=== PATIENT | female | born 1970 | race Two or more races ===

== ENCOUNTER 2023-12-26 13:08 | Outpatient (REF) | payer OTHER, SELFPAY ==
--- NOTE | ~2023-12-26 | MR_ITS ---
EXAMINATION: MR LUMBAR SPINE WITHOUT CONTRAST CLINICAL INFORMATION: Radiculopathy. COMPARISON: None available. TECHNIQUE: MRI of the lumbar spine was obtained using routine sequences without contrast. FINDINGS: Normal anatomic alignment. Normal, homogeneous marrow signal throughout. No suspicious marrow edema. Mild to moderate degenerative disc disease at L5-S1. Mild disc desiccation from L2-L4. The vertebral body heights are well-maintained. The conus medullaris terminates at the level of L1. The distal spinal cord is normal in appearance. Mild subcutaneous edema within the posterior soft tissues the back below the level of S1. No additional significant abnormalities of the paraspinal musculature. There is a 0.8 cm T2 hyperintense cyst in the lower pole the left kidney. Otherwise, limited evaluation of the intra-abdominal structures without significant abnormalities. The abdominal aorta is of normal contour and caliber. AXIAL SPINAL LEVELS: L1-L2: Normal annular contour. There is mild bilateral facet joint arthropathy. There is no neural foraminal stenosis. There is no spinal canal stenosis. L2-L3: Normal annular contour. There is mild bilateral facet joint arthropathy. There is mild left and no right neural foraminal stenosis. There is no spinal canal stenosis. L3-L4: Mild diffuse disc bulge with superimposed shallow central disc protrusion. There is mild bilateral facet joint arthropathy. There is mild bilateral neural foraminal stenosis. There is mild spinal canal stenosis exacerbated by prominent dorsal epidural lipomatous tissue. L4-L5: Mild diffuse disc bulge. There is mild to moderate bilateral facet joint arthropathy. There is mild bilateral neural foraminal stenosis. There is narrowing of the subarticular zones with mild spinal canal stenosis centrally. L5-S1: Mild diffuse disc bulge with superimposed central/right subarticular disc protrusion. There is moderate right and mild left facet joint arthropathy. There is moderate bilateral neural foraminal stenosis. There is stenosis of the right worse than left subarticular zones with mild spinal canal stenosis centrally. MR/MR lumbar spine wo con IMPRESSION: Mild to moderate multilevel degenerative spondyloarthropathy of the lumbar spine as described in detail above. Most notably, there are mild spinal canal stenoses from L3-S1. Stenoses of the subarticular zones from L4-S1. Moderate neural foraminal stenoses at L5-S1.
== END 2023-12-26 13:09 | disposition home or self-care (01) ==
LOC: HO.MRI 13:08
PROVIDERS: Visit Provider Physician Assistant
DX: M54.17 Radiculopathy, lumbosacral region (principal)
CPT/HCPCS: 72148

== ENCOUNTER 2024-04-12 10:50 | Outpatient (AMB) | payer OTHER, SELFPAY ==
--- NOTE | 2024-04-12 10:54 | A.OFFVIS_ITS ---
Vital Signs 04/12/24 10:57 Height 5 ft Weight 160 lb 7.944 oz BMI 31.3 BP 116/70 Blood Pressure Location Rt brachial Position Sitting Pulse 105 H Pulse Source Pulse Oximeter Intake Visit Reasons: Type 2 DM/CONFIRMED Intake Note: New patient referred by PCP for Diabetes Management. Last Diabetic Eye exam: 2022, has yearly check ups Last Podiatry Visit: Does not see a Computer Analyst Random Glucose: 239 mg/dl HgA1C: 9.1% 03/20/2024 Seafood Service Team Member Required: Yes Seafood Service Team Member Language: Field Interviewer Services: Seafood Service Team Member Present Seafood Service Team Member Name: Gregoria [id number] Information Interpreted: non-clinical & clinical Accompanied by: Self / Same As Patient Allergies atorvastatin [From Lipitor] Adverse Reaction (Mild, Verified 04/12/24 10:59) Muscle Pain aspirin Adverse Reaction (Unknown, Verified 04/12/24 10:59) Rash dulaglutide [From Trulicity] Adverse Reaction (Unknown, Verified 04/12/24 10:59) Hives gabapentin Adverse Reaction (Unknown, Verified 04/12/24 10:59) Dizziness Tylenol codeine Adverse Reaction (Unknown, Uncoded 04/12/24 10:59) Nausea, Vomiting HPI Comments Details: This is a 53-year-old female with a past medical history of type 2 diabetes, CVA, microalbuminuria, COPD, severe asthma, GERD, obesity, hypertension and hyperlipidemia presenting for an endocrinology consult for diabetic management. Taiwanese video brim molder used. She was diagnosed with diabetes 8-10 years ago. She has a family history of Type II diabetes and Type I diabetes on both sides of the family. Her brother from diabetes. She has multiple families with Type I diabetes. HgA1C: 9.1% 03/20/2024. Current medication regimen: Jardiance 25 mg, Metformin 1000 mg BID. She was on 5 mg ER Glipizide, but she says it was discontinued because it was not helping. She tried Trulicity after her stroke. She developed diffuse pain and itchy hives after injection. Saw Dr. Boyle (rail transportation tabeler out of [place]) on TV, and she purchased Super Nopal and berberine supplements and started following a diabetic diet. She started this regimen 03/27/24. She does not have her glucometer with her today, but she reports the following BG readings: 161 this AM, POC 239. She drank coffee. Patient says it is never this high when she checks.. Fasting AM 130-140 Before lunch 120-130 Checks again at 5pm and BG is 150-160. She exercises (squats, leg lifts and other things). Compliance issues: She takes her medications every day. It is difficult for her to check her blood sugar because she's tested for so long. She has to try multiple fingers to get a reading a lot of the time. Patient has a heart murmur on exam. She does not recall being told this, but she said she had an echocardiogram 2 or 3 years ago at [facility] in [place] [address] following her stroke. She denies chest pain or shortness of breath. Diet: Breakfast-black coffee Lunch-salad, salmon, fruit depending on appetite Dinner- salad or soup or fruit Snacks/desserts: fruit (banana, pineapple or peach) Drinks water throughout the day and some diet coke. Does not drink alcohol. 1-3 cigarettes per day. Hypoglycemia symptoms: none Hyperglycemia symptoms: none Eye exam: last year Microvascular complications: nephropathy (microalbumin) Macrovascular complications: CVA (2020) Hyperlipidemia: treated with Zetia 10 mg. LDL at goal <100. ROS: Constitutional: No unexplained weight loss, fever, chills, fatigue or night sweats. Eyes: No vision changes, blurry vision, double vision, eye pain, eye redness, eye discharge. ENT: No hearing loss, sneezing, congestion, runny nose or sore throat. Respiratory: No shortness of breath, cough or sputum production. Cardiovascular: No chest pain, chest pressure or chest discomfort. No palpitations or pedal edema. Gastrointestinal: No anorexia, nausea, vomiting or diarrhea. No abdominal pain or blood in stool. Genitourinary: No dysuria, hematuria, urinary frequency. Neurologic: No headache, dizziness, syncope, unilateral weakness, ataxia, numbness or tingling in the extremities. Musculoskeletal: No muscle pain, back pain, joint pain or swelling. Hematologic/Lymphatics: No bleeding or bruising. No painful lymph nodes. Skin: No rash or itching. Endocrine: No cold or heat intolerance. No polyuria or polydipsia. Psychiatric: No depression or anxiety. No SI/HI. Physical exam: Constitutional: Alert, in no distress. Eyes: Pupils are equal, round and reactive to light. Extraocular muscles intact. Neck: Supple, Full range of motion. No lymphadenopathy. No palpable thyroid masses. Respiratory: Clear to auscultation. Cardiovascular: S1 S2 regular. II/ systolic murmur. Gastrointestinal: Abdomen soft, non-tender, non-distended. Normal bowel sounds. No palpable masses. Right foot: Warm and well perfused. No clubbing, cyanosis or edema. DP pulse 3+. Intact vibratory sensation. Intact sensation to monofilament. Left foot: Warm and well perfused. No clubbing, cyanosis or edema. DP pulse 3+. Intact vibratory sensation. Intact sensation to monofilament. 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 Lumbar degenerative disc disease Menorrhagia Severe persistent asthma Dysphagia S/P CVA (cerebrovascular accident) History of CVA (cerebrovascular accident) Surgical History History of bilateral ligation of fallopian tubes History of carpal tunnel repair Family History Mother Diabetes Father Diabetes Social History Alcohol intake: current Alcohol intake frequency: holidays/special occasions only Patient Tobacco Use Status: Current everyday Tobacco user Physical Exam Vital Signs: Last Vital Signs Pulse 105 H 04/12/24 10:57 BP 116/70 04/12/24 10:57 BMI result Body Mass Index 31.3 Results Reviewed Results Reviewed: Laboratory Last Values Glucose (Clinic) 239 mg/dL (60-115) H 04/12/24 11:09 03/21/2024 Creatinine 0.6 GFR greater than 60 mL/M IN Hemoglobin A1c 9.1% 11/27/2023 Microalbumin 13.5 Creatinine urine 30 Microalbumin/creatinine ratio 45 11/27/2023 LDL 48.6 Triglycerides 107 HDL 42 Assessment & Plan Assessment & Plan (1) Type II diabetes mellitus with renal manifestations: Code(s): E11.29 - Type 2 diabetes mellitus with other diabetic kidney complication Category: Medical Qualifiers: Diabetes mellitus custodial insulin use: without custodial use Diabetes mellitus complication detail: with diabetic microalbuminuria Qualified Code(s): E11.29 - Type 2 diabetes mellitus with other diabetic kidney complication; R80.9 - Proteinuria, unspecified (2) Diabetes mellitus with microalbuminuric diabetic nephropathy: Code(s): E11.21 - Type 2 diabetes mellitus with diabetic nephropathy Category: Medical (3) Heart murmur: Code(s): R01.1 - Cardiac murmur, unspecified Category: Medical Plan In summary this is a 53-year-old female with a past medical history of type 2 diabetes with micro/macrovascular complications with recently improved glycemic control after implementing lifestyle modifications. Continue Jardiance 25 mg daily. Continue metformin 1000 mg twice daily. Patient had an allergic reaction to GLP 1. I prescribed a CGM. I would like her to return in 4 weeks to review readings. CGM is medically necessary since she is having difficulty with fingerstick glucose checks (see HPI). If insurance does not cover it she will continue using her fingerstick glucometer and bring this with her to the next appointment. Based on readings we will decide if we need to add additional medication. I would consider Actos in this patient given history of CVA. She does have a murmur on exam so I would like to look at her prior echocardiogram to check the ejection fraction before initiating this medication. Records requested. We could also consider restarting glipizide and titrating it since she was only on 5 mg previously. Patient has mild microalbuminuria and would benefit from an CHAS inhibitor or Arb. I will discuss this with her further at her follow-up appointment. Patient endorses family history of type 1 diabetes so I will order antibody testing and C-peptide level. Discussed pathophysiology of Type II Diabetes Mellitus with the patient in detail.? I explained the intermediate frame tender risks and complications associated with unco ntrolled diabetes including nephropathy, neuropathy, peripheral vascular disease, retinopathy, increased risk of heart disease and stroke.? Discussed lifestyle modification with the patient. Recommended 30 minutes of moderately vigorous exercise 5 days per week to promote weight loss. Refer to dietitian. We reviewed treatment of hypo/hyperglycemia. Written instructions printed for patient. Glucose tablets sent to pharmacy. Follow up in 4 weeks for type 2 diabetes. Orders: Orders Glutamic acid decarboxylase Ab Today E11.9 - Type 2 diabetes mellitus without complications, Z83.3 - Family history of diabetes mellitus C Peptide Today E11.9 - Type 2 diabetes mellitus without complications, Z83.3 - Family history of diabetes mellitus Islet Cell Antibody Scrn/Titer Today E11.9 - Type 2 diabetes mellitus without complications, Z83.3 - Family history of diabetes mellitus Referrals Brush Fabrication Supervisor Nutrition Referral E11.29 - Type 2 diabetes mellitus with other diabetic kidney complication Medications: New blood-glucose sensor (Dexcom G7 Sensor device) apply new sensor every 10 days as directed 3 ea 11RF blood-glucose meter,continuous (Dexcom G7 Upsetter) As directed 1 ea 0RF glucose (Dex4 Glucose Quick Dissolve) until symptoms of low blood sugar are controlled 16 grams (4 x 4 gram) PO Q15M PRN 30 tabs 3RF hypoglycemia Patient Instructions: If you experience low blood sugar, treat this by eating a chewable fruit candy like skittles or jelly beans (about 8 pieces), 4 ounces (1/2 cup) of fruit juice (not diet), 1 tablespoon of honey or 4 glucose tablets. If your blood sugar is under 50, take double the amount of one of the above. Recheck your blood sugar in 15 minutes. Si experimenta un nivel bajo de az?car en la temitope, tr?telo comiendo un alva de fruta masticable susan bolos o gominolas (aproximadamente 8 piezas), 4 onzas (1/2 taza) de jugo de fruta (no diet?rikki), 1 cucharada de miel o 4 tabletas de glucosa. . Si rosen nivel de az?car en temitope es inferior a 50, tome el doble de javier de los anteriores. Vuelva a controlar rosen nivel de az?car en la temitope en 15 minutos. Coding Level of Care Code New Pt Level 5 (46508) Complex EM visit Add On G2211 Diagnoses Type 2 diabetes mellitus with diabetic microalbuminuria, without long-term current use of insulin E11.29; R80.9 Diabetes mellitus intermediate frame tender insulin use: without intermediate frame tender use Diabetes mellitus complication detail: with diabetic microalbuminuria Diabetes mellitus with microalbuminuric diabetic nephropathy E11.21 Heart murmur R01.1 Time Spent (min) 68 Comment Reviewing chart, direct patient care, completing documentation
[2024-04-12 10:57] VITALS: BP 116/70; PULSE 105; BMI 31.3
[2024-04-12 11:28] LABS: Glucose, Whole Blood 239 mg/dL (60-115)
== END 2024-04-12 12:16 | disposition home or self-care (01) ==
PROVIDERS: PCP Physician Assistant; Visit Provider Physician Assistant Medical
DX: E11.29 Type 2 diabetes mellitus with other diabetic kidney complication (principal); R80.9 Proteinuria, unspecified; E11.21 Type 2 diabetes mellitus with diabetic nephropathy; R01.1 Cardiac murmur, unspecified

== ENCOUNTER → 2024-04-12 10:50 | Outpatient (BNVA) | payer OTHER, SELFPAY | PROVIDERS: PCP Physician Assistant; Visit Provider Physician Assistant Medical | DX: E11.29 Type 2 diabetes mellitus with other diabetic kidney complication (principal); R80.9 Proteinuria, unspecified; E11.21 Type 2 diabetes mellitus with diabetic nephropathy; R01.1 Cardiac murmur, unspecified; Z79.84 Long term (current) use of oral hypoglycemic drugs | CPT/HCPCS: 82947; 99202 ==

== ENCOUNTER 2024-04-26 09:37 | Outpatient (REF) | payer OTHER, SELFPAY ==
[2024-05-01 07:29] LABS: C Peptide 2.58 ng/mL (0.80-3.85)
[2024-05-01 16:54] LABS: Glutamic acid decarboxylase Ab 50 IU/mL (<5)
[2024-05-07 23:29] LABS: Islet Cell Antibody Screen NEGATIVE (NEGATIVE)
== END 2024-04-26 09:38 | disposition home or self-care (01) ==
LOC: HO.10HDL 09:37
PROVIDERS: Visit Provider Physician Assistant Medical
DX: E11.9 Type 2 diabetes mellitus without complications (principal); Z83.3 Family history of diabetes mellitus
CPT/HCPCS: 36415; 84681; 86341

== ENCOUNTER 2024-04-26 09:48 | Outpatient (RCR) | payer OTHER, SELFPAY ==
[2024-04-26 10:01] VITALS: BP 147/68; PULSE 92; O2SAT 97
== END 2024-05-15 10:16 | disposition home or self-care (01) ==
LOC: HO.PT 09:48
PROVIDERS: PCP Physician Assistant; Visit Provider Physician Assistant
DX: R26.9 Unspecified abnormalities of gait and mobility (principal)
CPT/HCPCS: 97110; 97162

== ENCOUNTER 2024-05-06 09:40 | Outpatient (AMB) | payer OTHER, SELFPAY ==
--- NOTE | 2024-05-06 10:13 | A.OFFVIS_ITS ---
VS Expanded 05/06/24 10:15 05/16/24 12:22 Height 5 ft 5 ft Weight 156 lb 8.451 oz 157 lb BMI 30.6 30.7 Intake Visit Reasons: T2DM Allergies atorvastatin [From Lipitor] Adverse Reaction (Mild, Verified 05/14/24 08:57) Muscle Pain aspirin Adverse Reaction (Unknown, Verified 05/14/24 08:57) Rash dulaglutide [From Trulicity] Adverse Reaction (Unknown, Verified 05/14/24 08:57) Hives gabapentin Adverse Reaction (Unknown, Verified 05/14/24 08:57) Dizziness Tylenol codeine Adverse Reaction (Unknown, Uncoded 05/14/24 08:57) Nausea, Vomiting Nutrition Presentation Details: Pt presents for MNT for T2DM. Pt reports having one meal a day majority of the time food frequency: fruits: 1/d fish: 2-3 x/wk milk: 0-1/d fritters: 2 x/month beverages: coffee, diet beverages physical activity:d aily life activities etoh/smoking ----- BS Monitoring Most Recent Diabetes Results: No Data to Display BOQ-Xujcsom-As.Jeor Equation Height: 5 ft Weight: 157 lb Resting Metabolic Rate: 1242.17 Calculated Activity Level: Sedentary Calories Needed to Maintain Weight: 1490.60 Diagnosis Nutrition problem #1: food nutri know defi As related to (etiology) #1: diagnosis As evidenced by (sign/symptom) #1: knowledge deficit of diet [facility] Medical History (Updated 04/15/24 @ 17:00 by GERALDO Michel) Mild pulmonary valve regurgitation Heart murmur CTS (carpal tunnel syndrome) Mixed hyperlipidemia GERD (gastroesophageal reflux disease) Essential hypertension Tobacco use COPD (chronic obstructive pulmonary disease) 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 Lumbar degenerative disc disease Menorrhagia Severe persistent asthma Dysphagia S/P CVA (cerebrovascular accident) History of CVA (cerebrovascular accident) Surgical History History of bilateral ligation of fallopian tubes History of carpal tunnel repair Family History Mother Diabetes Father Diabetes Social History Alcohol intake: current Alcohol intake frequency: holidays/special occasions only Patient Tobacco Use Status: Current everyday Tobacco user Assessment & Plan Assessment & Plan (1) Type II diabetes mellitus with renal manifestations: Code(s): E11.29 - Type 2 diabetes mellitus with other diabetic kidney complication Category: Medical Qualifiers: Diabetes mellitus complication detail: with diabetic microalbuminuria Diabetes mellitus terminal supervisor insulin use: without senior care use Qualified Code(s ): E11.29 - Type 2 diabetes mellitus with other diabetic kidney complication; R80.9 - Proteinuria, unspecified Plan: Wt: 70 Kg ( 05/09 ) Est kcal needs as per MSJ: 1500 (40% carb, 30% protein/fat) Est fluid needs as per 25-30 ml/d: 2100 Est prot per day as per 1 g/kg bw: 70 Recommend fiber intake : 8-10 g per day and gradually increase to 25-28 g per day for women and 35-38 g for men or as tolerated Recommend sodium intake per day : l less than 2000 mg Educated patient on: ( R = reviewed V = verbalizes understanding N/R = needs review N/A = not applicable * Food sources of carbohydrate, adequate serving sizes and its role in various health conditions: R V N/R * Differences between complex carbohydrates a simple carbohydrates, role of fiber in diet: R V N/R * Lean protein sources of foods: R V NR * Differences between types of fats and role in diet (mono on saturated fat fatty acids, saturated fatty acids, trans fats): R V N/R * Food sources of sodium in salt and healthy modifications for heart health in kidney health: R V R/V * Vitamins and minerals: R V N/R * Healthy plate method concept: R * Physical activity: Benefits a precaution: R V N/R * Hypoglycemia protocol (rule of 15): R V N/R * Dietary prevention of Hyperglycemia: R Patient Instructions: Work on having 3 small meals per day following healthy plate method (less than 45 g carb per meal) Reduce on sugars (in beverage, pastries and similar foods) Read food labels Coding Level of Care Code Nutr Indiv Intake (16120) Diagnoses Type 2 diabetes mellitus with diabetic microalbuminuria, without long-term cu rrent use of insulin E11.29; R80.9 Diabetes mellitus complication detail: with diabetic microalbuminuria Diabetes mellitus terminal supervisor insulin use: without terminal supervisor use Time Spent (min) 30
[2024-05-06 10:15] VITALS: BMI 30.6
[2024-05-16 12:22] VITALS: BMI 30.7
== END 2024-05-06 10:44 | disposition home or self-care (01) ==
PROVIDERS: PCP Physician Assistant; Visit Provider Dietitian, Registered
DX: E11.29 Type 2 diabetes mellitus with other diabetic kidney complication (principal); R80.9 Proteinuria, unspecified

== ENCOUNTER → 2024-05-06 09:40 | Outpatient (BNVA) | payer OTHER, SELFPAY | PROVIDERS: PCP Physician Assistant; Visit Provider Dietitian, Registered | DX: E11.29 Type 2 diabetes mellitus with other diabetic kidney complication (principal); R80.9 Proteinuria, unspecified; Z71.3 Dietary counseling and surveillance | CPT/HCPCS: 97802 ==

== ENCOUNTER 2024-05-14 08:48 | Outpatient (AMB) | payer OTHER, SELFPAY ==
--- NOTE | 2024-05-14 08:51 | MHC.OFFVIS ---
Vital Signs 05/14/24 08:52 Height 5 ft Weight 160 lb 0.889 oz BMI 31.3 BP 150/70 H Blood Pressure Location Lt brachial Position Sitting Pulse 62 Pulse Source Pulse Oximeter Intake Visit Reasons: Type 2 DM-conf Intake Note: Patient presents today for D2MT follow up visit. Last Diabetic Eye exam: 01/2023 Last Podiatry Visit: Doesn't have one Random Glucose: 128 mg/dl HgA1c: 8.1% Stonecutter Required: Yes Stonecutter Language: Pan Operator Services: Stonecutter Present Stonecutter Name: Kristopher Information Interpreted: non-clinical & clinical Accompanied by: Self / Same As Patient Allergies atorvastatin [From Lipitor] Adverse Reaction (Mild, Verified 05/14/24 08:57) Muscle Pain aspirin Adverse Reaction (Unknown, Verified 05/14/24 08:57) Rash dulaglutide [From Trulicity] Adverse Reaction (Unknown, Verified 05/14/24 08:57) Hives gabapentin Adverse Reaction (Unknown, Verified 05/14/24 08:57) Dizziness Tylenol codeine Adverse Reaction (Unknown, Uncoded 05/14/24 08:57) Nausea, Vomiting Medication List - Last Reconciled 05/14/24 by Crista Mohr MD albuterol sulfate 90 mcg/actuation (Ventolin HFA) inhalation albuterol sulfate mg inhalation blood sugar diagnostic (FreeStyle Lite Strips) As directed blood-glucose meter (FreeStyle Lite Meter kit) As directed blood-glucose meter,continuous (Dexcom G7 Physical Therapy Supervisor) As directed blood-glucose sensor (Dexcom G7 Sensor device) apply new sensor every 10 days as directed clopidogrel 75 mg PO DAILY empagliflozin (Jardiance) 25 mg PO DAILY ezetimibe 10 mg PO DAILY fluticasone propion-salmeterol 500-50 mcg/dose (Wixela Inhub) inhalation glucose (Dex4 Glucose Quick Dissolve) 16 grams (4 x 4 gram) PO Q15M PRN ipratropium-albuterol 0.5 mg-3 mg(2.5 mg base)/3 mL mL inhalation medroxyprogesterone mg IM [id number] metformin ER 1,000 mg PO BID montelukast 10 mg PO DAILY pantoprazole 40 mg PO DAILY polyethylene glycol 3350 grams PO pravastatin 40 mg PO DAILY sennosides (senna) mg PO tiotropium bromide inhalation HPI Comments Details: This is a 53-year-old female with a past medical history of type 2 diabetes, CVA, microalbuminuria, COPD, severe asthma, GERD, obesity, hypertension and hyperlipidemia presenting for follow up for diabetic management. Guatemalan video sugar house supervisor used. HPI from prior visit She was diagnosed with diabetes 8-10 years ago. She has a family history of Type II diabetes and Type I diabetes on both sides of the family. Her brother from diabetes. She has multiple families with Type I diabetes. HgA1C: 9.1% 03/20/2024. POC A1c 05/14/24 8.1% Fasting today 146 Current medication regimen: Jardiance 25 mg, Metformin 1000 mg BID. Prior meds She was on 5 mg ER Glipizide, but she says it was discontinued because it was not helping. She tried Trulicity after her stroke. She developed diffuse pain and itchy hives after injection. Saw Dr. Boyle (refrigerator room clerk out of [place]) on TV, and she purchased Super Nopal and berberine supplements and started following a diabetic diet. She started this regimen 03/27/24. She does not have her glucometer with her today, but she reports the following BG readings: 161 this AM, POC 239. She drank coffee. Patient says it is never this high when she checks.. Fasting AM 130-140 Before lunch 120-130 Checks again at 5pm and BG is 150-160. She exercises (squats, leg lifts and other things). Compliance issues: She takes her medications every day. It is difficult for her to check her blood sugar because she's tested for so long. She has to try multiple fingers to get a reading a lot of the time. Echo 05/2022 showed mild pulmonic valve regurgitation and normal LVEF at [facility] in [place] following her stroke. She denies chest pain or shortness of breath. Diet: Breakfast-black coffee Lunch-salad, salmon, fruit depending on appetite Dinner- salad or soup or fruit Snacks/desserts: fruit (banana, pineapple or peach) Drinks water throughout the day and some diet coke. Does not drink alcohol. 1-3 cigarettes per day. Hypoglycemia symptoms: none Hyperglycemia symptoms: none Eye exam: 03/09 , no retinoapthy Microvascular complications: nephropathy (microalbumin) Macrovascular complications: CVA (2020) Hyperlipidemia: treated with Zetia 10 mg and pravastatin 40 mg daily LDL at goal <70. No platelet count or liver function to screen for MASLD with Fib 4 index Interval history No hypoglycemic episodes, no emergency room visits, no hospitalizations She was prescribed CGM at the last visit, still waiting to obtain it SMA ABGs: She is checking twice a day, fasting readings have been elevated in the 130s and even 150s. Bedtime readings mostly around 1 RAHDA and some readings of 100. Physical exam: Constitutional: Alert, in no distress. Eyes: Pupils are equal, round and reactive to light. Extraocular muscles intact. Neck: Supple, Full range of motion. No lymphadenopathy. No palpable thyroid masses. Respiratory: Clear to auscultation. Cardiovascular: S1 S2 regular. II/ systolic murmur. Gastrointestinal: Abdomen soft, non-tender, non-distended. Normal bowel sounds. No palpable masses. Right foot: checked 04/12/24 Warm and well perfused. No clubbing, cyanosis or edema. DP pulse 3+. Intact vibratory sensation. Intact sensation to monofilament. Left foot: checked 04/12/24Warm and well perfused. No clubbing, cyanosis or edema. DP pulse 3+. Intact vibratory sensation. Intact sensation to monofilament. Labs 03/21/2024 Creatinine 0.6 GFR greater than 60 mL/M IN Hemoglobin A1c 9.1% 11/27/2023 Microalbumin 13.5 Creatinine urine 30 Microalbumin/creatinine ratio 45 11/27/2023 LDL 48.6 Triglycerides 107 HDL 42 Laboratory Last Values Glucose (Clinic) 239 mg/dL (60-115) H 04/12/24 11:09 Laboratory Tests 04/12/24 04/26/24 11:09 09:40 Glucose (Clinic) 239 H C-Peptide 2.58 Islet Cell Ab Screen NEGATIVE Islet Cell Ab Titer TNP AMINA Antibody 50 H [facility] Medical History (Updated 04/15/24 @ 17:00 by GERALDO Michel) Mild pulmonary valve regurgitation Heart murmur CTS (carpal tunnel syndrome) Mixed hyperlipidemia GERD (gastroesophageal reflux disease) Essential hypertension Tobacco use COPD (chronic obstructive pulmonary disease) 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 Lumbar degenerative disc disease Menorrhagia Severe persistent asthma Dysphagia S/P CVA (cerebrovascular accident) History of CVA (cerebrovascular accident) Surgical History History of bilateral ligation of fallopian tubes History of carpal tunnel repair Family History Mother Diabetes Father Diabetes Social History Alcohol intake: current Alcohol intake frequency: holidays/special occasions only Patient Tobacco Use Status: Current everyday Tobacco user Physical Exam Vital Signs: Last Vital Signs Pulse 62 05/14/24 08:52 BP 150/70 H 05/14/24 08:52 BMI result Body Mass Index 31.3 Results AMB Hemoglobin A1c AMB Hemoglobin A1c 8.1 % Last Edit by ROB Khan on 05/14/24 09:10 Assessment & Plan Assessment & Plan (1) Type II diabetes mellitus with renal manifestations: Code(s): E11.29 - Type 2 diabetes mellitus with other diabetic kidney complication Category: Medical Qualifiers: Diabetes mellitus buttermilk drier operator insulin use: without buttermilk drier operator use Diabetes mellitus complication detail: with diabetic microalbuminuria Qualified Code(s): E11.29 - Type 2 diabetes mellitus with other diabetic kidney complication; R80.9 - Proteinuria, unspecified Plan: 53-year-old female with a past medical history of type 2 diabetes without long-term insulin use with complications of albuminuria, CVA with recently improved glycemic control after implementing lifestyle modifications. A1c from March 2024 at 9.1%, has come down to 8.1% on point of care checked today 05/14/2024. I praised the good work she is doing the improving her blood sugar control. She has been checking her blood sugars twice a day and her fastings have been elevated in the 140s some even in 160s. Her bedtime readings have been around 150s and some even in 200s.. At this time given A1c still above goal of less than 7%, I will add Actos 30 mg daily to her regimen. She has had a CVA in the past. She had an allergic reaction to Trulicity in the past. She is going to pick up man the prescription for her CGM which she reports has been approved by insurance in 2 days. She also has an elevated microalbumin/creatinine ratio 45 from November 2023, we will start her on Jaden inhibitor. Plan: Continue Jardiance 25 mg daily. Continue metformin 1000 mg twice daily. Patient had an allergic reaction to GLP 1. Start Actos 30 mg daily Start lisinopril 5 mg daily Continue monitoring blood sugars with fingersticks still she gets a CGM Ordered platelet count, liver panel to evaluate for metabolic dysfunction associated liver disease Stressed importance of lifestyle modification and diet, she recently saw our dietitian as well. Encouraged to walk daily at least 20-30 minutes. (2) Diabetes mellitus with microalbuminuric diabetic nephropathy: Code(s): E11.21 - Type 2 diabetes mellitus with diabetic nephropathy Category: Medical Plan: She also has an elevated microalbumin/creatinine ratio 45 from November 2023, we will start her on Jaden inhibitor. Plan: Start lisinopril 5 mg daily (3) Mixed hyperlipidemia: Code(s): E78.2 - Mixed hyperlipidemia Category: Medical Plan: LDL at goal less than 70 mg/dL given prior history of stroke, her age. Plan: -continue ezetimibe 10 mg daily -continue pravastatin 40 mg daily (4) Essential hypertension: Code(s): I10 - Essential (primary) hypertension Category: Medical Plan: She is not on any medications for her blood pressure. Blood pressure on her visits has been elevated in the 140s to 150 systolic. She also has microalbuminuria. Hence JADEN inhibitor would be a good choice for her. Plan: -start lisinopril 5 mg daily -BMP in 2 weeks Plan I spent 30 minutes in reviewing the record, seeing the patient and documenting in the medical record. Orders: Orders Basic Metabolic Panel 2 Weeks E11.21 - Type 2 diabetes mellitus with diabetic nephropathy, E11.29 - Type 2 diabetes mellitus with other diabetic kidney complication, E78.2 - Mixed hyperlipidemia, I10 - Essential (primary) hypertension, R80.9 - Proteinuria, unspecified Platelet Count 2 Weeks E11.21 - Type 2 diabetes mellitus with diabetic nephropathy, E11.29 - Type 2 diabetes mellitus with other diabetic kidney complication, E78.2 - Mixed hyperlipidemia, I10 - Essential (primary) hypertension, R80.9 - Proteinuria, unspecified AMB Hemoglobin A1c Today E11.29 - Type 2 diabetes mellitus with other diabetic kidney complication, R80.9 - Proteinuria, unspecified, Z13.9 - Encounter for screening, unspecified Liver Panel 2 Weeks E11.21 - Type 2 diabetes mellitus with diabetic nephropathy, E11.29 - Type 2 diabetes mellitus with other diabetic kidney complication, E78.2 - Mixed hyperlipidemia, I10 - Essential (primary) hypertension, R80.9 - Proteinuria, unspecified Medications: New pioglitazone (Actos) 30 mg PO DAILY 90 tabs 3RF lisinopril 5 mg PO DAILY 30 tabs 6RF Patient Instructions: -Start lisinopril 5 mg daily -start Actos 30 mg daily -continue pravastatin and ezetimibe as it is -Continue metformin, Jardiance as it is Do blood work in 2 weeks walk daily -Iniciar lisinopril 5 mg al d?a. -comenzar Actos 30 mg al d?a -continuar pravastatina y ezetimiba aleksander susan est?n Contin?e con metformina, Jardiance lo tiene. Hacer an?lisis de temitope en 2 semanas. caminar diarios Coding Level of Care Code Est Pt Level 4 (72922) Complex EM visit Add On G2211 Diagnoses Type 2 diabetes mellitus with diabetic microalbuminuria, without long-term current use of insulin E11.29; R80.9 Diabetes mellitus buttermilk drier operator insulin use: without buttermilk drier operator use Diabetes mellitus complication detail: with diabetic microalbuminuria Diabetes mellitus with microalbuminuric diabetic nephropathy E11.21 Mixed hyperlipidemia E78.2 Essential hypertension I10 Time Spent (min) 30
[2024-05-14 08:52] VITALS: BP 150/70; PULSE 62; BMI 31.3
[2024-05-14 10:59] LABS: Glucose, Whole Blood 128 mg/dL (60-115)
== END 2024-05-14 09:24 | disposition home or self-care (01) ==
LOC: HO.ENCR 08:48
PROVIDERS: PCP Physician Assistant; Visit Provider Student in an Organized Health Care Education/Training Program
DX: E11.29 Type 2 diabetes mellitus with other diabetic kidney complication (principal); R80.9 Proteinuria, unspecified; E11.21 Type 2 diabetes mellitus with diabetic nephropathy; E78.2 Mixed hyperlipidemia; I10 Essential (primary) hypertension; Z13.9 Encounter for screening, unspecified
CPT/HCPCS: 99214; G2211

== ENCOUNTER → 2024-05-14 08:48 | Outpatient (BNVA) | payer OTHER, SELFPAY | PROVIDERS: PCP Physician Assistant; Visit Provider Student in an Organized Health Care Education/Training Program | DX: E11.29 Type 2 diabetes mellitus with other diabetic kidney complication (principal); E11.21 Type 2 diabetes mellitus with diabetic nephropathy; R80.9 Proteinuria, unspecified; E78.2 Mixed hyperlipidemia; I10 Essential (primary) hypertension | CPT/HCPCS: 82947; 83036; 99212 ==

== ENCOUNTER 2024-08-16 08:35 | Outpatient (AMB) | payer OTHER, SELFPAY ==
--- NOTE | 2024-08-16 08:48 | A.OFFVIS_ITS ---
Vital Signs 08/16/24 08:51 08/16/24 09:29 Height 5 ft Weight 166 lb 10.711 oz BMI 32.5 BP 130/82 128/72 Blood Pressure Location Rt brachial Position Sitting Pulse 90 Pulse Source Pulse Oximeter Intake Visit Reasons: T2DM Intake Note: Patient present today to follow up on Type 2 Diabetes Mellitus. Last Diabetic Eye exam: approx 3 months Last Podiatry Visit: Doesn't have a Sampler And Test Preparer Random Glucose: 132 mg/dl HgA1C: 7.2% 08/16/2024 Electronic Sensing Equipment Assembler Required: Yes Electronic Sensing Equipment Assembler Language: Air Brake Worker Services: Electronic Sensing Equipment Assembler Present Electronic Sensing Equipment Assembler Name: Mario [id number] Information Interpreted: non-clinical & clinical Accompanied by: Self / Same As Patient Allergies atorvastatin [From Lipitor] Adverse Reaction (Mild, Verified 08/16/24 08:52) Muscle Pain aspirin Adverse Reaction (Unknown, Verified 08/16/24 08:52) Rash dulaglutide [From Trulicity] Adverse Reaction (Unknown, Verified 08/16/24 08:52) Hives gabapentin Adverse Reaction (Unknown, Verified 08/16/24 08:52) Dizziness Tylenol codeine Adverse Reaction (Unknown, Uncoded 08/16/24 08:52) Nausea, Vomiting HPI Comments Details: This is a 54-year-old female with a past medical history of type 2 diabetes, CVA, microalbuminuria, COPD, severe asthma, GERD, obesity, hypertension and hyperlipidemia presenting for follow up for diabetic management. Turkish video medical interpreter used: [id number] Mario. She was diagnosed with diabetes 8-10 years ago. She has a family history of Type II diabetes and Type I diabetes on both sides of the family. Her brother from diabetes. She has multiple families with Type I diabetes. HgA1C: 7.2% 08/16/2024 HgA1C: 9.1% 03/20/2024. POC A1c 05/14/24 8.1% Fasting today 146 She does not have the glucometer today. She reports the following: AM fasting 108-110. After dinner readings are 120s. No lows Current medication regimen: Jardiance 25 mg, Metformin 1000 mg BID and Actos 30 mg daily. Prior meds She was on 5 mg ER Glipizide, but she says it was discontinued because it was not helping. She tried Trulicity after her stroke. She developed diffuse pain and itchy hives after injection. She exercises (squats, leg lifts and other things). Echo 05/2022 showed mild pulmonic valve regurgitation and normal LVEF at [facility] in [place] following her stroke. She denies chest pain or shortness of breath. Hypoglycemia symptoms: none Hyperglycemia symptoms: none Eye exam: 03/09 , no retinoapthy Microvascular complications: nephropathy (microalbumin) Macrovascular complications: CVA (2020) Hyperlipidemia: treated with Zetia 10 mg and pravastatin 40 mg daily LDL at goal <70. Patient reminded to have lab orders completed. ROS: Constitutional: No unexplained weight loss, fever, chills, fatigue or night sweats. Respiratory: No shortness of breath, cough or sputum production. Cardiovascular: No chest pain, chest pressure or chest discomfort. No palpitations or pedal edema. Gastrointestinal: No anorexia, nausea, vomiting or diarrhea. No abdominal pain or blood in stool. Neurologic: No headache, dizziness, syncope Endocrine: No cold or heat intolerance. No polyuria or polydipsia. Physical exam: Constitutional: Alert, in no distress. Eyes: Pupils are equal, round and reactive to light. Extraocular muscles intact. Neck: Supple, Full range of motion. No lymphadenopathy. No palpable thyroid masses. Respiratory: Clear to auscultation. Cardiovascular: S1 S2 regular. II/ systolic murmur. 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 Lumbar degenerative disc disease Menorrhagia Severe persistent asthma Dysphagia S/P CVA (cerebrovascular accident) History of CVA (cerebrovascular accident) Surgical History History of bilateral ligation of fallopian tubes History of carpal tunnel repair Family History Mother Diabetes Father Diabetes Social History Alcohol intake: current Alcohol intake frequency: holidays/special occasions only Patient Tobacco Use Status: Current everyday Tobacco user Physical Exam Vital Signs: Last Vital Signs Pulse 90 08/16/24 08:51 BP 128/72 08/16/24 09:29 BMI result Body Mass Index 32.5 Results AMB Hemoglobin A1c AMB Hemoglobin A1c 7.2 % Last Edit by ROB Mendez on 09:07 Results Reviewed Results Reviewed: Laboratory Last Values Glucose (Clinic) 132 mg/dL (60-115) H 08/16/24 08:58 Hgb A1c (Clinic) 7.2 % (4.0-6.0) H 08/16/24 09:00 03/21/2024 Creatinine 0.6 GFR greater than 60 mL/M IN Hemoglobin A1c 9.1% 11/27/2023 Microalbumin 13.5 Creatinine urine 30 Microalbumin/creatinine ratio 45 11/27/2023 LDL 48.6 Triglycerides 107 HDL 42 Assessment & Plan Assessment & Plan (1) Type II diabetes mellitus with renal manifestations: Code(s): E11.29 - Type 2 diabetes mellitus with other diabetic kidney complication Category: Medical Qualifiers: Diabetes mellitus complication detail: with diabetic microalbuminuria Diabetes mellitus assisted insulin use: without intermediate teacher use Qualified Code(s): E11.29 - Type 2 diabetes mellitus with other diabetic kidney complication; R80.9 - Proteinuria, unspecified Plan: In summary this is a 54-year-old female with a past medical history of type 2 diabetes with micro/macrovascular complications with recently improved glycemic control after implementing lifestyle modifications. Diabetes now controlled per home glucose readings. She will bring her gl ucometer to her next appointment. Continue Jardiance 25 mg daily. Continue Actos 30 mg daily. Continue metformin 1000 mg twice daily. Patient had an allergic reaction to GLP 1. Discussed pathophysiology of Type II Diabetes Mellitus with the patient in detail.? I explained the assisted risks and complications associated with uncontrolled diabetes including nephropathy, neuropathy, peripheral vascular disease, retinopathy, increased risk of heart disease and stroke.? Discussed lifestyle modification with the patient. Recommended 30 minutes of moderately vigorous exercise 5 days per week to promote weight loss. Refer to dietitian. We reviewed treatment of hypo/hyperglycemia. Follow up in 3 months for type 2 diabetes. Orders: Orders AMB Hemoglobin A1c Today E11.29 - Type 2 diabetes mellitus with other diabetic kidney complication, R80.9 - Proteinuria, unspecified Coding Level of Care Code Est Pt Level 4 (88009) Complex EM visit Add On G2211 Diagnoses Type 2 diabetes mellitus with diabetic microalbuminuria, without long-term current use of insulin E11.29; R80.9 Diabetes mellitus complication detail: with diabetic microalbuminuria Diabetes mellitus intermediate teacher insulin use: without assisted use
[2024-08-16 08:51] VITALS: BP 130/82; PULSE 90; BMI 32.5
[2024-08-16 09:02] LABS: Glucose, Whole Blood 132 mg/dL (60-115)
[2024-08-16 09:29] VITALS: BP 128/72
== END 2024-08-16 09:34 | disposition home or self-care (01) ==
PROVIDERS: PCP Physician Assistant; Visit Provider Physician Assistant Medical
DX: E11.29 Type 2 diabetes mellitus with other diabetic kidney complication (principal); R80.9 Proteinuria, unspecified

== ENCOUNTER → 2024-08-16 08:35 | Outpatient (BNVA) | payer OTHER, SELFPAY | PROVIDERS: PCP Physician Assistant; Visit Provider Physician Assistant Medical | DX: E11.29 Type 2 diabetes mellitus with other diabetic kidney complication (principal); R80.9 Proteinuria, unspecified | CPT/HCPCS: 82947; 83036; 99212 ==

== ENCOUNTER 2024-11-12 09:13 | Outpatient (AMB) | payer OTHER, SELFPAY ==
--- NOTE | 2024-11-12 09:19 | MHC.OFFVIS ---
Vital Signs 11/12/24 09:21 11/12/24 10:18 Height 5 ft Weight 173 lb 15.115 oz BMI 34.0 BP 144/74 H 128/68 Blood Pressure Location Rt brachial Position Sitting Pulse 101 H 88 Pulse Source Pulse Oximeter Pulse Oximetry (%) 98 Oxygen Delivery Method Room Air Intake Visit Reasons: T2DM Intake Note: Patient present today to follow up on Type 2 Diabetes Mellitus. Patient c/o of weight gain and will like to discuss options. Last Diabetic Eye exam: approx 6 months Last Podiatry Visit: Doesn't have a Pmo Consultant Random Glucose: 156 mg/dl HgA1C: 7.6% 11/12/2024 Podiatrist Assistant Required: Yes Podiatrist Assistant Language: Tax Clerk Services: Podiatrist Assistant Present Podiatrist Assistant Name: Dayanara [id number] Information Interpreted: non-clinical & clinical Accompanied by: Self / Same As Patient Allergies atorvastatin [From Lipitor] Adverse Reaction (Mild, Verified 11/12/24 09:22) Muscle Pain aspirin Adverse Reaction (Unknown, Verified 11/12/24 09:22) Rash dulaglutide [From Trulicity] Adverse Reaction (Unknown, Verified 11/12/24 09:22) Hives gabapentin Adverse Reaction (Unknown, Verified 11/12/24 09:22) Dizziness Tylenol codeine Adverse Reaction (Unknown, Uncoded 11/12/24 09:22) Nausea, Vomiting HPI Comments Details: This is a 54-year-old female with a past medical history of type 2 diabetes, CVA, microalbuminuria, COPD, severe asthma, GERD, obesity, hypertension and hyperlipidemia presenting for follow up for diabetic management. She was diagnosed with diabetes 8-10 years ago. Hemoglobin A1c 7.6% today. HgA1C: 7.2% 08/16/2024 HgA1C: 9.1% 03/20/2024. Reviewed glucometer download She is in range 72% Highest reading to 292. Lowest reading 118. 171 mg/dL average glucose. 2.1 readings per day. She has hyperglycemia in the evening and overnight Current medication regimen: Jardiance 25 mg, Metformin 1000 mg BID and Actos 30 mg daily. She says she is gaining weight since starting Actos though she is eating less. Prior meds She was on 5 mg ER Glipizide, but she says it was discontinued because it was not helping. She tried Trulicity after her stroke. She developed diffuse pain and itchy hives after injection. She exercises (squats, leg lifts and other things). Echo 05/2022 showed mild pulmonic valve regurgitation and normal LVEF at [facility] in [place] following her stroke. She denies chest pain or shortness of breath. Hypoglycemia symptoms: none Hyperglycemia symptoms: none Eye exam: 02/2024 , no retinoapthy Microvascular complications: nephropathy (microalbumin) Macrovascular complications: CVA (2020) Hyperlipidemia: treated with Zetia 10 mg and pravastatin 40 mg daily LDL at goal <70. Patient reminded to have lab orders completed. ROS: Constitutional: No unexplained weight loss, fever, chills, fatigue or night sweats. Respiratory: No shortness of breath, cough or sputum production. Cardiovascular: No chest pain, chest pressure or chest discomfort. No palpitations or pedal edema. Gastrointestinal: No anorexia, nausea, vomiting or diarrhea. No abdominal pain or blood in stool. Neurologic: No headache, dizziness, syncope Endocrine: No cold or heat intolerance. No polyuria or polydipsia. Physical exam: Constitutional: Alert, in no distress. Eyes: Pupils are equal, round and reactive to light. Extraocular muscles intact. Neck: Supple, Full range of motion. No lymphadenopathy. No palpable thyroid masses. Respiratory: Clear to auscultation. Cardiovascular: S1 S2 regular. II/ systolic murmur. 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 Lumbar degenerative disc disease Menorrhagia Severe persistent asthma Dysphagia S/P CVA (cerebrovascular accident) History of CVA (cerebrovascular accident) Surgical History History of bilateral ligation of fallopian tubes History of carpal tunnel repair Family History Mother Diabetes Father Diabetes Social History Alcohol intake: current Alcohol intake frequency: holidays/special occasions only Patient Tobacco Use Status: Current everyday Tobacco user Physical Exam Vital Signs: Last Vital Signs Pulse 101 H 11/12/24 09:21 BP 144/74 H 11/12/24 09:21 Pulse Ox 98 11/12/24 09:21 Oxygen Delivery Method Room Air 11/12/24 09:21 BMI result Body Mass Index 34.0 Results AMB Hemoglobin A1c AMB Hemoglobin A1c 7.6 % Last Edit by ROB Mendez on 11/12/24 09:43 Results Reviewed Results Reviewed: Laboratory Last Values Glucose (Clinic) 156 mg/dL (60-115) H 11/12/24 09:30 Hgb A1c (Clinic) 7.6 % (4.0-6.0) H 11/12/24 09:33 Assessment & Plan Assessment & Plan (1) Type II diabetes mellitus with renal manifestations: Code(s): E11.29 - Type 2 diabetes mellitus with other diabetic kidney complication Category: Medical Qualifiers: Diabetes mellitus complication detail: with diabetic microalbuminuria Diabetes mellitus [facility] insulin use: without [facility] use Qualified Code(s): E11.29 - Type 2 diabetes mellitus with other diabetic kidney complication; R80.9 - Proteinuria, unspecified Plan: In summary this is a 54-year-old female with a past medical history of type 2 diabetes with micro/macrovascular complications with suboptimal glycemic control with concerns about weight gain on Actos. Today: Continue Jardiance 25 mg daily. Continue Actos 30 mg daily. Continue metformin 1000 mg twice daily. We discussed the recommendation is to start insulin though she was initially concerned about potential side effects and low blood sugars. She was also worried because she previously had an allergic reaction to Trulicity. We discussed the differences between the medications. We also discussed it is possible to have an allergic reaction to any new medication though reactions to insulin are not common. We agreed to the following plan: Once you have the continuous glucose monitor (reader machine and sensors) call the office to set up the appointment with the nurse informatics educator to show you how to use this. Once you are using the continuous glucose monitor, start Lantus 4 units every evening and decrease Actos to 15 mg daily. Continue Jardiance 25 mg daily and Metformin 1000 mg twice daily. We will continue to titrate Lantus for glycemic control and taper off Actos if her weight does not decrease though it may be difficult to lose weight on insulin as well. Discussed pathophysiology of Type II Diabetes Mellitus with the patient in detail.? I explained the [facility] risks and complications associated with uncontrolled diabetes including nephropathy, neuropathy, peripheral vascular disease, retinopathy, increased risk of heart disease and stroke.? Discussed lifestyle modification with the patient. Recommended 30 minutes of moderately vigorous exercise 5 days per week to promote weight loss. Refer to dietitian. We reviewed treatment of hypo/hyperglycemia. Written instructions provided to the patient. Follow up in 4 weeks for type 2 diabetes. Plan Follow up in 4 weeks for type 2 diabetes. Orders: Orders AMB Hemoglobin A1c Today E11.29 - Type 2 diabetes mellitus with other diabetic kidney complication, R80.9 - Proteinuria, unspecified Aspartate Amino Transferase Today E11.29 - Type 2 diabetes mellitus with other diabetic kidney complication, R80.9 - Proteinuria, unspecified Platelet Count Today E11.9 - Type 2 diabetes mellitus without complications Vitamin B12 Today Z91.89 - Other specified personal risk factors, not elsewhere classified Microalbumin, Random (w Creat) Today E11.9 - Type 2 diabetes mellitus without complications Alanine Aminotransferase Today R79.89 - Other specified abnormal findings of blood chemistry Lipid Panel Today E78.5 - Hyperlipidemia, unspecified Medications: New pen needle, diabetic As directed to inject insulin once daily. 100 ea 5RF blood-glucose,silk weaver,cont (FreeStyle Edmund 3 Gillespie) Use daily to monitor blood glucose levels continuously. 1 ea 0RF E11.29 - Type 2 diabetes mellitus with other diabetic kidney complication, R80.9 - Proteinuria, unspecified blood-glucose sensor (FreeStyle Edmund 3 Plus Sensor device) Apply 1 new sensor every 15 days as directed to monitor blood glucose continuously. 2 ea 11RF E11.29 - Type 2 diabetes mellitus with other diabetic kidney complication, R80.9 - Proteinuria, unspecified blood-glucose sensor (FreeStyle Edmund 3 Plus Sensor device) Apply 1 new sensor every 15 days as directed to monitor blood glucose continuously. 2 ea 11RF E11.29 - Type 2 diabetes mellitus with other diabetic kidney complication, R80.9 - Proteinuria, unspecified blood-glucose,silk weaver,cont (FreeStyle Edmund 3 Gillespie) Use daily to monitor blood glucose levels continuously. 1 ea 0RF E11.29 - Type 2 diabetes mellitus with other diabetic kidney complication, R80.9 - Proteinuria, unspecified blood-glucose meter (FreeStyle Lite Meter kit) As directed to check blood sugar. 1 ea 0RF E11.21 - Type 2 diabetes mellitus with diabetic nephropathy pioglitazone (Actos) Replaces Actos 30 mg daily. 15 mg PO DAILY 90 tabs 0RF insulin glargine (Lantus Solostar U-100 Insulin) 4 units (0.04 mL) subcut QPM 15 mL 3RF blood-glucose sensor (FreeStyle Edmund 3 Plus Sensor device) Apply 1 new sensor every 15 days as directed to monitor blood glucose continuously. 2 ea 11RF E11.29 - Type 2 diabetes mellitus with other diabetic kidney complication, R80.9 - Proteinuria, unspecified blood-glucose,silk weaver,cont (FreeStyle Edmund 3 Gillespie) Use daily to monitor blood glucose levels continuously. 1 ea 0RF E11.29 - Type 2 diabetes mellitus with other diabetic kidney complication, R80.9 - Proteinuria, unspecified Discontinued pioglitazone (Actos) Discontinued Reason: Doctor's Order 30 mg PO DAILY 90 tabs 3RF Patient Instructions: Continue Jardiance 25 mg daily. Continue Actos 30 mg daily. Continue metformin 1000 mg twice daily. Once you have the continuous glucose monitor (reader machine and sensors) call the office to set up the appointment with the nurse informatics educator to show you how to use this. Once you are using the continuous glucose monitor, start Lantus 4 units every evening and decrease Actos to 15 mg daily. Continue Jardiance 25 mg daily and Metformin 1000 mg twice daily. If you experience low blood sugar, treat this by eating a chewable fruit candy like skittles or jelly beans (about 8 pieces), 4 ounces (1/2 cup) of fruit juice (not diet), 1 tablespoon of honey or 4 glucose tablets. If your blood sugar is under 55, take double the amount of one of the above. Recheck your blood sugar in 15 minutes. Contin?e con Jardiance 25 mg al d?a. Contin?e con Actos 30 mg al d?a. Contin?e con metformina 1000 mg dos veces al d?a. Joyce vez que tenga el monitor continuo de glucosa (lector y sensores), llame a la oficina para programar joyce nora con el educador en diabetes, quien le mostrar? c?mo usarlo. Joyce vez que est? usando el monitor continuo de glucosa, comience con Lantus 4 unidades cada noche y reduzca la dosis de Actos a 15 mg al d?a. Contin?e con Jardiance 25 mg al d?a y metformina 1000 mg dos veces al d?a. Si experimenta niveles bajos de az?car en la temitope, tr?telo comiendo un caramelo masticable de fruta susan Skittles o Jelly Beans (aproximadamente 8 piezas), 113 ml (1/2 taza) de jugo de fruta (no de dieta), 1 cucharada de miel o 4 tabletas de glucosa. Si rosen nivel de az?car en la temitope es inferior a 55, tome el doble de la cantidad de javier de los anteriores. Vuelva a medir rosen nivel de az?car en la temitope en 15 minutos. Coding Level of Care Code Est Pt Level 5 (13809) Complex EM visit Add On G2211 Diagnoses Type 2 diabetes mellitus with diabetic microalbuminuria, without long-term current use of insulin E11.29; R80.9 Diabetes mellitus complication detail: with diabetic microalbuminuria Diabetes mellitus terminal block assembler insulin use: without [facility] use Time Spent (min) 50 Comment Direct patient care, discussing medications, completing documentation
[2024-11-12 09:21] VITALS: BP 144/74; PULSE 101; O2SAT 98; BMI 34.0
[2024-11-12 09:35] LABS: Glucose, Whole Blood 156 mg/dL (60-115)
[2024-11-12 10:18] VITALS: BP 128/68; PULSE 88
== END 2024-11-12 10:24 | disposition home or self-care (01) ==
LOC: HO.ENCR 09:13
PROVIDERS: Visit Provider Physician Assistant Medical
DX: E11.29 Type 2 diabetes mellitus with other diabetic kidney complication (principal); R80.9 Proteinuria, unspecified

== ENCOUNTER → 2024-11-12 09:13 | Outpatient (BNVA) | payer OTHER, SELFPAY | PROVIDERS: Visit Provider Physician Assistant Medical | DX: E11.29 Type 2 diabetes mellitus with other diabetic kidney complication (principal); E11.21 Type 2 diabetes mellitus with diabetic nephropathy; R80.9 Proteinuria, unspecified; R79.89 Other specified abnormal findings of blood chemistry; Z79.4 Long term (current) use of insulin; Z91.89 Other specified personal risk factors, not elsewhere classified | CPT/HCPCS: 82947; 83036; 99212 ==

== ENCOUNTER 2024-12-10 09:15 | Outpatient (AMB) | payer OTHER, SELFPAY ==
--- NOTE | 2024-12-10 09:34 | A.OFFVIS_ITS ---
Vital Signs 12/10/24 09:36 Height 5 ft Weight 171 lb 1.259 oz BMI 33.4 BP 128/70 Blood Pressure Location Rt brachial Position Sitting Pulse 94 Pulse Source Pulse Oximeter Pulse Oximetry (%) 96 Intake Visit Reasons: T2DM Intake Note: Patient present today to follow up on Type 2 Diabetes Mellitus. Last Diabetic Eye exam: approx 6-7 months ago Last Podiatry Visit: Doesn't have a Lpn Rn Random Glucose: 153 mg/dl HgA1C: 7.6% 11/12/2024 Sprayer Machine Required: Yes Sprayer Machine Language: Performance Architect Services: Sprayer Machine Present Sprayer Machine Name: Edvin [id number] Information Interpreted: non-clinical & clinical Accompanied by: Self / Same As Patient Allergies atorvastatin [From Lipitor] Adverse Reaction (Mild, Verified 12/10/24 09:37) Muscle Pain aspirin Adverse Reaction (Unknown, Verified 12/10/24 09:37) Rash dulaglutide [From Trulicity] Adverse Reaction (Unknown, Verified 12/10/24 09:37) Hives gabapentin Adverse Reaction (Unknown, Verified 12/10/24 09:37) Dizziness Tylenol codeine Adverse Reaction (Unknown, Uncoded 12/10/24 09:37) Nausea, Vomiting HPI Comments Details: This is a 54-year-old female with a past medical history of type 2 diabetes, CVA, microalbuminuria, COPD, severe asthma, GERD, obesity, hypertension and hyperlipidemia presenting for follow up for diabetic management. She was diagnosed with diabetes 8-10 years ago. Hemoglobin A1c 7.6% 11/12/2024. HgA1C: 7.2% 08/16/2024 HgA1C: 9.1% 03/20/2024. She forgot her glucometer today. She checks her blood sugar in the morning and evening, and she reports blood sugars are between 100-130. Denies sugars over 180 or less than 70. Current medication regimen: Lantus 4 units every evening. Jardiance 25 mg, Metformin 1000 mg BID and Actos 15 mg daily (reduced at last visit due to weight gain, and she has lost a couple of lb since then) Previous meds: She was on 5 mg ER Glipizide, but she says it was discontinued because it was not helping. She tried Trulicity after her stroke. She developed diffuse pain and itchy hives after injection. She exercises (squats, leg lifts and other things). Echo 05/2022 showed mild pulmonic valve regurgitation and normal LVEF at [facility] in [place] following her stroke. She denies chest pain or shortness of breath. Hypoglycemia symptoms: none Hyperglycemia symptoms: none Eye exam: 02/2024 , no retinoapthy Microvascular complications: nephropathy (microalbumin) Macrovascular complications: CVA (2020) Hyperlipidemia: treated with Zetia 10 mg and pravastatin 40 mg daily LDL at goal <70. She is going to have her lab work done today. ROS: Constitutional: No unexplained weight loss, fever, chills, fatigue or night sweats. Respiratory: No shortness of breath, cough or sputum production. Cardiovascular: No chest pain, chest pressure or chest discomfort. No palpitations or pedal edema. Gastrointestinal: No anorexia, nausea, vomiting or diarrhea. No abdominal pain or blood in stool. Neurologic: No headache, dizziness, syncope Endocrine: No cold or heat intolerance. No polyuria or polydipsia. Physical exam: Constitutional: Alert, in no distress. Eyes: Pupils are equal, round and reactive to light. Extraocular muscles intact. Neck: Supple, Full range of motion. No lymphadenopathy. No palpable thyroid masses. Respiratory: Clear to auscultation. Cardiovascular: S1 S2 regular. II/ systolic murmur. 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 Lumbar degenerative disc disease Menorrhagia Severe persistent asthma Dysphagia S/P CVA (cerebrovascular accident) History of CVA (cerebrovascular accident) Surgical History History of bilateral ligation of fallopian tubes History of carpal tunnel repair Family History Mother Diabetes Father Diabetes Social History Alcohol intake: current Alcohol intake frequency: holidays/special occasions only Patient Tobacco Use Status: Current everyday Tobacco user Physical Exam Vital Signs: Last Vital Signs Pulse 94 12/10/24 09:36 BP 128/70 12/10/24 09:36 Pulse Ox 96 12/10/24 09:36 BMI result Body Mass Index 33.4 Results Reviewed Results Reviewed: 03/21/2024 Creatinine 0.6 GFR greater than 60 mL/M IN Hemoglobin A1c 9.1% 11/27/2023 Microalbumin 13.5 Creatinine urine 30 Microalbumin/creatinine ratio 45 11/27/2023 LDL 48.6 Triglycerides 107 HDL 42 Assessment & Plan Assessment & Plan (1) Type II diabetes mellitus with renal manifestations: Code(s): E11.29 - Type 2 diabetes mellitus with other diabetic kidney complication Category: Medical Qualifiers: Diabetes mellitus technician terminal and repeater insulin use: without [facility] use Diabetes mellitus complication detail: with diabetic microalbuminuria Qualified Code(s): E11.29 - Type 2 diabetes mellitus with other diabetic kidney complication; R80.9 - Proteinuria, unspecified Plan: In summary this is a 54-year-old female with a past medical history of type 2 diabetes with micro/macrovascular complications. Continue Lantus 4 units nightly. Continue Jardiance 25 mg daily. Continue Actos 15 mg daily. We will monitor her weight and recheck in a month. Continue metformin 1000 mg twice daily. The Dexcom G7 was sent to her pharmacy as it was approved in March. The patient says it has not been dispensed yet so I sent a message to check with the pharmacy about this. When she receives it she was instructed to call the office to schedule an appointment with the staff educator to set it up. We reviewed treatment of hypo/hyperglycemia. Written instructions provided to the patient. Follow up in 4 weeks for type 2 diabetes. Plan Follow up in 4 weeks for type 2 diabetes. Medications: Refilled pen needle, diabetic As directed to inject insulin once daily. 100 ea 5RF Patient Instructions: Medication regimen: Lantus 4 units every evening Jardiance 25 mg Metformin 1000 mg BID Actos 15 mg daily Medications: Lantus 4 unidades cada noche Jardiance 25 mg Metformina 1000 mg dos veces al d?a Actos 15 mg al d?a Cuando reciba el sensor y el lector Dexcom, llame a la oficina para programar joyce nora para configurarlo con Zulay. Coding Level of Care Code Est Pt Level 4 (82778) Complex EM visit Add On G2211 Diagnoses Type 2 diabetes mellitus with diabetic microalbuminuria, without long-term current use of insulin E11.29; R80.9 Diabetes mellitus [facility] insulin use: without [facility] use Diabetes mellitus complication detail: with diabetic microalbuminuria
[2024-12-10 09:36] VITALS: BP 128/70; PULSE 94; O2SAT 96; BMI 33.4
--- OUTSIDE RECORDS SUMMARY | 2024-12-10 09:50 | XMS_ITS | Patient Health Record ---
Author Organization [facility] Address [address], [place] [id number] Care Team Providers Care Chief Engineer Waterworks Name Role Phone [facility] U navailable [facility] Unavailable [phone] Allergies Allergen (clinical drug ingredient) Drug/Non Drug Allergy documented on EMR Reaction Allergy Type Onset Date Status aspirin aspirin (uncoded) Unknown Allergy Ac tive gabapentin gabapentin (uncoded) Unknown Allergy Active acetaminophen / codeine acetaminophen-co deine (uncoded) Unknown Allergy Active atorvastatin lipitor (uncoded) Unknown Allergy Active Reason For Referral No Information Medications Medication SIG (Take, Route, Frequency, Duration) Notes Start Date End Date Status Singulair 10 mg 1 tab(s) orally once a day (in the evening) Active Protonix 40 mg 1 tab(s) orally once a day Active Vitamin D3 5000 intl units 1 cap(s) orally once a day for 30 day(s) 03/24/2015 Active metFORMIN 500 mg 1 tab(s) orally 2 ti mes a day Active Depo-Provera Contraceptive 150 mg/mL 1 mL intramuscularly once 04/30/2014 Active albuterol CFC free 90 mcg/inh 2 puff(s) inhaled 4 times a day 07/01/2014 Active ZyrTEC 10 mg 1 tab(s) orally once a day for 30 day(s) 02/20/2015 Active Immunizations Vaccine Route Administration Date Status Comme nts Td Unknown 03/18/2015 Administered Social History Tobacco Use: Social History Observation Description Date Details (start date - stop date) Current Smoker NA - NA Tobacco Use Assessment MU Question Answer Notes What is your current smoking status? current smo ker How often do you smoke? every day How many cigarettes a day do you smoke? 5 or les s How soon after you wake up do you smoke your fir st cigarette? Within 5 minutes Are you interested in quitting? not ready to efrain t Patient counseled on the [place] of tobacco use and advised to quit: 03/18/2015 Problems Problem Type SNOMED Code ICD Code Onset Dates Problem Status W/U Status Risk Notes Problem Diabetes mellitus type II (04261395) Diabetes mellitus type II (250.00) Active confirmed Problem Vitamin D deficiency (44298345) Vitamin D deficiency NOS (268.9) Active confirmed Problem Tobacco use (317727244) Tobacco use disorder (305.1) Active confirmed Problem Lumbago (912878447) Lumbago (724.2) Active confirmed Problem Asthma (904515750) Asthma (493.00) Active confirmed Problem Overweight (006040584) Overweight, BMI 25-29.9 (278.02) Active confirmed Plan Of Treatment Pending Test Test Name Order Date GC, DNA Urine - [facility] 03/24/2015 Wet [facility] 03/24/2015 Chlamydia, DNA Urine - [facility] 03/24/20 15 Insurance Providers Payer Name Payer Address Payer Phone Subscriber Number Group Number Insured Name Patient Relationship to Insured Coverage Start Date Coverage End Date [place] Medicaid Standard [address] [place] [phone] [id number] Esteban Davis Self - patient is the insured Medical (General) History Medical History History ICD Code asthma during cold weather DM diet controlled (on meds in past unti l lost wt); on meds now (02/2015) Surgical History Surgery Date(Month/Year) Tubal Ligation 26 yr old Carpal Tunnel 01/31/2014
[2024-12-10 09:51] LABS: Glucose, Whole Blood 153 mg/dL (60-115)
== END 2024-12-10 10:04 | disposition home or self-care (01) ==
LOC: HO.ENCR 09:16
PROVIDERS: Visit Provider Physician Assistant Medical
DX: E11.29 Type 2 diabetes mellitus with other diabetic kidney complication (principal); R80.9 Proteinuria, unspecified

== ENCOUNTER 2024-12-10 10:19 | Outpatient (REF) | payer OTHER, SELFPAY ==
[2024-12-10 13:13] LABS: Platelet Count 270 X10*3/uL (160-400)
[2024-12-10 13:33] LABS: Alanine Aminotransferase 40 U/L (0-31); Aspartate Amino Transferase 33 U/L (5-31); Cholesterol 111 mg/dL (<200); HDL Cholesterol 43 mg/dL (>40); LDL Cholesterol Calculated 55 mg/dL (<100); Triglycerides 68 mg/dL (<150)
[2024-12-10 13:55] LABS: Vitamin B12 219 pg/mL (200-900)
[2024-12-10 13:56] LABS: Creatinine Urine 42.79 mg/dL; Microalbum/Creatinine Ratio Ur 23.3 ug/mg cr (<30)
== END 2024-12-10 10:20 | disposition home or self-care (01) ==
LOC: HO.10HDL 10:19
PROVIDERS: Visit Provider Physician Assistant Medical
DX: Z91.89 Other specified personal risk factors, not elsewhere classified (principal); E11.9 Type 2 diabetes mellitus without complications; E78.5 Hyperlipidemia, unspecified; E11.29 Type 2 diabetes mellitus with other diabetic kidney complication; R80.9 Proteinuria, unspecified; R79.89 Other specified abnormal findings of blood chemistry
CPT/HCPCS: 36415; 80061; 82043; 82570; 82607; 82947; 84450; 84460; 85049; 99212

== ENCOUNTER 2024-12-13 13:48 | Emergency (ER) | payer OTHER, SELFPAY ==
--- NOTE | ~2024-12-13 | XR_ITS ---
EXAMINATION: XR ABDOMEN KUB CLINICAL INDICATION: constipatino. small bowel obstruction? COMPARISON: None available. TECHNIQUE: AP view of the abdomen. FINDINGS: Bowel gas pattern is normal/nonspecific. There is no focally dilated loop. There is abundant fecal material throughout the colon and rectum consistent with obstipation. The right lobe of the liver appears enlarged, measuring 24 cm craniocaudal. No additional organomegaly. No abnormal soft tissue calcifications. No focal bony abnormalities. Lung bases appear clear. XR/XR KUB IMPRESSION: 1. No evidence of bowel obstruction. 2. Obstipation. 3. Hepatomegaly versus Vicente's lobe. Electronically signed by: Khang Pereira MD 12/13/2024 02:46 PM EDT
[2024-12-13 14:03] VITALS: BP 151/67; PULSE 98; RESP 18; TEMP 36.3; O2SAT 97; BMI 31.5
--- NOTE | 2024-12-13 14:12 | ECG_ITS ---
Test Reason : ABD PAIN/WEAKNESS Blood Pressure : */* mmHG Vent. Rate : 98 BPM Atrial Rate : 98 BPM P-R Int : 144 ms QRS Dur : 76 ms QT Int : 356 ms P-R-T Axes : 54 64 47 degrees QTcB Int : 454 ms Normal sinus rhythm Normal ECG No previous ECGs available Referred By: Teofilo Aviles Electronically Signed By: MARQUES CASTELLANOS MD
--- NOTE | 2024-12-13 14:14 | ED_ITS ---
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 She notes some nausea and distention x 2 weeks with scant stool and gas. She has not seen a GI doctor here. She denies fevers, weight loss, bloody stools. She states all OTC medications used but cannot name them. MD complaint: constipation Onset (ago): week(s) (2) Location: abdomen Radiation: non-radiation Severity: moderate Quality: aching Pain Consistency: intermittent Relieving factors: none Exacerbating factors: eating Associated symptoms: nausea/vomiting Treatments prior to arrival: none Related Data Home Medications ?Medication ?Instructions ?Recorded ?Confirmed albuterol sulfate 2.5 mg/3 mL mg inhalation 04/12/24 08/16/24 (0.083 %) solution for nebulization albuterol sulfate 90 mcg/actuation inhalation 04/12/24 08/16/24 aerosol inhaler (Ventolin HFA) blood sugar diagnostic (FreeStyle #10 ea 04/12/24 08/16/24 Lite Strips) clopidogrel 75 mg tablet 75 mg PO DAILY 04/12/24 08/16/24 empagliflozin 25 mg tablet 25 mg PO DAILY 04/12/24 08/16/24 (Jardiance) ezetimibe 10 mg tablet 10 mg PO DAILY 04/12/24 08/16/24 fluticasone 500 mcg-salmeterol 50 inhalation 04/12/24 08/16/24 mcg/dose blistr powdr for inhalation (Wixela Inhub) ipratropium 0.5 mg-albuterol 3 mg ml inhalation 04/12/24 08/16/24 (2.5 mg base)/3 mL nebulization soln medroxyprogesterone 150 mg/mL mg IM [id number] 04/12/24 08/16/24 intramuscular suspension metformin 500 mg tablet,extended 1,000 mg PO BID 04/12/24 08/16/24 release 24 hr montelukast 10 mg tablet 10 mg PO DAILY 04/12/24 08/16/24 pantoprazole 40 mg tablet,delayed 40 mg PO DAILY 04/12/24 08/16/24 release polyethylene glycol 3350 17 g PO 04/12/24 08/16/24 gram/dose oral powder pravastatin 40 mg tablet 40 mg PO DAILY 04/12/24 08/16/24 sennosides 8.6 mg tablet (senna) mg PO 04/12/24 08/16/24 tiotropium bromide 18 mcg capsule inhalation 04/12/24 08/16/24 with inhalation device Previous Rx's ?Medication ?Instructions ?Recorded glucose 4 gram chewable tablet 16 g (4 x 4 gram) PO Q15M PRN 04/12/24 (Dex4 Glucose Quick Dissolve) hypoglycemia #30 tabs lisinopril 5 mg tablet 5 mg PO DAILY #30 tabs 05/14/24 blood-glucose meter (FreeStyle #1 ea 11/12/24 Lite Meter kit) insulin glargine 100 unit/mL (3 4 unit (0.04 mL) subcut QPM #15 mL 11/12/24 mL) subcutaneous pen (Lantus Solostar U-100 Insulin) nut.tx.gluc.intol,lac-free,soy 1 ea PO DAILY #5,688 mL 11/12/24 (Glucerna Shake oral liquid) pioglitazone 15 mg tablet (Actos) 15 mg PO DAILY #90 tabs 11/12/24 blood-glucose sensor (Dexcom G7 #3 ea 11/19/24 Sensor device) blood-glucose,database tester,cont #1 ea 11/19/24 (Dexcom G7 Survey Superintendent) pen needle, diabetic 32 gauge x #100 ea 12/10/24 cyanocobalamin (vitamin B-12) 1,000 mcg PO DAILY #90 tabs 12/13/24 1,000 mcg tablet docusate sodium 100 mg capsule 100 mg PO BID #60 caps 12/13/24 (Col-Rite) sennosides 8.6 mg capsule (senna) 8.6 mg PO BEDTIME #30 caps 12/13/24 Allergies Allergy/AdvReac Type Severity Reaction Status Date / Time atorvastatin [From Lipitor] AdvReac Mild Muscle Pain Verified 12/13/24 14:05 aspirin AdvReac Unknown Rash Verified 12/13/24 14:05 dulaglutide [From [facility]] AdvReac Unknown Hives Verified 12/13/24 14:05 gabapentin AdvReac Unknown Dizziness Verified 12/13/24 14:05 Tylenol codeine AdvReac Unknown Nausea, Uncoded 12/10/24 09:37 Vomiting Review of Systems 2 Review of Systems: Constitutional : No Weight loss, No Fever, No Chills ENT/Mouth : No sore throat, No Rhinorrhea Eyes: No Swelling, No Redness Cardiovascular : No Chest Pain, No SOB, NoEdema Respiratory : No Cough, No Sputum, No Wheezing Gastrointestinal : Positive Nausea, no Vomiting, no Diarrhea, positive abdominal Pain, No Hematochezia, No Melena, pos constipation Genitourinary : No Dysuria, No Urinary Frequency, No Hematuria, No Urgency Musculoskeletal : No joint pain, No Myalgias, No Joint Swelling Skin : No Skin Lesions, No rash Neuro : No Weakness, No Numbness, No Dizziness, No Headache All other systems reviewed and are negative. [facility] Past Medical History Attestation statement: The following information was validated with the patient. 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 Lumbar degenerative disc disease Menorrhagia Severe persistent asthma Dysphagia S/P CVA (cerebrovascular accident) History of CVA (cerebrovascular accident) Surgical History History of bilateral ligation of fallopian tubes History of carpal tunnel repair Family History Family History Mother Diabetes Father Diabetes Social History Social History Alcohol intake: current Alcohol intake frequency: holidays/special occasions only Patient Tobacco Use Status: Current everyday Tobacco user Smoked in Last 30 Days: Yes Use of substances other than those prescribed or required for medical reasons: No Advance Directives: No Advance Directives Information Provided: Yes Do you have a plan to hurt others: No Plan Patient : No Physical Exam ED Vital Signs: Vital Signs - 24 hr 12/13/24 14:03 12/13/24 16:09 12/13/24 18:16 Temperature 97.3 F 98.7 F 97.9 F Pulse Rate 98 93 92 Respiratory Rate 18 16 18 Blood Pressure 151/67 H 146/68 H 128/102 H Pulse Oximetry 97 96 99 Oxygen Delivery Method Room Air Room Air Room Air 12/13/24 18:25 Temperature 97.9 F Pulse Rate 92 Respiratory Rate 18 Blood Pressure 128/102 H Pulse Oximetry 99 Oxygen Delivery Method Room Air BMI result Body Mass Index 31.5 Appearance: Alert. Oriented X3. No acute distress. Eyes: Pupils equal, round and reactive to light. ENT: Pharynx normal. Neck: Normal inspection. Neck supple. CVS: Normal heart rate and rhythm. Pulses normal. Respiratory: No respiratory distress. Breath sounds normal. Abdomen: Soft and no signs of ttp, rectal exam - mild ext hemorrhoids not bleeding and patient also I cannot feel Skin: Skin warm and dry. Normal skin color. Normal skin turgor. Extremities: No lower extremity edema. No calf ttp Neuro: Oriented X 3. No motor deficit. No sensory deficit. CN2-12 intact Course Course Course Narrative: RME: 54-year-old female to diabetes and stroke presents to ED for 2 weeks of constipation without any flatus or bowel movements. Patient states nausea and weakness described as fatigue. States dizziness described as fatigue. Negative for room spinning. NIH score is 0. Labs EKG KUB ordered Medications Administered Discontinued Medications Generic Name Dose Route Start Last Admin Trade Name Freq PRN Reason Stop Dose Admin Lorazepam 1 mg 12/13/24 15:53 12/13/24 16:35 Lorazepam 1 Mg Tablet PO 12/13/24 15:54 1 mg ONCE ONE Administration Magnesium Citrate 150 ml 12/13/24 15:53 12/13/24 16:35 Magnesium Citrate 300 Ml Solution PO 12/13/24 15:54 150 ml ONCE ONE Administration Sodium Biphosphate/Sodium Phosphate 133 ml 12/13/24 15:44 12/13/24 15:54 Sodium Phosphate,Smith-Dibasic 133 Ml Enema HI 12/13/24 15:45 133 ml ONCE ONE Administration Medical Decision Making Medical Decision Making MDM Narrative: 54 yo female with PMH of HLD, GERD, HTN, DM, dysphagia from CVA on plavix, asthma and COPD here with c/o constipation and belly distention for 2 weeks little not stool or gas despite OTC medications. She has a benign abdomen. She has hx of this in past back to age 15. She has reassuring labs and no vomiting doubt SBO. At this time will provide medications and refer her to GI for colonoscopy. Differential Diagnosis Differential Diagnoses: The differential diagnosis associated with the presentation includes constipation, chronic constipation Admission/Observation Consideration of admission/observation: Escalation of care including admission/observation considered can be managed at home with medications, stable for DC Lab Data MDM Lab Attestation statement: I reviewed the patient's lab results. 12/13/24 14:27 12/13/24 14:27 Labs: Lab Results 12/13/24 12/13/24 Range/Units 14:26 14:27 WBC 7.6 (4.8-10.8) X10*3/uL RBC 4.92 (4.20-5.50) X10*6/uL Hgb 14.9 (12.0-16.0) g/dl Hct 44.9 (37.0-47.0) % MCV 91.3 (80.0-98.0) fL MCH 30.3 (27.0-33.0) pg MCHC 33.2 (31.0-35.0) g/dl RDW 13.4 (11.0-16.0) % Plt Count 275 (160-400) X10*3/uL MPV 9.2 L (9.4-12.3) fL Immature Gran % (Auto) 0.4 (0.0-0.4) % Neut % (Auto) 64.3 (45-73) % Lymph % (Auto) 25.0 (20-40) % Smith % (Auto) 7.6 (2-11) % Eos % (Auto) 2.0 (0-4) % Baso % (Auto) 0.7 (0-2) % Lymph # (Auto) 1.9 (1.2-4.9) X10*3/uL Smith # (Auto) 0.6 (0.1-1.2) X10*3/uL Eos # (Auto) 0.2 (0.0-0.4) X10*3/uL Baso # (Auto) 0.1 (0.0-0.2) X10*3/uL Abs Immat Gran (auto) 0.03 (0.00-0.03) X10*3/uL Absolute Neuts (auto) 4.9 (2.0-8.3) x10*3/uL Absolute Nucleated RBC 0.000 (0.0-0.012) X10*3/uL Nucleated RBC % (auto) 0.0 (0.0-0.2) /100WBC Sodium 141 (135-145) mmol/L Potassium 4.3 (3.3-5.1) mmol/L Chloride 105 (96-108) mmol/L Carbon Dioxide 26 (22-29) mmol/L Anion Gap 14 (12-20) BUN 15 (9-16) mg/dL Creatinine 0.59 (0.5-1.4) mg/dL Estim Creat Clear Calc 101.4 Estimated GFR > 60 Random Glucose 145 H (60-115) mg/dL Calcium 10.1 (8.4-10.2) mg/dL Total Bilirubin 0.6 (0.0-1.0) mg/dL AST 55 H (5-31) U/L ALT 59 H (0-31) U/L Alkaline Phosphatase 94 (39-117) U/L Troponin I High Sens < 2.7 (<3.5-17.0) ng/L Total Protein 8.0 (6.5-8.0) g/dL Albumin 5.0 (3.5-5.0) g/dL Beta HCG, Quant < 2 mIU/mL Urine Color Yellow Urine Appearance Clear Urine pH 5.5 (5.0-9.0) Ur Specific [place] >= 1.030 H (1.005-1.025) Urine Protein Negative (Neg-Trace) mg/dL Urine Glucose (UA) >=1000 H (Negative) mg/dL Urine Ketones Trace (Negative) mg/dL Urine Blood Negative (Negative) Urine Nitrite Negative (Negative) Ur Leukocyte Esterase Negative (Negative) Urine RBC 0-2 (0-2) /HPF Urine WBC 0-5 (0-5) /HPF Ur Squamous Epith Cells 3-5 (0-2) /HPF Urine Bacteria Trace (None Seen) Hyaline Casts 0-2 (0-2) /LPF Urine Yeast Present Independent Interpretation I performed an independent interpretation of an: Plain X-Ray (obstipated) Radiology Impression Discussion of test interpretation with radiology: I have reviewed the radiologist's reading. External Record Review External record reviewed: Outpatient record and Prior outpatient labs Prescription Management I considered prescription management with: Other Discharge Plan Discharge Clinical Impression: Constipation Qualifiers: Constipation type: chronic idiopathic constipation Qualified Code(s): K59.04 - Chronic idiopathic constipation Patient Disposition: Home, Self-Care Instructions: Constipation (ED) Additional Instructions: finish the second bottle of liquid tomorrow morning take over the counter colace 100mg twice a day and then nightly take senna 8.6mg by mouth return for any worsening symptoms or concerns. Prescriptions: New docusate sodium [Col-Rite] 100 mg capsule 100 mg PO BID Qty: 60 0RF senna 8.6 mg capsule 8.6 mg PO BEDTIME Qty: 30 0RF No Action (DME) Dexcom G7 Sensor Device See Rx Instructions .ROUTE .MEDSUPPLY Qty: 3 11RF Rx Instructions: apply new sensor every 10 days as directed (DME) Dexcom G7 Survey Superintendent Misc See Rx Instructions .ROUTE .MEDSUPPLY Qty: 1 0RF Rx Instructions: As directed cyanocobalamin (vitamin B-12) 1,000 mcg tablet 1,000 mcg PO DAILY Qty: 90 1RF (DME) blood-glucose meter [FreeStyle Lite Meter] Kit See Rx Instructions .ROUTE .MEDSUPPLY Qty: 1 0RF Rx Instructions: As directed to check blood sugar. pioglitazone [Actos] 15 mg tablet 15 mg PO DAILY Qty: 90 0RF Rx Instructions: Replaces Actos 30 mg daily. insulin glargine [Lantus Solostar U-100 Insulin] 100 unit/mL (3 mL) insulin pen 4 unit subcut QPM Qty: 15 3RF Glucerna Shake Liquid 1 ea PO DAILY Qty: 5688 0RF (DME) pen needle, diabetic 32 gauge x 5/32 needle See Rx Instructions .ROUTE .MEDSUPPLY Qty: 100 5RF Rx Instructions: As directed to inject insulin once daily. albuterol sulfate [Ventolin HFA] 90 mcg/actuation HFA aerosol inhaler inhalation albuterol sulfate 2.5 mg /3 mL (0.083 %) solution for nebulization inhalation montelukast 10 mg tablet 10 mg PO DAILY pravastatin 40 mg tablet 40 mg PO DAILY Jardiance 25 mg tablet 25 mg PO DAILY pantoprazole 40 mg tablet,delayed release (DR/EC) 40 mg PO DAILY ezetimibe 10 mg tablet 10 mg PO DAILY (DME) FreeStyle Lite Strips Strip See Rx Instructions .ROUTE .MEDSUPPLY Qty: 10 Rx Instructions: As directed ipratropium-albuterol 0.5 mg-3 mg(2.5 mg base)/3 mL solution for nebulization inhalation fluticasone propion-salmeterol [Wixela Inhub] 500-50 mcg/dose blister with device inhalation clopidogrel 75 mg tablet 75 mg PO DAILY tiotropium bromide 18 mcg capsule, w/inhalation device inhalation polyethylene glycol 3350 17 gram/dose powder PO sennosides [senna] 8.6 mg tablet PO medroxyprogesterone 150 mg/mL suspension IM [id number] metformin 500 mg tablet extended release 24 hr 1,000 mg PO BID glucose [Dex4 Glucose Quick Dissolve] 4 gram tablet,chewable 16 g PO Q15M PRN (Reason: hypoglycemia) Qty: 30 3RF Rx Instructions: until symptoms of low blood sugar are controlled lisinopril 5 mg tablet 5 mg PO DAILY Qty: 30 6RF Referrals: [facility] [Provider Group] (call to schedule) Interventions: ED Discharge Assessment Last Done: 12/13/24 18:25 Discharge Date/Time: 12/13/24 18:32 Print Language: Swedish
[2024-12-13 14:31] LABS: MANUAL DIFF FLAG NO
[2024-12-13 14:32] LABS: Basophils Absolute Auto 0.1 X10*3/uL (0.0-0.2); Basophils Percent Auto 0.7 % (0-2); Eosinophils Absolute Auto 0.2 X10*3/uL (0.0-0.4); Hematocrit 44.9 % (37.0-47.0); Hemoglobin 14.9 g/dl (12.0-16.0); Imm Gran Abs Auto 0.03 X10*3/uL (0.00-0.03); Imm Gran Pct Auto 0.4 % (0.0-0.4); Lymphocytes Absolute Auto 1.9 X10*3/uL (1.2-4.9); Mean Corpuscular HGB Conc 33.2 g/dl (31.0-35.0); Mean Corpuscular Hemoglobin 30.3 pg (27.0-33.0); Mean Corpuscular Volume 91.3 fL (80.0-98.0); Mean Platelet Volume 9.2 fL (9.4-12.3); Monocytes Absolute Auto 0.6 X10*3/uL (0.1-1.2); Monocytes Percent Auto 7.6 % (2-11); Neutrophils Absolute Auto 4.9 x10*3/uL (2.0-8.3); Neutrophils Percent Auto 64.3 % (45-73); Platelet Count 275 X10*3/uL (160-400); Red Blood Count 4.92 X10*6/uL (4.20-5.50); Red Cell Distribution Width 13.4 % (11.0-16.0); White Blood Count 7.6 X10*3/uL (4.8-10.8)
[2024-12-13 14:33] LABS: Appearance Urine Clear; Color Urine Yellow; Glucose Urine UA >=1000 mg/dL (Negative); Leukocyte Esterase Urine Negative (Negative); Nitrite Urine Negative (Negative); PH 5.5 (5.0-9.0); Specific Gravity - Urine >= 1.030 (1.005-1.025); UMIC TRIGGER UACC YES; Urine Blood Negative (Negative); Urine Ketones Trace mg/dL (Negative); Urine Protein Negative (Neg-Trace)
[2024-12-13 14:41] LABS: Bacteria Urine Trace (None Seen); Hyaline Casts Urine 0-2 /LPF (0-2); RBC Urine 0-2 /HPF (0-2); WBC Urine 0-5 /HPF (0-5)
[2024-12-13 14:54] LABS: Troponin-I High Sensitivity < 2.7 ng/L (<3.5-17.0)
[2024-12-13 14:55] LABS: Alkaline Phosphatase 94 U/L (39-117); Anion Gap 14 (12-20); Aspartate Amino Transferase 55 U/L (5-31); Bilirubin Total 0.6 mg/dL (0.0-1.0); Blood Urea Nitrogen 15 mg/dL (9-16); Calcium 10.1 mg/dL (8.4-10.2); Carbon Dioxide 26 mmol/L (22-29); Chloride 105 mmol/L (96-108); Creatinine Clr Calc Pharmacy 101.4; Estimated Glomerular Filt Rate > 60; Glucose Random 145 mg/dL (60-115); HCG Quantitative < 2 mIU/mL; Potassium 4.3 mmol/L (3.3-5.1); Sodium 141 mmol/L (135-145)
[2024-12-13 15:11] LABS: Alanine Aminotransferase 59 U/L (0-31)
--- OUTSIDE RECORDS SUMMARY | 2024-12-13 15:47 | XMS_ITS | Patient Health Record ---
Author Organization [facility] Address [address], [place] [id number] Care Team Providers Care Desktop Technician Name Role Phone [facility] U navailable [facility], [facility] Unavailable [phone] Allergies Allergen (clinical drug ingredient) Drug/Non Drug [...] Risk Notes Problem Diabetes mellitus type II (67605843) Diabetes mellitus type II (250.00) Active confirmed Problem Vitamin D deficiency (39166796) Vitamin D deficiency NOS (268.9) Active confirmed Problem Tobacco use (893524961) Tobacco use disorder (305.1) Active confirmed Problem Lumbago (714186130) Lumbago (724.2) Active confirmed Problem Asthma (078182841) Asthma (493.00) Active confirmed Problem Overweight (299452637) Overweight, BMI 25-29.9 (278.02) Active confirmed Plan Of Treatment Pending Test Test Name Order Date GC, DNA Urine - [facility] 03/24/2015 Wet [facility] 03/24/2015 Chlamydia, DNA Urine - [facility] 03/24/20 15 Insurance Providers Payer Name Payer Address Payer Phone Subscriber Number Group Number Insured Name Patient Relationship to Insured Coverage Start Date Coverage End Date [place] Medicaid Standard [address] [place] [phone] [id number] Esteban Davis Self - patient is the insured Medical (General) History Medical History History ICD Code asthma during cold weather DM diet controlled (on meds in past unti l lost wt); on meds now (02/2015) Surgical History Surgery Date(Month/Year) Tubal Ligation 26 yr old Carpal Tunnel 01/31/2014
[2024-12-13] MEDS: Sodium Phosphate,Mono-Dibasic 133 ML ENEMA PR (15:54)
[2024-12-13 16:09] VITALS: BP 146/68; PULSE 93; RESP 16; TEMP 37.1; O2SAT 96
--- NOTE | 2024-12-13 16:12 | PC.NURSE ---
Patient faroese speaking. A&O x 4. PMH DM and stroke. Patient presents to ED c/o constipation, hypoactive bowel sounds heard. Patient c/o nausea and weakness. Patient slightly hypertensive 146/68 all other VSS. KUB displays abundant fecal matter. Provider attempted to disimpact no success. Patient received enema, results still pending. plan of care on going
[2024-12-13] MEDS: LORazepam 1 MG TABLET PO (16:35)
[2024-12-13] MEDS: Magnesium Citrate 300 ML SOLUTION 150 ML PO (16:35)
[2024-12-13 18:16] VITALS: BP 128/102; PULSE 92; RESP 18; TEMP 36.6; O2SAT 99
[2024-12-13 18:25] VITALS: BP 128/102; PULSE 92; RESP 18; TEMP 36.6; O2SAT 99
== END 2024-12-13 18:32 | disposition home or self-care (01) ==
PROVIDERS: Physician Assistant; Emergency Provider Emergency Medicine
DX: K59.04 Chronic idiopathic constipation (principal); R53.1 Weakness; R11.0 Nausea; I10 Essential (primary) hypertension; E11.9 Type 2 diabetes mellitus without complications; K21.9 Gastro-esophageal reflux disease without esophagitis; E78.5 Hyperlipidemia, unspecified; J44.9 Chronic obstructive pulmonary disease, unspecified; Z79.899 Other long term (current) drug therapy
CPT/HCPCS: 36415; 74018; 80053; 81001; 84484; 84702; 85025; 93005; 99283; 99284; 99285

== ENCOUNTER → 2024-12-13 14:12 | Outpatient (BNV) | payer OTHER, SELFPAY | PROVIDERS: Emergency Provider Emergency Medicine; Visit Provider Internal Medicine Cardiovascular Disease | DX: R10.9 Unspecified abdominal pain (principal); R53.1 Weakness | CPT/HCPCS: 93010 ==

== ENCOUNTER → 2024-12-13 14:12 | Outpatient (BNV) | payer OTHER, SELFPAY | PROVIDERS: Visit Provider Radiology Diagnostic Radiology | DX: K59.00 Constipation, unspecified (principal) | CPT/HCPCS: 74018 ==

== ENCOUNTER 2024-12-20 11:11 | Outpatient (REF) | payer OTHER, SELFPAY ==
--- OUTSIDE RECORDS SUMMARY | 2024-12-20 12:02 | XMS_ITS | Patient Health Record ---
Author Organization [facility] Address [address], [place] [id number] Care Team Providers Care Back Sewer Name Role Phone [facility] U navailable [facility], [facility] Unavailable [phone] Allergies Allergen (clinical drug ingredient) Drug/Non Drug [...] Risk Notes Problem Diabetes mellitus type II (13617825) Diabetes mellitus type II (250.00) Active confirmed Problem Vitamin D deficiency (95078334) Vitamin D deficiency NOS (268.9) Active confirmed Problem Tobacco use (157094421) Tobacco use disorder (305.1) Active confirmed Problem Lumbago (667760358) Lumbago (724.2) Active confirmed Problem Asthma (718603568) Asthma (493.00) Active confirmed Problem Overweight (748935219) Overweight, BMI 25-29.9 (278.02) Active confirmed Plan Of Treatment Pending Test Test Name Order Date GC, DNA Urine - [facility] 03/24/2015 Wet [facility] 03/24/2015 Chlamydia, DNA Urine - [facility] 03/24/20 15 Insurance Providers Payer Name Payer Address Payer Phone Subscriber Number Group Number Insured Name Patient Relationship to Insured Coverage Start Date Coverage End Date [place] Medicaid Standard [address] [place] [phone] [id number] Esteban Davis Self - patient is the insured Medical (General) History Medical History History ICD Code asthma during cold weather DM diet controlled (on meds in past unti l lost wt); on meds now (02/2015) Surgical History Surgery Date(Month/Year) Tubal Ligation 26 yr old Carpal Tunnel 01/31/2014
[2024-12-21 04:10] LABS: HBS Num1 9.32 mIU/mL (0-7.99); HBc Num1 0.06 S/CO (0.00-0.79); Hepatitis A Antibody IgM 0.16 Index (0-0.79); Hepatitis B Core Antibody Nonreactive (Nonreactive); Hepatitis B Surface Antigen Negative (Negative); ~HepC Num1 0.11 S/CO (0.00-0.79); ~Hepatitis A Antibody IgM Nonreactive (Nonreactive); ~Hepatitis C Antibody Nonreactive (Nonreactive)
[2024-12-21 04:27] LABS: Hepatitis A Antibody IgM 0.13 Index (0-0.79); ~Hepatitis A Antibody IgM Nonreactive (Nonreactive)
[2024-12-21 05:30] LABS: HBS Num2 8.79 mIU/mL (0-7.99); HBS Num3 8.57 mIU/mL (0-7.99); ~Hepatitis B Surface Antibody GRAYZONE (Nonreactive)
== END 2024-12-20 11:12 | disposition home or self-care (01) ==
LOC: HO.10HDL 11:11
PROVIDERS: Visit Provider Physician Assistant Medical
DX: R79.89 Other specified abnormal findings of blood chemistry (principal)
CPT/HCPCS: 36415; 86704; 86706; 86709; 86803; 87340

== ENCOUNTER 2024-12-30 07:41 | Outpatient (AMB) | payer OTHER, SELFPAY ==
--- NOTE | 2024-12-30 08:29 | MHC.AMDMED ---
Intake Intake Visit Reasons: T2DM/G7 teaching Power Generation Engineer Required: Yes Power Generation Engineer Language: Final Inspector Paper Name: Herminia [id number] Accompanied by: Self / Same As Patient Allergies atorvastatin [From Lipitor] Adverse Reaction (Mild, Verified 12/13/24 14:05) Muscle Pain aspirin Adverse Reaction (Unknown, Verified 12/13/24 14:05) Rash dulaglutide [From Trulicity] Adverse Reaction (Unknown, Verified 12/13/24 14:05) Hives gabapentin Adverse Reaction (Unknown, Verified 12/13/24 14:05) Dizziness Tylenol codeine Adverse Reaction (Unknown, Uncoded 12/10/24 09:37) Nausea, Vomiting HPI Comprehensive Diabetes Asmnt Most Recent Diabetes Results: Microalb/Creat Ratio 23.3 ug/mg cr (<30) 12/10/24 Cholesterol 111 mg/dL (<200) 12/10/24 HDL Cholesterol 43 mg/dL (>40) 12/10/24 Triglycerides 68 mg/dL (<150) 12/10/24 Creatinine 0.59 mg/dL (0.5-1.4) 12/13/24 Blood Urea Nitrogen 15 mg/dL (9-16) 12/13/24 Sodium 141 mmol/L (135-145) 12/13/24 Potassium 4.3 mmol/L (3.3-5.1) 12/13/24 Chloride 105 mmol/L (96-108) 12/13/24 Carbon Dioxide 26 mmol/L (22-29) 12/13/24 Calcium 10.1 mg/dL (8.4-10.2) 12/13/24 AST 55 U/L (5-31) H 12/13/24 ALT 59 U/L (0-31) H 12/13/24 Total Protein 8.0 g/dL (6.5-8.0) 12/13/24 Albumin 5.0 g/dL (3.5-5.0) 12/13/24 [facility] Medical History (Updated 12/14/24 @ 00:01 by Background Daabran) Elevated LFTs Mild pulmonary valve regurgitation Heart murmur CTS (carpal tunnel syndrome) Mixed hyperlipidemia GERD (gastroesophageal reflux disease) Essential hypertension Tobacco use COPD (chronic obstructive pulmonary disease) 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 Lumbar degenerative disc disease Menorrhagia Severe persistent asthma Dysphagia S/P CVA (cerebrovascular accident) History of CVA (cerebrovascular accident) Surgical History History of bilateral ligation of fallopian tubes History of carpal tunnel repair Family History Mother Diabetes Father Diabetes Social History Alcohol intake: current Alcohol intake frequency: holidays/special occasions only Patient Tobacco Use Status: Current everyday Tobacco user Assessment & Plan Assessment & Plan (1) Type II diabetes mellitus with renal manifestations: Code(s): E11.29 - Type 2 diabetes mellitus with other diabetic kidney complication Qualifiers: Diabetes mellitus half-way insulin use: without intermodal dispatcher use Diabetes mellitus complication detail: with diabetic microalbuminuria Qualified Code(s): E11.29 - Type 2 diabetes mellitus with other diabetic kidney complication; R80.9 - Proteinuria, unspecified Plan: Patient at visit to set up an insert Dexcom G7 with automatic screwmaker Instructed patient sensors water proof you can shower, or swim do not submerge sensor in water for over 30 minutes Is sensor falls off cannot put back in you need to replace sensor, customer service number given to patient for sensor replacement Sensor placed on the back of right arm Patient left visit with sensor in warmup Reviewed how to interpret trend arrows Discussed lag time between finger stick and sensor data.? Instructed patient the importance of having blood glucometer for backup testing if needed Reviewed delay of CGM from fingersticks Reminded Pt that if symptoms do not match sensor still needs to check fingersticks. Portions of this note were created using voice recognition software, please excuse any words or phrases that may have been misinterpreted. Patient Instructions: Patient instruction: CGM provides information on blood glucose control throughout the day, including hyperglycemia and hypoglycemia. ? Continue to monitor blood glucose as instructed. Follow nutrition guidelines provided. Report any discomfort promptly to health care provider. ?Stay well-hydrated. You can bathe ,shower, swim and exercise while wearing the glucose sensor. Do not submerge glucose sensor in water for more than 30 minutes. Instrucciones para el paciente: CGM proporciona informaci?n sobre el control de la glucosa en temitope a lo arturo del d?a, incluidas la hiperglucemia y la hipoglucemia. Contin?e controlando la glucosa en temitope seg?n las instrucciones. Siga las pautas de nutrici?n proporcionadas. Informe cualquier molestia de inmediato al proveedor de atenci?n m?dica. Mantente niraj hidratado. Puede ba?arse, ducharse, nadar y hacer ejercicio mientras usa el sensor de glucosa. No sumerja el sensor de glucosa en agua bela m?s de 30 minutos. Retire el sensor para joyce resonancia magn?kimberly o joyce tomograf?a computarizada. Evite la m?quina de david X en los aeropuertos: retire el sensor o solicite la varita Coding Level of Care Code Est Pt Level 1 (11292) Diagnoses Type 2 diabetes mellitus with diabetic microalbuminuria, without long-term current use of insulin E11.29; R80.9 Diabetes mellitus half-way insulin use: without half-way use Diabetes mellitus complication detail: with diabetic microalbuminuria
== END 2024-12-30 08:38 | disposition home or self-care (01) ==
LOC: HO.ENCR 07:41
PROVIDERS: Visit Provider Registered Nurse Diabetes Educator
DX: E11.29 Type 2 diabetes mellitus with other diabetic kidney complication (principal); R80.9 Proteinuria, unspecified

== ENCOUNTER → 2024-12-30 07:41 | Outpatient (BNVA) | payer OTHER, SELFPAY | PROVIDERS: Visit Provider Registered Nurse Diabetes Educator | DX: E11.29 Type 2 diabetes mellitus with other diabetic kidney complication (principal); R80.9 Proteinuria, unspecified | CPT/HCPCS: 99211 ==

== ENCOUNTER 2025-01-08 08:28 | Outpatient (AMB) | payer OTHER, SELFPAY ==
--- OUTSIDE RECORDS SUMMARY | 2025-01-08 08:43 | XMS_ITS | Patient Health Record ---
Author Organization [facility] Address [address], [place] [id number] Care Team Providers Care Lumber Straightened Name Role Phone [facility] U navailable [facility], [facility] Unavailable [phone] Allergies Allergen (clinical drug ingredient) Drug/Non Drug [...] Risk Notes Problem Diabetes mellitus type II (60513868) Diabetes mellitus type II (250.00) Active confirmed Problem Vitamin D deficiency (70587639) Vitamin D deficiency NOS (268.9) Active confirmed Problem Tobacco use (622388792) Tobacco use disorder (305.1) Active confirmed Problem Lumbago (521992077) Lumbago (724.2) Active confirmed Problem Asthma (329834002) Asthma (493.00) Active confirmed Problem Overweight (922383733) Overweight, BMI 25-29.9 (278.02) Active confirmed Plan Of Treatment Pending Test Test Name Order Date GC, DNA Urine - [facility] 03/24/2015 Wet [facility] 03/24/2015 Chlamydia, DNA Urine - [facility] 03/24/20 15 Insurance Providers Payer Name Payer Address Payer Phone Subscriber Number Group Number Insured Name Patient Relationship to Insured Coverage Start Date Coverage End Date [place] Medicaid Standard [address] [place] [phone] [id number] Esteban Davis Self - patient is the insured Medical (General) History Medical History History ICD Code asthma during cold weather DM diet controlled (on meds in past unti l lost wt); on meds now (02/2015) Surgical History Surgery Date(Month/Year) Tubal Ligation 26 yr old Carpal Tunnel 01/31/2014
--- NOTE | 2025-01-08 08:55 | A.OFFVIS_ITS ---
Intake Intake Visit Reasons: 30 min Propulsion Engineer Required: Yes Propulsion Engineer Language: Loading Unit Operator Powder Charging Name: Alba Dillon, Patty Stein04 Accompanied by: Self / Same As Patient Allergies atorvastatin (From Lipitor) Adverse Reaction (Mild, Verified 12/13/24 14:05) Muscle Pain aspirin Adverse Reaction (Unknown, Verified 12/13/24 14:05) Rash dulaglutide (From Trulicity) Adverse Reaction (Unknown, Verified 12/13/24 14:05) Hives gabapentin Adverse Reaction (Unknown, Verified 12/13/24 14:05) Dizziness Tylenol codeine Adverse Reaction (Unknown, Uncoded 12/10/24 09:37) Nausea, Vomiting HPI Comprehensive Diabetes Asmnt Most Recent Diabetes Results: 2 Microalb/Creat Ratio, (<30) 23.3 ug/mg cr 12/10/24 Cholesterol, (<200) 111 mg/dL 12/10/24 HDL Cholesterol, (>40) 43 mg/dL 12/10/24 Triglycerides, (<150) 68 mg/dL 12/10/24 Creatinine, (0.5-1.4) 0.59 mg/dL 12/13/24 BUN, (9-16) 15 mg/dL 12/13/24 Sodium, (135-145) 141 mmol/L 12/13/24 Potassium, (3.3-5.1) 4.3 mmol/L 12/13/24 Chloride, (96-108) 105 mmol/L 12/13/24 Carbon Dioxide, (22-29) 26 mmol/L 12/13/24 Calcium, (8.4-10.2) 10.1 mg/dL 12/13/24 AST, (5-31) 55 U/L H 12/13/24 ALT, (0-31) 59 U/L H 12/13/24 Total Protein, (6.5-8.0) 8.0 g/dL 12/13/24 Albumin, (3.5-5.0) 5.0 g/dL 12/13/24 [facility] Medical History (Updated 12/14/24 @ 00:01 by Background Daemon) Elevated LFTs Mild pulmonary valve regurgitation Heart murmur CTS (carpal tunnel syndrome) Mixed hyperlipidemia GERD (gastroesophageal reflux disease) Essential hypertension Tobacco use COPD (chronic obstructive pulmonary disease) 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 Lumbar degenerative disc disease Menorrhagia Severe persistent asthma Dysphagia S/P CVA (cerebrovascular accident) History of CVA (cerebrovascular accident) Surgical History History of bilateral ligation of fallopian tubes History of carpal tunnel repair Family History Mother Diabetes Father Diabetes Social History Alcohol intake: current Alcohol intake frequency: holidays/special occasions only Patient Tobacco Use Status: Current everyday Tobacco user Assessment & Plan Assessment & Plan (1) Type II diabetes mellitus with renal manifestations: Code(s): E11.29 - Type 2 diabetes mellitus with other diabetic kidney complication Qualifiers: Diabetes mellitus emt intermediate insulin use: without emt intermediate use Diabetes mellitus complication detail: with diabetic microalbuminuria Qualified Code(s): E11.29 - Type 2 diabetes mellitus with other diabetic kidney complication; R80.9 - Proteinuria, unspecified Plan: Personal Continuous Glucose Monitor: Patients CGM information reviewed, Pt uses Dexcom G7 with Scalp Treatment Specialist Patient's glucose is well controlled. Reviewed with patient glucose data. Discussed target goals for glucose levels Patient has follow-up with Endocrine PA on 01/25/2024, patient will follow-up with Diabetes Education nurse in 2 months Reviewed how to interpret trend arrows Reminded patient that to check finger sticks if symptoms do not match sensor reading. Discussed lag time between finger stick and sensor data.? Patient able to insert sensor independently at visit without issue.? Portions of this note were created using voice recognition software, please excuse any words or phrases that may have been misinterpreted. Patient Instructions: Patient instruction: CGM provides information on blood glucose control throughout the day, including hyperglycemia and hypoglycemia. ? Continue to monitor blood glucose as instructed. Follow nutrition guidelines provided. Report any discomfort promptly to health care provider. ?Stay well-hydrated. You can bathe ,shower, swim and exerce while wearing the glucose sensor. Do not submerge glucose sensor in water for more than 30 minutes. Remove sensor for MRI or CAT scan. Avoid Xray machine in airports - remove sensor or request wand Instrucciones para el paciente: CGM proporciona informaci?n sobre el control de la glucosa en temitope a lo arturo del d?a, incluidas la hiperglucemia y la hipoglucemia. Contin?e controlando la glucosa en temitope seg?n las instrucciones. Siga las pautas de nutrici?n proporcionadas. Informe cualquier molestia de inmediato al proveedor de atenci?n m?dica. Mantente niraj hidratado. Puede ba?arse, ducharse, nadar y hacer ejercicio mientras usa el sensor de glucosa. No sumerja el sensor de glucosa en agua bela m?s de 30 minutos. Retire el sensor para joyce resonancia magn?kimberly o joyce tomograf?a computarizada. Evite la m?quina de david X en los aeropuertos: retire el sensor o solicite la varita Coding Level of Care Code Est Pt Level 1 (15645) Diagnoses Type 2 diabetes mellitus with diabetic microalbuminuria, without long-term current use of insulin E11.29; R80.9 Diabetes mellitus emt intermediate insulin use: without fpc use Diabetes mellitus complication detail: with diabetic microalbuminuria
== END 2025-01-08 09:05 | disposition home or self-care (01) ==
LOC: HO.ENCR 08:28
PROVIDERS: Visit Provider Registered Nurse Diabetes Educator
DX: E11.29 Type 2 diabetes mellitus with other diabetic kidney complication (principal); R80.9 Proteinuria, unspecified

== ENCOUNTER → 2025-01-08 08:28 | Outpatient (BNVA) | payer OTHER, SELFPAY | PROVIDERS: Visit Provider Registered Nurse Diabetes Educator | DX: E11.29 Type 2 diabetes mellitus with other diabetic kidney complication (principal); R80.9 Proteinuria, unspecified | CPT/HCPCS: 99211 ==

== ENCOUNTER 2025-01-24 10:53 | Outpatient (AMB) | payer OTHER, SELFPAY ==
--- NOTE | 2025-01-24 11:02 | MHC.OFFVIS ---
Vital Signs 01/24/25 11:05 Height 5 ft 1 in Weight 169 lb 15.622 oz BMI 32.1 BP 114/74 Blood Pressure Location Rt brachial Position Sitting Pulse 98 Pulse Source Pulse Oximeter Pulse Oximetry (%) 95 Oxygen Delivery Method Room Air Intake Visit Reasons: t2dm Intake Note: Patient present today to follow up on Type 2 Diabetes Mellitus. Last Diabetic Eye exam: approx 8 months ago Last Podiatry Visit: Doesn't have a Boarding Kennel Or Cattery Operator Random Glucose: 133 mg/dl HgA1C: 7.6% 11/12/2024 Account Services Associate Required: Yes Account Services Associate Language: Heat Treating Operator Services: Account Services Associate Present Account Services Associate Name: [id number] Clara Information Interpreted: non-clinical & clinical Accompanied by: Self / Same As Patient Allergies atorvastatin (From Lipitor) Adverse Reaction (Mild, Verified 01/24/25 11:06) Muscle Pain aspirin Adverse Reaction (Unknown, Verified 01/24/25 11:06) Rash dulaglutide (From Trulicity) Adverse Reaction (Unknown, Verified 01/24/25 11:06) Hives gabapentin Adverse Reaction (Unknown, Verified 01/24/25 11:06) Dizziness Tylenol codeine Adverse Reaction (Unknown, Uncoded 01/24/25 11:06) Nausea, Vomiting Medication List - Last Reconciled 01/24/25 by GERALDO Michel albuterol sulfate 90 mcg/actuation (Ventolin HFA) inhalation albuterol sulfate mg inhalation blood sugar diagnostic (FreeStyle Lite Strips) As directed blood-glucose meter (FreeStyle Lite Meter kit) As directed to check blood sugar. blood-glucose sensor (Dexcom G7 Sensor device) apply new sensor every 10 days as directed blood-glucose,funeral limousine driver,cont (Dexcom G7 Sugar Cane Grower) As directed clopidogrel 75 mg PO DAILY cyanocobalamin (vitamin B-12) 1,000 mcg PO DAILY docusate sodium (Col-Rite) 100 mg PO BID empagliflozin (Jardiance) 25 mg PO DAILY ezetimibe 10 mg PO DAILY fluticasone propion-salmeterol 500-50 mcg/dose (Wixela Inhub) inhalation glucose (Dex4 Glucose Quick Dissolve) 16 grams (4 x 4 gram) PO Q15M PRN insulin glargine (Lantus Solostar U-100 Insulin) 4 units (0.04 mL) subcut QPM ipratropium-albuterol 0.5 mg-3 mg(2.5 mg base)/3 mL mL inhalation lisinopril 5 mg PO DAILY medroxyprogesterone mg IM [id number] metformin ER 1,000 mg PO BID montelukast 10 mg PO DAILY nut.tx.gluc.intol,lac-free,soy (Glucerna Shake oral liquid) 1 ea PO DAILY pantoprazole 40 mg PO DAILY pen needle, diabetic As directed to inject insulin once daily. pioglitazone (Actos) 15 mg PO DAILY polyethylene glycol 3350 grams PO pravastatin 40 mg PO DAILY sennosides (senna) 8.6 mg PO BEDTIME sennosides (senna) mg PO tiotropium bromide inhalation HPI Comments Details: This is a 54-year-old female with a past medical history of type 2 diabetes, CVA, microalbuminuria, COPD, severe asthma, GERD, obesity, hypertension and hyperlipidemia presenting for follow up for diabetic management. 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 Hemoglobin A1c 7.6% 11/12/2024. Reviewed Dexcom download January 11 to January 24 G [place] 6.9% 0% very high 14% high 86% in range 0% hypoglycemia She has infrequent hyperglycemia in the afternoon. Current medication regimen: Lantus 4 units every evening-she is not using this because she changed her diet completely, and her sugars have been good. She decreased the portion sizes and is eating balanced meals. Jardiance 25 mg, Metformin 1000 mg BID and Actos 15 mg daily (reduced dose previously due to weight gain) Previous meds: She was on 5 mg ER Glipizide, but she says it was discontinued because it was not helping. She tried Trulicity after her stroke. She developed diffuse pain and itchy hives after injection. She exercises (squats, leg lifts and other things). Echo 05/2022 showed mild pulmonic valve regurgitation and normal LVEF at [facility] in [place] following her stroke. She denies chest pain or shortness of breath. She has elevated LFTs. Hepatitis A, B, C serology negative. Liver u/s scheduled this month. She endorses a history of chronic GERD and nausea for at least 5 years treated with Protonix. She has never had an EGD. Hypoglycemia symptoms: none Hyperglycemia symptoms: none Eye exam: 02/2024 , no retinoapthy Microvascular complications: nephropathy (microalbumin) Macrovascular complications: CVA (2020) Hyperlipidemia: treated with Zetia 10 mg and pravastatin 40 mg daily ROS: Constitutional: No unexplained weight loss, fever, chills, fatigue or night sweats. Respiratory: No shortness of breath, cough or sputum production. Cardiovascular: No chest pain, chest pressure or chest discomfort. No palpitations or pedal edema. Gastrointestinal: No anorexia, nausea, vomiting or diarrhea. No abdominal pain or blood in stool. Neurologic: No headache, dizziness, syncope Endocrine: No cold or heat intolerance. No polyuria or polydipsia. Physical exam: Constitutional: Alert, in no distress. Eyes: Pupils are equal, round and reactive to light. Extraocular muscles intact. Neck: Supple, Full range of motion. No lymphadenopathy. No palpable thyroid masses. Respiratory: Clear to auscultation. Cardiovascular: S1 S2 regular. II/ systolic murmur. 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 Lumbar degenerative disc disease Menorrhagia Severe persistent asthma Dysphagia S/P CVA (cerebrovascular accident) History of CVA (cerebrovascular accident) Surgical History History of bilateral ligation of fallopian tubes History of carpal tunnel repair Family History Mother Diabetes Father Diabetes Social History Alcohol intake: current Alcohol intake frequency: holidays/special occasions only Patient Tobacco Use Status: Current everyday Tobacco user Physical Exam Vital Signs: Last Vital Signs Pulse 98 01/24/25 11:05 BP 114/74 01/24/25 11:05 Pulse Ox 95 01/24/25 11:05 Oxygen Delivery Method Room Air 01/24/25 11:05 BMI result Body Mass Index 32.1 Office Procedures Glucose Monitoring Details Details: See [facility] [address] - Glucose monitoring, continuous-physician I&R Procedure code (CPT) selection complete Results Reviewed Results Reviewed: Laboratory Last Values Glucose (Clinic) 133 mg/dL (60-115) H 01/24/25 11:13 Assessment & Plan Assessment & Plan (1) Type II diabetes mellitus with renal manifestations: Code(s): E11.29 - Type 2 diabetes mellitus with other diabetic kidney complication Category: Medical Qualifiers: Diabetes mellitus petroleum terminal plant operator insulin use: without petroleum terminal plant operator use Diabetes mellitus complication detail: with diabetic microalbuminuria Qualified Code(s): E11.29 - Type 2 diabetes mellitus with other diabetic kidney complication; R80.9 - Proteinuria, unspecified Plan: In summary this is a 54-year-old female with a past medical history of type 2 diabetes with micro/macrovascular complications. Diabetes is controlled per CGM. She can hold Lantus for now since blood sugars are doing good. Continue Jardiance 25 mg daily. Continue Actos 15 mg daily. We will monitor her weight and recheck in a month. Continue metformin 1000 mg twice daily. We reviewed treatment of hypo/hyperglycemia. Written instructions provided to the patient. Follow up in 4 weeks for type 2 diabetes. (2) Elevated LFTs: Code(s): R79.89 - Other specified abnormal findings of blood chemistry Category: Medical Plan: Proceed with liver ultrasound. Refer to Gastroenterology for further evaluation of elevated LFTs, chronic GERD and consideration of endoscopy. Plan Follow up in 4 weeks for type 2 diabetes and to review ultrasound result. Orders: Orders AMB Glucose Monitoring Today E11.9 - Type 2 diabetes mellitus without complications Referrals Gastroenterology Referral K21.9 - Gastro-esophageal reflux disease without esophagitis, R11.0 - Nausea, R79.89 - Other specified abnormal findings of blood chemistry Patient Instructions: If you experience low blood sugar (under 70), treat this by eating a chewable fruit candy like skittles or jelly beans (about 8 pieces), 4 ounces (1/2 cup) of fruit juice (not diet), 1 tablespoon of honey or 4 glucose tablets. If your blood sugar is under 55, take double the amount of one of the above. Recheck your blood sugar in 15 minutes. Continue Jardiance 25 mg, Metformin 1000 mg BID and Actos 15 mg daily. You can hold off on taking Lantus at this time since blood sugars are doing good. Si tiene un nivel bajo de az?car en la temitope (menos de 70), tr?telo comiendo un caramelo masticable de fruta susan Skittles o Jelly Beans (aproximadamente 8 piezas), 113 ml (1/2 taza) de jugo de fruta (no de dieta), 1 cucharada de miel o 4 tabletas de glucosa. Si rosen nivel de az?car en la temitope es manuel de 55, tome el doble de la cantidad de javier de los anteriores. Vuelva a medir rosen nivel de az?car en la temitope en 15 minutos. Contin?e con Jardiance 25 mg, Metformina 1000 mg dos veces al d?a y Actos 15 mg al d?a. Puede posponer la hemanth de Lantus por el momento, ya que rosen nivel de az?car en la temitope es normal. Coding Level of Care Code Est Pt Level 4 (77525) Diagnoses Type 2 diabetes mellitus with diabetic microalbuminuria, without long-term current use of insulin E11.29; R80.9 Diabetes mellitus petroleum terminal plant operator insulin use: without correction use Diabetes mellitus complication detail: with diabetic microalbuminuria Elevated LFTs R79.89 CPT Codes Details - CPT: 70843 - Glucose monitoring, continuous-physician I&R ([id number])
[2025-01-24 11:05] VITALS: BP 114/74; PULSE 98; O2SAT 95; BMI 32.1
[2025-01-24 11:18] LABS: Glucose, Whole Blood 133 mg/dL (60-115)
--- OUTSIDE RECORDS SUMMARY | 2025-01-24 11:31 | XMS_ITS | Patient Health Record ---
Author Organization [facility] Address [address], [place] [id number] Care Team Providers Care Air Marshal Name Role Phone [facility] Provider U navailable [facility], [facility] Unavailable [phone] Allergies Allergen (clinical drug ingredient) Drug/Non Drug [...] Risk Notes Problem Diabetes mellitus type II (93345327) Diabetes mellitus type II (250.00) Active confirmed Problem Vitamin D deficiency (21734631) Vitamin D deficiency NOS (268.9) Active confirmed Problem Tobacco use (910587890) Tobacco use disorder (305.1) Active confirmed Problem Lumbago (265438427) Lumbago (724.2) Active confirmed Problem Asthma (315883396) Asthma (493.00) Active confirmed Problem Overweight (466411134) Overweight, BMI 25-29.9 (278.02) Active confirmed Plan Of Treatment Pending Test Test Name Order Date GC, DNA Urine - [facility] 03/24/2015 Wet [facility] 03/24/2015 Chlamydia, DNA Urine - [facility] 03/24/20 15 Insurance Providers Payer Name Payer Address Payer Phone Subscriber Number Group Number Insured Name Patient Relationship to Insured Coverage Start Date Coverage End Date [place] Medicaid Standard [address] [place] [phone] [id number] Esteban Davis Self - patient is the insured Medical (General) History Medical History History ICD Code asthma during cold weather DM diet controlled (on meds in past unti l lost wt); on meds now (02/2015) Surgical History Surgery Date(Month/Year) Tubal Ligation 26 yr old Carpal Tunnel 01/31/2014
--- OUTSIDE RECORDS SUMMARY | 2025-01-24 11:31 | XMS_ITS | Clinical Summary ---
Author Organization [facility] Address [address] [place] [address] Care Team Providers Care White Sugar Boiler Name Role Phone Unavailable Primary Care Provider Unavailabl e Allergies No known active allergies Medications Fluticasone-Flo meterol (Advair Diskus) 500-50 MCG/ACT aerosol powder Inhale. Active albuterol (2.5 MG/3ML) 0.083% nebulizer solution Take by nebulization every 6 (six) hours if needed for wheezing. Active cetirizine (ZyrTEC) 10 MG tablet Take by mouth. Activ e clopidogrel (Plavix) 75 MG tablet Take by mouth Once per day. Active EPINEPHrine (Adrenalin) 0.1 % nasal solution 0.5 mL 1 (one) time. Active ezetimibe (Zetia) 10 MG tablet Take 10 mg by mouth Once per day. Active ipratropium (Atrovent) 0.03 % nasal spray Administer 2 sprays into each nostril every 12 (twelve) hours. Active medroxyPROGESTE Marlon (Provera) 2.5 MG tablet Take 2.5 mg by mouth Once per day. Active metFORMIN (Glucophage) 500 MG tablet Take by mouth. A ctive montelukast (Singulair) 10 MG tablet Take by mouth. Activ e pravastatin (Pravachol) 40 MG tablet Take by mouth at bedtime. Active pioglitazone (Actos) 15 MG tablet Take 15 mg by mouth Once per day. Active insulin glargine (Lantus) 100 UNIT/ML injection Inject under the skin at bedtime. Active chlorhexidine (Peridex) 0.12 % solutionIndicat ions:Periodonta l disease Swish 15 mL morning and night for 1 minute. Spit, do not swallow. Do not eat or drink for 30 minutes following use. 473 mL 5 Active acetaminophen (Tylenol) 325 MG tablet Take 1 tablet (325 mg) by mouth every 6 (six) hours if needed for mild pain. 20 tablet Active Active Problems Problem Noted Date Diagnosed Date Periodontal disease 11/13/2024 Encounters Date Type Department Care Team Description 11/13/2024 8:00 AM EDT Office Visit [facility] [address] [place] [address] Modesto Salgado DDS Periodontal disease (Primary Dx) from Last 3 Months Social History Tobacco Use Types Packs/Day Years Used Date Smoking Tobacco: Former Cigarettes Passive Smoke Exposure: Never Smokeless Tobacco: Former Tobacco Cessation:Counseling Given: No Alcohol Use Standard Drinks/Week Comments Defer 0 (1 standard drink = 0.6 oz pur e alcohol) Comments Unknown Sex and Gender Information Value Date Recorded Sex Assigned at Female 11/13/2024 7:52 AM EDT Legal Sex Female 7:49 AM EDT Gender Identity Female 11/13/2024 7:52 AM EDT Sexual Orientation Straight 11/13/2024 7: 52 AM EDT Last Filed Vital Signs Vital Sign Reading Time Taken Comments Blood Pressure 126/74 11/13/2024 8:19 AM EDT Pulse 66 11/13/2024 8:19 AM EDT Temperature - - Respiratory Rate - - Oxygen Saturation - - Inhaled Oxygen Concentration - - Weight - - Height - - Body Mass Index - - Plan of Treatment Health Maintenance Due Date Last Done Comments CT Colonography 1970 Colonoscopy 1970 Colorectal Cancer Screening 1970 Dental Oral Exam 1970 Dental Prophylaxis 1970 Dental X-Ray: Bitewings 1970 Dental X-Ray: Full Mouth 1970 Depression Screening 1970 FIT DNA/Cologuard 1970 FIT 1970 FOBT 1970 HIV Screening 1970 SDOH Screening 1970 Sigmoidoscopy 1970 Disability Screening 1970 Alcohol/Substance Use Screening 1982 Hepatitis C Screening 1988 Hepatitis B Vaccines (1 of 3 - 19+ 3-dose series) 1989 Pneumococcal Vaccine: 50+ Years (1 of 2 - PCV) 1989 Pap Smear 1991 Cervical Cancer Screening 2000 HPV/Cotest 2000 Zoster Vaccines (1 of 2) 2020 COVID-19 Vaccine (1 - 2023-2 5 season) 2024 Influenza Vaccine (#1) 2025 Mammogram 10/24/2025 10/25/2023, 10/25/2023 Tobacco Screening 11/13/2025 11/13/2024 DTaP/Tdap/Td Vaccines (2 - T d or Tdap) 02/02/2029 02/02/2019 RSV Patients and Patients Aged 60 years or older (1 - 1-dose 75+ series) 2045 HIB Vaccines Aged Out No longer eligi ble based on patient's age to complete this topic HPV Vaccines Aged Out No longer eligi ble based on patient's age to complete this topic Hepatitis A Vaccines Aged Out No long er eligible based on patient's age to complete this topic IPV Vaccines Aged Out No longer eligi ble based on patient's age to complete this topic Meningococcal B Vaccine Aged Out No l onger eligible based on patient's age to complete this topic Meningococcal Vaccine Aged Out No farzad apurva eligible based on patient's age to complete this topic RSV under 20 months Aged Out No longe r eligible based on patient's age to complete this topic Rotavirus Vaccines Aged Out No longer eligible based on patient's age to complete this topic Procedures Procedure Name Priority Date/Time Associated Diagnosis Comments LIMITED ORAL EVALUATION - PROBLEM FOCUSED Routine 11/13/2024 8:00 AM EDT CASE PRESENTATION, DETAILED AND EXTENSIVE TREATMENT PLANNING Routine 11/13/2024 8:00 AM EDT INTRAORAL - PERIAPICAL FIRST RADIOGRAPHIC IMAGE Routine 11/13/2024 8:00 AM EDT 29 EXTRACTION, ERUPTED TOOTH OR EXPOSED ROOT (ELEVATION/FORCEPS REMOVAL) Routine 11/13/2024 8:00 AM EDT from Last 3 Months Insurance DENTAL - [facility]
--- OUTSIDE RECORDS SUMMARY | 2025-01-24 11:32 | XMS_ITS | Data Portability ---
Author Organization 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 Please review instructions below. We have discussed your personal goals and discussed how to reach your goals. Please reach out to us via the Portal or phone if you have questions about your chronic conditions or if you or your caregivers require assistance in meeting your goals. Please visit our website [email or web address] for more patient resources. As part of your care plan, we will help coordinate your ongoing medical needs, arrange for durable medical equipment, renew prescriptions and necessary prior authorizations, facilitate getting referrals and collaborating with specialist, referrals for VNA services. [email or web address] Not available 01/10/2025 09:02:21 Plan of Treatment Reminders Order Date Submit Date Provider Last Modified By Organization Details Last Modified Time Details Appointments Follow Up, 2024 09:00A Julio Cesar AGUDELO DNP Not available Not available Not available Lab hemogl obin A1C/he moglob in total, QN, blood 2023 024 [facility], [address] [facility], [place], [address], 07/02/2024 11:57:00 Referral None record ed. Procedures None record ed. Surgeries None record ed. Imaging None record ed. Medication Orders lactul ose 10 gram/1 5 mL oral soluti on 2024 025 SHELLY Peñaloza ([facility] 827), [address] , [place], [id number], 01/10/2025 10:18:12 ondans etron 4 mg disint egrati ng tablet 2024 025 SHELLY Rosado [facility] ([facility] 82), [address] [place], [place], [id number], 01/10/2025 10:18:17 ipratr opium 0.5 mg-alb uterol 3 mg (2.5 mg base)/ 3 mL nebuli zation soln 2024 025 SHELLY Peñaloza ([facility] 827), [address] , [place], [id number], 01/10/2025 10:18:06 Ventol in HFA 90 mcg/ac tuatio n aeroso l inhale r 2024 025 SHELLY Rosado [id number] ([facility] 827), [address] , [place], [id number], 01/10/2025 10:18:15 albute rol sulfat e 2.5 mg/3 mL (0.083 %) soluti on for nebuli zation 2024 025 SHELLY Peñaloza ([facility] 82), [address] , [place], [id number], 01/10/2025 10:18:19 medrox yproge steron e 150 mg/mL intram uscula r suspen jeanne 2024 025 nia Hernandezeens [address] ([facility] 827), [address], [place], [id number], 07/23/2024 10:05:32 medrox yproge steron e 150 mg/mL intram uscula r suspen jeanne 2023 024 nery Hernandezeens [address] ([facility] 827), [address], [place], [id number], 04/19/2024 09:30:24 Patient TargetsNo targets recorded. Patient InstructionsNo instructions recorded. Reason for Referral None Reported. Results Created Date Observation Date Name Description Value Unit Range Abnormal Flag Note LastModifiedBy Organization Detail LastModifiedTime 03/20/2003/20/2024 HGB A1C hemoglobin A1C 9.1 % 4.8-6. 0 high Goal: <7% in Patie nts with Diabe dahiana An A1c betwe en 5.7-6 .4% is ident ified as pre-d iabet es and sugge sts risk for progr essio n to diabe dahiana Two a1c value s of 6.5% or highe r is consi stent with a diagn osis of diabe dahiana but may need furth er confi rmati on Not Available [address], [address], 03/20/2024 13:50:22 03/20/2003/20/2024 HGB A1C estimated average glucose 214.5 mg/dL Not Available [address], [address], 03/20/2024 13:50:22 03/20/20 24 03/21/2024 BASIC METAB OLIC PANEL glucose 132 mg/dL 70-100 high Not Available [address], [address], 03/21/2024 15:15:11 03/20/20 24 03/21/2024 BASIC METAB OLIC PANEL BUN 9 mg/dL 7-18 Not Available [address], [address], 03/21/2024 15:15:11 03/20/20 24 03/21/2024 BASIC METAB OLIC PANEL creatinine 0.6 mg/dL 0.8-1. 3 low Not Available [address], [address], 03/21/2024 15:15:11 03/20/20 24 03/21/2024 BASIC METAB OLIC PANEL B/C 15.0 ratio Not Available [address], [address], 03/21/2024 15:15:11 03/20/2003/21/2024 BASIC METAB OLIC PANEL GFR >=60ML /MIN mL/mi n normal >=60m L/min - Kori l or midly reduc ed <60mL /min- Decre ased kidne y funct ion <15mL /min - Kidne y failu re [facility] calcu lates estim ated Glome rular Filtr ation Rate (eGFR ) using the Chron ic Kidne y Disea se Epide miolo gy Colla borat ion (CKD- EPI) Equat ion (Singh r et. al 2020) as recom germaine d by the Natio nal Kidne y Found ation . eGFR is based on age, serum creat inine , and sex. CKD-E PI does not calcu late eGFR by race, does not apply to child willard (age <18 years ), and shoul d not be used in pregn salvador. Not Available [address], [address], 03/21/2024 15:15:11 03/20/20 24 03/21/2024 BASIC METAB OLIC PANEL sodium 140 mmol/ L 136-14 5 Not Available [address], [address], 03/21/2024 15:15:11 03/20/20 24 03/21/2024 BASIC METAB OLIC PANEL potassium 3.6 mmol/ L 3.5-5. 1 Not Available [address], [address], 03/21/2024 15:15:11 03/20/20 24 03/21/2024 BASIC METAB OLIC PANEL chloride 102 mmol/ L 96-107 Not Available [address], [address], 03/21/2024 15:15:11 03/20/20 24 03/21/2024 BASIC METAB OLIC PANEL anion gap 16.1 5.0-15 .0 high Not Available [address], [address], 03/21/2024 15:15:11 03/20/20 24 03/21/2024 BASIC METAB OLIC PANEL CO2 22 mmol/ L 21-32 Not Available [address], [address], 03/21/2024 15:15:11 03/20/20 24 03/21/2024 BASIC METAB OLIC PANEL calcium 9.3 mg/dL 8.5-10 .3 Not Available [address], [address], 03/21/2024 15:15:11 07/02/20 24 07/02/2024 POCHA 1C POC HA1C 7.3 high Not Available [facility] [address] [place] [address], [address], 07/02/2024 09:51:05 03/21/20 24 03/21/2024 XR, foot CLINIC AL HISTOR Y: Planta r mid foot pain TECHNI QUE: AP, obliqu e, and latera l views of the right foot obtain ed. COMPAR FAROOQ: None. FINDIN GS: There is no acute fractu re or disloc ation. The joint spaces are preser nita. The soft tissue s are unrema rkable . There is a small planta r spur IMPRES JEANNE: No acute bone injury . Small planta r spur Readin g Physic sonu: Phillip Ta [facility] (Imaging) [address] , [place], [address], 04/02/2024 22:36:08 Result Notes None recorded. Problems Name Problem SNOMED Code Status Onset Date Resolution Date Notes Provider Name and Address Organization Details Recorded Time Mixed hyperlip idemia 200824143 Active Rosa ellis PA-C [address] [place] [address], [address] , [facility] 2 15:15:52 Type 2 diabetes mellitus without complica tion 032189143 Completed 08/06/2021 Rosa ellis PA-C [address] [place] [address], , [facility] 2 09:53:26 Joint pain in ankle and foot Completed 06/05/2013 Not Available [facility] 3 02:01:26 Benign essentia l hyperten jeanne 4478818 Active Rosa ellis PA-C [address] [place] [address], , [facility] 2 15:15:52 Tobacco user 401160689 Active Not Available [facility] 0 03:22:00 Asthma 412917271 Active Rosa ellis PA-C [address] [place] [address], , [facility] 2 15:15:52 Diabetes mellitus 48379155 Completed 10/06/2016 Lesley Parra NP [address] [place] [address], , [facility] 7 11:05:06 Intrinsi c asthma 793663224 Completed 08/01/2018 Rosa ellis PA-C [address] [place] [address], [address] , [facility] 9 15:26:42 Contrace ption care manageme nt Active Not Available [facility] 0 03:22:00 Carpal tunnel syndrome 09209326 Active Not Available [facility] 0 03:22:00 Acute asthma 347397626 Completed 08/01/2018 Rosa ellis PA-C [address] [place] [address], [address] , [facility] 9 15:26:27 Deficien cy of vitamin D2 341378839 Active Not Available [facility] 0 03:22:00 Allergic rhinitis 05750651 Active Rosa ellis PA-C [address] [place] [address], [address] , [facility] 2 15:15:52 Gastroes ophageal reflux disease 566375646 Active Rosa ellis PA-C [address] [place] [address], [address] , [facility] 2 15:15:52 Type 2 diabetes mellitus 55050517 Completed 08/01/2018 Rosa ellis PA-C [address] [place] [address], [address] , [facility] 9 15:26:33 Obesity 751344064 Active 2018 Rosa ellis PA-C [address] [place] [address], [address] , [facility] 2 15:15:52 Ex-cigar ette smoker 933395173 Completed 201902/11/2021 Rosa ellis PA-C [address] [place] [address], [address] , [facility] 1 12:06:02 Uncontro lled type 2 diabetes mellitus 478532030 Active 2019 Rosa ellis PA-C [address] [place] [address], [address] , [facility] 2 15:15:52 COVID-19 599050365 Active 2021 tested + Rosa ellis PA-C [address] [place] [address], [address] , [facility] 2 16:34:52 Cerebrov ascular accident 411458170 Completed 202111/19/2021 Rosa ellis PA-C [address] [place] [address], [address] , [facility] 2 15:28:26 History of cerebrov ascular accident 447535800 Active 2021 Rosa ellis PA-C [address] [place] [address], , [facility] 4 09:55:52 Lives in correctione [facility] 160510967 Completed 202106/01/2022 Removal Reason: As of Apr 2022 she now lives in own apt in [place], out of the correction. [address], LDN [address] [place] [address], [address] , [facility] 2 13:11:13 Chronic obstruct sho pulmonar y disease 68397336 Active 2021 Rosa ellis PA-C [address] [place] [address], [address] , [facility] 2 11:16:18 Moderate persiste nt asthma 382323965 Active 2021 Rosa ellis PA-C [address] [place] [address], [address] , [facility] 2 10:07:33 Microalb uminuric diabetic nephropa thy 719752737 Active 2022 Rosa ellis PA-C [address] [place] [address], [address] , [facility] 3 12:18:29 Menorrha elroy 943068548 Active 2022 Rosa ellis PA-C [address] [place] [address], [address] , [facility] 3 22:53:17 Small vessel cerebrov ascular disease 391235093 Active 2022 Rosa ellis PA-C [address] [place] [address], [address] , [facility] 3 11:39:55 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 Please review this document and add these problems to the patient's chart manually as needed. Problem Notes None recorded. Procedures Surgical History Date Name Laterality Status Provider Name and Address Organization Details Recorded Time 07/02/20 24 Smoking cessation counseling completed Meagan Weldon MA [facility] 07/01/2024 16:39:25 05/16/20 24 Smoking cessation counseling completed Jazmyne Salgado MA [facility] 05/16/2024 08:13:05 03/20/20 24 Smoking cessation counseling completed Rosa maddox PA-C [address] [place] [address], [address], [facility] 03/20/2024 09:56:41 01/24/20 24 Smoking cessation counseling completed Delphine Sprague MA [facility] 01/24/2024 09:22:16 12/25/19 24 Smoking cessation counseling completed Delphine Sprague MA [facility] 12/25/2023 09:27:38 11/27/19 24 Smoking cessation counseling completed Delhpine Sprague MA [facility] 11/27/2023 09:19:50 08/17/19 24 Retinal Screening completed Amanda Morales RN [facility] 08/17/2023 09:20:37 08/15/19 24 Smoking cessation counseling completed Elina Hassan MA [facility] 2023 08:29:38 03/27/20 23 Smoking cessation counseling completed Whitley Rao MA [facility] 03/27/2023 08:06:01 03/27/20 23 Asthma Control Test (12 + years old) completed Irene Hays MA [facility] 03/27/2023 11:02:27 12/29/19 23 Smoking cessation counseling completed Jessica Butts MA [facility] 12/28/2022 10:38:40 12/15/19 23 Nebulizer Tx completed Clara Love LPN [facility] 12/14/2022 10:52:04 12/15/19 23 Asthma Control Test (12 + years old) completed Irene Hays MA [facility] 12/14/2022 10:20:40 09/05/19 23 Smoking cessation counseling completed Meagan Giles MA [facility] 09/05/2022 09:52:15 07/05/20 22 Smoking cessation counseling completed Rosa maddox PA-C [address] [place] [address], [address], [facility] 07/05/2022 10:10:49 07/05/20 22 Asthma Control Test (12 + years old) completed Irene Hays MA [facility] 07/05/2022 09:20:17 06/01/20 22 Smoking cessation counseling completed Rosa maddox PA-C [address] [place] [address], [address], [facility] 06/01/2022 10:56:25 05/04/20 22 Smoking cessation counseling completed Rosa maddox PA-C [address] [place] [address], [address], [facility] 05/09/2022 11:11:07 09/28/20 22 Asthma Control Test (12 + years old) completed Jessica Butts MA [facility] 04/12/2022 16:43:53 02/19/20 Smoking cessation counseling completed Jessica Butts [facility] 02/18/2022 10:39:57 02/10/20 Smoking cessation counseling completed Jessica Butts [facility] 02/09/2022 11:58:25 02/10/20 Asthma Control Test (12 + years old) completed Jessica Butts MA [facility] 02/09/2022 10:41:54 11/20/19 Smoking cessation counseling completed Jessica Butts [facility] 11/19/2021 15:04:45 11/20/19 Asthma Control Test (12 + years old) completed Jessica Butts MA [facility] 11/19/2021 15:01:07 11/06/19 22 [address]: Therapeutic Exercise completed Danette Brock, PT [address] [place], [address], [facility] 11/05/2021 20:47:51 11/06/19 Treatment and Advice completed Danette Brock, PT [address] [place] [address], [address], [facility] 11/05/2021 20:49:32 10/30/19 Physical Activity Counselling completed Danette Brock, PT [address] [place], [address], [facility] 10/29/2021 08:23:16 10/30/19 22 [address]: PT Eval Low Complexity completed Danette Brock, PT [address] [place], [address], [facility] 10/29/2021 08:23:14 10/30/19 22 Treatment and Advice completed Danette Brock, PT [address] [place], [address], [facility] 10/29/2021 08:23:11 10/02/19 22 Smoking cessation counseling completed Rosa maddox PA-C [address] [place], [address], [facility] 10/01/2021 14:40:21 08/18/19 22 Smoking cessation counseling completed Rosa maddox PA-C [address] [place], [address], [facility] 08/18/2021 10:38:19 08/18/19 22 Diabetes Education completed Niki Mcintosh RN [facility] 08/18/2021 11:40:12 08/06/19 22 Post hospital[facility]up[facility] 09:03:01 05/12/20 21 Smoking cessation counseling completed Rosa maddox PA-C [address] [place] [address], [address], [facility] 05/13/2021 08:54:20 02/09/20 21 Smoking cessation counseling completed Jericho Meehan [facility] 02/08/2021 16:00:16 02/09/20 21 Carbon Monoxide Testing completed Jericho Meehan [facility] 02/08/2021 16:00:16 02/09/20 21 prevention-card iovascular risk reduction counseling completed Jericho Meehan [facility] 02/08/2021 15:50:47 02/09/20 21 prevention-danae al alcohol misuse screening completed Jericho Meehan [facility] 02/08/2021 15:50:47 02/09/20 21 Asthma Control Test (12 + years old) completed Jericho Meehan [facility] 02/08/2021 15:52:53 11/25/19 21 Smoking cessation counseling completed Jericho Meehan [facility] 11/24/2020 15:34:40 11/25/19 21 Carbon Monoxide Testing completed Jericho Meehan [facility] 11/24/2020 15:34:40 11/21/19 21 Smoking cessation counseling completed Jericho Meehan [facility] 11/20/2020 16:07:16 11/21/19 21 Carbon Monoxide Testing completed Jericho Meehan [facility] 11/20/2020 16:07:17 11/06/19 21 Smoking cessation counseling completed MARCELLUS Salmon [address] [place], [address], [facility] 11/05/2020 12:03:02 11/06/19 21 Carbon Monoxide Testing completed Freda Chin [facility] 11/05/2020 11:16:43 06/01/20 20 Smoking cessation counseling completed Rosa maddox PA-C [address] [place] [address], [address], [facility] 06/01/2020 11:32:58 06/01/20 20 Carbon Monoxide Testing completed Jericho Meehan [facility] 06/01/2020 11:00:33 02/14/20 20 Smoking cessation counseling completed Jericho Meehan [facility] 02/14/2020 10:42:08 02/14/20 20 Carbon Monoxide Testing completed Jericho Meehan [facility] 02/14/2020 10:42:08 12/13/19 20 Smoking cessation counseling completed Rosa maddox PA-C [address] [place] [address], [address], [facility] 12/13/2019 14:07:36 12/13/19 20 Carbon Monoxide Testing completed Jericho Meehan [facility] 12/13/2019 13:42:35 05/24/20 19 Smoking cessation counseling completed Rosa maddox PA-C [address] [place] [address], [address], [facility] 05/24/2019 11:12:19 05/24/20 19 Carbon Monoxide Testing completed Rosa maddox PA-C [address] [place] [address], [address], [facility] 05/24/2019 11:12:19 05/24/20 19 POC hCG Testing completed [facility] 05/24/2019 10:45:14 08/21/19 19 Smoking cessation counseling completed Rosa maddox PA-C [address] [place], [address], [facility] 08/22/2018 02:04:02 08/21/19 19 Carbon Monoxide Testing completed Rosa maddox PA-C [address] [place], [address], [facility] 08/22/2018 02:04:02 08/01/19 19 Smoking cessation counseling completed Savannah Farley [facility] 08/01/2018 14:21:05 08/01/19 19 Carbon Monoxide Testing completed Savannah Farley [facility] 08/01/2018 14:21:05 08/01/19 19 Asthma Control Test (12 + years old) completed Savannah Farley [facility] 08/01/2018 14:23:33 05/07/20 18 Smoking cessation counseling completed Luis Miguel Elliott MA [facility] 05/07/2018 08:25:29 05/07/20 18 Carbon Monoxide Testing completed Luis Miguel Elliott MA [facility] 05/07/2018 08:25:29 01/23/20 18 POC hCG Testing completed Jenni Rinaldi CMA [facility] 01/22/2018 12:08:25 11/07/19 18 Smoking cessation counseling completed Dolores Parker MA [facility] 11/06/2017 09:21:50 11/07/19 18 Carbon Monoxide Testing completed Dolores Parker MA [facility] 11/06/2017 09:21:51 09/16/19 18 Smoking cessation counseling completed Klaudia Carreno [facility] 09/15/2017 08:33:54 09/16/19 18 Carbon Monoxide Testing completed Klaudia Carreno [facility] 09/15/2017 08:33:55 09/16/19 18 Asthma Control Test (12 + years old) completed Klaudia Carreno [facility] 09/15/2017 08:43:05 07/04/20 17 POC hCG Testing completed Alessandra Croral [facility] 07/04/2017 11:29:40 02/29/20 17 Smoking cessation counseling completed Dolores Parker MA [facility] 02/28/2017 10:48:49 02/29/20 17 Carbon Monoxide Testing completed Dolores Parker MA [facility] 02/28/2017 10:48:49 01/28/20 17 Smoking cessation counseling completed Francia Pablo [facility] 01/27/2017 11:21:55 01/28/20 17 Carbon Monoxide Testing completed Francia Pablo [facility] 01/27/2017 11:21:56 01/26/20 17 Smoking cessation counseling completed Citlaly Barlow [facility] 01/25/2017 10:02:46 01/26/20 17 Carbon Monoxide Testing completed Citlaly Barlow [facility] 01/25/2017 10:02:46 10/18/19 17 Smoking Cessation Counselling completed Tucker Xavier, PT [address] [place], [address], [facility] 10/17/2016 13:37:18 10/18/19 17 Physical Activity Counselling completed Tucker Xavier, PT [address] [place], [address], [facility] 10/17/2016 13:36:38 10/18/19 17 [id number]: PT Eval Low Complexity completed Tucker Xavier, PT [address] [place], [address], [facility] 10/17/2016 14:00:29 10/18/19 17 Treatment and Advice completed Tucker Xavier, PT [address] [place], [address], [facility] 10/17/2016 14:07:22 10/07/19 17 Nebulizer Tx completed Kalee Rick LPN [facility] 10/06/2016 11:40:11 06/13/20 16 Smoking cessation counseling completed Debi Greenwood MA [facility] 06/13/2016 15:29:02 02/10/20 16 Smoking cessation counseling completed Dolores Parker MA [facility] 02/10/2016 17:15:18 11/03/19 16 Smoking cessation counseling completed Luis Miguel Elliott MA [facility] 11/03/2015 14:32:28 11/03/19 16 Carbon Monoxide Testing completed Luis Miguel Elliott MA [facility] 11/03/2015 14:32:54 11/03/19 16 Nebulizer Tx completed Annette Bartholomew LPN [facility] 11/03/2015 15:01:04 08/10/19 16 Smoking cessation counseling completed Debi Greenwood MA [facility] 08/10/2015 11:53:25 06/29/20 15 Smoking cessation counseling completed Luis Miguel Elliott MA [facility] 06/29/2015 11:41:26 06/29/20 15 Asthma Control Test (12 + years old) completed Luis Miguel Elliott MA [facility] 06/29/2015 11:46:56 01/01/20 15 Smoking cessation counseling completed GERALDO Jenkins [address] [place] [address], [address], [facility] 12/31/2014 13:50:50 09/12/19 13 Medicare Wellness Visit completed Liv Ac MA [facility] 09/12/2012 11:29:53 09/12/19 13 Asthma Control Test (12 + years old) completed Aliya Muller MD [address] [place] [address], [address], [facility] 09/12/2012 11:56:44 07/19/19 13 Smoking cessation counseling completed GERALDO Jenkins [address] [place] [address], [address], [facility] 07/19/2012 08:49:25 03/03/20 11 Smoking cessation counseling completed Aliya Muller MD [address] [place] [address], [address], [facility] 03/03/2011 09:35:31 12/22/19 11 Smoking cessation counseling completed Aliya Muller MD [address] [place] [address], [address], [facility] 12/21/2010 09:49:24 12/22/19 11 Asthma Control Test (12 + years old) completed Aliya Muller MD [address] [place] [address], [address], [facility] 12/21/2010 09:49:24 07/17/18 96 Tubal Ligation completed [facility] [facility] 06:06[facility]16 Carpal Tunnel Surgery completed Lesley Parra NP [address] [place], [address], [facility] 04/20/2015 05:47:47 Imaging Results None recorded. Procedure Notes None recorded. Medical Equipment None Reported. Allergies Allergen ID Allergen Name Allergen Category Reaction Reaction Severity Criticality Documentation Date Start Date Code Code System Note Provider Name and Address Organization Details Recorded Time [id number] acetamino phen / oxycodone medicatio n nausea vomiting Not available Not available Not available 06/04/2013 13612 3 RxNorm per Hx- 3 pt state s she is not aller gic it was an error Naina rodney MA [facility] 6 15:45:45 [id number] Tylenol with Codeine medicatio n nausea vomiting Not available Not available Not available 06/04/2013 48008 6 RxNorm per Hx Thelma Walker MA [facility] 3 14:57:07 [id number] gabapenti n medicatio n vomiting Not available Not available 07/22/2013 24102 RxNorm Rosa croft PA-C [address] [facility] [place], [address], [facility] 8 10:15:54 [id number] albuterol sulfate medicatio n anaphylax is Not available Not available 12/25/2014 40470 3 RxNorm Mal Lema MD [address] [facility] [place], [address], [facility] 5 08:52:31 [id number] aspirin medicatio n rash moderate Not available 08/01/2018 1191 RxNorm Savannah Farley [facility], [facility] 9 14:18:06 [id number] Trulicity medicatio n hives mild unabletoasse ss 05/05/20222021 78659 96 RxNorm not clear if true aller gy Rosa croft PA-C [address] [facility], [place], [address] , [facility] 2 09:19:18 [id number] acetamino phen / codeine medicatio n vomiting Not available Not available 07/06/2010 92593 9 RxNorm Not Available [facility] 1 06:05:41 58535 Lipitor medicatio n other mild Not available 08/05/2011 60015 5 RxNorm muscl e pain Liv Ac [place] null, [facility] 2 12:03:26 Medications Name Sig Start Date Stop Date Status Note LastModified by Organization Details LastModified Time magnesium citrate soln lemon 296ml DRINK UTD FOR PROCEDUR E PREP 06/13 completed Not Available Not Available Not Available freestyle lite test strips strp active Not Available Not Available Not Available Prescript ion - Clarifica tion 2010 active Not Available Not Available Not Avai lable Prescript ion - Prior Authoriza tion Request 12/12 completed Letter of Medical Necessit y - Glucomet er Not Available Not Available Not Available cyclobenz aprine 10 mg tablet TK 1 T PO BID PRN P 01/27 completed Not Available Not Available Not Available amoxicill in 500 mg capsule TAKE 1 CAPSULE BY MOUTH 3 TIMES A DAY FOR 10 DAYS active Not Available Not Available No t Available pioglitaz one 15 mg tablet TAKE 1 TABLET BY MOUTH DAILY. REPLACES ACTOS 30 MG DAILY active Not Available Not Available No t Available metformin 500 mg tablet TAKE 2 TABLETS BY MOUTH IN THE MORNING AND IN 1 WEEK TAKE 2 TABLETS BY MOUTH TWICE DAILY 08/06 completed Not Available Not Available Not Available Qvar 80 mcg/actua tion Metered Aerosol oral inhaler Inhale 4 puffs twice a day by inhalati on route for 30 days. 2012 active Not Available Not Available Not Avai lable BD Alcohol Swabs USE BID DIRECTED FOR MONITORI NG GLUCOSE active Not Available Not Available No t Available acetamino phen 325 mg tablet TAKE 1 TABLET BY MOUTH EVERY 6 HOURS NEEDED FOR MILD PAIN active Not Available Not Available No t Available prednison e 10 mg tablet 6 tabs on day 1-5; 5 tabs day 6-7; 4 tabs day 8-9; 3 tabs day 10-11; 2 tabs day 12-13; 1 tab day 14-15; 1/2 tab day 16-17 02/09 completed Not Available Not Available Not Available venlafaxi ne ER 75 mg capsule,e xtended release 24 hr TK 1 C PO QD 12/12 completed stopped due to nausea Not Available Not Available Not Available doxycycli ne hyclate 100 mg capsule Take 1 capsule twice a day by oral route for 10 days. active Not Available Not Available No t Available atorvasta tin 20 mg tablet TK 1 T PO QD 09/15 completed Not Available Not Available Not Available nicotine 14 mg/24 hr daily transderm al patch Apply 1 patch every day by transder mal route. 12/14 completed Not taking at this time 01/03/22 JF/Not taking at this time 12/14/22 JF Not Available Not Available Not Available ipratropi um 0.5 mg-albute rol 3 mg (2.5 mg base)/3 mL nebulizat ion soln USE 1 VIAL VIA NEBULIZE R EVERY 4 HOURS NEEDED 2024 active Not Available Not Available Not Avai lable albuterol sulfate 2.5 mg/3 mL (0.083 %) solution for nebulizat ion INHALE 1 VIAL(3 ML) VIA NEBULIZE R EVERY 4 HOURS NEEDED 2024 active Not Available Not Available Not Avai lable trazodone 50 mg tablet TK 1 OR 2 TS PO Q NIGHT PRN 06/13 completed Not Available Not Available Not Available cetirizin e 10 mg tablet TAKE 1 TABLET BY MOUTH EVERY DAY. active Not Available Not Available No t Available cefpodoxi me 200 mg tablet Take 1 tablet twice a day by oral route for 7 days. 10/06 completed Not Available Not Available Not Available azithromy adrianne 250 mg tablet Take 2 tablets every day by oral route for 1 day. 12/02 completed Not Available Not Available Not Available pravastat in 40 mg tablet TAKE 1 TABLET BY MOUTH EVERY DAY active Not Available Not Available No t Available nicotine (polacril ex) 2 mg gum Chew 1 piece of gum every 2 hours by oral route. 12/14 completed Not taking at this time 01/03/22 JF/Not taking at this time 12/14/22 JF Not Available Not Available Not Available hydrocodo ne 5 mg-acetam inophen 325 mg tablet TAKE 1 TABLET BY MOUTH 3 TIMES A DAY NEEDED active 10/19/15-a c Not Available Not Available Not Available senna 8.6 mg tablet TAKE 1 TABLET BY MOUTH EVERY NIGHT AT BEDTIME active Not Available Not Available No t Available FreeStyle Lancets 28 gauge USE TWICE DAILY DIRECTED FOR MONITORI NG GLUCOSE active Not Available Not Available No t Available ondansetr on HCl 4 mg tablet TAKE 1 TABLET BY MOUTH EVERY 8 HOURS NEEDED FOR NAUSEA active 10/19/15-a c Not Available Not Available Not Available prednison e 20 mg tablet Take by oral route 3 tablets for 3 d, 2 tabs x 3d, 1 tabs x 3d, one half tab x 4 days 02/09 completed Not Available Not Available Not Available glipizide ER 5 mg tablet, extended release 24 hr TAKE 1 TABLET BY MOUTH EVERY DAY IN THE MORNING BEFORE BREAKFAS T FOR BLOOD SUGAR active Not Available Not Available No t Available cyanocoba sean (vit B-12) 1,000 mcg tablet TAKE 1 TABLET BY MOUTH EVERY DAY active Not Available Not Available No t Available bacitraci n 500 unit/gram topical ointment Apply 1 applicat ion twice a day by topical route. 08/06 completed Not Available Not Available Not Available clopidogr el 75 mg tablet TAKE 1 TABLET(7 5 MG) BY MOUTH DAILY active Not Available Not Available No t Available bacitraci n zinc 500 unit/gram topical ointment APPLY TOPICALL Y TWICE DAILY 08/06 completed Not Available Not Available Not Available prochlorp erazine maleate 10 mg tablet TK 1 T PO Q 6 H 05/07 completed Not Available Not Available Not Available sulfameth oxazole 800 mg-trimet hoprim 160 mg tablet active Not Available Not Available Not Available Nicotrol 10 mg inhalatio n cartridge use frequent continuo us puffing x20min for each cartridg e (80 deep inhalati ons over 20min releases 4 mg nicotine of which 2 mg is absorbed ) 08/06 completed Not taking 05/12/21 am Not Available Not Available Not Available tramadol 50 mg tablet TAKE 1 TABLET BY MOUTH EVERY 6 HOURS NEEDED FOR PAIN active Not Available Not Available No t Available acetamino phen 500 mg tablet TAKE 1 TABLET BY MOUTH EVERY 6 HOURS active 10/19/15-a c Not Available Not Available Not Available simvastat in 40 mg tablet Take 1 tablet every day by oral route for 90 days. 2010 active Not Available Not Available Not Avai lable glimepiri de 2 mg tablet TAKE 1 TABLET BY MOUTH EVERY DAY active Not Available Not Available No t Available nortripty line 25 mg capsule Take 1 capsule every day by oral route at bedtime. 08/01 completed Not Available Not Available Not Available meloxicam 7.5 mg tablet Take 1 tablet every day by oral route. 06/13 completed Not Available Not Available Not Available oxycodone -acetamin ophen 5 mg-325 mg tablet Take 1 tablet every 6 hours by oral route as needed for 14 days. active Not Available Not Available No t Available citalopra m 20 mg tablet TK 1 T PO Q NIGHT 01/27 completed 01/27/17- pt states no longer taking Not Available Not Available Not Available amitripty line 25 mg tablet Take 3 tab po qhs (dose increase d) 2015 active 11/03/15 pt states she is no longer taking.j d Not Available Not Available Not Available Lipitor 40 mg tablet Take 1 tablet every day by oral route for 30 days. 2010 active muscle pain stopped at [facility] Not Available Not Available Not Available amitripty line 10 mg tablet TK 1 T PO QD 09/15 completed Not Available Not Available Not Available diazepam 2 mg tablet TAKE 1 TABLET BY MOUTH THREE TIMES A DAY NEEDED FOR PAIN active Not Available Not Available No t Available benzonata te 100 mg capsule 05/04 completed Not Available Not Available Not Available cephalexi n 500 mg capsule TAKE ONE CAPSULE BY MOUTH 4 TIMES A DAY active 10/19/15-a c Not Available Not Available Not Available pantopraz ole 40 mg tablet,de layed release TAKE 1 TABLET BY MOUTH DAILY active Not Available Not Available No t Available simvastat in 20 mg tablet 1QD - TAKE ONE TABLET BY MOUTH EVERY DAY 2010 active Not Available Not Available Not Avai lable metformin 1,000 mg tablet TAKE 1 TABLET BY MOUTH TWICE DAILY 05/07 completed 05/07/18 pt states she is no longer taking/j d Not Available Not Available Not Available lisinopri l 10 mg tablet TAKE ONE TABLET BY MOUTH EVERY DAY 2011 active Not Available Not Available Not Avai lable prednison e 50 mg tablet active Not Available Not Available Not Available Glucerna Shake oral liquid DRINK 1 FULL BOTTLE BY MOUTH EVERY DAY active Not Available Not Available No t Available glucose 4 gram chewable tablet active Not Available Not Available Not Available nicotine 21 mg/24 hr daily transderm al patch APPLY 1 PATCH TOPICALL Y TO THE SKIN DAILY 12/14 completed Not taking at this time 01/03/22 JF/Not taking at this time 12/14/22 JF Not Available Not Available Not Available docusate sodium 100 mg capsule TAKE 1 CAPSULE BY MOUTH TWICE DAILY active Not Available Not Available No t Available gabapenti n 300 mg capsule Take 1 CAPSULE on day 1, then 1 capsule BID on day 2, then 1 cap TID & continue on 1 cap tid 2012 active Not Available Not Available Not Avai labmalaika monteluka st 10 mg tablet TAKE 1 TABLET BY MOUTH EVERY DAY active Not Available Not Available No t Available codeine 10 mg-guaife nesin 100 mg/5 mL oral liquid Take 10 ML @hs prn cough. 12/02 completed Not Available Not Available Not Available bisacodyl 5 mg tablet,de layed release TK 4 TS PO FOR PROCEDUR E PREP 06/13 completed Not Available Not Available Not Available pravastat in 20 mg tablet TAKE 1 TABLET BY MOUTH EVERY DAY 01/03 completed Not Available Not Available Not Available lisinopri l 5 mg tablet Take 1 tablet every day by oral route for 30 days. active Not Available Not Available No t Available mirtazapi ne 15 mg tablet TK 1 T PO QHS 01/27 completed Not Available Not Available Not Available gabapenti n 100 mg capsule TK 1 C PO TID 05/07 completed 05/07/19 pt states she is no longer taking/j d Not Available Not Available Not Available epinephri ne 0.3 mg/0.3 mL injection , auto-inje ctor INJECT 1 PEN IN THE MUSCLE NEEDED FOR ALLERGIC REACTION active Not Available Not Available No t Available polyethyl júnior glycol 3350 17 gram/dose oral powder MIX 1 CAPFUL WITH 8 OZ OF WATER AND DRINK BY MOUTH 1 TO 2 TIMES WEEKLY NEEDED FOR CONSTIPA TION active Not Available Not Available No t Available Vitamin D2 1,250 mcg (50,000 unit) capsule Take 1 capsule once weekly for 8 weeks 08/01 completed 05/07/18 pt states she is no loner taking/j d Not Available Not Available Not Available pioglitaz one 30 mg tablet TAKE 1 TABLET BY MOUTH DAILY active Not Available Not Available No t Available ketoconaz ole 2 % topical cream APPLY TOPICALL Y TO THE AFFECTED AREA EVERY DAY 05/12 completed Not Available Not Available Not Available Cortispor in-TC 3.3 mg-3 mg-10 mg-0.5 mg/mL ear drops,betsy pension Instill 3 drops 3 times a day by otic route for 5 days. 2014 active Not Available Not Available Not Avai lable ondansetr on 4 mg disintegr ating tablet DISSOLVE 1 TO 2 TABLETS ON THE TONGUE TWICE DAILY FOR 5 DAYS NEEDED FOR NAUSEA active Not Available Not Available No t Available metformin ER 500 mg tablet,ex tended release 24 hr TAKE 2 TABLETS BY MOUTH TWICE DAILY active Not Available Not Available No t Available lisinopri l 2.5 mg tablet TK 1 T PO QD 05/07 completed 05/07/18 pt states she is no longer taking/j d Not Available Not Available Not Available medroxypr ogesteron e 150 mg/mL intramusc ular suspensio n INJECT IN THE MUSCLE EVERY 3 MONTHS 2024 active Not Available Not Available Not Avai lable doxycycli ne hyclate 100 mg tablet active Not Available Not Available Not Available naproxen 500 mg tablet Take 1 tablet twice a day by oral route for 30 days. 08/21 completed Not Available Not Available Not Available nicotine 7 mg/24 hr daily transderm al patch APPLY 1 PATCH TO SKIN ONCE D 05/07 completed Not Available Not Available Not Available Ventolin HFA 90 mcg/actua tion aerosol inhaler INHALE 2 PUFFS BY MOUTH EVERY 4 TO 6 HOURS NEEDED FOR SHORTNES S OF BREATH OR WHEEZING 2024 active Not Available Not Available Not Avai lable oxycodone 5 mg tablet TAKE 1 T PO Q 6 H PRN P active Not Available Not Available No t Available Tessalon Perle 100 mg capsule Take 1 capsule 3 times a day by oral route. 02/09 completed Not Available Not Available Not Available medroxypr ogesteron e 150 mg/mL intramusc ular syringe INJECT 1 ML IN THE MUSCLE Q 3 MONTHS 12/12 completed Not Available Not Available Not Available ezetimibe 10 mg tablet TAKE 1 TABLET BY MOUTH EVERY DAY active Not Available Not Available No t Available Vitamin D3 25 mcg (1,000 unit) tablet Take 1 tablet every day by oral route. 01/27 completed 01/27/17- pt states no longer taking Not Available Not Available Not Available Vitamin D3 25 mcg (1,000 unit) capsule active Not Available Not Available Not Available nicotine (polacril ex) 4 mg buccal lozenge Take 1 tablet every 2 hours by oral route. 2014 active Not Available Not Available Not Avai lable tiotropiu m bromide 18 mcg capsule with inhalatio n device INHALE CONTENTS OF 1 CAPSULE ONCE DAILY USING HANDIHAL ER active Not Available Not Available No t Available metformin ER 500 mg tablet,ex tended release 24hr (osmotic) Take 2 tablets twice a day by oral route. 08/06 completed Not Available Not Available Not Available duloxetin e 20 mg capsule,d elayed release TK 1 C PO BID 08/01 completed Not Available Not Available Not Available Cymbalta 30 mg capsule,d elayed release Take 1 capsule every day by oral route. 12/12 completed Not Available Not Available Not Available lactulose 10 gram/15 mL oral solution TAKE 15 ML BY MOUTH TWICE DAILY NEEDED FOR CONSTIPA TION active Not Available Not Available No t Available Lancets,U ltra Thin check once a day and as directed ; disp 3 month supply 2010 active Not Available Not Available Not Avai lable Flovent HFA 220 mcg/actua tion aerosol inhaler INHALE 2 PUFFS BY MOUTH TWICE DAILY 09/14 completed holding Not Available Not Available Not Available chlorhexi dine gluconate 0.12 % mouthwash SWISH 15 ML IN THE MOUTH OR THROAT FOR 30 SECONDS THEN SPIT OUT TWICE DAILY IN THE MORNING AND IN THE EVENING DO NOT SWALLOW DO NOT EAT OR DRINK FOR 30 MINUTES AFTER active Not Available Not Available No t Available chromium picolinat e active taking per Dr in [place] for 'blood sugar' S uper Nopal Not Available Not Available Not Available peg 3350-elec trolytes 236 gram-22.7 4 gram-6.74 gram-5.86 gram solution MIX AND DRINK DIRECTED 08/06 completed Not using 05/12/21 am Not Available Not Available Not Available FreeStyle Lite Strips USE TO TEST BLOOD SUGAR THREE TIMES DAILY active Not Available Not Available No t Available Lantus Solostar U-100 Insulin 100 unit/mL (3 mL) subcutane ous pen INJECT 4 UNITS SUBCUTAN EOUSLY EVERY EVENING active Not Available Not Available No t Available Questran Light 4 gram oral powder Take 1 scoop twice a day by oral route for 30 days. 2012 active Not Available Not Available Not Avai lable FreeStyle Olmitz Lite kit USE DIRECTED TO CHECK BLOOD GLUCOSE active Not Available Not Available No t Available Flovent Diskus 100 mcg/actua tion powder for inhalatio n INHALE 1 PUFF INTO THE LUNGS TWICE DAILY. RINSE MOUTH AFTER USE 09/14 completed Not Available Not Available Not Available Aerochamb er Plus Flow-Vu USE UTD WITH INHALER active Not Available Not Available No t Available lidocaine 5 % topical ointment GONZALO AA TOPICALL Y UP TO QID active Not Available Not Available No t Available Jardiance 10 mg tablet TAKE 1 TABLET BY MOUTH EVERY DAY 07/05 completed Not Available Not Available Not Available Jardiance 25 mg tablet TAKE 1 TABLET BY MOUTH EVERY DAY active Not Available Not Available No t Available Trulicity 0.75 mg/0.5 mL subcutane ous pen injector ADMINIST ER 0.75 MG UNDER THE SKIN EVERY WEEK 10/01 completed rash? leg pain Not Available Not Available Not Available Incruse Ellipta 62.5 mcg/actua tion powder for inhalatio n INHALE 1 PUFF INTO THE LUNGS ONCE DAILY active Not Available Not Available No t Available Readi-Cat 2 2 % (w/v) oral suspensio n Take as directed : first bottle 6 hours prior to exam and second bottle 90 minutes prior to exam 08/06 completed not using 05/12/21 am Not Available Not Available Not Available Wixela Inhub 500 mcg-50 mcg/dose powder for inhalatio n INHALE 1 PUFF BY MOUTH TWICE DAILY active Not Available Not Available No t Available BD Eli 2nd Gen Pen Needle 32 gauge x USE DIRECTED TO INJECT INSULIN ONCE DAILY active Not Available Not Available No t Available Rybelsus 3 mg tablet 07/05 completed Not Available Not Available Not Available Dexcom G7 Superintendent Transmission USE DIRECTED active Not Available Not Available No t Available Dexcom G7 Sensor device APPLY NEW SENSOR EVERY 10 DAYS DIRECTED active Not Available Not Available No t Available berberine chloride active taking suppleme nt for 'blood sugar' Not Available Not Available Not Available Vitals Date Recorded Body height Body mass index (BMI) Body weight Systolic And Diastolic Provider Name and Address Organization Details Last Updated DateTime 07/23/2024 152.4 cm 32.1 kg/m2 27418.55 g 130/74 mm[Hg] Rosario Constantino LPN [facility] 07/23/2024 09:38:20 Date Recorded Body height Heart rate Oxygen saturation Oxygen saturation in Arterial blood by Pulse oximetry Body mass index (BMI) Body weight Systolic And Diastolic Provider Name and Address Organization Details Last Updated DateTime 152.4 cm 87 /min 97 % 97 % 32.8 kg/m2 05843.2 2 g 118/84 mm[Hg] Katelynn Vera [facility] 09:18:42 Date Recorded Body height Heart rate Body mass index (BMI) Body weight Systolic And Diastolic Provider Name and Address Organization Details Last Updated DateTime 05/16/2024 152.4 cm 76 /min 31.2 kg/m2 30982.78 g 128/68 mm[Hg] Jazmyne Salgado [facility] 05/16/2024 11:08:32 Date Recorded Body height Body mass index (BMI) Body weight Systolic And Diastolic Provider Name and Address Organization Details Last Updated DateTime 07/02/2024 152.4 cm 31.9 kg/m2 11767.36 g 124/70 mm[Hg] Meagan Weldon [facility] 07/02/2024 08:59:58 Social History Question Answer Notes LastModified by Organizat ion Details LastModified Time Tobacco Smoking Status Current Every Day Smoker 1 cig / day 08/14/23 GARRY Rondon MA [facility] 03/20/2024 09:08:31 Do You Wear A Helmet When Biking? No N/A [email or web address] Information not available 03/20/2024 What Is Your Level Of Caffeine Consumption? Moderate 2 Cups Daily Information not available 12/17/2014 How Much Tobacco Do You Chew? None Information not available 12/17/2014 What Type Of Diet Are You Following? REGULAR Information not available 12/17/2014 Which Illicit Or Recreational Drugs Have You Used? None [id number] Information n ot available 06/02/2011 Education 12 Informat ion not available 12/17/2014 What Is The Highest Grade Or Level Of School You Have Completed Or The Highest Degree You Have Received? [id number] Information not available 09/05/2022 Have There Been Any Changes To Your Family Or Social Situation? Yes Pt Had Stroke 07/19/21 Information not available 09/05/2022 How Many Days In The Past Year Have You Had A Heavy Drinking Consumption (4+ Female, 5+ Male)? 0 Information not available 12/17/2014 Are There Any Guns Present In Your Home? No Information not available 12/17/2014 Do You Use Insect Repellent Routinely? Yes Information not available 09/05/2022 Live Alone Or With Others? Alone Information not available 06/29/2015 Marital Status In formation not available 06/02/2011 Mosquito Repellent Used Routinely Yes Information not available 12/17/2014 What Was The Date Of Your Most Recent Tobacco Screening? 07/02/2024 [email or web address] Information not available 07/02/2024 How Many Children Do You Have? 3 [email or web address] Information not available 01/07/2013 What Is Your Current Pack Years? 10packyears Information not available 03/30/2015 What Is Your Relationship Status? Single Information not available 09/05/2022 Do You Use Your Seat Belt Or Car Seat Routinely? Yes Information not available 09/05/2022 Seat Belts Used Routinely Yes [id number] Information n ot available 06/02/2011 Are You Sexually Active? No 6 Years Ago Was Last New Sex Partner [email or web address] Information not available 07/06/2010 Smoke Alarm In Home Yes [id number] Information n ot available 06/02/2011 Do You Have Smoke And Carbon Monoxide Detectors In Your Home? Yes Information not available 09/05/2022 At What Age Did You Start Smoking Tobacco? 23 Information not available 09/05/2022 Are You Passively Exposed To Smoke? No Information not available 09/05/2022 How Much Tobacco Do You Smoke? 1 PPW [id number] Information n ot available 06/02/2011 What Types Of Sporting Activities Do You Participate In? None Information not available 06/29/2015 General Stress Level High Information not available 06/29/2015 Do You Use Sunscreen Routinely? No Information not available 09/05/2022 Sex: Female Functional Status Question Answer Note LastModified by Organizat ion Details LastModified Time Do you use any illicit or recreational drugs? No [email or web address] Information not available 01/03/2022 Do you or have you ever used any other forms of tobacco or nicotine? No [email or web address] Information not available 01/03/2022 What is your level of alcohol consumption? None Information not available 12/17/2014 Are you currently employed? No Information not available 09/05/2022 Do you or have you ever used e-cigarettes or vape? Never used electronic cigarettes Information not available 11/20/2020 What is your exercise level? Occasional exercise am/noon/pm- exercise ands and legs, cant walk or do anything too strenuous Information not available 09/05/2022 Mental Status None recorded. Family History Relationship Description Onset Age of this Age Resolved Age Notes LastModified by Organization Details LastModified Time Mother Diabetes mellitus previo usly record ed as Diabet es [id number] [id number] Not available 02/25/2013 03:01:12 Maternal Aunt Malignant tumor of colon 47 previo usly record ed as Cancer - Colon [id number] Not available 02/25/2013 03:01:12 Maternal Aunt Malignant tumor of breast 55 previo usly record ed as Cancer -Breas t [id number] Not available 02/25/2013 03:01:12 Brother Diabetes mellitus adult onset (previ ously record ed as Diabet es) [id number] [id number] Not available 02/25/2013 03:01:12 Brother Myocardial infarction 43 Not available 02/25/2013 03:01:12 Brother Malignant tumor of colon 47 [email or web address] Not available 2015 17:24:47 Father Diabetes mellitus previo usly record ed as Diabet es [id number] Not available 02/25/2013 03:01:12 Medical History Condition Response Peptic Ulcer Disease Y Diabetes Type II Y GERD Gynecological History Statement/Question Response Menses Monthly N History of Abnormal Pap N Current Control Method 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 09:03:06 COVID-19, mRNA, LNP-S, bivalent, PF, 30 mcg/0.3 mL dose [address] [facility] 01/10/2025 09:03:23 Tdap 5 completed Not Available [facility] 08/03/2019 02:28:11 Influenza, split virus, quadrivalent, PF 2 completed Rosa Williamson PA-C [address] [place] [address], [phone], [facility] 04/17/2022 20:25:40 pneumococcal polysaccharide PPV23 2 completed Rosa Williamson PA-C [address] [place] [address], [phone], [facility] 05/09/2022 11:21:16 Influenza, split virus, quadrivalent, PF 3 completed [facility] 04/25/2023 11:40:21 Influenza, split virus, trivalent, PF 4 completed Rosa Williamson PA-C [address] [place] [address], [phone], [facility] 03/21/2024 17:29:47 COVID-19, mRNA, LNP-S, PF, 30 mcg/0.3 mL dose 1 [facility] 01/10/2025 09:03:23 COVID-19, mRNA, LNP-S, PF, 30 mcg/0.3 mL dose 1 [facility] 01/10/2025 09:03:23 COVID-19, mRNA, LNP-S, PF, 30 mcg/0.3 mL dose 2 completed [facility] 03/29/2022 13:50:29 Past Encounters Encounter ID Performer Location Encounter Start Date Encounter Closed Date Diagnosis/Indication Diagnosis SNOMED-CT Code Diagnosis ICD10 Code Diagnosis Note [id number] Aliya Muller MD , [facility], [address] [place] [address] 07/06/2010 14:53:01 07/08/2010 12:12:01 [id number] [facility] RADIOLOGY [facility] Radiology , [facility] [address] [place] [address] 07/06/2010 17:12:01 07/07/2010 11:45:33 [id number] Aliya Muller MD , [facility], [address] [place] [address] 07/14/2010 09:04:17 07/19/2010 10:32:45 [id number] Aliya Muller MD , [facility], [address] [place] [address] 08/05/2010 09:05:14 08/06/2010 12:58:13 [id number] TREATMENT NURSE [facility], [facility], [address] [place] [address] 08/13/2010 09:11:34 08/16/2010 12:51:11 [id number] Aliya Muller MD , [facility], [address] [place] [address] 11/11/2010 08:43:30 11/15/2010 10:54:10 [id number] [facility] [address] [place] [address] 11/11/2010 10:46:48 11/12/2010 14:13:38 [id number] Aliya Muller MD , [facility], [address] [place] [address] 12/21/2010 09:08:28 12/22/2010 15:04:32 [id number] Aliya Muller MD , [facility], [address] [place] [address] 01/25/2011 09:01:15 01/26/2011 10:18:55 [id number] [facility] [address] [place] [address] 01/25/2011 10:05:55 01/26/2011 11:26:26 [id number] FP TREATMENT NURSE [facility], [facility], [address] [place] [address] 02/10/2011 15:14:10 02/10/2011 15:25:12 [id number] Aliya Muller MD , [facility], [address] [place] [address] 03/03/2011 08:51:08 03/03/2011 10:11:08 [id number] Aliya Muller MD , [facility], [address] [place] [address] 03/24/2011 12:07:42 03/24/2011 12:32:21 [id number] FP TREATMENT NURSE [facility], [facility], [address] [place] [address] 05/02/2011 16:15:08 05/02/2011 17:28:07 [id number] FP TREATMENT NURSE [facility], [facility], [address] [place] [address] 08/03/2011 09:41:28 08/03/2011 10:25:10 [id number] Aliya Muller MD FP, [facility], [address] [place] [address] 08/05/2011 11:43:23 08/05/2011 12:46:51 [id number] Aliya Muller MD , [facility], [address] [place] [address] 08/12/2011 08:48:57 08/15/2011 09:39:52 [id number] Meagan Jerome PA-C FP, [facility], [address] [place] [address] 09/19/2011 08:00:05 09/19/2011 14:05:41 [id number] Jie Astorga NP FP, [facility], [address] [place] [address] 09/30/2011 07:51:22 10/04/2011 13:50:51 [id number] Aliya Muller MD FP, [facility], [address] [place] [address] 10/17/2011 09:28:58 10/20/2011 09:49:04 [id number] FP TREATMENT NURSE [facility], [facility], [address] [place] [address] 10/18/2011 09:28:05 10/18/2011 14:26:46 [id number] FP TREATMENT NURSE [facility], [facility], [address] [place] [address] 01/16/2012 15:10:25 01/16/2012 15:41:53 [id number] FP TREATMENT NURSE [facility] FP, [facility], [address] [place] [address] 04/16/2012 15:01:33 04/16/2012 15:40:14 [id number] FP TREATMENT NURSE [facility] FP, [facility], [address] [place] [address] 07/18/2012 10:36:42 07/19/2012 10:31:52 [id number] GERALDO Jenkins FP, [facility], [address] [place] [address] 07/19/2012 07:59:45 07/19/2012 09:03:15 [id number] Jarad Montes De Oca MD Radiology , [facility] [address] [place] [address] 07/19/2012 08:32:47 07/19/2012 08:53:48 [id number] Aliya Muller MD , [facility], [address] [place] [address] 09/12/2012 10:47:54 09/12/2012 12:37:03 [id number] TREATMENT NURSE [facility], [facility], [address] [place] [address] 10/11/2012 08:57:16 10/11/2012 12:28:22 [id number] Aliya Muller MD , [facility], [address] [place] [address] 11/29/2012 11:43:23 11/30/2012 14:24:33 [id number] Aliya Muller MD , [facility], [address] [place] [address] 01/07/2013 10:27:59 01/08/2013 11:08:28 [id number] Aliya Muller MD , [facility], [address] [place] [address] 04/16/2013 09:51:05 04/16/2013 10:10:26 [id number] Aliya Muller MD , [facility], [address] [place] [address] 04/30/2013 08:46:10 05/03/2013 14:14:35 Contraception care education [id number] MARCELLUS Nina [facility], [address] [place] [address] 06/05/2013 16:20:50 06/06/2013 09:33:51 Pain of joint of hand [id number] discussed pain management , will trial gabapentin as written below. followup in 2 weeks for reevaluati on or sooner when necessary [id number] MARCELLUS Nina [facility], [address] [place] [address] 06/19/2013 16:33:30 06/19/2013 17:20:53 Pain of joint of hand 907119122 REdiscusse d pain management , naproxen 500 mg one tablet twice a day. Continue with warm soaks, discussed positionin g during sleep. Will follow up in one month or sooner when necessary. May need referral to physical therapy if pain does not resolve. [id number] MARCELLUS Nina , [facility], [address] [place] [address] 07/22/2013 07:29:34 07/22/2013 11:28:31 Benign essential hypertension 4194285 continue to work on diet ,exercisea nd lowering salt intake as discussed Mixed hyperlipidemia 964812295 continue to work on diet and exercise as discussed Type 2 tram betes mellitus without complication 927297101 Allergic a sthma without status asthmaticus 58214226 Pain of joint of hand 742042214 REdiscusse d pain management , naproxen 500 mg one tablet twice a day. Continue with warm soaks, discussed positionin g during sleep. Will follow up in one month or sooner when necessary. May need referral to physical therapy if pain does not resolve. [facility] ion care management [id number] Mal Lema MD , [facility], [address] [place] [address] 12/17/2014 08:29:12 12/17/2014 09:56:01 Intrinsic asthma 103602228 Patient reports daily use of Albuterol. No respirator y distress. No wheezing on exam. Unclear if habit vs. worsening respirator y symptoms. Will increase Flovent 220mcg to 2 puffs bid given frequent Albuterol use. Schedule for Spirometry . Also using Singulair. Benign ess ential hypertension 2349527 Previous diagnosis of HTN. BP within normal today. Advised to continue with lifestyle modificati on with low salt diet. Mixed hyperlipidemia 352037369 Continue to work on diet and exercise as discussed. Will check fasting lipid panel. Type 2 tram betes mellitus without complication 226605489 Previous Hgb A1c 6.2 (in 07/2013). States she does not have a glucometer at home. Denies any symptoms of hyper- or hypoglycem ia. Check FLP, Hgb A1c and MA/Cr ratio. Continue with Metformin. Encouraged to monitor BS at home. [facility] ion care management [id number] Currently on Depo-Prove ra. Has refills. Last administra tion was 10/30/2014 at the outside clinic. Will schedule for RN travis t for her next injection. Safe sex reviewed. Carpal seble ria syndrome 22316029 Left hand CTR by [facility] (01/2014). But continued pain. Was suggested diabetic neuropathy . EMG/NCS done (unclear if prior to the surgery of after). States Gabapentin caused her to pass out (used 300 to 900mg dose). States Naproxen or Nabumetone did not improve pain. No narcotic due to previous traffickin g history. Advised on Acetaminop hen. Unsure if Amitriptyl ine was tried. Would like to review her records before proceeding . Patient understand s and agrees with the plan. Administra tion of diphtheria, pertussis, and tetanus vaccine [id number] Mal Lema MD , [facility], [address] [place] [address] 12/24/2014 09:41:03 12/24/2014 11:31:50 Intrinsic asthma 567575817 [id number] GERALDO Jenkins , [facility], [address] [place] [address] 12/31/2014 13:22:05 12/31/2014 13:58:11 Tobacco user [id number] Abscess 244635100 Diabetes mellitus 95642207 [id number] Mal Lema MD , [facility], [address] [place] [address] 01/05/2015 15:10:10 01/05/2015 16:06:44 Intrinsic asthma 487054296 Patient reported daily use of Albuterol. No respirator y distress. No wheezing on exam. Unclear if habit vs. worsening respirator y symptoms. Doing better on an increased dose of Flovent 220mcg to 2 puffs bid. Also using Singulair. Benign ess ential hypertension 7281986 Previous diagnosis of HTN. BP within normal today. Advised to continue with lifestyle modificati on with low salt diet. Mixed hyperlipidemia 556065634 Continue to work on diet and exercise as discussed. Found to have low HDL. Increasing omega-3 FA discussed. Type 2 tram betes mellitus without complication 036606812 Previous Hgb A1c 6.3 (in 12/2014). Denies any symptoms of hyper- or hypoglycem ia. Continue with Metformin. Encouraged to monitor BS at home. Glucometer supplies previously prescribed . [facility] ion care management 691477557 Currently on Depo-Prove ra. Has refills. Last administra tion was 10/30/2014 at the outside clinic. Has an RN appointmen t (01/19/2015) for her next injection. Safe sex reviewed. Carpal seble ria syndrome 25034105 Left hand CTR by [facility] (01/2014). But continued pain. Was suggested diabetic neuropathy . EMG/NCS done (unclear if prior to the surgery of after). States Gabapentin caused her to pass out (used 300 to 900mg dose). States Naproxen or Nabumetone did not improve pain. No narcotic due to previous traffickin g history (on probation) . Advised on Acetaminop hen. Denies being tried on Amitriptyl ine. Interested in starting this medication for pain. Patient understand s and agrees with the plan. Cellulitis and abscess of thigh [id number] Patient was recently seen at Urgent Care at [facility] on 12/31/2014 for right thigh infection. Doxycyclin e prescribed . The next day, the area became larger. Patient presented to [facility] ER and had I&D. Bactrim DS started (Doxycycli ne was discontinu ed). Completed 4 out of the 10-day course. The area has markedly improved. No pain. No F/C. [id number] Mal Lema MD , [facility], [address] [place] [address] 01/19/2015 09:29:05 01/19/2015 11:02:58 Contraception care management [id number] Mal Lema MD , [facility], [address] [place] [address] 02/23/2015 08:29:46 02/23/2015 09:06:25 Acute asthma 780717747 Completed Prednisone 50mg daily for 5 days. Still with persistent wheezing throughout her lung castaneda. Will extend 2-week tapering course of Prednisone . Continue with Zyrtec and Singulair. Also recommend Albuterol prn. Follow up in 1 week for re-evaluat ion. Indication s for UC/ER use discussed. Discussed about finding a different employment (symptoms became worse after starting work at [employer]). Tobacco user [id number] E ncouraged cessation. Behavioral modificati on and goal setting discussed. [id number] Mal Lema MD , [facility], [address] [place] [address] 03/30/2015 10:15:51 03/31/2015 10:49:44 Carpal tunnel syndrome 46224120 Left hand CTR by [facility] (01/2014). But continued pain. Was suggested diabetic neuropathy . EMG/NCS done (unclear if prior to the surgery of after). States Gabapentin caused her to pass out (used 300 to 900mg dose). States Naproxen or Nabumetone did not improve pain. No narcotic due to previous traffickin g history (on probation) . Advised on Acetaminop hen. Denies being tried on Amitriptyl ine. Interested in starting this medication for pain. Patient understand s and agrees with the plan. Deficiency of vitamin D2 495258359 Low Vitamin D level measured by the [facility] for the [facility]. Advised to start Vitamin D 50,000 units po qweekly for 8 weeks, then start Vitamin D 1000 units daily. [id number] Lesley Parra NP , [facility], [address] [place] [address] 04/17/2015 09:26:02 04/20/2015 08:57:16 Hand pain 48649500 M79.641 ? carpel tunnel. H/o CTR on left. is wearing brace at night. Ice and meds don't seem to help. Having trouble functionin g at work due to pain and weakness in right hand. [facility] 209736291 Z30.9 [id number] Mal Lema MD , [facility], [address] [place] [address] 06/29/2015 11:04:52 06/29/2015 12:13:40 Adult health examination 652354073 Z00.00 See Risk Assessment and Lifestyle Change Counseling section above. Tdap vaccine UTD. Declines Influenza vaccine. Pap and HPV negative in 03/2015. Counseling 889344048 Z71 .9 Asthma 654655751 J45.30 Doing markedly better Continue current management . Mixed hyperlipidemia 267 881901 E78.2 LDL at 112. Continue current medication . Continue to work on diet and exercise as discussed. Found to have low HDL. Increasing omega-3 FA discussed. Benign ess ential hypertension 2086673 I10 BP within normal today. Previous diagnosis of HTN. Advised to continue with lifestyle modificati on with low salt diet. Tobacco user 121929532 Z 72.0 Encouraged cessation. Behavioral modificati on and goal setting discussed. Allergic rhinitis 407747 04 J30.9 Stable of Cetirizine and Montelukas t. No evidence of URI. Gastroesop hageal reflux disease 242633437 K21.9 Stable on Protonix. Advised to continue GERD precaution and lifestyle modificati on. Intrinsic asthma 3545319 08 J45.909 Patient reported daily use of Albuterol. No respirator y distress. No wheezing on exam. Unclear if habit vs. worsening respirator y symptoms. Doing better on an increased dose of Flovent 220mcg to 2 puffs bid. Also using Singulair. Type 2 tram betes mellitus 03727292 E11.9 Patient's last Hgb A1c was 6.2 in 03/2015. Advised to continue current medication s and ADA diet. Pain of mu ltiple joints 40942232 M25.50 Involving bilateral hips, elbow, knees and wrists. Intoleranc e to Gabapentin and Amitriptyl ine due to N/V. Would like to avoid opioid pain medication s due to history of drug traffickin g. Trial of Meloxicam. Advised to use with PPI. Will check autoimmune markers. Vitamin D deficiency 347 90092 E55.9 Previously undergone supplement ation with Vitamin D 50,000 units weekly for 8 weeks. Will switch to daily supplement ation. Otitis externa 9973651 H 60.92 Involving left ear with EAC erythema and discharge. Will treat with Cortispori n Otic drops. [id number] Mal Lema MD , [facility], [address] [place] [address] 07/28/2015 11:39:21 07/29/2015 13:18:56 Contraception care management 733582344 Z30.9 [id number] Mal Lema MD , [facility], [address] [place] [address] 08/10/2015 11:40:03 08/11/2015 08:48:56 Nicotine dependence 89376485 Z87.891 Tobacco user 430176329 Z 72.0 Encouraged cessation. Behavioral modificati on and goal setting discussed. Right flank pain 4069705 09 R10.9 Patient with two recent ER visits for right flank pain. Unremarkab le UA/UCx and CMP/CRP. Slight improvemen t. Previously treated with Valium and Oxycodone from the ER. Patient with narcotic misuse history. Discussed about the concern of long-term use of these medication s. Patient agrees with using non-opioid pain medication s. Advised to increase Amitriptyl ine to 75mg po qhs. Short-term use of Cyclobenza latonia 10mg po bid prn discussed. Advised to contact the clinic if no improvemen t of her symptoms. Indication s for UC/ER use reviewed. [facility] 333425404 Z30.9 [id number] Niraj Guadarrama MD , [facility], [address] [place] [address] 10/19/2015 15:37:58 10/20/2015 08:16:03 Rib pain 958109642 R07.81 Reassured. Lungs clear. Xrays neg. Sx seem fairly mild and do not warrant narcotics. OK to continue tylenol as pt says she can't willy. NSAIDs and will add topical lidocaine as below. F/U with PCP if not gradually improving or sx worsening. [id number] MARCELLUS Nina , [facility], [address] [place] [address] 11/03/2015 13:33:46 11/03/2015 15:23:15 Nicotine dependence 85158010 Z87.891 Tobacco user 166750290 Z 72.0 not interested in discussing tobacco cessation [facility] 273336563 Z30.9 Acute asthma 688634072 J 45.901 Albuterol UD treatment X1 in office w/improvem ent in breath sounds, Prednisone taper as written below, continue Flovent & ProAir as previously ordered rest, increase fluids & RTC in3 d. or sooner PRN. Agrees. [id number] MARCELLUS Nina , [facility], [address] [place] [address] 11/06/2015 13:50:39 11/07/2015 10:13:43 Contraception care management 179560462 Z30.9 Cough 28975947 R05 Unresolved , cough med assertion below, may cause sedation, do not drive if using Acute asthma 767957624 J 45.901 Improved, continue on Prednisone taper, Albuterol & Flovent MDIs as directed. If s/s do not to continue to improve RTcC agrees [id number] Mal Lema MD , [facility], [address] [place] [address] 11/16/2015 11:35:56 11/16/2015 12:36:04 Acute asthma 411391829 J45.901 Patient with continued symptoms of asthma with expiratory wheezing and rhonchi. O2 sat within normal today. Able to speak in full sentences. Recently treated with Prednisone . Initially helpful. Will treat for a longer duration of Prednisone at 60mg before titrating down. Will treat with Azithromyc in given her long duration of symptoms. Will check CXR. Indication s for UC/ER use reivewed. Right uppe r quadrant pain 164994921 R10.11 Patient with 2 months duration of RUQ pain and abdominal distention . No clinical evidence of acute abdomen. Not related to food intake, but often triggered by movements. Negative Florez's sign. Will check CMP, Amylase & Lipase. Check Abdominal US. Cyclobenza latonia has been helpful. Indication s for UC/ER use reviewed. [id number] Mla Lema MD , [facility], [address] [place] [address] 02/01/2016 10:32:16 02/02/2016 11:00:31 Education 935778508 Z30.09 [id number] Mal Lema MD , [facility], [address] [place] [address] 02/10/2016 16:56:27 02/11/2016 09:29:14 Cigarette smoker 50268680 F17.210 Tobacco user 282151525 Z 72.0 Encouraged cessation. Behavioral modificati on and goal setting discussed. Significan tly decrease the use to 1 cigarette per day. Abdominal pain 92983932 R10.9 Patient with increased abdominal pain for 3 months. Also with chronic constipati on and FHx of colon cancer (brother diagnosed at age 47). Previously followed by Dr. Castaneda. Was recommende d to have colonoscop y in 2013, but unable to do due to intoleranc e of the prep. Recent CMP and Amylase/Li pase within normal. US showed fatty liver. Will treat with Colace prn. Recommende d high fiber diet. [id number] Mal Lema MD , [facility], [address] [place] [address] 03/14/2016 16:01:03/14/2016 17:02:11 Abdominal pain 06418471 R10.9 Patient with increased abdominal pain for 4 months. Also with chronic constipati on and FHx of colon cancer (brother diagnosed at age 47). Previously followed by Dr. Castaneda. Was recommende d to have colonoscop y in 2013, but unable to do due to intoleranc e of the prep. Recent CMP and Amylase/Li pase within normal. US showed fatty liver. Will treat with Colace prn. Recommende d high fiber diet. Re-referre d to the GI clinic. No clinical evidence of acute abdomen. Cigarette smoker 0356384 7 F17.210 Tobacco user 051967065 Z 72.0 Quit smoking 3 weeks ago. Doing well off cigarettes . Behavioral modificati on and goal setting discussed. Congratkeanu byrnes on her effort. [id number] Mal Lema MD , [facility], [address] [place] [address] 04/18/2016 15:11:19 04/18/2016 15:40:51 Education 839676337 Z30.09 [id number] Mal Lema MD , [facility], [address] [place] [address] 06/13/2016 15:20:31 06/13/2016 15:49:37 Cigarette smoker 41813195 F17.210 Tobacco user 186371811 Z 72.0 Quit smoking. Doing well off cigarettes . Behavioral modificati on and goal setting discussed. Congratkeanu byrnes on her effort. Hyperglycemia 19261479 R 73.9 Recently found to have elevated BS at 205 (she believes she was fasting when this lab was drawn by her gastroente rologist). Reports increased thirst, increased urination and dry mouth. Today's RBS 125. Her last Hgb A1c was 6.2 (03/2015). Will recheck Hgb A1c today. ADA diet discussed. Intrinsic asthma 6657715 08 J45.909 Patient previously reported daily use of Albuterol. No respirator y distress. No wheezing on exam. Unclear if habit vs. worsening respirator y symptoms. Doing better on an increased dose of Flovent 220mcg to 2 puffs bid. Also using Singulair. Gastroesop hageal reflux disease 006351281 K21.9 Stable on Protonix. Advised to continue GERD precaution and lifestyle modificati on. [id number] Mal Lema MD FP, [facility], [address] [place] [address] 07/12/2016 09:45:35 07/12/2016 10:13:06 Contraception care management 630283931 Z30.9 [id number] SONY Kidd, [facility], [address] [place] [address] 10/06/2016 10:13:39 10/06/2016 12:13:03 Uncontrolled type 2 diabetes mellitus 558982984 E11.65 Pt didn't think she had diabetes. Last A1c was 7.0. Will have her repeat it today. Will f/u with treatment based on results. Acute asthma 576257213 J 45.901 Pt does not have a nebulizer at home and needs one. She had improvemen t today with her breathing and lung sounds after a treatment. Neck pain 12779849 M54.2 neck, hands and knees. Contracept ion care management 823905184 Z30.9 Pt to receive injection today. [id number] Tucker Xavier , PT Physical Therapy, [facility] [address] [place] [address] 10/17/2016 13:24:31 10/17/2016 15:11:45 Pain in left arm 277359359 M79.602 46 year old female with findings most consistent with left upper extremity pain from neural mobility deficit Patient has significan t functional limitation in their activities of daily living. Patient Goals: be able to use her left upper extremity to reach, lift, carry and dress without shoulder elbow, wrist or hand pain Clinical Goals: 1. Demonstrat e symmetric pain free active, passive and resisted motions of the neck and upper extremitie s. 2. Demonstrat e sufficient muscular endurance to meet functional demands. Skilled physical therapy is needed to safely and progressiv kristen address impairment s and functional limitation s as outlined above. Treatment Plan: Patient to return 1-2 times per week for 6-8 weeks. We expect significan t change in pain, impairment and function in this time frame. Treatment to Include: Therapeuti c exercise and manual therapy [id number] SONY Kidd, [facility], [address] [place] [address] 10/20/2016 11:39:35 10/20/2016 12:22:26 Uncontrolled type 2 diabetes mellitus 994183548 E11.65 Last A1c up to 7.8. Will start metformin before breakfast and supper, pt to start testing blood sugar BID. Send for CDE referral. f/ u 3 months. Intrinsic asthma 5014748 08 J45.909 Pt never received nebulizer. Will call [facility] [place] to see what is up. [id number] Mal Lema MD , [facility], [address] [place] [address] 12/27/2016 10:32:11 12/27/2016 11:13:33 Contraception care management 149064719 Z30.9 Pt to receive injection today. [id number] Jei Astorga NP , [facility], [address] [place] [address] 01/25/2017 09:40:34 01/25/2017 10:42:35 Benign essential hypertension 7700080 I10 Blood pressure at goal, consider ember protective ly. Cigarette smoker 8126772 7 F17.210 motivated to quit, did not tolerate patch. Tobacco user 685764136 Z 72.0 Type 2 tram betes mellitus without complication 394535107 E11.9 increase metformin, increase exercise, follow up in 1 month. 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 Neck pain 29611088 M54.2 Chronic. NO known injury. Did not follow through with physical therapy; convinced pt to try again and follow up as needed. Pain in left arm 4398812 00 M79.602 Tylenol, does not want to do ibuprofen. [id number] Meagan Wilcox, MARCELLUS-CBOY , [facility], [address] [place] [address] 02/28/2017 10:33:06 02/28/2017 14:05:13 Cigarette smoker 39985007 F17.210 motivated to quit, now waering patch and down to 1 cigarette per day. Tobacco user 664237397 Z 72.0 Type 2 tram betes mellitus without complication 050958637 E11.9 at goal, add ember , intolerant of statin. Mixed hyperlipidemia 267 265213 E78.2 intoleratn t of statin. Neuropathic pain 5145836 09 M79.2 chronic issue, intolerant of gabapentin try amitriptyl ine. [id number] Mal Lema MD , [facility], [address] [place] [address] 03/27/2017 10:26:30 03/28/2017 13:19:12 Contraception care management 618076687 Z30.9 Pt to receive injection today. [id number] Mal Lema MD , [facility], [address] [place] [address] 07/04/2017 11:25:48 07/05/2017 08:31:59 Uses oral contraception 5798233 Z30.41 Urine HCG negative. Routine Depo-Prove ra administer ed today. Follow up in 3 months for a Nurse Visit. Contracept ion care management 012634229 Z30.9 [id number] Mal Lema MD , [facility], [address] [place] [address] 09/15/2017 08:31:11 09/15/2017 09:29:13 Benign essential hypertension 4550794 I10 Blood pressure at goal. Continue current management . Previous BUN/ Cr within normal. Mixed hyperlipidemia 267 150869 E78.2 Elevated LDL and low HDL. Previously did not tolerate Lipitor due to muscle ache without LFT abnormalit y or rhabdomyol ysis. Trial of Pravastati n discussed. Advised to follow up in 1 month for evaluation . Cigarette smoker 2871980 7 F17.210 Tobacco user 251385934 Z 72.0 Signficant ly reduced smoking. Using one cigarette daily. Behavioral modificati on and goal setting discussed. Encouraged to quit completely . Asthma 257464242 J45.30 States well controlled . Only requiring with cold symptoms. Counseling 341485954 Z71 .9 Type 2 tram betes mellitus without complication 162681784 E11.9 Previous Hgb A1c 7.1 (in 01/2017). Denies any symptoms of hyper- or hypoglycem ia. Continue with Metformin. Admits to not checking her BS. Encouraged to monitor BS at home. Glucometer supplies previously prescribed . Pain of mu ltiple joints 30453882 M25.50 Multiple joint and muscle pain. Involving bilateral hips, elbow, knees and wrists. Intoleranc e to Gabapentin and Amitriptyl ine due to N/V. Would like to avoid opioid pain medication s due to history of drug traffickin g. Trial of Meloxicam. Advised to use with PPI. Previous autoimmune /rheumatoi d markers have been negative. Suspect fibromyalg ia. Discussed about SNRI. Will follow up in 1 month. Contraception care 76497 5005 Z30.40 [id number] Mal Lema MD , [facility], [address] [place] [address] 11/06/2017 08:30:07 11/06/2017 10:23:50 Benign essential hypertension 7151191 I10 Blood pressure at goal: < 140/90cont ineu current medication ; lisinopril Mixed hyperlipidemia 267 410114 E78.2 continue to work on diet and exercise as discussedL DL was 119 on 09/2017-has been tolerating pravastati n well Cigarette smoker 7046482 7 F17.210 Discussed smoking cesssation X 3 min. Not ready to quit despite risks to health which were discussed. Declines any medication or aids to help w/smoking cessation. Tobacco user 936189423 Z 72.0 Type 2 tram betes mellitus without complication 728271620 E11.9 A1C 6.8continu e metformin Fatigue 01540202 R53.83 Pain of mu ltiple joints 59759624 M25.50 -not tolerating meloxicam due to nausea-darlin ling to try gabapentin again, but very low dose, start with 100 mg hs, and then 1 bid, then 1 tid , very slow titration- may take tylenol daily for pain; LFTs ordered.-s uspect fibromyalg ia Carpal seble ria syndrome 23122263 G56.03 enc wrist bracedoes not want surg interventi onlabs orderedf/u 1m; will discus cortisone inj vs Ortho referral; her preference [id number] Mal Lema MD , [facility], [address] [place] [address] 12/12/2017 07:33:45 12/12/2017 09:22:06 Nausea and vomiting 30191756 R11.2 Gastroesop hageal reflux disease 622228844 K21.9 continue pantoprazo le 40 qd Chronic constipation 236 960364 K59.09 re-try reglanFU 1 mo Vitamin D deficiency 347 37668 E55.9 taking 58264 U weekly x 8 wks Pain of mu ltiple joints 22074081 M25.50 -not tolerating meloxicam due to nausea-tri ed gabapentin again at 100 mg; could not tolerate-m ay take tylenol daily for pain; LFTs were wnl-added cymbalta trial today, side effect reviewed-s uspect fibromyalg ia-conside r lyrica-darlin l get consult from [facility] History of polyp of colon 789625397 Z86.010 overdue for rpt colonoscop yTo see GI again , referral placed [id number] Mal Lema MD , [facility], [address] [place] [address] 01/22/2018 11:42:52 01/23/2018 09:37:08 Missed period 35570565 N92.5 Contraception care 33211 5005 Z30.40 [id number] Mal Lema MD , [facility], [address] [place] [address] 05/07/2018 08:13:52 05/07/2018 08:57:27 Cigarette smoker 41706917 F17.210 Did not discuss - too many other issues today Tobacco user 625309644 Z 72.0 Primary fi bromyalgia syndrome 42863487 M79.7 STates failed gabapentin and cymbalta in past (couldn't tolerate either). Trial of nortriptyl ine as below to take at HS. Discussed potential s/e's including fatigue. F/u with PCP in 1 month to reassess Hand pain 67651708 M79.6 41 Had been referred to rheum back in November but no appt. obtained as of yet. Our office will call to schedule, then contact pt by phone with luis f ospina to give her appt date/ time [id number] Rosa Salvador-Ravinder ellis PA-C , [facility], [address] [place] [address] 05/16/2018 11:13:13 06/14/2018 12:19:42 Contraception care 976643680 Z30.40 [id number] Mal Lema MD , [facility], [address] [place] [address] 08/01/2018 14:13:19 08/07/2018 15:58:59 Asthma 453224259 J45.30 PERSISTENT (Mild) Based on history, physical assessment and peak flow the patient's asthma in Not in control. See orders for adjustment in plan. The asthma action plan has been discussed. The patient verbalizes understand ing of medication use. The patient is in agreement with this plan Counseling 647893344 Z71 .9 Cigarette smoker 1941491 7 F17.210 Discussed smoking cessation X 3 min. Not ready to quit despite risks to health which were discussed. Declines any medication or aids to help w/smoking cessation. Tobacco user 237018368 Z 72.0 Benign ess ential hypertension 0423190 I10 continue to work on diet, exercise, and lowering salt intake as discussed Mixed hyperlipidemia 267 846460 E78.2 continue to work on diet and exercise as discussedL abs orderedLDL goal < 100, darlin likely need statin Well contr olled type 2 diabetes mellitus 881677491 E11.9 Has been < 7Not checking blood sugars, is diet controlled Will recommend ASAFoot /Eye exam at [facility] in [facility] refer to Nutrition (needs Burkinan speaking individual )May need metformin. .. Contracept ion care management 328213447 Z30.9 Depo inj given todayRTO 12 weeksConte nt with amenorrhea on Depo Contraception care 18936 5005 Z30.40 RTO for Depo in 12 wk [id number] Mal Lema MD , [facility], [address] [place] [address] 08/07/2018 10:45:43 08/07/2018 12:47:19 Hyperglycemia due to type 2 diabetes mellitus 9261312867 41866 E11.65 -restart metformin- get glucometer MONA, start checking BS bid-to get appt with Nutritioni st (needs Burkinan Speaking)- f/u in 2 wks, bring glucose log-stop, cut back on any added sugar, white flour, simple carbs Obesity 535753069 E66.9 Integrated nutrition visit today by Madison Eastman RD for elevated BS and A1C and weight management counseling . A1C increase to 8 on 08/01. She states she is not eating concentrat ed sweets and doesn't drink soda. Work at [employer] is active and she's on her feet moving all day. Often skips breakfast and sometimes also lunch. Doesn't think she is eating very large portions. Reports a very high stress currently in her life. Open to scheduling appt with Madison Eastman for nutrition therapy for DM type 2; as she needs a time at [facility] at 3:30 or later, the 1st available appt currently is 10/02/18. Will call her if earlier opening comes up. Referral has been sent in; Medicaid will cover unlimited visits as long as not on same day as PCP. Anxiety 79739346 F41.9 acute stress , ongoing due to family issues. Son incarcerat ed.Dr Castaneda contacted & met with pt today. Family problems 59968452 4 Z63.79 [id number] Mal Lema MD , [facility], [address] [place] [address] 08/21/2018 14:24:55 08/22/2018 13:38:20 Benign essential hypertension 8436488 I10 continue to work on diet, exercise, and lowering salt intake as discussedn o medication at this time, currently at goal, < 140/90 Mixed hyperlipidemia 267 731510 E78.2 continue to work on diet and exercise as discussedL DL 119 not on statin Type 2 tram betes mellitus without complication 886468004 E11.9 A1C now 8.0, much higher than in past: repeat 3 modoes not want to incr metformin dose at this time (500 mg bid now); knows she has lots of room to incr the dose. prefers to focus on diet and exercise; encourage her efforts.-w ill determine reason for glucometer denial.-ur ged her to ck BS at least bid a few times per week-decli julio consult with Nutrition- enc her to ck ADA online/Spa leslie version for tips on healthy, low-carb eating-PHA sched in October Cigarette smoker 6874600 7 F17.210 Briefly discussed smoking cessation Not ready to quit despite risks to health which were discussed. Declines any medication or aids to help w/smoking cessation. Tobacco user 114431930 Z 72.0 [id number] MARCELLUS Nina FP, [facility], [address] [place] [address] 10/31/2018 09:20:41 11/01/2018 08:18:49 Contraception care management 884152800 Z30.9 [id number] Mal Lema MD , [facility], [address] [place] [address] 12/07/2018 12:04:07 12/07/2018 12:35:01 Fibromyalgia 269331817 M79.7 Having increased sx, severe leg pain. Will prescribe as below, try for 3-4 weeks and f/u w/PCP sooner prn. [id number] Mal Lema MD , [facility], [address] [place] [address] 05/24/2019 09:39:23 05/24/2019 13:01:33 Contraception care 792131931 Z30.40 depo today Gastroesop hageal reflux disease 844949080 K21.9 continue pantoprazo le 40 qd Type 2 tram betes mellitus without complication 724234586 E11.9 A1C 7.3 october 2018labs done todaywill adjust metformin dose if needed (500 mg bid now); knows she has lots of room to incr the dose. prefers to focus on diet and exercise; encourage her efforts.-u rged her to ck BS at least bid a few times per week -enc her to ck ADA online/Spa leslie version for tips on healthy, low-carb eating-PHA sched in October Asthma 328798891 J45.30 PERSISTENT (Mild) Based on history, physical assessment and peak flow the patient's asthma in Not in control. See orders for adjustment in plan. The asthma action plan has been discussed. The patient verbalizes understand ing of medication use. The patient is in agreement with this plan Cigarette smoker 4199997 7 F17.210 Briefly discussed smoking cessation Not ready to quit despite risks to health which were discussed. Interested in nicotrol inhaler and QuittersWi n info/ texts Tobacco user 932630497 Z 72.0 [id number] Mal Lema MD , [facility], [address] [place] [address] 08/27/2019 08:37:39 08/28/2019 07:57:01 Contraception care management 382385729 Z30.9 Depo inj given todayRTO 12 weeksConte nt with amenorrhea on Depo [id number] Mal Lema MD , [facility], [address] [place] [address] 12/13/2019 13:37:49 12/18/2019 12:34:54 Cigarette smoker 69919246 F17.210 Briefly discussed smoking cessation Not ready to quit despite risks to health which were discussed. Has signif cut back, as of November 2019 down to 1-2 cig per day.Congra t on her efforts. Tobacco user 297041809 Z 72.0 Contraception care 93735 5005 Z30.40 Would like to continue her Depo-Prove raNot currently sexually activeIs late by 2 weekswill order serum HCG ( along with HbA1C) to do Mon amthen , presuming neg, may have Depo inj on Monday. Amenorrhea 24584235 N91. 2 Type 2 tram betes mellitus without complication 897801462 E11.9 A1C orderedLas t A1c was 7.4 in Nov labs done todaywill adjust metformin dose if needed (500 mg bid now); knows she has lots of room to incr the dose. prefers to focus on diet and exercise; encourage her efforts.-u rged her to ck BS at least bid a few times per week -enc her to ck ADA online/Spa leslie version for tips on healthy, low-carb eating [id number] Mal Lema MD , [facility], [address] [place] [address] 12/20/2019 09:24:35 12/24/2019 16:06:06 Contraception care 474977010 Z30.40 Would like to continue her Depo-Prove raNot currently sexually activeIs late by 2 weekswill order serum HCG ( along with HbA1C) to do Mon amthen , presuming neg, may have Depo inj on Monday. [id number] Mal Lema MD , [facility], [address] [place] [address] 02/14/2020 10:38:27 02/17/2020 14:43:18 Cigarette smoker 88930413 F17.210 Briefly discussed smoking cessation Not ready to quit despite risks to health which were discussed. Has signif cut back, as of November 2019 down to 1-2 cig per day.Congra t on her efforts. In last few d, hasnt smoked at all Tobacco user 364638252 Z 72.0 Patient agreed to this visit via phone or secure telehealth platform due to the COVID -19 pandemic. Patient understand s this is a scheduled visit and the usual procedures with regard to billing and confidenti ality apply. Patient was notified that the provider location is [facility] Patient location: home During the visit the patient s medical history and medical record were reviewed. The patient was notified to call our office for worsening or urgent symptoms. Cough 07534202 R05 Please order COVID testing at [facility] for this patient. The Diagnosis is: cough Date of onset: 02/11/2020 The patient is exhibiting the following symptoms: cough Once you test neg for Covid, after being sick you can leave home after these three things have happened: You have had no fever for at least 72 hours (that is three full days of no fever without the use medicine that reduces fevers) AND other symptoms have improved (for example, when your cough or shortness of breath have improved) AND at least 7 days have passed since your symptoms first appeared Asthma 418237011 J45.30 increased symptoms in past few days.using rescue inh 3x day, but assures me she is using her Floventden ies SOB or difficulty breathings tressed importance of in office visit The asthma action plan has been discussed. The patient verbalizes understand ing of medication use. The patient is in agreement with this plan Exposure t o SARS-CoV-2 021999297 Z20.828 works at [employer] people there tested +Pt now with cough, but also has asthmarisk factors: DM2, HTN, SmokerCovi d test indicated [id number] Mal Lema MD , [facility], [address] [place] [address] 03/06/2020 09:44:44 03/06/2020 13:38:44 Contraception care 363791255 Z30.40 Would like to continue her Depo-Prove raNot currently sexually activeIs late by 2 weekswill order serum HCG ( along with HbA1C) to do Mon amthen , presuming neg, may have Depo inj on Monday. [id number] Neri Burger MD , [facility], [address] [place] [address] 03/16/2020 16:39:01 03/17/2020 12:01:29 Exposure to SARS-CoV-2 733929194 Z20.698 [id number] Mal Lema MD , [facility], [address] [place] [address] 06/01/2020 10:57:06 06/02/2020 10:21:44 Cigarette smoker 77217070 F17.210 States she hasnt had a cigarette since January Uncontroll ed type 2 diabetes mellitus 331867227 E11.65 increasing blood sugarsLast A1c in December was up to 9.6 from 7.4% in May 2019 (does 'qualify' for insulin) now [facility] metformin 500 mg bid-will increase dose to to 100 mg bid over next few wks, as willy per GI se's-labs today-is interested in Nutrition appt-fu appt with nc 4 wks. Homeless 79437891 Z59.0 is engaged with [facility] Ex-cigarette smoker 2810 00669 Z87.891 States she hasnt had a cigarette since January/ congrat on her achievemen t [id number] Mal Lema MD FP, [facility], [address] [place] [address] 06/05/2020 11:15:06 06/05/2020 16:36:21 Contraception care 479936375 Z30.40 Would like to continue her Depo-Prove raNot currently sexually activeIs late by 2 weekswill order serum HCG ( along with HbA1C) to do Mon amthen , presuming neg, may have Depo inj on Monday. [id number] Mal Lema MD , [facility], [address] [place] [address] 08/26/2020 14:50:37 08/27/2020 15:08:05 Contraception care 438668012 Z30.40 Would like to continue her Depo-Prove raNot currently sexually activeIs late by 2 weekswill order serum HCG ( along with HbA1C) to do Mon amthen , presuming neg, may have Depo inj on Monday. [id number] Huey Peacock MD , [facility], [address] [place] [address] 11/05/2020 10:48:14 11/05/2020 11:58:05 Cigarette smoker 17529689 F17.210 3-4 cigarettes per day. Not ready to quit. Asthma 493931940 J45.90 9 Not well managed. Will start Flovent 220 mcg 1 puffs BID and albuterol as needed. F/u in 1 week. Constipation 45480722 K5 9.00 No BM in 3 weeks. ED on 11/03 r/o bowl impaction, moderate amount of stool seen. No impacted stool found today on exam. Consulted with SK who recommende d Golytely. Push fluids. If no BM in 48 hours will seek care at ED or sooner if sxs worsen. F/u in 1 week. Pt. agrees to plan. Screening for malignant neoplasm of colon 504419663 Z12.11 Family his tory of cancer of colon 181719517 Z80.0 [id number] Mal Lema MD , [facility], [address] [place] [address] 11/20/2020 14:49:48 11/23/2020 10:22:45 Cigarette smoker 93083556 F17.210 States she hasnt had a cigarette since January Tobacco user 944533941 Z 72.0 Patient agreed to this visit via phone or secure telehealth platform due to the COVID -19 pandemic. Patient understand s this is a scheduled visit and the usual procedures with regard to billing and confidenti ality apply. Patient was notified that the provider location is [facility] Patient location: home During the visit the patient s medical history and medical record were reviewed. The patient was notified to call our office for worsening or urgent symptoms. Abdominal pain 52143475 R10.9 likely due to constipati on/ DDX: partial SBO vs gastropare sis. no acute abd at this time, urged fu at ED if pain worsens given weeks of minimal BM Constipation 29613345 K5 9.00 see above. Adenomatou s polyp of colon 368674461 D12.6 due for colonoscop y Contraception care 58019 0179 Z30.40 Would like to continue her Depo-Prove ra Not currently sexually active [id number] Mal Lema MD , [facility], [address] [place] [address] 11/24/2020 14:44:24 12/08/2020 15:27:17 Cigarette smoker 55221865 F17.210 States she hasnt had a cigarette since January Tobacco user 388766537 Z 72.0 Discussed smoking cessation X 3 min. Not ready to quit despite risks to health which were discussed. Declines any medication or aids to help w/smoking cessation. Constipation 87145111 K5 9.00 see above. Chronic but acutely much worse. Is using OTC Fleet enema, and continues Miralax with only minimal watery stools Abd CT scan is ordered to r/o mass/ partial SBO Refer to GI for colonoscop y Gastropare sis syndrome 944622032 K31.84 Likely w. gastropare sis to date, no GE study Failed prep for colonoscop y recommende d a few yrs ago by GI, lost to fu Recent CMP was wnl. TSH was 1.25, CBC was wnl. Uncontroll ed type 2 diabetes mellitus 049048330 E11.65 increasing blood sugars A1C 09/18/20 was down from 9.8 to 9.3( previously 7.4% in May 2019 no longer homeless/ living in correction taking metformin 500 mg bid -will increase dose to to 1000 mg bid over next few wks, as willy per GI se's -labs show nl Cr/BUN and GFR, RBS 127, normal LFTs -is interested in Nutrition appt -fu appt with nc 4 wks. [id number] Mal Lema MD , [facility], [address] [place] [address] 02/08/2021 15:37:46 02/08/2021 16:47:03 Adult health examination 614404489 Z00.00 Encouraged routine exercise & well rounded dietStress ed smoking cessation again.Gets adequate Ca++ & VitDRecomm end: Dentist/Op tometrist routinely1 0-year ASCVD risk 9.3%, statin re-started today DUE for pap: declines and req to r/s for next monthMammo : ordered Counseling 844550096 Z71 .9 including cardiovasc ular risk reduction counseling Depression screening 171 274054 Z13.31 depression screening tool administer ed, entered into emr, scored and discussed, time greater than 7.5 minutesneg Screening for alcohol abuse 554496833 Z13.39 neg Essential hypertension 22362150 I10 at goal , on no meds< 130/80 Mixed hyperlipidemia 267 934913 E78.2 continue to work on diet and exercise as discussedL DL 119 not on statinwill ing to try another statin, had mild muscle pain with atorvastat in Moderate p ersistent asthma 110081861 J45.40 (symptoms or bronchodil ator use daily) PERSISTENT moderateBa sed on history, physical assessment , and peak flow, the patient's asthma is not in control due to recent very poor air quality.Co ntinue Flovent 220 2 puffs BID and albuterol prnIf no better in next month, will discuss addition of LABAThe asthma action plan has been discussed. The patient verbalizes understand ing of medication use.The patient is in agreement with this plan. Cigarette smoker 7037641 7 F17.210 States she hasnt had a cigarette since January Tobacco user 463391842 Z 72.0 Discussed smoking cessation X 3 min. Trying to quit...Dec lines any medication or aids to help w/smoking cessation. Screening mammography 24 511135 Z12.31 Contraception care 83344 5005 Z30.40 Would like to continue her Depo-Prove raFSH still low, not menopausal Uncontroll ed type 2 diabetes mellitus 879147241 E11.65 A1C 09/18/20 was down from 9.8 to 9.3( previously 7.4% in May 2019 no longer homeless. currently taking metformin 500 mg bid -will increase dose to to 1000 mg bid over next few wks, as willy per GI se's -labs show nl Cr/BUN and GFR, RBS 127, normal LFTs -is interested in Nutrition appt -fu appt with me 4 wks/ rpt A1C prior, for pap and recheck of asthma Chronic constipation 236 258131 K59.09 much better nowCT scan suggestive of gastropare sis November 2020Now using tea from [place]: symptoms are markedly improved Low back pain 439683335 M54.5 [id number] Neri Burger MD , [facility], [address] [place] [address] 05/04/2021 11:07:51 05/05/2021 10:17:02 Contraception care 274728837 Z30.40 [id number] Mal Lema MD , [facility], [address] [place] [address] 05/12/2021 15:01:11 05/19/2021 11:12:14 Uncontrolled type 2 diabetes mellitus 578164439 E11.65 a1c down to 8 from > 9taking metforminw ork sched conflicts w/ Nutrition appt. Pain in fi nger of right hand [id number] 29038 M79.644 benign exam; suspect OAConsider OT if sxs worsen/per sist Cigarette smoker 3245209 7 F17.210 States she hasnt had a cigarette since January Tobacco user 282252636 Z 72.0 Discussed smoking cessation X 3 min. Trying to quit...Dec lines any medication or aids to help w/smoking cessation. Has cut back [id number] DO JON Aldana, [facility], [address] [place] [address] 08/06/2021 09:01:23 08/11/2021 10:39:27 Cerebrovascular accident 222450826 I63.9 CVAs/p admission to [facility] 08/01-No residual weakness or neuro deficitsWi ll have home PT, may only need a few sessions, sxs have vastly resolved Placed on Zetia: may continue 10 mg 1 qdIS able to tolerate statin: continue pravastati n 80 mgLDL Goal < 70will check lipds in 8 wksContinu e lifelong Plavix ,as she has allergy to ASA Needs 30 d event monitorwil l [facility]; it was ordered and presumed placed before discharge; not clear how this was overlooked . Uncontroll ed type 2 diabetes mellitus 254682415 E11.65 taking metforminw ork sched conflicts w/ Nutrition appt.Will need insulin as A1C up to 10Plan fu 1 wk to start insulinURG ED her to ck BS bid and meet w. nutritioni st (son relays that her diet is poor)Stres sed importance of diabetes control and risk for furhter neg cardiovasc outcomes Mixed hyperlipidemia 267 863477 E78.2 continue to work on diet and exercise as discussedL DL 119 not on statinwill ing to try another statin, had mild muscle pain with atorvastat in Asthma 805132081 J45.90 9 Stable Contracept ion care management 530946848 Z30.9 Depo inj given todayRTO 12 weeksConte nt with amenorrhea on Depo [id number] DO JON Aldana, [facility], [address] [place] [address] 08/18/2021 09:21:48 08/23/2021 11:51:00 Weakness of right hand [id number] 5107405 R29.898 will get PT re-evalwil l remain OOWplan fu with me in 2-4 wks Cerebrovas cular accident 984800035 I63.9 CVA1/16- STILL HASNT GOTTEN 30 D EVENT MONITOR; will reach out to [facility] again Some residual weakness of R hand Had home PT eval ; determined no further PT neededTrie d to RTW last week and was very fatigued and difficulty using R hand . IS tolerating pravastati n 80 mg/d LDL Goal < 70 will check lipds in 8 wks Continue lifelong Plavix ,as she has allergy to ASA Uncontroll ed type 2 diabetes mellitus 698814030 E11.65 taking metformin only , at max doselast a1c was 10poor dietafraid of insulindis cussed trulicity trial and other CV benefits given recent CVAhas nutrit appt soonaware of importance of improved diet PLUS medication hopefully can avoid insulinis Mariela jackson counseled on use of Trulicity; once weekly sc inj/ reviewed most common ses including abd pain/GI side effects Cigarette smoker 7293054 7 F17.210 Tobacco user 102870729 Z 72.0 Discussed smoking cessation X 3 min. Trying to quit...Dec lines any medication or aids to help w/smoking cessation. Has cut back signif Gastroesop hageal reflux disease 584638354 K21.9 continue pantoprazo le 40 qd [id number] Jasmina Comer DO , [facility], [address] [place] [address] 10/01/2021 13:40:39 10/07/2021 15:46:32 Tobacco user 075574856 Z72.0 Discussed smoking cessation X 3 min. Trying to quit...Dec lines any medication or aids to help w/smoking cessation. Has cut back signif Uncontroll ed type 2 diabetes mellitus 428987150 E11.65 taking metformin only , at max doselast a1c was 10poor dietafraid of insulintru licity trial: had rash and had to stop/ s/p hosp admission for suspected allerg rxd, not clearStill needs to sched nutrit apptaware of importance of improved diet PLUS medication , URGED Nutrit consultWil l likely need insulin, consider short term glipizide at [facility] ckg BS BID Thigh pain 44631087 M79. 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 No evidence of hemorrhagi c conversion . CTA head and neck: .Mild right and moderate left stenosis of the intracrani al ICAs. STILL HASNT GOTTEN 30 D EVENT MONITOR Residual weakness of R hand is better; went back to work at [employer] home PT eval ; determined no further PT needed IS tolerating pravastati n 80 mg/dLDL Goal < 70will check lipds in 8 wksContinu e lifelong Plavix ,as she has allergy to ASA [id number] Jasmina Comer, DO FP, [facility], [address] [place] [address] 10/26/2021 10:12:01 11/15/2021 09:49:49 Contraception care 573673818 Z30.40 Would like to continue her Depo-Prove raFSH still low, not menopausal [id number] Danette Brock, PT Physical Therapy, [facility] [address] [place] [address] 10/29/2021 12:32:06 11/01/2021 13:14:49 Pain of right thigh 1998654407 37845 M79.651 Patient is a 51-year old female who presents to physical therapy with complaint of bilateral LE pain and weakness, R > L, which is not changing. Physical examinatio n revealed poor balance, hip muscle weakness, decreased reflexes of the L LE, and TTP of the LE soft tissues bilaterall y. Suspect patient's symptoms are related to deconditio andrea with possible contributi on from sequellae of CVA suffered in July.Geraldo king has significan t functional limitation in their activities of daily living and recreation . Their primary limitation s are with standing or walking for longer than 1 hour, squatting, and ascending or descending stairs. Skilled physical therapy is indicated to safely and progressiv kristen address impairment s and functional limitation s as outlined below. Patient is a good candidate for physical therapy due to active lifestyle, good support system, and motivation to actively participat e in their plan of care. Short Term Goals:In 4 weeks, patient will:1. Perform squat to 45 degrees of knee flexion without increased LE pain.2. Demonstrat e bilateral foot clearance when ambulating on level surfaces. 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 Demonstrat e symmetric pain free active, passive and resisted motions of the lower extremitie s.2. Demonstrat e 4/5 hip strength.3 . Ascend and descend 3-4 steps using rail as needed for balance without LE pain.4. Demonstrat e independen ce with comprehens sho HEP. Treatment Plan: Patient to return for 10 visits over 12 weeks. We expect significan t change in pain, impairment and function in this time frame.Colette joy to Include: Continuing assessment , therapeuti c exercise, patient education, HEP (initiated ), manual therapy PRN, modalities PRN. Pain of left thigh 48932 37787 64053 M79.514 [id number] Danette Brock, PT Physical Therapy, [facility] [address] [place] [address] 11/05/2021 12:59:07 11/08/2021 08:59:06 Pain of right thigh [id number] 42089 M79.651 Pain of left thigh 07772 72951 95103 M79.783 [id number] Jasmina Comer DO FP, [facility], [address] [place] [address] 11/19/2021 14:20:46 01/05/2022 17:11:36 Moderate persistent asthma 929380779 J45.40 NOT IN CONTROLCha nged to ICS/LABA and added nebulizerF U 1 moRed flags reviewed (symptoms or bronchodil ator use daily) PERSISTENT moderateBa sed on history, physical assessment , and peak flow, the patient's asthma is not in control.Se e orders for adjustment in plan.The asthma action plan has been discussed. The patient verbalizes understand ing of medication use.The patient is in agreement with this plan. Essential hypertension 98991891 I10 at goal , on no meds< 130/80 Mixed hyperlipidemia 267 124447 E78.2 continue to work on diet and exercise as discussedL DL: Updated labs in one moNow tolerating pravastati n Tobacco user 543074735 Z 72.0 Discussed smoking cessation X 3 min. Trying to quit...Dec lines any medication or aids to help w/smoking cessation. Has cut back signif Vaccine de clined by patient 2815540813 02 Z28.21 delcined PPSV23 Uncontroll ed type 2 diabetes mellitus 355794663 E11.65 taking metformin only , at max doselast a1c was 10 in Jul 2021, today down to 8.1 poor dietafraid of insulintru licity trial: had rash and had to stop/ s/p hosp admission for suspected allerg rxd, not clearStill needs to sched nutrit appt: plan FU visit 1 mo on a Wedaware of importance of improved diet PLUS medication , URGED Nutrit consultWil l likely need insulin vs short term glipizide at [facility] ckg BS Rupal arrange for appt with Nissa Thigh pain 52587549 M79. 659 bilateral upper thigh paincause not clear, no weakness, no neuro sxsseems like poor conditioni ng, agreeable to PT History of cerebrovascular accident 108191672 Z86.Jul with no residual deficitson ASA and statin now [id number] Irene Palacios MD , [facility], [address] [place] [address] 01/03/2022 11:22:33 01/03/2022 12:58:23 Cough 64608964 R05.2 suspect poorly controlled asthmasee below Uncontroll ed type 2 diabetes mellitus 451062016 E11.65 taking metformin only , at max doselast a1c was 10 in Jul 2021, today down to 8.1 poor dietafraid of insulintru licity trial: had rash and had to stop/ s/p hosp admission for suspected allerg rxd, not clearStill needs to sched nutrit appt: plan FU visit 1 mo on a Wedaware of importance of improved diet PLUS medication , URGED Nutrit consultWil l likely need insulin vs short term glipizide at [facility] SIMBA Goldsmith arrange for appt with Nissa Severe per sistent asthma 761414336 J45.50 FU 1 week Mixed hyperlipidemia 267 730636 E78.2 continue to work on diet and exercise as discussedL DL in 90s,Goal < 50Pravasta tin dose incr to 40 History of cerebrovascular accident 335724029 Z86.Jul with no residual deficitson ASA and statin now CVA 08/01- MRI 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.Resid ual weakness of R hand is better/ did elect [facility] [employer] [facility] ; determined no further PT neededTole rating pravastati n LDL Goal < 70Continue lifelong Plavix ,as she has allergy to ASAHas never sched Event monitor or Cardiology FU [id number] Irene Palacios MD , [facility], [address] [place] [address] 01/13/2022 13:18:41 01/14/2022 12:13:12 Contraception care 158998153 Z30.40 Would like to continue her Depo-Prove raFSH still low, not menopausal [id number] Irene Palacios MD , [facility], [address] [place] [address] 01/26/2022 11:08:29 01/27/2022 11:33:43 Acute exacerbation of chronic obstructive pulmonary disease 782424025 J44.1 improved with prednisone last month, but sxs worsening againFU again 2 wksadd spirivacon tinue Advair 500 BIDCut back cigs to one per day, trying hardconsid er Pulm consult if sxs continue to recur Chronic ob structive pulmonary disease 84677749 J44.9 PFTs done 01/2022 were abnormal mod airflow obstrFEV1 mod impaired at 65% predictedF EV1/FEVC ratio impaired at 68%; with 14% improve't in FEV after bronchodil ator to 74% pred and normalizat ion of FV1/FVC ratio.Mild imparired DC to 71% At fu consider adding Spiriva Benign ess ential hypertension 0577078 I10 continue to work on diet, exercise, and lowering salt intake as discussedn o medication at this time, currently at goal, < 140/90 History of cerebrovascular accident 671221587 Z86.Jul with no residual deficitson ASA and statin now CVA 08/01- MRI 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.Resid ual weakness of R hand is better/ did elect [facility] [employer] ; determined no further PT neededTole rating mary n LDL Goal < 70Continue lifelong Plavix ,as she has allergy to ASAHas never sched Event monitor or Cardiology FU [id number] Irene Palacios MD , [facility], [address] [place] [address] 02/09/2022 11:11:56 02/18/2022 13:59:32 Asthma 615060821 J45.909 Vaccine de clined by patient 4934632482 02 Z28.21 delcined PPSV23 02/09/22 am Tobacco user 491678227 Z 72.0 Discussed smoking cessation X 3 min. Trying to quit...Dec lines any medication or aids to help w/smoking cessation. 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 No evidence of hemorrhagi c conversion . CTA head and neck: .Mild right and moderate left stenosis of the intracrani al ICAs. STILL HASNT GOTTEN 30 D EVENT MONITOR Residual weakness of R hand is better; went back to work at [employer] home PT eval ; determined no further PT needed IS tolerating pravastati n 80 mg/dLDL Goal < 70will check lipds in 8 wksContinu e lifelong Plavix ,as she has allergy to ASA Uncontroll ed type 2 diabetes mellitus 716251068 E11.65 taking metformin only , at max doselast a1c was 10 in Jul 2021, today down to 8.1 poor dietafraid of insulintru licity trial: had rash and had to stop/ s/p hosp admission for suspected allerg rxd, not clearStill needs to sched nutrit appt: plan FU visit 1 mo on a Wedaware of importance of improved diet PLUS medication , URGED Nutrit consultWil l likely need insulin vs short term glipizide at [facility] BS BID [id number] Irene Palacios MD , [facility], [address] [place] [address] 02/18/2022 10:12:25 02/18/2022 14:53:19 Tobacco user 932459278 Z72.0 Discussed smoking cessation X 3 min. Trying to quit...Dec lines any medication or aids to help w/smoking cessation. Has cut back signif Vaccine de clined by patient 8585591217 02 Z28.21 declined PPSV23 and td 02/18/22 am Uncontroll ed type 2 diabetes mellitus 747234058 E11.65 taking metformin only , at max doselast a1C back up to 9.4, previously was down to 8.1took 2 courses of prednsison eFU 1mo for DM managmentp oor dietafraid of insulintru licity trial: had rash and had to stop/ s/p hosp admission for suspected allerg rxd, not clearStill needs to sched nutrit appt: plan FU visit 1 mo on a Wedaware of importance of improved diet PLUS medication , URGED Nutrit consultWil l likely need insulin vs short term glipizide at [facility] BS BID Chronic ob structive pulmonary disease 62217905 J44.9 PFTs done 01/2022 were abnormal mod airflow obstrFEV1 mod impaired at 65% predictedF EV1/FEVC ratio impaired at 68%; with 14% improve't in FEV after bronchodil ator to 74% pred and normalizat ion of FV1/FVC ratio.Mild imparired DC to 71% Much better on Spiriva: will continueAt FU next mo: consider decr Advair from 500 to 250Getting nebulizer today History of cerebrovascular accident 679897724 Z86.Jul with no residual deficitson ASA and statin now 08/01- MRI 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.Resid ual weakness of R hand is better/ [facility] ; determined no further PT neededTole rating mary mohamud LDL Goal < 70Continue lifelong Plavix ,as she has allergy to ASA Met with Cards/Dr Dial 01/28/22: Pending: Nuclear ST, TTE and 30 d event monitor [id number] Jasmina Comer DO , [facility], [address] [place] [address] 04/07/2022 10:14:26 2022 07:46:53 Contraception care 606549188 Z30.40 Would like to continue her Depo-Prove raFSH still low, not menopausal [id number] Irene Palacios MD , [facility], [address] [place] [address] 04/13/2022 08:14:29 04/13/2022 14:49:07 Moderate persistent asthma 918953891 J45.40 (symptoms or bronchodil ator use daily) PERSISTENT moderate Based on history, physical assessment , and peak flow, the patient's asthma is in control. See orders for adjustment in plan. The asthma action plan has been discussed. The patient verbalizes understand ing of medication use. The patient is in agreement with this plan. 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.Resid ual weakness of R hand is better/was struggling to work at [employer]; much less stamina due , can't lift heavy things; has a heaviness and feeling of fatigue in the legs/ thighs Tolerating pravastati n LDL Goal < 70Continue lifelong Plavix ,as she has allergy to ASA Met with Cards/Dr Dial 01/28/22: Pending: Nuclear ST, TTE and 30 d event monitorSti ll having some sensation of weakness upon standing and when trying to workWould be interested in another PT if not improving Uncontroll ed type 2 diabetes mellitus 233740509 E11.65 taking metformin only , at max doselast a1C back up to 9.4, previously was down to 8.1poor dietafraid of insulin; declines starting at this time A1C down fromtrulic ity trial: had rash and had to stop/ s/p hosp admission for suspected allerg rxd, not clearStill needs to sched nutrit appt: plan FU visit 1 mo on a Monaware of importance of improved diet PLUS medication , URGED Nutrit consultWil l likely need insulin vs short term glipizide at [facility]kg BS BID Paresthesi a of lower extremity 356131776 R20.2 with feelings of weakness.D id complete PT after CVA in Jul 2021 [id number] Irene Palacios MD FP, [facility], [address] [place] [address] 05/04/2022 08:19:42 05/04/2022 11:58:15 Tobacco user 984339112 Z72.0 Discussed smoking cessation X 3 min. Trying to quit...Dec lines any medication or aids to help w/smoking cessation. Has cut back signif Active or passive immunization 497771260 Z23 Uncontroll ed type 2 diabetes mellitus 854924532 E11.65 taking metformin only , at max cyifF2H on 04/13/22 9.0, down from 9.4 in January, increase from 8.7 in November.poor dietafraid of insulin; declines starting at this timeTrulic ity trial: had rash and had to stop/ s/p hosp admission for suspected allerg rxd, not cleardecli malcolm to schedule visit with nutritioni staware of importance of improved diet PLUS medication , URGED Nutrit consultInt egrated nutrition visit 05/04 to discuss blood sugar issues and weight concerns. See separate integrated nutrition pt case. Agreed to try another GLP-1 ORAL, but ins deniedWill trial Jardiance and plan FU in 3 mo Lives in s heltered housing 102861146 Z59.01 04/2022 moving to [place] soon, will get own apt Benign ess ential hypertension 1111500 I10 continue to work on diet, exercise, and lowering salt intake as discussedn o medication at this time, currently at goal, < 130/80 History of cerebrovascular accident 069894637 Z86.Jul with no residual deficitson ASA and statin nowJust completed 30 event monitor (has FU with cardiology in a few weeks)TTE was Jul 2021 and normal (will inform Cards)Nucl ear ST 03/14/2022 NEG for ischemia (ordered by Dr Dial) 08/01- MRI 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.Resid ual weakness of R hand is better/was struggling to work at [employer]; much less stamina due , can't lift heavy things; has a heaviness and feeling of fatigue in the legs/ thighs LDL Goal < 70Continue lifelong Plavix ,as she has allergy to ASA Asthma 647861797 J45.90 9 mixed asthma/[employer] MECH[employer] Dstill smoking, understand s importance of cessationc ontinue: advair 500, spiriva Obesity 151389071 E66.9 Integrated nutrition visit 05/04 in [place]. Never scheduled a nutrition visit as referred in the past.With A1C 9.0 and taking 2000 mg Metformin daily. Living in a correction. BMI 30.57 in obesity range, stable. About to move to own apt in [place] and will have more ability to do some cooking for herself. States not eating carbs with meals, not sure why BG are so high.Not able to walk as much as she used to due to stroke. No eating in the AM as tends to have N/V if she tries to eat.Encour aged her to include small amounts of carb (e.g., 1/2 c cooked) at lunch and dinner rather than skipping it entirely as she often does. Yogurt, fruit, complex carbs like small amounts brown rice, [place] and squash, beans, all recommende d. Will be transferri ng care to provider in [place] near her new apt so will not be following up with scheduling a nutrition visit. States will be able to see a nutritioni st at that practice. Chronic ob structive pulmonary disease 41723836 J44.9 PFTs done 01/2022 were abnormal mod airflow obstrFEV1 mod impaired at 65% predictedF EV1/FEVC ratio impaired at 68%; with 14% improve't in FEV after bronchodil ator to 74% pred and normalizat ion of FV1/FVC ratio.Mild imparired DC to 71% Much better on Spiriva: will continueCo ntinue Advair 500has nebulizer (not needing currently) . (required po steroids x 2 in past 3 mo, Fall 2021) [id number] Irene Palacios MD , [facility], [address] [place] [address] 06/01/2022 09:15:58 06/01/2022 11:05:05 Uncontrolled type 2 diabetes mellitus 235186780 E11.65 Marked improvemen t in BSs since starting Jardiance. FU 1 mo and recheck A1C A1C on 04/13/22 9.0, down from 9.4 in January, increase from 8.7 in November.poor dietTrulic ity trial: had rash and had to stop/ s/p hosp admission for suspected allerg rxd Chronic ob structive pulmonary disease 05505718 J44.9 PFTs done 01/2022 were abnormal mod airflow obstrFEV1 mod impaired at 65% predictedF EV1/FEVC ratio impaired at 68%; with 14% improve't in FEV after bronchodil ator to 74% pred and normalizat ion of FV1/FVC ratio.Mild imparired DC to 71% Much better on Spiriva: will continueCo ntinue Advair 500has nebulizer (not needing currently) . (required po steroids x 2 in past 3 mo, Fall 2021) Tobacco user 355156303 Z 72.0 Discussed smoking cessation X 3 min. Trying to quit...Dec lines any medication or aids to help w/smoking cessation. Has cut back signifNow down to 1/d Obesity 789432358 E66.9 Integrated nutrition visit f/u 06/01 after initial visit 05/04 w/ DA.With A1C 9.0 and just added Jardiance to 2000 mg Metformin dose, reporting signif decrease in BG.With BMI 30.7 and stable wt past month.No longer living in a correction and now able to use stove, frig, oven and cook for herself.Re ports making healthful choices and having low carb intake.Pre viously reported very limited eating during the day and eating mostly at end of the day; now trying as much as possible to eat something light mid-day with protein and carb combo as advised.Mayen ving frequent vegetables , yogurt, fruit, calabaza, yautia, fish, salads and low potato/pas ta.Sched ed initial nutrition visit in person for September 2022. Obesity code used; 14 minutes spent. [id number] Irene Palacios MD , [facility], [address] [place] [address] 07/05/2022 09:10:30 07/05/2022 10:20:31 Moderate persistent asthma 094023900 J45.40 (symptoms or bronchodil ator use daily)Stab lePERSISTE NT moderateBa sed on history, physical assessment , and peak flow, the patient's asthma is in control. See orders for adjustment in plan.The asthma action plan has been discussed. The patient verbalizes understand ing of medication use.The patient is in agreement with this plan. Essential hypertension 57930251 I10 at goal , on no meds< 130/80 Mixed hyperlipidemia 267 749612 E78.2 Cholestero l is not at goal; LDL should be < 50but improvingL DL is 58 on pravastati n 40will update labs, may need incr dose of statinCont inue to work on diet and exercise as discussed Chronic ob structive pulmonary disease 67396623 J44.9 See HPI for detailed history GOLD air flow assessment grade mMCR dyspnea scale grade ABCD assessment tool group COPD is Need to adjust/luke nge/add medication If yes, change in medication ____ Risk factor modificati on/further recommenda tions: Smoking cessation Add oxygen therapy Start/Incr ease exercise Update vaccinatio n Pulmonary rehab Imaging needed Repeat PFT Rescue inhalers, ___ , are to be used as needed only, for shortness of breath, persistent coughing or wheezing. Maintenanc e inhalers, ___ , are to be used every day as instructed . Uncontroll ed type 2 diabetes mellitus 253933019 E11.65 improvingA 1C from 9 to 7.2 today w. jardianced ose incr today to 25 mgFU 3 mo ,r pt A1C at that time Amenorrhea 23752945 N91. 2 taking Depo Prov for yrs for menorrhagi amay be able to dc if FSH is highlast depo inj given Tobacco user 765189140 Z 72.0 Discussed smoking cessation X 3 min. Trying to quit...Dec lines any medication or aids to help w/smoking cessation. Has cut back signifNow down to 1/d Contraception care 91608 5004 Z30.40 Would like to continue her Depo-Prove raFSH still low, not menopausal [id number] Irene Palacios MD , [facility], [address] [place] [address] 09/05/2022 09:06:36 09/05/2022 12:04:35 Adult health examination 067567709 Z00.00 Encouraged routine exercise & well rounded dietStress ed smoking cessation again.Gets adequate Ca++ & VitDRecomm end: Dentist/Op tometrist routinely1 0-year ASCVD risk 9.3%, statin re-started todayPap done todayMammo : ordered Depression screening 171 114820 Z13.31 depression screening tool administer ed Screening for alcohol abuse 562894834 Z13.39 Alcohol use screening tool administer ed Essential hypertension 87712069 I10 at goal , on no meds< 130/80 Mixed hyperlipidemia 267 297818 E78.2 Cholestero l is at goalLDL goal < 70, was 58 03/2022 on statin (reports she stopped statin but will restart)Co ntinue to work on diet and exercise as discussedP lease restart your statin! Tobacco user 595364210 Z 72.0 We discussed your smoking today for more than 3 minutes. Cigarette use is the leading cause of preventabl e disease, disability , and in the [place]. We talked about tools and medication s available to help you in smoking cessation. We discussed utilizing our smoking cessation job coach/job developer and online resources. Your personal goal: Now down to 1 cig per day. Moving to new apt; will not smoke in new apt. Screening for malignant neoplasm of cervix 215852027 Z12.4 Screening mammography 335090 Z12.31 Uncontroll ed type 2 diabetes mellitus 323341340 E11.65 improvingA 1C from 9 to 7.2 today w. jardianced ose incr today to 25 mgFU 3 mo ,r pt A1C at that timefoot exam: mild decr in sensation suspect early neuropathy strongly enc annual eye exam; pending Chronic ob structive pulmonary disease 31929581 J44.9 Currently stable after flare in summer/ l 2021 req prednisone tx x 2See HPI for detailed history GOLD air flow assessment grade mMCR dyspnea scale grade ABCD assessment tool group COPD is Stable, no change in symptoms, stable or improved exercise tolerance, no flareups Need to adjust/luke nge/add medication no/COPD controlled If yes, change in medication ____ Risk factor modificati on/further recommenda tions:Smok ing cessation yesAdd oxygen therapy noStart/In crease exercise yesUpdate vaccinatio n Imaging needed nonePFTs 01/2022 mod obstructio n, FEV1/FVC 68% Rescue inhalers, albuterol inh_ , are to be used as needed only, for shortness of breath, persistent coughing or wheezing.M aintenance inhalers, __advair 500___ , are to be used every day as instructed . 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.Resid ual weakness of R hand is better/was struggling to work at [employer]; much less stamina due , can't lift heavy things; has a heaviness and feeling of fatigue in the legs/ thighs LDL Goal < 70Continue lifelong Plavix ,as she has allergy to ASA Cardiology recommends Neuro referral Amenorrhea 11833184 N91. 2 taking Depo Prov for yrs for menorrhagi amay be able to dc if FSH is highlast depo inj given Intermitte nt claudication 76223517 I73.9 Pain in both feet 819817 0819 7583374 M79.672 r/o diabetic neuropathy [id number] Irene Palacios MD , [facility], [address] [place] [address] 10/04/2022 10:11:58 10/04/2022 11:50:44 Contraception care 598651240 Z30.40 [id number] Irene Palacios MD , [facility], [address] [place] [address] 12/14/2022 09:24:08 12/14/2022 11:04:26 Essential hypertension 70885937 I10 at goal , on no meds< 130/80 Mixed hyperlipidemia 267 169388 E78.2 Cholestero l is at goal on statin< 70Continue to work on diet and exercise as discussed Chronic ob structive pulmonary disease 61811519 J44.9 current exacerb Uncontroll ed type 2 diabetes mellitus 155931281 E11.65 improving, close to goal madeline arreguin eds updated A1c History of cerebrovascular accident 660696859 Z86.73 in Aug d event monitor was wnlTTE was Jul 2021 and normal (will inform Cards)Nucl ear ST 03/14/2022 NEG for ischemia (ordered by Dr Dial) 08/01- MRI 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.Resid ual weakness of R hand is better/was struggling to work at [employer]; much less stamina due , can't lift heavy things; has a heaviness and feeling of fatigue in the legs/ thighs LDL Goal < 70Continue lifelong Plavix ,as she has allergy to ASA Cardiology recommends Neuro referral Acute exac erbation of chronic obstructive pulmonary disease 205138773 J44.1 ran out of spirivacon tinue Advair 500 BIDCut back cigs to one per day, trying hardconsid er Pulm consultPFT s c/w COPD 2declin es prednisone ; FU 2 wks sooner if sxs worsen [id number] Irene Palacios MD , [facility], [address] [place] [address] 12/28/2022 09:40:19 12/28/2022 14:03:16 Tobacco user 672376923 Z72.0 We discussed your smoking today for more than 3 minutes. Cigarette use is the leading cause of preventabl e disease, disability , and in the [place]. We talked about tools and medication s available to help you in smoking cessation. We discussed utilizing our smoking cessation job coach/job developer and online resources. Your personal goal: to quit completely . Smokes about 3 cig per dayUnderst ands signif incr risks for asthma/ DM2 and her hx CVAMoved into new apt: wont smoke there. Benign ess ential hypertension 8405262 I10 continue to work on diet, exercise, and lowering salt intake as discussedn o medication at this time, currently at goal, < 130/80 Asthma 001445760 J45.90 9 Microalbum inuric diabetic nephropathy 988812456 E11.21 Ratio is 67New for Juancarlos JardianceG lucoses improving, A1C declining, now at 7.5%Will monitor Severe per sistent asthma 824512503 J45.50 mixed asthma/[employer]CH[employer] Dstill smoking, understand s importance of cessation but 1 cig/d, goal is to quitWill print PFTs , none in chart, ordered Januaryontin ue: advair 500, spirivafin ds nebulizer very helpful but still needing 2x dWill req Pulm consultcon tinue advair/ added spiriva/ continues mucinex /singulair Menorrhagia 745174634 N9 2.0 history of.amenorr heic since Depo-Prove ra, reports taking since 2005, taking for 16 yrsFSH is 25; will stop Depo and monitorIF Menses recur/ heavy, consider restarting Depo History of cerebrovascular accident 588498306 Z86.73 Admitted to [facility] 08/01/21- d event monitor was wnlTTE was Jul 2021 and normal (will inform Cards)Nucl ear ST 03/14/2022 NEG for ischemia (ordered by Dr Dial) 08/01- MRI 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 Mary n, was LDL 70Continue lifelong Plavix ,as she has allergy to ASANow tolerating StatinMovi ng to [place]; to meet with [place] [facility]due Menopausal symptom 49979 002 N95.1 FSH November 2022 was 25.as above, trial stopping DepoProver a [id number] Irene Palacios MD , [facility], [address] [place] [address] 01/31/2023 10:44:38 02/01/2023 11:53:55 Contraception care 757264888 Z30.40 [id number] MD JON Ang, [facility], [address] [place] [address] 03/27/2023 10:12:36 03/27/2023 12:19:42 Tobacco user 852688195 Z72.0 We discussed your smoking today for more than 3 minutes. Cigarette use is the leading cause of preventabl e disease, disability , and in the [place]. We talked about tools and medication s available to help you in smoking cessation. We discussed utilizing our smoking cessation job coach/job developer and online resources. Your personal goal: States she can't quit, only smokes 1 cig d .. Severe per sistent asthma 707812497 J45.50 (symptoms or bronchodil ator use several times a day or extreme activity limitation due to asthma) Based on history, physical assessment , and peak flow, the patient's asthma is not in control.Pt encouraged to use Advair daily and consistent lyFinds albuterol neb BID very helpfulCou ld consider Pulm consult but pt is not bothered by her sxsdiscuss ed that wheezing will persist if she continues smoking Chronic hoarseness 51469 99365 105 R49.0 History of cerebrovascular accident 404793787 Z86.73 30 d event monitor was wnlTTE was Jul 2021 and normal (will inform Cards)Nucl ear ST 03/14/2022 NEG for ischemia (ordered by Dr Dial) Suspected d/t mod stenosis of ICAs 08/01- MRI 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 LDL Goal < 70, NOW at goal w. Mary n, was LDL 70Continue lifelong Plavix ,as she has allergy to ASANow tolerating StatinNeur ology consult 12/2022: concurs with continuing current meds/planR eferred for SLTspent 20 min discussing cause of her stroke, importance of smoking cessation, and that residual sxs may or may not improve, but PT /SLT is worth pursuingDi d NOT recommend 2nd opin from another Neurologis t, pt agreeable after questions answered Screening mammography 24 617381 Z12.31 Menorrhagia 739764957 N9 2.0 history of.amenorr heic since Depo-Prove ra, reports taking since 2005, taking for 16 yrsFSH is 25in 2022Triall ed stopping Depo, but bleeding recurred,p t wants to continue Depo Dysphagia as a late effect of cerebrovascular accident 131883994 I69.391 sent referral for SLTMet with Neurology 12/2022 at [place] who recommends SLTStroke occurred 2021 Small vess el cerebrovascular disease 416371415 I67.9 Microalbum inuric diabetic nephropathy 901350082 E11.21 Ratio is 67New for Juancarlos Conde max sghoQ1E was 7.5%, now up to 7.7% 02/2023Will monitor and recheck before Jun 2023 EYE exam : stressed importance [id number] Irene Palacios MD , [facility], [address] [place] [address] 04/25/2023 10:42:16 04/25/2023 17:18:38 Contraception care 642020089 Z30.40 Active or passive immunization 720926728 Z23 [id number] Irene Palacios MD , [facility], [address] [place] [address] 08/15/2023 08:16:22 08/15/2023 11:02:54 Tobacco user 611353764 Z72.0 We discussed your smoking today for more than 3 minutes. Cigarette use is the leading cause of preventabl e disease, disability , and in the [place]. We talked about tools and medication s available to help you in smoking cessation. We discussed utilizing our smoking cessation job coach/job developer and online resources. Your personal goal: Smoking one cig dayNow goal is maybe to stop in the next yr Screening mammography 24 999097 Z12.31 overdue, enc to do Uncontroll ed type 2 diabetes mellitus 924383868 E11.65 improving, close to goal madeline conde additionA1 C is 8.2%Declin es additional medsTriall ed GLP1 agonist and had GI ses; prefers to work on dietRpt a1c 3m Benign ess ential hypertension 9420652 I10 continue to work on diet, exercise, and lowering salt intake as discussedn o medication at this time, currently at goal, < 130/80 Severe asthma 668716106 J45.50 stable on current medsaware smoking triggersno t ready to quitcontin ue Adviair 500, uses nebs BID and finds helpful Intermitte nt claudication 76585772 I73.9 generalize d LE weakness and exertional fatiguehx CVAr/o PAD Moderate p ersistent asthma 877394854 J45.40 Chronic ob structive pulmonary disease 10460584 J44.9 Mixed asthma /COPD [id number] Irene Palacios MD , [facility], [address] [place] [address] 08/02/2023 10:43:35 08/07/2023 09:54:44 Contraception care 110420231 Z30.40 Given 08/02 (13weeks 1 day from last) Reviewed with RIN [place] to admin and honor 1 week jose period. Reviewed with pt, reports not sexually active. [id number] Irene Palacios MD , [facility], [address] [place] [address] 08/17/2023 08:57:12 08/18/2023 14:29:11 Uncontrolled type 2 diabetes mellitus 545470316 E11.65 [id number] Aliya Muller MD , [facility], [address] [place] [address] 11/02/2023 09:41:41 11/02/2023 11:37:08 Contraception care 355715251 Z30.40 Given 08/02 (13weeks 1 day from last) Reviewed with RIN [place] to admin and honor 1 week jose period. Reviewed with pt, reports not sexually active. [id number] Irene Palacios MD , [facility], [address] [place] [address] 11/27/2023 08:34:46 11/27/2023 09:55:40 Nicotine dependence 76321719 F17.200 We discussed your smoking/va ping today for more than 3 minutes. Cigarette/ pod use is the leading cause of preventabl e disease, disability , and in the [place]. We talked about tools and medication s available to help you in smoking/va ping cessation. We discussed utilizing our smoking cessation job coach/job developer and online resources. Your personal goal: Urged cessation again, not ready to quit Pain of bi lateral knee joints 8072378164 40697 M25.561 workup for OAplan FU 1 mo to review findings, needs interprete r Intermitte nt claudication 44187326 I73.9 generalize d LE weakness and exertional fatiguehx CVAr/o PAD Benign ess ential hypertension 0868975 I10 continue to work on diet, exercise, and lowering salt intake as discussedn o medication at this time, currently at goal, < 130/80 Uncontroll ed type 2 diabetes mellitus 062914341 E11.65 labs pendingtak ing meds and tolerating all well 10g monofi lament sensation L foot abnormal 309282444 R20.8 ABIs pending firstFU 1 momay need eEMGs will discuss at FU Asthma 008057138 J45.90 9 wheezing todya, didnt take inhalersUr ged using AD before appts, re-eval at FU 4 wks [id number] Irene Palacios MD , [facility], [address] [place] [address] 12/25/2023 08:53:52 12/25/2023 12:58:54 Nicotine dependence 94808985 F17.200 We discussed your smoking/va ping today for more than 3 minutes.Sm oking tobacco is the leading cause of preventabl e disease, disability , and in the [place]. Inhaling aerosolize d nicotine is widely believed to be safer than combustibl e tobacco, but still exposes people to numerous harmful substances , heavy metals like lead, and cancer-cau sing agents. Nicotine is harmful to developing brains and can disrupt the formation of brain circuits that control attention, learning, and susceptibi lity to addiction. We talked about tools and medication s available to help you in smoking/va ping cessation. We discussed utilizing our smoking cessation job coach/job developer and online resources. Your personal goal: Not ready to quit, has cut back , most days 1-2 c /day, some days noneEnc cessation again Lumbosacra l radiculopathy 9607528 M54.17 ongoing LEFT leg pain with objective and subjective weakness, reports difficulty urinatingN eeds MRI Asthma 614814817 J45.90 9 Stable on current regimenUnd erstands importance of smoking cessationn eeds letter for her program stating she has asthma so that she can get humidifier /air condition/ mattress covers in her apartment. Renal diso rder due to type 2 diabetes mellitus 001346834 E11.21 working on diet , last A1C was up to 8.3FU appt next [place] max dose Jardiance, plus metf [id number] MD JON Ang, [facility], [address] [place] [address] 01/24/2024 09:01:55 01/29/2024 15:19:32 Nicotine dependence 19046282 F17.200 We discussed your smoking/va ping today for more than 3 minutes.Sm oking tobacco is the leading cause of preventabl e disease, disability , and in the [place]. Inhaling aerosolize d nicotine is widely believed to be safer than combustibl e tobacco, but still exposes people to numerous harmful substances , heavy metals like lead, and cancer-cau sing agents. Nicotine is harmful to developing brains and can disrupt the formation of brain circuits that control attention, learning, and susceptibi lity to addiction. We talked about tools and medication s available to help you in smoking/va ping cessation. We discussed utilizing our smoking cessation job coach/job developer and online resources. Your personal goal: Cessation. Hasnt smoked in 10 days. Congrat on her effortsPLE ASE Uncontroll ed type 2 diabetes mellitus 201123849 E11.65 no jardiance in weeks/ cant fill rx for another mo d/t insur changereas sured about safety of metformadd ed sulfonurea for short termneeds Gamewell Operator and CGM Degenerati on of lumbar intervertebral disc 30787533 M51.36 MRI done 12/26/23 showing multilevel spondylart hropathy and mod neuroforam inal stenosis at [id number] done PTWt loss and core strengthen ing will help: encouraged this [id number] Irene Palacios MD , [facility], [address] [place] [address] 01/29/2024 08:21:50 01/29/2024 15:34:02 Contraception care 976843274 Z30.40 Given 08/02 (13weeks 1 day from last) Reviewed with RIN okay to admin and honor 1 week jose period. Reviewed with pt, reports not sexually active. [id number] MD JON Ang, [facility], [address] [place] [address] 03/20/2024 08:34:50 03/22/2024 11:09:29 Pain in right foot 0804802932 56043 M79.671 6 d of pain in R sole/ midfootr/o FB, d/t diabetesno infectionp ain worse at nightif no other cause found, will refer to podiatry Uncontroll ed type 2 diabetes mellitus 167853827 E11.65 -clinical document improvement educator: Pending/wa it list at [facility] updated [id number] ing glipizide and jardianceE ncouraged estab with Endocrinol at [facility] updating.. .. Abnormal gait 12600554 R 26.9 having falls at home, back hurtsMRI done: shows mild narrowing of spinal canalCCA req we send rx for walker and caneStress ed importance of PT, will arrange Asthma 103218576 J45.90 9 Stable on current regimenNo wheezing today ; doing wellUnders margoth importance of smoking cessation Nicotine dependence 5629 4008 F17.200 We discussed your smoking/va ping today for more than 3 minutes.Sm oking tobacco is the leading cause of preventabl e disease, disability , and in the [place]. Inhaling aerosolize d nicotine is widely believed to be safer than combustibl e tobacco, but still exposes people to numerous harmful substances , heavy metals like lead, and cancer-cau sing agents. Nicotine is harmful to developing brains and can disrupt the formation of brain circuits that control attention, learning, and susceptibi lity to addiction. We talked about tools and medication s available to help you in smoking/va ping cessation. We discussed utilizing our smoking cessation job coach/job developer and online resources. Your personal goal: smoking 1-2 cig/d, not ready to quit at this timeUnders margoth importance of cessation and neg impact on her asthma Active or passive immunization 568883751 Z23 [id number] Irene Palacios MD , [facility], [address] [place] [address] 04/19/2024 08:18:47 04/24/2024 19:01:54 Contraception care 216874718 Z30.40 Reviewed with pt, reports no chance of , no bleeding, no pain. [id number] Irene Palacios MD , [facility], [address] [place] [address] 05/16/2024 10:02:22 05/27/2024 17:17:07 Nicotine dependence 48875338 F17.200 We discussed your smoking/va ping today for more than 3 minutes.Sm oking tobacco is the leading cause of preventabl e disease, disability , and in the [place]. Inhaling aerosolize d nicotine is widely believed to be safer than combustibl e tobacco, but still exposes people to numerous harmful substances , heavy metals like lead, and cancer-cau sing agents. Nicotine is harmful to developing brains and can disrupt the formation of brain circuits that control attention, learning, and susceptibi lity to addiction. We talked about tools and medication s available to help you in smoking/va ping cessation. We discussed utilizing our smoking cessation job coach/job developer and online resources. Your personal goal: now down 1 c day and working on quitting.G oal: quit by 54th birthday in 2 moCurrentl y smoking 1 cigarette per day, down from previous use. Goal to quit by 54th birthday in June. Benign ess ential hypertension 5283051 I10 continue to work on diet, exercise, and lowering salt intake as discussedn o medication at this time, currently at goal, < 130/80Lisi nopril 5mg daily started by endocrinol ogist. Uncontroll ed type 2 diabetes mellitus 719568150 E11.65 Has establishe d Endocrinol [place] [facility] 04/2024Sta rted ActosNeeds A1C in 3 mo, A1C goal is < 7%A1C down from 9 to 8.0%Recent endocrinol ogy visit with initiation of Actos 30mg daily. A1C improved from 9% to 8%. Patient also taking Supernopal and Berberigil , natural supplement s.-Continu e Actos 30mg daily.-Con tinue Supernopal and Berberigil as tolerated. -Continuou s glucose monitor (CGM) was rxd and avail at pharmacy, but pt has not been able to obtain.I will message [facility] pillowcase cleaner, Estella to look into this Microalbum inuric diabetic nephropathy [id number] E11.21 On Jardiance max doseActos added 04/2024 per Endocrinol Started lisinopril 5 mg Moderate p ersistent asthma 502966955 J45.40 current stable on current regimenadv ised of importance of smoking cessation Abnormal gait 59531517 R 26.9 Getting PT, thin Spinal leisa nosis of lumbar region 99486644 M48.061 with lumbar DJDMild stenosis per MRI LSpine December 2023Underg oing PTAdvised to use cane prn per [facility] nurse; DME already sent to pharmacywi ll req assistance from [facility] to get caneStress ed improtance of continued PT [id number] Irene Palacios MD , [facility], [address] [place] [address] 07/02/2024 08:52:35 07/05/2024 12:49:40 Nicotine dependence 06211056 F17.200 We discussed your smoking/va ping today for more than 3 minutes.Sm oking tobacco is the leading cause of preventabl e disease, disability , and in the [place]. Inhaling aerosolize d nicotine is widely believed to be safer than combustibl e tobacco, but still exposes people to numerous harmful substances , heavy metals like lead, and cancer-cau sing agents. Nicotine is harmful to developing brains and can disrupt the formation of brain circuits that control attention, learning, and susceptibi lity to addiction. We talked about tools and medication s available to help you in smoking/va ping cessation. We discussed utilizing our smoking cessation job coach/job developer and online resources. Your personal goal: States she QUIT before her birthday on [birth year]! Uncontroll ed type 2 diabetes mellitus [id number] E11.65 Has establishe d Endocrinol at [facility] 04/2024Sta rted Actos per [facility] endocrinol ogy visit with initiation of Actos 30mg daily.A1C today down to 7.3% natural supplement s, approved by Endocrinol ogy-Contin ue Actos 30mg daily.-Con tinue Supernopal and Berberigil as tolerated. -Continuou s glucose monitor (CGM) was previously rxd and avail at pharmacy, but pt has not been able to obtain. Still has not gotten CGM, Estella Charge Gang Weigher was to help her with this: Esteban will call [place] 6 m with new PCP Benign ess ential hypertension 9080006 I10 continue to work on diet, exercise, and lowering salt intake as discussedn o medication at this time, currently at goal, < 130/80Lisi nopril 5mg daily started by endocrinol ogist, Will continue Asthma [id number] J45.90 9 Stable on current regimenNo wheezing today ; doing wellReport s she quit smoking [id number] Irene Palacios MD , [facility], [address] [place] [address] 07/23/2024 08:59:02 07/25/2024 19:00:19 [facility] care [id number] Z30.40 [id number] Lily Obando MD , [facility], [address] [place] [address] 01/10/2025 08:36:04 01/10/2025 10:13:50 Moderate persistent asthma 211893580 J45.40 Asthma managed with albuterol and Incruse Ellipta.- Ensure correct use of albuterol as a rescue inhaler.- Refill albuterol inhaler and neb- FU and reassess in February. Acute exac erbation of chronic obstructive pulmonary disease 453434210 J44.1 Managed with nebulizer as needed. Chronic constipation 236 531564 K59.09 Chronic constipati on with infrequent bowel movements. Current regimen ineffectiv e. Lactulose prescribed as next step, with caution for loose stools.- Prescribe lactulose 15 mL twice daily.- Advise to reduce lactulose to once daily if loose stools occur.- FU in February- RTO earlier with new or worsening symptoms. Nausea 079084557 R11.0 Persistent nausea without vomiting or abdominal pain. Minimal relief from OTC medication s. LFTs slightly elevated. Liver ultrasound scheduled, ordered by endocrinol ji, to investigat e potential liver causes. Zofran prescribed for symptomati c relief.- Prescribe Zofran for nausea as needed.- Schedule follow-up appointmen t in February after liver ultrasound . History of cerebrovascular accident 556242372 Z86.73 Managed with pravastati n, Plavix, and Zetia. Uncontroll ed type 2 diabetes mellitus 087612807 E11.65 Follows with endocrincoral workman at [facility]. Continue current medication regimen. CGM in place. FU in January as planned. Mixed hyperlipidemia 267 890943 E78.2 Managed on Pravastati n. Labs last completed 12/30/2024 at [facility]. Health Concerns Section Related Observation LastModified by Organization Detai ls LastModified Time None Recorded Concern Status LastModified by Organization Details LastModified Time None Recorded Advance Directives Directive None Recorded Payers Insurance Date Sequence Insurance Name Policy Number Policy Ferrera Covered Member ID Ferrera Member ID Guarantor Name 01/07/2025 1 [facility] - DOS ON OR AFTER 2022 - DUAL ELIGIBLE [place]/A DVANTAGE - HMO) Marilinda Davis [id number] Marilinda Davis 12/28/2022 1 [place] PRIOR [place] 2022 - [facility] (MEDICAID) Marilinda Davis [id number] Marilinda Davis 12/25/2024 1 [place] [employer] Marilinda Davis [id number] Marilinda Davis 12/28/2022 1 [place] Marilinda Davis [id number] Marilinda Davis 12/28/2022 1 [place] Marilinda Davis [id number] Marilinda Davis 03/22/2024 2 [place] Marilinda Davis [id number] Marilinda Davis 12/28/2022 1 [place] Marilinda Davis [id number] Marilinda Davis 01/15/2024 1 [facility] - DOS ON OR AFTER 2022 - [facility] (MEDICAID REPLACEMENT - HMO) Marilinda Davis [id number] Marilinda Davis Notes Date Note Type Note Provider Name and Address Organization Details Recorded Time 05/16/2024 text/html a/vmg-smoking [id number] bypatient.Physiologic al Dependence/Health RiskCurrently smoking (per pt 1-2 per day) Follow up recent labs A1C 9.1 no other concerns FU diabetes and asthmaPresents for follow-up after a recent endocrinology appointment. She reports that she was started on Actos 30mg daily and Lisinopril 5mg daily. She also reports that her blood sugar levels have improved, dropping from 9% to 8%. She has a goal to reduce her blood sugar levels to below 7%.In addition to her prescribed medications, she has been taking Supernopal and Berberigil, natural supplements from a doctor in [place], which she believes have helped to lower her blood sugar levels.Previously reported difficulty walking and had falls assoc with upper thigh pain and sensation of weakness. Workup done included An MRI December 2023 showed narrowing of the spinal canal. She has been attending physical therapy, which she finds painful but is persevering with. She has also been prescribed a cane for extra support but has not gotten at her pharmacyThe patient continues smoking and reports that she has reduced her smoking to one cigarette a day, with a goal to quit completely by her 54th birthday. Her asthma is reportedly well-controlled. 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 Using albuterol once daily.-Diabetes: seeing Endocrinology at [place] and thinks it's going very well.-Checking blood sugars twice daily-FBS= 117, 115-has started Actos 30 mg in April-Nutrition: has met them twice, has appt again w nutrition in Jul ([place] how to eat better)-Reports taking meds as prescribed and tolerating well 05/16/24:Follow up recent labs A1C 9.1 no other concernsFU diabetes and asthmaPresents for follow-up after a recent endocrinology appointment. She reports that she was started on Actos 30mg daily and Lisinopril 5mg daily. She also reports that her blood sugar levels have improved, dropping from 9% to 8%. She has a goal to reduce her blood sugar levels to below 7%.In addition to her prescribed medications, she has been taking Supernopal and Berberigil, natural supplements from a doctor in [place], which she believes have helped to lower her blood sugar levels.Previously reported difficulty walking and had falls assoc with upper thigh pain and sensation of weakness. Workup done included An MRI December 2023 showed narrowing of the spinal canal. She has been attending physical therapy, which she finds painful but is persevering with. She has also been prescribed a cane for extra support but has not gotten at her pharmacy Rosa Williamson PA-C [address] [place] [address], [phone], [facility] 07/02/2024 10:28:59 01/10/2025 text/html consents for [facility] evaluator 1 mos x nausea whenever she eats, no vomiting- no abdominal pain- nausea lasts 30 min- takes pepto bismol and mylanta, helps a little bit- hardwood flooring specialist ordered testing, found abnormal? liver enzymes- f/u sonogram? in January The patient presents with new onset nausea and medication management concerns. Persistent nausea has been present for the past month, occurring daily without relief from food intake. There is no vomiting or abdominal pain. Pepto and Mylanta provide minimal relief. Constipation is significant, with bowel movements occurring once a week or every two weeks, despite using Senna and Miralax twice daily. Diabetes is managed with Lantus, Jardiance, Actos, and Metformin. A continuous glucose monitor shows a recent blood sugar level of 128 mg/dL. An appointment for diabetes management is scheduled for January 24. Pt follows with professor of political science at [facility]. They have a history of stroke and are on Pravastatin, Plavix, and Zetia for cholesterol management. Asthma is managed with Albuterol and Incruse Ellipta. Smoking has resumed at one to two cigarettes per day after previously quitting. Lily Obando MD [address] [place] [address], [phone], [facility] 01/16/2025 14:47:12 OBGyn Episode No OBEpisode recorded.
== END 2025-01-24 11:52 | disposition home or self-care (01) ==
PROVIDERS: Visit Provider Physician Assistant Medical
DX: E11.29 Type 2 diabetes mellitus with other diabetic kidney complication (principal); R80.9 Proteinuria, unspecified; R79.89 Other specified abnormal findings of blood chemistry

== ENCOUNTER → 2025-01-24 10:53 | Outpatient (BNVA) | payer OTHER, SELFPAY | PROVIDERS: Visit Provider Physician Assistant Medical | DX: E11.29 Type 2 diabetes mellitus with other diabetic kidney complication (principal); R79.89 Other specified abnormal findings of blood chemistry; R80.9 Proteinuria, unspecified; R11.0 Nausea | CPT/HCPCS: 82947; 99212 ==

== ENCOUNTER 2025-02-12 08:59 | Outpatient (REF) | payer OTHER, SELFPAY ==
--- NOTE | ~2025-02-12 | US_ITS ---
EXAMINATION: US ABDOMEN LIMITED WITH LIVER ELASTOGRAPHY HISTORY: R79.89 - ELEVATED LIVER FUNCTION TESTS TECHNIQUE: Real-time grayscale ultrasound imaging of the right upper quadrant was performed and images were reviewed. COMPARISON: There are no prior studies available for comparison. FINDINGS: Liver: The right lobe of the liver measures 18.5 cm in size. The left lobe of the liver measures 12.1 cm in size. The liver demonstrates increased echotexture, consistent with steatosis. There is focal fatty sparing adjacent to the gallbladder. No focal mass or intrahepatic biliary ductal dilatation is identified. There is normal hepatopedal flow in the portal vein. Ultrasound elastography of the liver was performed with 10 separate measurements of the liver parenchyma with the patient in the supine position. Measurements were obtained approximately 2 cm below Connor's capsule and perpendicular to the capsule. The median shear wave velocity is 1.53 m/s. The interquartile range/median (IQR/median) is 0.07. Gallbladder and biliary tree: There is ring down artifact from the gallbladder wall, compatible with adenomyomatosis. The gallbladder is otherwise unremarkable, without evidence of calculi, wall thickening, or pericholecystic fluid. There is no sonographic Florez sign. The common bile duct is normal in caliber measuring 3 mm. Right Kidney: The right kidney measures 11.2 cm in length. The right kidney is unremarkable, without evidence of masses, hydronephrosis, or calculi. Pancreas: The pancreatic head, neck, and body are unremarkable. The pancreatic tail is obscured by bowel gas. Abdominal aorta and inferior vena cava: The visualized portions of the abdominal aorta and inferior vena cava are normal in caliber. There is no free fluid in the right upper quadrant. US/US abdomen pereira w elastography IMPRESSION: 1. Hepatomegaly and hepatic steatosis. 2. Adenomyomatosis of the gallbladder. The median shear wave velocity in the liver is 1.53 m/s, corresponding to a median liver stiffness of 7.15 kPa. The IQR/median value is 0.07. This is indicative of a quality data set. Findings are indicative of a low elastography value which rules out advanced chronic liver disease in asymptomatic patients. REFERENCE: Society of Radiologists in Ultrasound Liver Stiffness Thresholds (2020): LIVER STIFFNESS THRESHOLDS: *Shear wave velocity less than 1.3 m/s (Liver Stiffness equal or less than 5 kPa): High probability of being normal. *Shear wave velocity less than 1.7 m/s (Liver Stiffness less than 9 kPa): In the absence of other known clinical signs, rules out compensated advanced chronic liver disease. *Shear wave velocity between 1.7-2.1 m/s (Liver Stiffness 9-13 kPa): Suggestive of compensated advanced chronic liver disease but need further test for confirmation. *Shear wave velocity between 2.1-2.4 m/s (Liver Stiffness 13-17 kPa): Rules in compensated advanced chronic liver disease. *Shear wave velocity greater than 2.4 m/s (Liver Stiffness over 17 kPa): Suggestive of clinically significant portal hypertension. QUALITY OF DATA SET: *IQR/Median value equal or less than 0.15 implies a quality data set. *IQR/Median value over 0.15 implies a poor quality data set. SIGNIFICANT CHANGE FROM PRIOR EXAM: Significant change if liver stiffness measurement is 10% or greater from prior exam. OTHER CONSIDERATIONS: The stage of liver fibrosis may be overestimated in the setting of acute hepatitis, liver inflammation, elevated liver function tests, hepatic vascular congestion, obstructive cholestasis, non-fasting state, and infiltrative diseases such as amyloidosis and lymphoma. In some patients with NAFLD, the liver stiffness thresholds for compensated advanced chronic liver disease may be lower. In causes other than viral hepatitis and NAFLD, liver stiffness thresholds are not well established. Electronically signed by: Jose L La MD 02/12/2025 10:04 AM EDT
--- OUTSIDE RECORDS SUMMARY | 2025-02-12 09:25 | XMS_ITS | Patient Health Record ---
Author Organization [facility] Address [address], [place] [id number] Care Team Providers Care Baggage Security Checker Name Role Phone [facility] Center[facility] Primary Care Provider U navailable [facility], [facility] Unavailable [phone] Allergies Allergen (clinical drug ingredient) Drug/Non Drug [...] Risk Notes Problem Diabetes mellitus type II (19775133) Diabetes mellitus type II (250.00) Active confirmed Problem Vitamin D deficiency (08354571) Vitamin D deficiency NOS (268.9) Active confirmed Problem Tobacco use (333273009) Tobacco use disorder (305.1) Active confirmed Problem Lumbago (482748593) Lumbago (724.2) Active confirmed Problem Asthma (524723125) Asthma (493.00) Active confirmed Problem Overweight (208991820) Overweight, BMI 25-29.9 (278.02) Active confirmed Plan Of Treatment Pending Test Test Name Order Date GC, DNA Urine - [facility] 03/24/2015 Wet [facility] 03/24/2015 Chlamydia, DNA Urine - [facility] 03/24/20 15 Insurance Providers Payer Name Payer Address Payer Phone Subscriber Number Group Number Insured Name Patient Relationship to Insured Coverage Start Date Coverage End Date [place] Standard [address] [place] [address] [phone] [id number] Esteban Davis Self - patient is the insured Medical (General) History Medical History History ICD Code asthma during cold weather DM diet controlled (on meds in past unti l lost wt); on meds now (02/2015) Surgical History Surgery Date(Month/Year) Tubal Ligation 26 yr old Carpal Tunnel 01/31/2014
--- OUTSIDE RECORDS SUMMARY | 2025-02-12 09:25 | XMS_ITS | Clinical Summary ---
Author Organization [employer] Address [address] [facility] [address] [place] [address] Care Team Providers Care Senior Principal Process Engineer Name Role Phone Unavailable Primary Care Provider [...] Description 11/13/2024 8:00 AM EDT [facility] [address] [place] [address] Modesto Salgado DDS Periodontal disease (Primary Dx) [...] from Last 3 Months Insurance DENTAL - [facility]
--- OUTSIDE RECORDS SUMMARY | 2025-02-12 09:25 | XMS_ITS | Encounter Summary ---
Author Organization [facility] Address [address] [place] [address] [place] [phone] Phone Care Team Providers Care Juice Packaging Machines Setter Name Role Phone Unknown, Unknown MD Primary Care Provider Huey Khan MD Unavailable [phone] Debi Givens SKY LINE YARDER Primary Care Provider Huey Peaccok MD Unavailable [phone] Mal Lema MD Unavailable Mal Lema MD Unavailable Mal Lema MD Unavailable Mal Lema MD Unavailable Rob OroscoSW Unavailable [phone] Gwen Lima RN Unavailable Lisa Camilo Primary Care Provider Lisa Camilo Unavailable [phone] Pcp, Unknown Primary Care Provider UnavailNeri Cruz MD Unavailable Pcp, Unknown Primary Care Provider UnavailStephie Escobar SKY LINE YARDER Primary Care Provider [phone] Rosa Williamson Primary Care Prov ider Gwen Lima RN Unavailable Ericka Vincent ACADEMIC COUNSELOR Unavailable [email or web address] Encounter Details Date Type Department Care Team (Late st Contact Info) Description 05/31/2017 Procedure Pass [facility] Endoscopy Admitting Dept Virtual Department [address] [place] [address] Social History Tobacco Use Types Packs/Day Years Used Date Smoking Tobacco: Every Day Smokeless Tobacco: Never Comments Unknown Sex and Gender Information Value Date Recorded Sex Assigned at Female 07/24/2017 9:38 AM EST Legal Sex Female 9:34 PM EDT Gender Identity Female 08/30/2017 8:33 AM EST Sexual Orientation Straight 08/30/2017 8: 33 AM EST documented as of this encounter Plan of Treatment Not on file documented as of this encounter Visit Diagnoses Not on filedocumented in this encounter Additional Health Concerns Infection Onset Date Last Indicated Resolved Time CoV-Risk Comment:COVID-19 test pending 11/12/2019 11/12/2019 11/26/2019 1:25 AM EDT CoV-Risk 02/14/2020 02/20/2020 03/05/2020 1:22 AM EDT CoV-Risk 08/23/2021 08/23/2021 09/02/2021 1:22 AM EST documented as of this encounter Care Teams Juice Packaging Machines Setter Relationship Specialty Start Date End Date Unknown, Unknown, PCP - General 05/09/17 11/14/17 Debi Givens NP [address] [place] [address] [email or web address] PCP - General Family Medicine 11/15/17 06/16/20 Lisa Camilo [address] [place] [address] [email or web address] PCP - General Laborer Cutting Tool 06/17/20 06/17/20 Pcp, Unknown PCP - General 06/18/20 11/02/20 Pcp, Unknown PCP - General 11/03/20 12/29/20 Stephie Comer NP [address] [place] [address] PCP - General Family Medicine 12/30/20 08/04/21 Rosa Williamson PA [address] [place] [address] [place] PCP - General 08/05/21 Huey Peacock MD [address] [place] [phone] [email or web address] Insurance Assigned Provider 10/14/17 11/14/17 Huey Peacock MD [address] [place] [phone] [email or web address] Insurance Assigned Provider 10/14/17 03/17/18 Mal Lema MD [address] [place] [phone] [email or web address] Insurance Assigned Provider 03/17/18 06/17/18 Mal Lema MD [address] [place] [phone] [email or web address] Insurance Assigned Provider 08/18/18 06/22/19 Mal Lema MD [address] [place] [phone] [email or web address] Insurance Assigned Provider 09/20/19 01/20/20 Mal Lema MD [address] [place] [phone] [email or web address] Insurance Assigned Provider 03/28/20 07/25/20 Rob Orosco LICSW [address] [place] [address] [email or web address] [facility] Social Work 06/12/20 11/09/23 Gwen Lima RN [address] [place] [email or web address] [facility] Field Service Engineer 06/12/20 10/27/20 Lisa Camilo [address] [place] [address] [email or web address] 06/17/20 12/08/21 Neri Burger MD [address] [place] [phone] [email or web address] Insurance Assigned Provider 07/25/20 05/22/22 Gwen Lima RN [address] [place] [address] [email or web address] [facility] Field Service Engineer 12/30/22 03/26/23 Ericka Vincent LCSW [address] [place] [phone] [email or web address] [facility] Social Work 02/10/23 02/20/23 documented as of this encounter Additional Source Comments The information contained in this document represents components of the legal health record. It is not the complete legal health record.[facility]
== END 2025-02-12 09:00 | disposition home or self-care (01) ==
LOC: HO.US 08:59
PROVIDERS: Visit Provider Physician Assistant Medical
DX: R79.89 Other specified abnormal findings of blood chemistry (principal)
CPT/HCPCS: 76705; 76981

== ENCOUNTER → 2025-02-12 09:01 | Outpatient (BNV) | payer OTHER, SELFPAY | PROVIDERS: Visit Provider Radiology Diagnostic Radiology | DX: R16.0 Hepatomegaly, not elsewhere classified (principal) | CPT/HCPCS: 76705 ==

== ENCOUNTER 2025-02-28 09:02 | Outpatient (AMB) | payer OTHER, SELFPAY ==
[2025-02-28 09:13] VITALS: BP 112/74; PULSE 90; O2SAT 96; BMI 32.0
--- NOTE | 2025-02-28 09:13 | MHC.OFFVIS ---
Vital Signs 02/28/25 09:13 Height 5 ft 1 in Weight 169 lb 5.04 oz BMI 32.0 BP 112/74 Blood Pressure Location Rt brachial Position Sitting Pulse 90 Pulse Source Pulse Oximeter Pulse Oximetry (%) 96 Oxygen Delivery Method Room Air Intake Visit Reasons: Type II Diabetes Intake Note: Patient present today to follow up on Type 2 Diabetes Mellitus. Last Diabetic Eye exam: approx 9 months ago Last Podiatry Visit: Doesn't have a Poultry Hatchery Laborer Random Glucose: 134 mg/dl HgA1C: 7.9% 02/28/2025 Riveter Portable Machine Required: Yes Riveter Portable Machine Language: [employer] General Services: Riveter Portable Machine Present Riveter Portable Machine Name: Krystyna [id number] Information Interpreted: non-clinical & clinical Accompanied by: Self / Same As Patient Allergies atorvastatin (From Lipitor) Adverse Reaction (Mild, Verified 02/28/25 09:15) Muscle Pain aspirin Adverse Reaction (Unknown, Verified 02/28/25 09:15) Rash dulaglutide (From Trulicity) Adverse Reaction (Unknown, Verified 02/28/25 09:15) Hives gabapentin Adverse Reaction (Unknown, Verified 02/28/25 09:15) Dizziness Tylenol codeine Adverse Reaction (Unknown, Uncoded 02/28/25 09:15) Nausea, Vomiting HPI Comments Details: This is a 54-year-old female with a past medical history of type 2 diabetes, CVA, microalbuminuria, COPD, severe asthma, GERD, obesity, hypertension and hyperlipidemia presenting for follow up for diabetic management. 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 Hemoglobin A1c 7.9% today 02/28/2025. She does not have her sensor with her today. Last GMI 6.9% 01/24/25. Patient reports over the past month have been very good. The highest sugar in the past month when BG was 215 when she forgot to take her medications. Otherwise her blood sugars have been between 110 and 150. Current medication regimen: Jardiance 25 mg, Metformin ER 1000 mg BID and Actos 15 mg daily (reduced dose previously due to weight gain) Previous meds: She was on 5 mg ER Glipizide, but she says it was discontinued because it was not helping. She tried Trulicity after her stroke. She developed diffuse pain and itchy hives after injection. Lantus discontinued because blood sugars improved. She exercises (squats, leg lifts and other things). Echo 05/2022 showed mild pulmonic valve regurgitation and normal LVEF at [facility] in [place] following her stroke. She denies chest pain or shortness of breath. She has hepatic steatosis and hepatomegaly on recent u/s. She endorses a history of chronic GERD and nausea for at least 5 years treated with Protonix. She has never had an EGD. She has an appointment scheduled with gastroenterology in April. She endorses chronic nausea. PPI helps. She received a prescription for Zofran from her PCP, and she requests a refill until she sees the GI specialist, and she has been unable to get it filled through her PCP office. Hypoglycemia symptoms: none Hyperglycemia symptoms: none Eye exam: Up-to-date Microvascular complications: nephropathy (microalbumin) Macrovascular complications: CVA (2020) Hyperlipidemia: treated with Zetia 10 mg and pravastatin 40 mg daily ROS: Constitutional: No unexplained weight loss, fever, chills, fatigue or night sweats. Respiratory: No shortness of breath, cough or sputum production. Cardiovascular: No chest pain, chest pressure or chest discomfort. No palpitations or pedal edema. Gastrointestinal: No anorexia, nausea, vomiting or diarrhea. No abdominal pain or blood in stool. Neurologic: No headache, dizziness, syncope Endocrine: No cold or heat intolerance. No polyuria or polydipsia. Physical exam: Constitutional: Alert, in no distress. Eyes: Pupils are equal, round and reactive to light. Extraocular muscles intact. Neck: Supple, Full range of motion. No lymphadenopathy. No palpable thyroid masses. Respiratory: Clear to auscultation. Cardiovascular: S1 S2 regular. II/ systolic murmur. 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 Lumbar degenerative disc disease Menorrhagia Severe persistent asthma Dysphagia S/P CVA (cerebrovascular accident) History of CVA (cerebrovascular accident) Surgical History History of bilateral ligation of fallopian tubes History of carpal tunnel repair Family History Mother Diabetes Father Diabetes Social History Alcohol intake: current Alcohol intake frequency: holidays/special occasions only Patient Tobacco Use Status: Current everyday Tobacco user Physical Exam Vital Signs: Last Vital Signs Pulse 90 02/28/25 09:13 BP 112/74 02/28/25 09:13 Pulse Ox 96 02/28/25 09:13 Oxygen Delivery Method Room Air 02/28/25 09:13 BMI result Body Mass Index 32.0 Results AMB Hemoglobin A1c AMB Hemoglobin A1c 7.9 % Last Edit by ROB Mendez on 02/28/25 09:33 Results Reviewed Results Reviewed: Laboratory Last Values Glucose (Clinic) 134 mg/dL (60-115) H 02/28/25 09:20 Hgb A1c (Clinic) 7.9 % (4.0-6.0) H 02/28/25 09:24 Laboratory Tests 04/26/24 12/10/24 12/13/24 09:40 10:26 14:27 Plt Count 275 Creatinine 0.59 Estimated GFR > 60 C-Peptide 2.58 AST 55 H ALT 59 H Triglycerides 68 Cholesterol 111 LDL Cholesterol, Calc 55 HDL Cholesterol 43 Vitamin B12 219 Urine Creatinine 42.79 Urine Microalbumin 10.0 Microalb/Creat Ratio 23.3 Islet Cell Ab Screen NEGATIVE AMINA Antibody 50 H Assessment & Plan Assessment & Plan (1) Type II diabetes mellitus with renal manifestations: Code(s): E11.29 - Type 2 diabetes mellitus with other diabetic kidney complication Category: Medical Qualifiers: Diabetes mellitus terminal operator insulin use: without terminal operator use Diabetes mellitus complication detail: with diabetic microalbuminuria Qualified Code(s): E11.29 - Type 2 diabetes mellitus with other diabetic kidney complication; R80.9 - Proteinuria, unspecified Plan: In summary this is a 54-year-old female with a past medical history of type 2 diabetes with micro/macrovascular complications. Diabetes is controlled per CGM. Continue Jardiance 25 mg daily. Continue Actos 15 mg daily. We will monitor her weight and recheck in a month. Continue metformin 1000 mg twice daily. Patient says that she does not get nausea after taking this medication, and she has been on it for many years. We reviewed treatment of hypo/hyperglycemia. She has written instructions. (2) GERD (gastroesophageal reflux disease): Code(s): K21.9 - Gastro-esophageal reflux disease without esophagitis Category: Medical Plan: She will continue her PPI. As a courtesy I refilled the Zofran today . She has an upcoming appointment with Gastroenterology. (3) Hepatic steatosis: Code(s): K76.0 - Fatty (change of) liver, not elsewhere classified Category: Medical Plan: Avoid alcohol, processed foods and follow a low-cholesterol diet. Continue treatment of diabetes and cholesterol. She has an appointment scheduled with Gastroenterology. Plan Follow up in 3 months for type 2 diabetes. Orders: Orders AMB Hemoglobin A1c Today E11.29 - Type 2 diabetes mellitus with other diabetic kidney complication, R80.9 - Proteinuria, unspecified Medications: New ondansetron 4 mg PO Q8H PRN 30 tabs 0RF nausea Coding Level of Care Code Est Pt Level 4 (56116) Complex EM visit Add On G2211 Diagnoses Type 2 diabetes mellitus with diabetic microalbuminuria, without long-term current use of insulin E11.29; R80.9 Diabetes mellitus group home insulin use: without terminal operator use Diabetes mellitus complication detail: with diabetic microalbuminuria GERD (gastroesophageal reflux disease) K21.9 Hepatic steatosis K76.0
--- OUTSIDE RECORDS SUMMARY | 2025-02-28 09:18 | XMS_ITS | Clinical Summary ---
Author Organization [employer] Address [address] [facility] [address] [place] [address] Care Team Providers Care Plumbing Installer Name Role Phone Unavailable Primary Care Provider [...] Noted Date Diagnosed Date Periodontal disease 11/13/2024 Social History Tobacco Use Types Packs/Day Years [...] on patient's age to complete this topic Insurance [facility]
--- OUTSIDE RECORDS SUMMARY | 2025-02-28 09:18 | XMS_ITS | Patient Health Record ---
Author Organization [facility] Address [address], [place] [address] Care Team Providers Care Assistant Finance Manager Name Role Phone ZZArchive - DO NOT USE, [facility] Primary Care Provider Unavailable [facility], [facility] Unavailable [phone] Allergies Allergen (clinical drug ingredient) Drug/Non Drug [...] efrain t Patient counseled on the ashanti gers of tobacco use and advised to quit: 03/18/2015 Problems Problem Type SNOMED Code ICD Code Onset Dates Problem Status W/U Status Risk Notes Problem Diabetes mellitus type II (31831008) Diabetes mellitus type II (250.00) Active confirmed Problem Vitamin D deficiency (72413124) Vitamin D deficiency NOS (268.9) Active confirmed Problem Tobacco use (365670145) Tobacco use disorder (305.1) Active confirmed Problem Lumbago (683768657) Lumbago (724.2) Active confirmed Problem Asthma (818248312) Asthma (493.00) Active confirmed Problem Overweight (288960196) Overweight, BMI 25-29.9 (278.02) Active confirmed Plan Of Treatment Pending Test Test Name Order Date GC, DNA Urine - [facility] 03/24/2015 [facility] 03/24/2015 Chlamydia, DNA Urine - [facility] 03/24/20 15 Insurance Providers Payer Name Payer Address Payer Phone Subscriber Number Group Number Insured Name Patient Relationship to Insured Coverage Start Date Coverage End Date [place] Standard [address] [place] [address] [id number] Esteban Davis Self - patient is the insured Medical (General) History Medical History History ICD Code asthma during cold weather DM diet controlled (on meds in past unti l lost wt); on meds now (02/2015) Surgical History Surgery Date(Month/Year) Tubal Ligation 26 yr old Carpal Tunnel 01/31/2014
--- OUTSIDE RECORDS SUMMARY | 2025-02-28 09:18 | XMS_ITS | Encounter Summary ---
Author Organization [facility] Address [address] [place] [address] [place] [address] Phone Care Team Providers Care Cheese Wrapper Name Role Phone Unknown, Unknown MD Primary Care Provider Huey Khan MD Unavailable [phone] Debi Givens ROLL CUTTER Primary Care Provider Huey Peacock MD Unavailable [phone] Mal Lema MD Unavailable Mal Lema MD Unavailable Mal Lema MD Unavailable Mal Lema MD Unavailable Rob OroscoSW Unavailable [phone] Gwen Lima RN Unavailable Lisa Camilo Primary Care Provider Lisa Camilo Unavailable [phone] Pcp, Unknown Primary Care Provider UnavailNeri Cruz MD Unavailable Pcp, Unknown Primary Care Provider UnavailStephie Escobar ROLL CUTTER Primary Care Provider [phone] Rosa Williamson Primary Care Prov ider Gwen Lima RN Unavailable Ericka Vincent TRANSFER CONTROLLER Unavailable [email or web address] Encounter Details Date Type Department Care Team (Late st Contact Info) Description 05/31/2017 Procedure Pass [facility]oscopy Admitting Dept Virtual Department [address] [place] [address] Social History Tobacco Use Types Packs/Day Years [...] documented as of this encounter Care Teams Cheese Wrapper Relationship Specialty Start Date End Date Unknown, Unknown, PCP - General 05/09/17 11/14/17 Debi Givens NP [address] [place] [address] [email or web address] PCP - General Family Medicine 11/15/17 06/16/20 Lisa Camilo [address] [place] [address] [email or web address] BY [email or web address] PCP - General Kiln Car Unloader 06/17/20 06/17/20 Pcp, Unknown PCP - General 06/18/20 11/02/20 Pcp, Unknown PCP - General 11/03/20 12/29/20 Stephie Comer NP [address] [place] [address] PCP - General Family Medicine 12/30/20 08/04/21 Rosa Williamson PA [address] [place] [address] derrell PCP - General 08/05/21 Huey Peacock MD [address] [place] [phone] [email or web address] Insurance Assigned Provider 10/14/17 11/14/17 Huey Peacock MD [address] [place] [phone] [email or web address] Insurance Assigned Provider 10/14/17 03/17/18 Mal Lema MD [address] [place] [phone] [email or web address] Insurance Assigned Provider 03/17/18 06/17/18 Mal Lema MD [address] [place] [phone] [email or web address] Insurance Assigned Provider 08/18/18 06/22/19 Mal Lema MD [address] [place] [phone] [email or web address] Insurance Assigned Provider 09/20/19 01/20/20 Mal Lema MD [address] [place] [phone] [email or web address] Insurance Assigned Provider 03/28/20 07/25/20 Rob Orosco LICSW [address] [place] [phone] [email or web address] Social Work 06/12/20 11/09/23 Gwen Lima RN [address] [place] [phone] [facility] Cleater 06/12/20 10/27/20 Lisa Camilo [address] [place] [phone] [email or web address] 06/17/20 12/08/21 Neri Burger MD [address] [place] [phone] [email or web address] Insurance Assigned Provider 07/25/20 05/22/22 Gwen Lima RN [address] [place] [phone] [email or web address] Cleater 12/30/22 03/26/23 Ericka Vincent LCSW [address] [place] [phone] [email or web address] Social Work 02/10/23 02/20/23 documented as of this encounter Additional Source Comments The information contained in this document represents components of the legal health record. It is not the complete legal health record.[facility]
[2025-02-28 09:26] LABS: Glucose, Whole Blood 134 mg/dL (60-115)
== END 2025-02-28 10:15 | disposition home or self-care (01) ==
LOC: HO.ENCR 09:02
PROVIDERS: Visit Provider Physician Assistant Medical
DX: E11.29 Type 2 diabetes mellitus with other diabetic kidney complication (principal); R80.9 Proteinuria, unspecified; K21.9 Gastro-esophageal reflux disease without esophagitis; K76.0 Fatty (change of) liver, not elsewhere classified

== ENCOUNTER → 2025-02-28 09:02 | Outpatient (BNVA) | payer OTHER, SELFPAY | PROVIDERS: Visit Provider Physician Assistant Medical | DX: E11.29 Type 2 diabetes mellitus with other diabetic kidney complication (principal); K21.9 Gastro-esophageal reflux disease without esophagitis; R80.9 Proteinuria, unspecified; K76.0 Fatty (change of) liver, not elsewhere classified | CPT/HCPCS: 82947; 83036; 99212 ==

== ENCOUNTER 2025-05-30 09:18 | Outpatient (AMB) | payer OTHER, SELFPAY ==
--- OUTSIDE RECORDS SUMMARY | 2025-03-29 16:00 | XMS_ITS ---
Author Organization [facility] Address [address] [place] [address] Care Team Providers Care Supervisor Stripping Name Role Phone ZZAmasoudhive - DO NOT USE, [facility] Primary Care Provider Unavailable [facility] Unavailable [phone] Migration, Provider Unavailable Unavailable Allergies Allergen (clinical drug ingredient) Drug/Non Drug Allergy documented on EMR Reaction Allergy Type Onset Date Status atorvastatin Lipitor Unknown Drug Allergy Acti ve gabapentin Gabapentin Unknown Drug Allergy Activ e aspirin Aspirin Unknown Drug Allergy Active acetaminophen / codeine Acetaminophen-Codeine Unknown Drug Allergy Active REASON FOR VISIT [facility] To [facility] Conversion Encounter Medications Medication SIG (Take, Route, Fr equency, Duration) Notes Start Date End Date Status Vitamin D3 125 MCG (5000 UT) 1 cap(s) orally once a day for 30 day(s) 03/24/2015 Active Albuterol Sulfate HFA 108 (90 Base) MCG/ACT 2 puff(s) inhaled 4 times a day 07/01/2014 Active ZyrTEC Allergy 10 MG 1 tab(s) orally onc e a day for 30 day(s) 02/20/2015 Active metFORMIN HCl 500 MG 1 tab(s) orally 2 t imes a day Active Depo-Provera 150 MG/ML 1 mL intramuscularly once 1 Active Singulair 10 MG 1 tab(s) orally once a day (in the evening) Active Protonix 40 MG 1 tab(s) orally once a day Active Encounters Encounter Location Date Provider Diagnosis [address] [address] 03/29/2025 Provider Migration Plan Of Treatment No Information Progress Notes * Esteban SONGDOB:1969 (54 yo F)Acc No.[id number]:03/29/2025 Patient: Julio Cesar ORALES, Marilinda Provider: :1970 A ge:54 Y S ex:Female Date:03/29/2025 Address:[address] [place] [address] Pcp:[facility] Adali Ahumada - DO NOT USE Subjective: * Chief Complaints: * 1 . Multum To Medispan Conversion Encounter. * Medical History: * Medications: T aking Singulair 10 MG Tablet 1 tab(s) orally once a day (in the evening) , Taking Protonix 40 MG Tablet Delayed Release 1 tab(s) orally once a day , Taking Albuterol Sulfate HFA 108 (90 Base) MCG/ACT Aerosol Solution 2 puff(s) inhaled 4 times a day , Taking ZyrTEC Allergy 10 MG Tablet 1 tab(s) orally once a day , Taking metFORMIN HCl 500 MG Tablet 1 tab(s) orally 2 times a day , Taking Depo-Provera 150 MG/ML Suspension 1 mL intramuscularly once , Taking Vitamin D3 125 MCG (5000 UT) Capsule 1 cap(s) orally once a day * Allergies: L ipitor, Acetaminophen-Codeine, Gabapentin, Aspirin. Objective: * Vitals: Assessment: Plan: * Treatment: * Images: Billing Information: * Visit Code: * Procedure Codes: * Electronic signature of Prov ider Migration on 05/30/2025 at 10:04 AM EST Sign off status: Pending * Provider: Date: 0 03/29/2025 Generated for Stephanie alonso/Fidelia/Stewart on: 07/30/2024 10:04 AM EST
--- NOTE | 2025-05-30 09:27 | MHC.OFFVIS ---
Vital Signs 05/30/25 09:35 Height 5 ft 1 in Weight 171 lb 11.841 oz BMI 32.4 BP 120/62 Blood Pressure Location Lt brachial Position Sitting Pulse 74 Pulse Source Pulse Oximeter Pulse Oximetry (%) 98 Oxygen Delivery Method Room Air Intake Visit Reasons: Type II diabetes Intake Note: Patient present today to follow up on Type 2 Diabetes Mellitus.? Last Diabetic Eye exam: approx 11 months ago Last Podiatry Visit: Doesn't have a Punch Card Operator? Random Glucose:122 mg/dl HgA1C: 7.3 Log Carrier Operator Required: Yes Log Carrier Operator Language: Brazilian Accompanied by: Self / Same As Patient Allergies atorvastatin (From Lipitor) Adverse Reaction (Mild, Verified 05/30/25 09:32) Muscle Pain aspirin Adverse Reaction (Unknown, Verified 05/30/25 09:32) Rash dulaglutide (From Trulicity) Adverse Reaction (Unknown, Verified 05/30/25 09:32) Hives gabapentin Adverse Reaction (Unknown, Verified 05/30/25 09:32) Dizziness Tylenol codeine Adverse Reaction (Unknown, Uncoded 05/30/25 09:32) Nausea, Vomiting HPI Comments Details: This is a 54-year-old female with a past medical history of type 2 diabetes, CVA, microalbuminuria, COPD, severe asthma, GERD, obesity, hypertension and hyperlipidemia presenting for follow up for diabetic management. Brazilian video track man Prosper [id number] She was diagnosed with diabetes around the age of 45. Hemoglobin A1c 7.3% down from 7.9%. She does not have her CGM or glucometer with her today. She was not notified by the pharmacy that PA was approved. I resent the prescription today. Reports the following readings: 130s in the afternoon 100-110 in the morning Highest was 170 Denies hypoglycemia Current medication regimen: Jardiance 25 mg, Metformin ER 1000 mg BID and Actos 15 mg daily (higher dosage caused weight gain) Previous meds: She was on 5 mg ER Glipizide, but she says it was discontinued because it was not helping. She tried Trulicity after her stroke. She developed diffuse pain and itchy hives after injection. Lantus discontinued because blood sugars improved. She exercises (squats, leg lifts and other things). Echo 05/2022 showed mild pulmonic valve regurgitation and normal LVEF at [facility] in [place] following her stroke. She denies chest pain or shortness of breath. She has hepatic steatosis. Hypoglycemia symptoms: none Hyperglycemia symptoms: none Eye exam: Up-to-date Microvascular complications: nephropathy (microalbumin) Macrovascular complications: CVA (2020) Hypertension is treated with lisinopril 5 mg. Hyperlipidemia: treated with Zetia 10 mg and pravastatin 40 mg daily ROS: Constitutional: No unexplained weight loss, fever, chills, fatigue or night sweats. Respiratory: No shortness of breath, cough or sputum production. Cardiovascular: No chest pain, chest pressure or chest discomfort. No palpitations or pedal edema. Gastrointestinal: No anorexia, nausea, vomiting or diarrhea. No abdominal pain or blood in stool. Neurologic: No headache, dizziness, syncope Endocrine: No cold or heat intolerance. No polyuria or polydipsia. Physical exam: Constitutional: Alert, in no distress. Eyes: Pupils are equal, round and reactive to light. Extraocular muscles intact. Neck: Supple, Full range of motion. No lymphadenopathy. No palpable thyroid masses. Respiratory: Clear to auscultation. Cardiovascular: S1 S2 regular. II/ systolic murmur. Feet: Warm and well perfused. No clubbing, cyanosis or edema. DP pulses intact. No open wounds. 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 Lumbar degenerative disc disease Menorrhagia Severe persistent asthma Dysphagia S/P CVA (cerebrovascular accident) History of CVA (cerebrovascular accident) Surgical History History of bilateral ligation of fallopian tubes History of carpal tunnel repair Family History Mother Diabetes Father Diabetes Social History Alcohol intake: current Alcohol intake frequency: holidays/special occasions only Patient Tobacco Use Status: Current everyday Tobacco user Physical Exam Vital Signs: Last Vital Signs Pulse 74 05/30/25 09:35 BP 120/62 05/30/25 09:35 Pulse Ox 98 05/30/25 09:35 Oxygen Delivery Method Room Air 05/30/25 09:35 BMI result Body Mass Index 32.4 Results AMB Hemoglobin A1c AMB Hemoglobin A1c 7.3 % Last Edit by Gemini Sullivan CMA on 05/30/25 09:53 Results Reviewed Results Reviewed: Laboratory Last Values Glucose (Clinic) 122 mg/dL (60-115) H 05/30/25 09:41 Hgb A1c (Clinic) 7.3 % (4.0-6.0) H 05/30/25 09:50 Laboratory Tests 04/26/24 12/10/24 12/13/24 09:40 10:26 14:27 Plt Count 275 Creatinine 0.59 Estimated GFR > 60 C-Peptide 2.58 AST 55 H ALT 59 H Triglycerides 68 Cholesterol 111 LDL Cholesterol, Calc 55 HDL Cholesterol 43 Vitamin B12 219 Urine Creatinine 42.79 Urine Microalbumin 10.0 Microalb/Creat Ratio 23.3 Islet Cell Ab Screen NEGATIVE AMINA Antibody 50 H Assessment & Plan Assessment & Plan (1) Type II diabetes mellitus with renal manifestations: Code(s): E11.29 - Type 2 diabetes mellitus with other diabetic kidney complication Category: Medical Qualifiers: Diabetes mellitus emt intermediate insulin use: without emt intermediate use Diabetes mellitus complication detail: with diabetic microalbuminuria Qualified Code(s): E11.29 - Type 2 diabetes mellitus with other diabetic kidney complication; R80.9 - Proteinuria, unspecified Plan: In summary this is a 54-year-old female with a past medical history of type 2 diabetes with micro/macrovascular complications. Her hemoglobin A1c improved but is not yet at goal. She would like another 3 months to work on lifestyle modifications before adjusting medications further. Continue Jardiance 25 mg daily. Continue Actos 15 mg daily. Continue metformin 1000 mg twice daily. Diabetic diet reviewed. Referred for eye exam. She will have lab work completed. We reviewed treatment of hypo/hyperglycemia. She has written instructions. (2) Essential hypertension: Code(s): I10 - Essential (primary) hypertension Category: Medical Plan: Controlled. Continue lisinopril for hypertension and renal protection. Low-sodium diet and avoidance of caffeine recommended. (3) Mixed hyperlipidemia: Code(s): E78.2 - Mixed hyperlipidemia Category: Medical Plan: LDL target less than 70. Did not tolerate atorvastatin. Patient is on pravastatin and Zetia. Check fasting lipid profile. Plan Follow up in 3 months for type 2 diabetes. Orders: Orders Lipid Panel Today E78.5 - Hyperlipidemia, unspecified Microalbumin, Random (w Creat) Today E11.9 - Type 2 diabetes mellitus without complications Creatinine Today E11.9 - Type 2 diabetes mellitus without complications Vitamin B12 Today Z91.89 - Other specified personal risk factors, not elsewhere classified AMB Hemoglobin A1c Today E11.29 - Type 2 diabetes mellitus with other diabetic kidney complication, R80.9 - Proteinuria, unspecified Referrals Ophthalmology Referral E11.29 - Type 2 diabetes mellitus with other diabetic kidney complication, R80.9 - Proteinuria, unspecified Medications: Refilled blood-glucose sensor (Dexcom G7 Sensor device) apply new sensor every 10 days as directed 3 ea 11RF E11.29 - Type 2 diabetes mellitus with other diabetic kidney complication, R80.9 - Proteinuria, unspecified Coding Level of Care Code Est Pt Level 4 (09015) Complex EM visit Add On G2211 Diagnoses Type 2 diabetes mellitus with diabetic microalbuminuria, without long-term current use of insulin E11.29; R80.9 Diabetes mellitus correction insulin use: without correction use Diabetes mellitus complication detail: with diabetic microalbuminuria Essential hypertension I10 Mixed hyperlipidemia E78.2
[2025-05-30 09:35] VITALS: BP 120/62; PULSE 74; O2SAT 98; BMI 32.4
[2025-05-30 09:46] LABS: Glucose, Whole Blood 122 mg/dL (60-115)
--- OUTSIDE RECORDS SUMMARY | 2025-05-30 10:05 | XMS_ITS | Encounter Summary ---
Author Organization [facility] Address [address] [place] [address] Phone Care Team Providers Care Assembly Line Leader Name Role Phone Rob Orosco SHARLA Unavailable [phone] Lisa Camilo Unavailable [phone] Neri Burger MD Unavailable Stephie Comer EMERGENCY PREPAREDNESS MANAGER Primary Care Provider [phone] Rosa Williamson Primary Care Prov ider Gwen Lima RN Unavailable Ericka Vincent NARCOTICS AND VICE DETECTIVE Unavailable [email or web address] Encounter Details Date Type Department Care Team (Late st Contact Info) Description 08/01/2021 Procedure Pass [facility], Ct Scan - [facility] [address] [place] [address] Social History Tobacco Use Types Packs/Day Years Used Date Smoking Tobacco: Some Days Smokeless Tobacco: Never Alcohol Use Standard Drinks/Week Comments No 0 (1 standard drink = 0.6 oz pur e alcohol) Comments No Sex and Gender Information Value Date Recorded Sex Assigned at Female 07/24/2017 9:38 AM EST Legal Sex Female 9:34 PM EDT Gender Identity Female 08/30/2017 8:33 AM EST Sexual Orientation Straight 08/30/2017 8: 33 AM EST documented as of this encounter Functional Status * Calculated C-SSRS Risk Score (Lifetime/Recent) Answer Date of Assessment Author Low Risk 08/01/2021 11:40 AM EST Gwen Bang RN * [place] Suicide Severity Rating Scale (Screener/Recent Self-Report) Question Answer Date of Assessment Author 1. Wish to be (Past 1 Month) Yes 022 11:40 AM Gwen Cruz RN 2. Non-Specific Active Suici zeinab Thoughts (Past 1 Month) No 08/01/2021 11:40 AM Francisco Cruz RN 6. Suicidal Behavior (Lifetime) No 11:40 AM Gwen Cruz RN documented as of this encounter Plan of Treatment Not on file documented as of this encounter Visit Diagnoses Not on filedocumented in this encounter Additional Health Concerns Infection Onset Date Last Indicated Resolved Time CoV-Risk 08/23/2021 08/23/2021 09/02/2021 1:22 AM EST documented as of this encounter Care Teams Assembly Line Leader Relationship Specialty Start Date End Date Stephie Comer NP [address] [place] [address] PCP - General Family Medicine 12/30/20 08/04/21 Rosa Williamson PA [address] [place] [address] derrell PCP - General 08/05/21 Rob Orosco LICSW [address] [place] [phone] PHCM After School Teacher 06/12/20 11/09/23 Lisa Camilo [address] [place] [address] [email or web address] Community Health Worker 06/17/20 12/08/21 Neri Burger MD [address] [place] [address] [email or web address] Insurance Assigned Provider 07/25/20 05/22/22 Gwen Lima RN [address] [place] [address] [email or web address] PHCM Calibration Tester 12/30/22 03/26/23 Ericka Vincent LCSW [address] [place] [address] [email or web address] PHCM After School Teacher 02/10/23 02/20/23 documented as of this encounter Additional Source Comments The information contained in this document represents components of the legal health record. It is not the complete legal health record.[facility]
--- OUTSIDE RECORDS SUMMARY | 2025-05-30 10:05 | XMS_ITS | Encounter Summary ---
Author Organization [facility] Address [address] [place] [address] Phone Care Team Providers Care Machinist First Class Name Role Phone KwesiAbbejael [email or web address] Unavailable [phone] Neri Burger MD Unavailable Rosa Williamson Primary Care Prov ider Gwen Lima RN Unavailable Ericka Vincent SUPERVISOR OF WAY Unavailable mary Encounter Details Date Type Department Care Team (Late st Contact Info) Description 01/28/2022 Procedure Pass [facility] [address] [place] [address] Social History Tobacco Use Types Packs/Day Years [...] Diagnoses Not on filedocumented in this encounter Care Teams Machinist First Class Relationship Specialty Start Date End Date Rosa Williamson PA [address] [place] [address] [email or web address] PCP - General 08/05/21 Rob Orosco LICSW [address] [place] [address] PHCM Lead Ingot Molder 06/12/20 11/09/23 Neri Burger MD [address] [place] [phone] Insurance Assigned Provider 07/25/2005/22 Gwen Lima RN [address] [place] [address] PHCM Acquisition Associate 12/30/22 03/26/23 Ericka Vincent LCSW [address] [place] [address] [email or web address] PHC Lead Ingot Molder 02/10/23 02/20/23 documented as of this encounter Additional Source Comments The information contained in this document represents components of the legal health record. It is not the complete legal health record.[facility]
--- OUTSIDE RECORDS SUMMARY | 2025-05-30 10:05 | XMS_ITS | Encounter Summary ---
Author Organization [facility] Address [address] [place] [address] [place] [address] Phone Care Team Providers Care Transformer Assembly Supervisor Name Role Phone Rosa Williamson Primary Care Prov ider Encounter Details Date Type Department Care Team (Late st Contact Info) Description 02/05/2024 Ancillary Orders [facility], X-Ray - [address] [address] Abimbola Adkins NP [address] [place] [phone] [email or web address] Thoracic back pain, unspecified back pain laterality, unspecified chronicity (Primary Dx) Social History Tobacco Use Types Packs/Day Years Used Date Smoking Tobacco: Some Days Smokeless Tobacco: Never Alcohol Use Standard Drinks/Week Comments No 0 (1 standard drink = 0.6 oz pur e alcohol) Education Answer Date Recorded Are you interested in more education? Not on eloisa e 11/11/2022 Are you concerned about learning? Not on file 11/11/2022 No 11/11/2022 No 11/11/2022 Digital Access Answer Date Recorded No 12/08/2022 No 12/08/2022 Reliable internet access at home? Not on file 12/08/2022 Device with a working camera? Not on file Comments No Sex and Gender Information Value Date Recorded Sex Assigned at Female 07/24/2017 9:38 AM EST Legal Sex Female 9:34 PM EDT Gender Identity Female 08/30/2017 8:33 AM EST Sexual Orientation Straight 08/30/2017 8: 33 AM EST documented as of this encounter Plan of Treatment Not on file documented as of this encounter Results * XR THORACIC SPINE 3 VIEW (02/05/2024 8:34 AM EDT) Anatomical Region Laterality Modality T-spine Computed Radiogr aphy 02/05/2024 9:51 AM EDT Impressions 02/05/2024 9:52 AM EDT No displaced fracture. Minimal degenerative changes. Narrative 02/05/2024 9:52 AM EDT XR THORACIC SPINE 3 VIEW Referring clinician's provided indication for this examination in [facility]: Pain COMPARISON: None FINDINGS: Slight dextrocurvature of the thoracic spine. Thoracic vertebral body heights are maintained. Minimal multilevel degenerative changes. Procedure Note Tej Peraza MD - 02/05/2024 XR THORACIC SPINE 3 VIEW Referring clinician's provided indication for this examination in [facility]:Pain COMPARISON: None FINDINGS: Slight dextrocurvature of the thoracic spine. Thoracic vertebral bodyheights are maintained. Minimal multilevel degenerative changes. IMPRESSION: No displaced fracture. Minimal degenerative changes. us Abimbola Adkins CAN FEEDER IMG XR SPINE Final Result documented in this encounter Visit Diagnoses Diagnosis Thoracic back pain, unspecified back pain laterality, unspecified chronicity- Primary Thoracic back pain, unspecified back pain laterality, unspecified chronicity documented in this encounter Care Teams Transformer Assembly Supervisor Relationship Specialty Start Date End Date Rosa Williamson PA [address] [place] [address] PCP - General 08/05/21 documented as of this encounter Additional Source Comments The information contained in this document represents components of the legal health record. It is not the complete legal health record.[facility]
--- OUTSIDE RECORDS SUMMARY | 2025-05-30 10:05 | XMS_ITS | Encounter Summary ---
Author Organization [facility] Address [address] [place] [address] Phone Care Team Providers Care Cash Posting Clerk Name Role Phone Rob Orosco STAFF NUCLEAR MEDICINE TECHNOLOGIST Unavailable [phone] Neri Burger MD Unavailable Rosa Williamson Primary Care Prov ider Gwen Lima RN Unavailable Ericka Vincent TOOL AND FIXTURE REPAIRER Unavailable mary Encounter Details Date Type Department Care Team (Late st Contact Info) Description 01/04/2022 Transcribe Orders Virtual Department [address] [place] [address] Rosa Williamson PA [address], [place] [phone] ashley Cough (Primary Dx); Increasing shortness of breath Social History Tobacco Use Types Packs/Day Years [...] documented as of this encounter Results * Pulmonary Function Test Reason for Exam: Dyspnea/Shortness of Breath (INCREASING SOB AND COUGH); Type of PFT Test: Spirometry with bronchodilator, DLCO, Lung Volumes; Performing Location: [facility] (01/20/2022 8:01 AM EDT) FEV1 1.33 liters FVC 1.95 liters FEV1/FVC 68 % TLC 3.70 liters DLCO 15.5 ml/mmHg sec Anatomical Region Laterality Modality Other Impressions 01/20/2022 8:01 AM EDT PULMONARY FUNCTION STUDIES Full pulmonary function studies were performed on this 51 y.o. year-old female for evaluation of cough and dyspnea. Review of the medical record reveals that the patient is a current smoker. Prior pulmonary function studies are available for comparison, performed on 09/20/2006, 01/21/2013, as well as a methacholine challenge study performed on 10/02/2006. SPIROMETRY: The FEV1 is moderately impaired at 1.33 L or 65% predicted. The FVC is mildly impaired at 1.95 L or 72% predicted. The FEV1/FVC ratio is impaired at 68%. After the administration of a bronchodilator agent, there is a 14% improvement in FEV1 to 1.51 L or 74% predicted along with normalization of the FEV1/FVC ratio to 71%. FLOW-VOLUME LOOPS: Evaluation of the flow-volume loops reveals normal morphology of the inspiratory limb with scooping of the expiratory limb and blunting of the peak expiratory flows which improves in post-bronchodilator tracings. LUNG VOLUME MEASUREMENTS BY NITROGEN WASHOUT: The total lung capacity is normal at 3.70 L or 93% predicted. The functional residual capacity is normal at 2.03 L or 99% predicted. DIFFUSION CAPACITY: The diffusion capacity is mildly impaired at 15.5 mL/mmHg sec or 77% predicted. COMPARISON TO PRIOR STUDIES: When comparing to prior studies, there have been only mild fluctuations over the past 15 years. Resting oxygen saturation is 99% on room air. IMPRESSION: Abnormal pulmonary function studies as evidenced by moderate airflow limitation in baseline spirometry measurements which normalizes post- bronchodilator after a technically significant improvement in FEV1. Lung volumes are normal. There is a mild impairment in diffusion capacity which, in this clinical context, may be secondary to emphysema, pulmonary vascular disease, interstitial lung disease and/or anemia. Rosa CHOW PFT ORDERABLES Fi nal Result documented in this encounter Visit Diagnoses Diagnosis Cough- Primary Increasing shortness of breath Cough Increasing shortness of breath documented in this encounter Care Teams Cash Posting Clerk Relationship Specialty Start Date End Date Rosa Williamson PA [address] [place] [address] [email or web address] PCP - General 08/05/21 Rob Orosco LICSW [address] [place] [phone] [facility] 06/12/20 11/09/23 Neri Burger MD [address] [place] [phone] Insurance Assigned Provider 07/25/2005/22 Gwen Lima RN [address] [place] [phone] PHCM Pipelayer 12/30/22 03/26/23 Ericka Vincent LCSW [address] [place] [id number] PHCM Capsule Filler 02/10/23 02/20/23 documented as of this encounter Additional Source Comments The information contained in this document represents components of the legal health record. It is not the complete legal health record.[facility]
--- OUTSIDE RECORDS SUMMARY | 2025-05-30 10:05 | XMS_ITS | Encounter Summary ---
Author Organization [facility] Address [address] [place] [address] Phone Care Team Providers Care Vehicle Body Sander Name Role Phone Rob Orosco SHARLA Unavailable [phone] Lisa Camilo Unavailable Neri Burger MD Unavailable Stephie Comer CARPET CLEANING TECHNICIAN Primary Care Provider [phone] Rosa Williamson Primary Care Prov ider Gwen Lima RN Unavailable Ericka Vincent STAFF ELECTRONIC WARFARE OFFICER Unavailable [email or web address] Encounter Details Date Type Department Care Team (Late st Contact Info) Description 07/08/2021 Transcribe Orders Virtual Department [address] [place] [address] Rosa Williamson PA [address], [place] [phone] ashley Breast screening (Primary Dx) Social History Tobacco Use Types [...] documented as of this encounter Visit Diagnoses Diagnosis Breast screening- Primary Breast screening, unspecified documented in this encounter Additional Health Concerns Infection Onset Date Last Indicated Resolved Time CoV-Risk 08/23/2021 08/23/2021 09/02/2021 1:22 AM EST documented as of this encounter Care Teams Vehicle Body Sander Relationship Specialty Start Date End Date Stephie Comer NP [address] [place] [address] PCP - General Family Medicine 12/30/20 08/04/21 Rosa Williamson PA [address] [place] [address] derrell PCP - General 08/05/21 Rob Orosco LICSW [address] [place] [phone] [email or web address] PHCM Airport Ramp Agent 06/12/20 11/09/23 Lisa Camilo [address] [place] [address] [email or web address] Community Health Worker 06/17/20 12/08/21 Neri Burger MD [address] [place] [address] [email or web address] Insurance Assigned Provider 07/25/20 05/22/22 Gwen Lima RN [address] [place] [email or web address] PHCM Bridge Engineer 12/30/22 03/26/23 Ericka Vincent, STAFF ELECTRONIC WARFARE OFFICER [address] [place] [address] [email or web address] PHC Airport Ramp Agent 02/10/23 02/20/23 documented as of this encounter Additional Source Comments The information contained in this document represents components of the legal health record. It is not the complete legal health record.[facility]
--- OUTSIDE RECORDS SUMMARY | 2025-05-30 10:05 | XMS_ITS | Encounter Summary ---
Author Organization [facility] Address [address] [place] [address] Phone Care Team Providers Care Filter Tank Tender Helper Head Name Role Phone Rob Orosco SHARLA Unavailable [phone] Lisa Camilo Unavailable [phone] Neri Burger MD Unavailable Stephie Comer E COMMERCE ARCHITECT Primary Care Provider [phone] Rosa Williamson Primary Care Prov ider Gwen Lima RN Unavailable Ericka Vincent THROUGH FREIGHT ENGINEER Unavailable [email or web address] Encounter Details Date Type Department Care Team (Late st Contact Info) Description 08/01/2021 Procedure Pass [facility], [facility] [address] [place] [address] Social History Tobacco Use Types Packs/Day Years [...] 11:40 AM EST Gwen Bang RN * [place] Suicide Severity Rating Scale (Screener/Recent Self-Report) Question [...] documented as of this encounter Care Teams Filter Tank Tender Helper Head Relationship Specialty Start Date End Date Stephie Comer NP [address] [place] [address] PCP - General Family Medicine 12/30/20 08/04/21 Rosa Williamson PA [address] [place] [address] derrell PCP - General 08/05/21 Rob Orosco LICSW [address] [place] [address] [facility] Wood Carver 06/12/20 11/09/23 Lisa Camilo [address] [place] [address] [email or web address] Community Health Worker 06/17/20 12/08/21 Neri Burger MD [address] [place] [address] [email or web address] Insurance Assigned Provider 07/25/20 05/22/22 Gwen Lima RN [address] [place] [address] [email or web address] PHCM Supervisor Modern Languages 12/30/22 03/26/23 Ericka Vincent LCSW [address] [place] [address] [email or web address] PHCM Wood Carver 02/10/23 02/20/23 documented as of this encounter Additional Source Comments The information contained in this document represents components of the legal health record. It is not the complete legal health record.[facility]
--- OUTSIDE RECORDS SUMMARY | 2025-05-30 10:05 | XMS_ITS | Encounter Summary ---
Author Organization [facility] Address [address] [place] [address] Phone Care Team Providers Care Agricultural Lender Name Role Phone Rob Orosco INSOLE TACKER Unavailable [phone] Rosa Williamson Primary Care Prov ider Gwen Lima RN Unavailable Ericka Vincent BACTERIOLOGIST MEDICAL Unavailable mary Encounter Details Date Type Department Care Team (Late st Contact Info) Description 09/05/2022 Transcribe Orders Virtual Department [address] [place] [address] Rosa Willaimson PA [address] [place] [address] ashley Breast screening (Primary Dx) Social History [...] documented as of this encounter Results * BI MAMMOGRAM SCREENING WITH TOMOSYNTHESIS WITH CAD (BILATERAL) (10/25/2023 9:48 AM EDT) Anatomical Region Laterality Modality Breast Left, Breast Right, Breast Bilateral Bila teral Mammography 10/26/2023 7:40 PM EDT Impressions 10/26/2023 7:41 PM EDT No mammographic evidence of malignancy in either breast. Annual screening mammography is recommended. BI-RADS 1 NEGATIVE The patient will be notified of the results and recommendations. Narrative 10/26/2023 7:41 PM EDT BI MAMMOGRAM SCREENING WITH TOMOSYNTHESIS WITH CAD (BILATERAL) Additional patient information: Screening. COMPARISON: Comparison is made with relevant prior imaging. Breast composition: There are scattered areas of fibroglandular density. FINDINGS: There has been no change in the mammographic findings since previous examination. No abnormal masses, suspicious calcifications, or other significant findings are identified mammographically in either breast. Procedure Note Alvarez Umaña MD - 10/26/2023 BI MAMMOGRAM SCREENING WITH TOMOSYNTHESIS WITH CAD (BILATERAL) Additional patient information: Screening. COMPARISON: Comparison is made with relevant prior imaging. Breast composition: There are scattered areas of fibroglandular density. FINDINGS: There has been no change in the mammographic findings since previousexamination. No abnormal masses, suspicious calcifications, or other significantfindings are identified mammographically in either breast. IMPRESSION: No mammographic evidence of malignancy in either breast. Annual screening mammography is recommended. BI-RADS 1 NEGATIVE The patient will be notified of the results and recommendations. Rosa CHOW IMG MG EXAMS Fi nal Result documented in this encounter Visit Diagnoses Diagnosis Breast screening- Primary Breast screening, unspecified Breast screening Breast screening, unspecified documented in this encounter Care Teams Agricultural Lender Relationship Specialty Start Date End Date Rosa Williamson PA [address] [place] [address] PCP - General 08/05/21 Rob Orosco LICSW [address] [place] [address] [facility] Bleach Liquor Maker 06/12/20 11/09/23 Gwen Lima RN [address] [place] [address] PHC Demurrage Worker 12/30/22 03/26/23 Ericka Vincent LCSW [address] [place] [address] PHC Bleach Liquor Maker 02/10/23 02/20/23 documented as of this encounter Additional Source Comments The information contained in this document represents components of the legal health record. It is not the complete legal health record.[facility]
--- OUTSIDE RECORDS SUMMARY | 2025-05-30 10:05 | XMS_ITS | Encounter Summary ---
Author Organization [facility] Address [address] [place] [address] [place] [address] Phone Care Team Providers Care Ada Accommodation Consultant Name Role Phone Unknown, Unknown MD Primary Care Provider Huey Khan MD Unavailable [phone] Debi Givens SERVICE ORDER CLERK Primary Care Provider Huey Peacock MD Unavailable [phone] Mal Lema MD Unavailable Mal Lema MD Unavailable Mal Lema MD Unavailable Mal Lema MD Unavailable Rob OroscoSW Unavailable [phone] Gwen Lima RN Unavailable Lisa Camilo Primary Care Provider Lisa Camilo Unavailable [phone] Pcp, Unknown Primary Care Provider UnavailNeri Cruz MD Unavailable Pcp, Unknown Primary Care Provider UnavailStephie Escobar SERVICE ORDER CLERK Primary Care Provider [phone] Rosa Williamson Primary Care Prov ider Gwen Lima RN Unavailable Ericka Vincent READING EFFICIENCY COURSE DIRECTOR Unavailable [email or web address] Encounter Details Date Type Department Care Team (Late st Contact Info) Description 05/31/2017 Procedure Pass [facility] Endoscopy Admitting Dept Virtual Department [address] [place] [address] Social History Tobacco Use Types Packs/Day Years [...] documented as of this encounter Care Teams Ada Accommodation Consultant Relationship Specialty Start Date End Date Unknown, Unknown, PCP - General 05/09/17 11/14/17 Debi Givens NP [address] [place] [address] [email or web address] PCP - General Family Medicine 11/15/17 06/16/20 Lisa Camilo [address] [place] [address] [email or web address] PCP - General Jr. Java Developer 06/17/20 06/17/20 Pcp, Unknown PCP - General 06/18/20 11/02/20 Pcp, Unknown PCP - General 11/03/20 12/29/20 Stephie Comer NP [address] [place] [address] PCP - General Family Medicine 12/30/20 08/04/21 Rosa Williamson PA [address] [place] [address] derrell PCP - General 08/05/21 Huey Peacock MD [address] [place] [address] [email or web address] Insurance Assigned Provider 10/14/17 11/14/17 Huey Peacock MD [address] [place] [address] Insurance Assigned Provider 10/14/17 03/17/18 Mal Lema MD [address] [place] [address] [email or web address] Insurance Assigned Provider 03/17/18 06/17/18 Mal Lema MD [address] [place] [address] [email or web address] Insurance Assigned Provider 08/18/18 06/22/19 Mal Lema MD [address] [place] [address] [email or web address] Insurance Assigned Provider 09/20/19 01/20/20 Mal Lema MD [address] [place] [address] [email or web address] Insurance Assigned Provider 03/28/20 07/25/20 Rob Orosco LICSW [address] [place] [address] [email or web address] PHCM Political Science Instructor 06/12/20 11/09/23 Gwen Lima RN [address] [place] [address] PHCM Research Professional 06/12/20 10/27/20 Lisa Camilo [address] [place] [address] [email or web address] Community [email or web address] Worker 06/17/20 12/08/21 Neri Burger MD [address] [place] [address] [email or web address] Insurance Assigned Provider 07/25/20 05/22/22 Gwen Lima RN [address] [place] [address] PHCM Research Professional 12/30/22 03/26/23 Ericka Vincent LCSW [address] [place] [address] [email or web address] [facility] Political Science Instructor 02/10/23 02/20/23 documented as of this encounter Additional Source Comments The information contained in this document represents components of the legal health record. It is not the complete legal health record.[facility]
--- OUTSIDE RECORDS SUMMARY | 2025-05-30 10:05 | XMS_ITS | Encounter Summary ---
Author Organization [facility] Address [address] [place] [address] Phone Care Team Providers Care Office Machines Wirer Name Role Phone Rob Orosco STAVE JOINTER Unavailable [phone] Lisa Camilo Unavailable [phone] Neri Burger MD Unavailable Stephie Comer INTAKE COORDINATOR Primary Care Provider [phone] Rosa Williamson Primary Care Prov ider Gwen Lima RN Unavailable Ericka Vincent SENIOR JAVA PROGRAMMER Unavailable [email or web address] Encounter Details Date Type Department Care Team (Late st Contact Info) Description 08/01/2021 Procedure Pass [facility] [address] [place], [place] [id number] Social History Tobacco Use Types Packs/Day Years [...] 11:40 AM EST Gwen Bang RN * [place] Suicide Severity Rating Scale (Screener/Recent Self-Report) Question [...] documented as of this encounter Care Teams Office Machines Wirer Relationship Specialty Start Date End Date Stephie Comer NP [address] [place] [address] PCP - General Family Medicine 12/30/20 08/04/21 Rosa Williamson PA [address] [place] [address] dererll PCP - General 08/05/21 Rob Orosco LICSW [address] [place] [address] PHCM Motion Picture Narrator 06/12/20 11/09/23 Lisa Camilo [address] [place] [address] [email or web address] Community Health Worker 06/17/20 12/08/21 Neri Burger MD [address] [place] [address] [email or web address] Insurance Assigned Provider 07/25/20 05/22/22 Gwen Lima RN [address] [place] [address] [email or web address] PHCM Ripsaw Matcher 12/30/22 03/26/23 Ericka Vincent LCSW [address] [place] [address] [email or web address] PHC Motion Picture Narrator 02/10/23 02/20/23 documented as of this encounter Additional Source Comments The information contained in this document represents components of the legal health record. It is not the complete legal health record.[facility]
--- OUTSIDE RECORDS SUMMARY | 2025-05-30 10:05 | XMS_ITS | Encounter Summary ---
Author Organization [facility] Address [address] [place] [address] Phone Care Team Providers Care Community Product Specialist Name Role Phone Rob Orosco SHARLA Unavailable [phone] Lisa Camilo Unavailable [phone] Neri Burger MD Unavailable Stephie Comer AUTOMATION APPLICATION ENGINEER Primary Care Provider [phone] Rosa Williamson Primary Care Prov ider Gwen Lima RN Unavailable Ericka Vincent CERTIFIED MASTER LOCKSMITH Unavailable [email or web address] Encounter Details Date Type Department Care Team (Late st Contact Info) Description 08/01/2021 Procedure Pass [facility], [facility] Scan - [facility] [place] [facility] [address] [place] [address] Social History Tobacco Use Types Packs/Day Years [...] 11:40 AM EST Gwen Bang RN * [place] Suicide Severity Rating Scale (Screener/Recent Self-Report) Question [...] documented as of this encounter Care Teams Community Product Specialist Relationship Specialty Start Date End Date Stephie Comer NP [address] [place] [address] PCP - General Family Medicine 12/30/20 08/04/21 Rosa Williamson PA [address] [place] [address] derrell PCP - General 08/05/21 Rob Orosco LICSW [address] [place] [address] PHCM Chiseler Head 06/12/20 11/09/23 Lisa Camilo [address] [place] [address] [email or web address] Community Health Worker 06/17/20 12/08/21 Neri Burger MD [address] [place] [address] [email or web address] Insurance Assigned Provider 07/25/20 05/22/22 Gwen Lima RN [address] [place] [address] [email or web address] PHCM Answering Service Agent 12/30/22 03/26/23 Ericka Vincent LCSW [address] [place] [address] [email or web address] PHCM Chiseler Head 02/10/23 02/20/23 documented as of this encounter Additional Source Comments The information contained in this document represents components of the legal health record. It is not the complete legal health record.[facility]
--- OUTSIDE RECORDS SUMMARY | 2025-05-30 10:05 | XMS_ITS | Encounter Summary ---
Author Organization [facility] Address [address] [place] [address] Phone Care Team Providers Care Wage Hand Name Role Phone Rob Orosco RACING CAR DRIVER Unavailable Rosa Williamson Primary Care Prov ider Gwen Lima RN Unavailable Ericka Vincent APPAREL MACHINERY INSTRUCTOR Unavailable mayr Encounter Details Date Type Department Care Team (Late st Contact Info) Description 09/05/2022 Procedure Pass [address] [id number] Social History Tobacco Use Types Packs/Day Years [...] on filedocumented in this encounter Care Teams Wage Hand Relationship Specialty Start Date End Date Rosa Williamson PA [address] [place] [address] PCP - General 08/05/21 Rob Orosco LICSW [address] [place] [address] PHCM Tooler 06/12/20 11/09/23 Gwen Lima, RN [address] [place] [address] PHCM Terminal Superintendent 12/30/22 03/26/23 Ericka Vincent LCSW [address] [place] [address] PHCM Tooler 02/10/23 02/20/23 documented as of this encounter Additional Source Comments The information contained in this document represents components of the legal health record. It is not the complete legal health record.[facility]
--- OUTSIDE RECORDS SUMMARY | 2025-05-30 10:05 | XMS_ITS | Clinical Summary ---
Author Organization [facility] [employer] Address [address] [facility] [address] [place] [address] Care Team Providers Care Sorting Machine Attendant Name Role Phone Unavailable Primary Care Provider [...] 1991 Cervical Cancer Screening 2000 HPV/Cotest 2000 RSV Patients and Patients Aged 60 years or older (1 - Risk 50-74 years 1-dose series) 2020 Zoster Vaccines (1 of 2) 2020 COVID-19 Vaccine (1 2024-2 6 season) 2025 Influenza Vaccine (#1) 2025 Mammogram 10/24/2025 10/25/2023, 10/25/2023 Tobacco Screening 11/13/2025 11/13/2024 DTaP/Tdap/Td Vaccines (2 - T d or Tdap) 02/02/2029 02/02/2019 HIB Vaccines Aged Out No longer eligi [...] patient's age to complete this topic Insurance [facility]
--- OUTSIDE RECORDS SUMMARY | 2025-05-30 10:06 | XMS_ITS | Encounter Summary ---
Author Organization [facility] Address [address] [place] [address] Phone Care Team Providers Care Cloth Calender Name Role Phone Rob Orosco SHARLA Unavailable [phone] Lisa Camilo Unavailable Neri Burger MD Unavailable Rosa Williamson Primary Care Prov ider Gwen Lima RN Unavailable Ericka Vincent E BUSINESS PROJECT MANAGER Unavailable mary Encounter Details Date Type Department Care Team (Latest Contact Info) Description 08/10/2021 Ancillary Orders [facility] [address] [address] Rosa Williamson PA [address] [place] [address] radha Cerebrovascular accident (CVA), unspecified mechanism Social History Tobacco Use Types Packs/Day Years [...] as of this encounter Visit Diagnoses Diagnosis Cerebrovascular accident (CVA), unspecified mechanism documented in this encounter Additional Health Concerns Infection Onset Date Last Indicated Resolved Time CoV-Risk 08/23/2021 08/23/2021 09/02/2021 1:22 AM EST documented as of this encounter Care Teams Cloth Calender Relationship Specialty Start Date End Date Rosa Williamson PA [address] [place] [address] [email or web address] PCP - General 08/05/21 Rob Orosco LICSW [address] [place] [address] [email or web address] [facility] Lowerator Operator 06/12/20 11/09/23 Lisa Camilo [address] [place] [address] [email or web address] [facility] Community Health Worker 06/17/2011/15 Neri Burger MD [address] [place] [address] [email or web address] Insurance Assigned Provider 07/25/2005/22 Gwen Lima RN [address] [place] [address] [email or web address] [facility] Turbine Room Attendant 12/30/22 03/26/23 Ericka Vincent LCSW [address] [place] [address] [facility] Lowerator Operator 02/10/23 02/20/23 documented as of this encounter Additional Source Comments The information contained in this document represents components of the legal health record. It is not the complete legal health record.[facility]
--- OUTSIDE RECORDS SUMMARY | 2025-05-30 10:06 | XMS_ITS | Clinical Summary ---
Author Organization [facility] Address [address] [place] [address] Phone Care Team Providers Care Water Quality Specialist Name Role Phone Rosa Williamson Primary Care Prov ider Allergies Active Allergy Reactions Criticality Noted Date Comments Aspirin Rash Low 05/16/2017 Gabapentin Dizziness 05/16/2017 Hydrocortisone Swelling 12/02/2018 Atorvastatin Angioedema 05/16/2017 Acetaminophen-Codeine Other (See Comments) 04/18 Medications omeprazole (PRILOSEC) 40 MG capsule Take 40 mg by mouth daily. Active ibuprofen (ADVIL,MOTRIN) 600 MG tablet Take 1 tablet (600 mg total) by mouth every 6 (six) hours as needed for pain (specific location in comments). 30 tablet 0 Active ketoconazole 2 % cream Apply topically 2 (two) times a day. 15 g 1 Active meclizine (ANTIVERT) 25 mg tablet Take 1 tablet (25 mg total) by mouth 3 (three) times a day as needed. 30 tablet 1 Active medroxyPROGESTE Marlon (DEPO-PROVERA) 150 mg/mL injection ADMINISTER 1 ML IN THE MUSCLE EVERY 3 MONTHS 1 Active metFORMIN (GLUCOPHAGE) 500 MG tablet Take 2 tablets (1,000 mg total) by mouth 2 (two) times a day with meals. 30 tablet 2 Active albuterol 90 mcg/actuation inhaler Inhale 2 puffs into the lungs every 4 (four) hours as needed for wheezing or shortness of breath/dyspnea. With spacer 6.7 g 1 2 Active fluticasone propionate (FLOVENT DISKUS) 100 mcg/actuation DsDv Inhale 1 puff into the lungs 2 (two) times a day. Rinse mouth after use 1 each 2 Active ezetimibe (ZETIA) 10 mg tablet Take 1 tablet (10 mg total) by mouth daily. 30 tablet 1 2 Active clopidogrel (PLAVIX) 75 mg tablet Take 1 tablet (75 mg total) by mouth daily. 30 tablet 1 2 Active pravastatin (PRAVACHOL) 20 MG tablet Take 20 mg by mouth daily. 2 Active glimepiride (AMARYL) 2 MG tablet Take 2 mg by mouth daily before breakfast. 2 Active EPINEPHrine 0.3 mg/0.3 mL auto-injector Inject 0.3 mL (0.3 mg total) into the muscle as needed for anaphylaxis. 1 each 2 Active ADVAIR DISKUS 500-50 mcg/dose DISKUS Inhale 1 puff into the lungs 2 (two) times a day. 2 Active montelukast (SINGULAIR) 10 mg tablet Take 10 mg by mouth daily. 2 Active pantoprazole (PROTONIX) 40 MG tablet Take 40 mg by mouth daily. 2 Active predniSONE (DELTASONE) 20 MG tablet 2 Active JARDIANCE 10 mg tablet Take 10 mg by mouth daily. 2 Active Active Problems Problem Noted Date Diagnosed Date Ischemic cerebral vascular a ccident (CVA) due to stenosis of large extracranial artery 08/03/2021 Carpal tunnel syndrome 08/01/2021 Constipation 08/01/2021 CVA (cerebral vascular accident) 08/01/2021 Assessment & Plan (08/04/2021 5:18 PM EST): She presented with R-sided arm and leg weakness that developed 3 days prior to admission. No prior history of stroke or any family history. She is a diabetic smoker. The patient also just had COVID and was in isolation until July 26. CT/CTA shows no intracranial abnormality, mild right and moderate left intracranial carotid artery stenosis. Lab work unremarkable. Reported allergy to aspirin and statin however patient started on Plavix with no adverse reaction. Patient has had some improvement in strength but still has right side hemiparesis She has remained hemodynamically stable. -Hemoglobin A1c 10.1 -Total cholesterol 185 LDL 131 MRI performed at 5: 30 this evening results pending. Plan -Continue Plavix 75 mg daily, no aspirin as she is allergic -She is unable to tolerate Lipitor due to an episode of swelling, will start Zetia 10 mg -cafeteria monitor -PT OT -Neurochecks -Tighter glucose control, will increase metformin to twice daily -Appreciate telemetry neuro recommendations -Tolerating Zetia -PT continues to recommend acute rehab Type 2 diabetes mellitus wit hout complication, without long-term current use of insulin Assessment & Plan (08/03/2021 6:45 PM EST): Her hemoglobin A1c was 10.1 on admission. We discussed that she will likely need insulin. She was adamant that she did not want it. At this point we will increase her metformin to 1000 mg twice daily at discharge. She should follow-up with her primary care doctor to discuss insulin in the future. Her daughter, who lives in [place], will try to come and stay with her to help her with her appointments. - Continue Lantus 8 units subcu nightly. - Nmgor-or-bdki blood sugars with insulin likely coverage. Moderate persistent asthma without complication Assessment & Plan (08/02/2021 5:59 PM EST): Scattered wheezes. No acute exacerbation. Continue Flovent and albuterol Resolved Problems Problem Noted Date Diagnosed Date Resolved Date Acute right-sided weakness 0 08/03/2021 Immunizations Immunization Administration Dates Next Due Influenza Quadrivalent Prese rvative Free IM 08/05/2021(Deferred: Patient Refused) Tdap 02/02/2019 Family History Medical History Relation Comments CV disease Father 2 Hypertension Father 2 Diabetes mellitus Mother 2 Hypertension Mother 2 Relation Status Comments Father 1 Father 2 Mother 1 Mother 2 Social History Tobacco Use Types Packs/Day Years Used Date Smoking Tobacco: Some Days Smokeless Tobacco: Never Tobacco Cessation:Ready to Q uit: Not Asked; Counseling Given: Not Answered Alcohol Use Standard Drinks/Week Comments No 0 [...] Orientation Straight 08/30/2017 8: 33 AM EST Last Filed Vital Signs Vital Sign Reading Time Taken Comments Blood Pressure 120/80 06/24/2022 12:22 PM EST Pulse 80 06/24/2022 12:22 PM EST Temperature 36.8 C (98.2 F) 08/23/2021 10:58 PM EST Respiratory Rate 18 08/23/2021 10:58 PM EST Oxygen Saturation 94% 06/24/2022 12:22 PM EST Inhaled Oxygen Concentration - - Weight 70.1 kg (154 lb 8 oz) 06/24/2022 12:22 PM EST Height 149.4 cm (4' 10.82 ) 06/24/2022 12:22 PM EST Body Mass Index 31.4 06/24/2022 12:22 PM EST Plan of Treatment Health Maintenance Due Date Last Done Comments DEPRESSION SCREENING 1982 SMOKING Hx and SMOKELESS TOBACCO SCREENING 1983 HEPATITIS C SCREENING 1988 HIV ONE-TIME SCREENING (18-65 YEARS) 1988 PNEUMOCOCCAL VACCINES (50+ years) (1 of 2 - PCV) 1989 COLOGUARD 2015 COLONOSCOPY 2015 COLORECTAL CANCER SCREENING 2015 FIT TEST 2015 FOBT 2015 SIGMOIDOSCOPY 2015 VIRTUAL COLONOSCOPY 2015 RSV VACCINE (1 - Risk 50-74 years 1-dose series) 2020 ZOSTER VACCINES (1 of 2) 2020 DIABETIC EYE EXAM 08/01/2021 CREATININE LEVEL 08/23/2022 08/23/2021, 11/2021, 08/02/2021, Additional history exists BLOOD PRESSURE 12/23/2022 06/24/2022 HEMOGLOBIN A1C 02/27/2024 11/27/2023, 07/19, 03/08/2023, Additional history exists LIPID PANEL 11/26/2024 11/27/2023, 11/16, 12/14/2022, Additional history exists URINE MICROALBUMIN/CREATININE RATIO 11/26/2024 11/27/2023, 12/14/2022, 12/14/2022 INFLUENZA VACCINE (#1) 2025 COVID-19 VACCINE ( season) 2025 05/12/2021, 04/21/2021 PAP SMEAR 09/05/2025 09/05/2022 MAMMOGRAM 10/24/2025 10/25/2023 Adult Td,Tdap Booster 02/02/2029 02/02/2019, 015 HEPATITIS A VACCINES Aged Out No long er eligible based on patient's age to complete this topic HIB VACCINES Aged Out No longer eligi ble based on patient's age to complete this topic IPV VACCINES Aged Out No longer eligi ble based on patient's age to complete this topic MENINGOCOCCAL VACCINES (ACWY) Aged Out No longer eligible based on patient's age to complete this topic MENINGOCOCCAL VACCINES (B) Aged Out N o longer eligible based on patient's age to complete this topic Medical Devices Not on file Procedures Procedure Name Priority Date/Time Associated Diagnosis Comments BI MAMMOGRAM SCREENING WITH TOMOSYNTHESIS WITH CAD (BILATERAL) Routine 10/25/2023 9:48 AM EDT Breast screening PAP TEST Routine 09/05/2022 12:00 AM EST BASIC METABOLIC PANEL (BMP) STAT 08/23/2021 9:20 AM EST LIPID PANEL Routine 08/02/2021 7:11 AM EST HEMOGLOBIN A1C STAT 08/01/2021 2:08 PM EST from Last 3 Months or Most Recently Relevant to Health Maintenance Results * BI MAMMOGRAM SCREENING WITH TOMOSYNTHESIS [...] CHOW IMG MG EXAMS Fi nal Result * Pap Test (09/05/2022 12:00 AM EST) 09/05/2022 09/06/2022 9:2 2 AM EST Narrative SEE NARRATIVE - 09/08/2022 11:48 [place] [address] [employer] Vice President: Stephie Lewis MD EMS EDUCATOR Cytology Report FINAL DIAGNOSIS A. PAP SMEAR (SUREPATH) CE: SPECIMEN ADEQUACY: Satisfactory for evaluation; transformation zone present. INTERPRETATION: NEGATIVE FOR INTRAEPITHELIAL LESION OR MALIGNANCY. Electronically Signed Out By: ERICKSON Onofre(ASCP) The Pap test is a screening test primarily for squamous cancers and precursors and has associated false-negative and false-positive results. New technologies such as liquid-based preparations may decrease but will not eliminate all false-negative results. Regular sampling and follow-up of unexplained clinical signs and symptoms are recommended to minimize false negative results. PROCEDURES/ADDENDA HPV Testing (Requested) Ordered Date: 09/06/2022 A. PAP SMEAR (SUREPATH) CE: Human Papilloma Virus Test NEGATIVE for high-risk Human Papilloma Virus types 16, 18, 45 and the Other high risk probe set (Includes 31, 33, 35, 39, 51, 52, 56, 58, 59, 66, 68) Note: Testing performed by [facility] On[facility] HR-HPV analysis. Clinical correlation is advised. This HPV test was performed at [facility], [address] [place] [address]. This test has been FDA approved for SurePath cervical cytology specimens. The accuracy and precision of this test for all other specimen sources has been verified in the Cytopathology Laboratory of the [facility] and has not been cleared or approved by the U.S. Food and Drug Administration. Clinical correlation is advised. CLINICAL HISTORY Date of Last Menstrual Period: Not Provided Menstrual History: Unknown Other Clinical Conditions: Screening Pap SPECIMEN SOURCE A: PAP SMEAR (SUREPATH) CE Patient Name: ESTEBAN SONG : 1970 (Age: 52) Sex: F Institution: [facility] Location: [facility] Date of Collection: 09/05/2022 Date of Reported: 09/08/2022 11:48 Results to: Rosa Williamson us Rosa CHOW CYTOLOGY ORDERABLE S Final Result SEE NARRATIVE * (ABNORMAL) Basic metabolic panel (08/23/2021 9:20 AM EST) SODIUM 135 133 - 146 mmol/L [facility] CHLORIDE 99 96 - 108 mmol/L [facility] POTASSIUM 3.4 3.3 - 5.1 mmol/L [facility] CO2 20(L) 21 - 35 mmol/L [facility] BUN 9 6 - 19 mg/dL [facility] CREATININE 0.50 0.5 - 1.5 mg/dL [facility] GLUCOSE 316(H) 70 - 99 mg/dL [facility] CALCIUM 9.2 8.4 - 10.3 mg/dL [facility] EGFR 113 >59 mL/min/1.7 3m2 [facility] Comment:Estimated glomerular filtration rate calculated using the CKD-EPI refit equation. ANION GAP 19 10 - 20 mmol/L [facility] Blood 08/23/2021 9:20 AM EST 08/23/2021 9:30 AM EST us Brendan Borden MD LAB BLOOD BKR ORD ERABLES Final Result Performing Organization Address City/[facility] Co de Phone Number [address] [address] * (ABNORMAL) Lipid panel (08/02/2021 7:11 AM EST) HDL 33 mg/dL [facility] Comment: Interpretation <40 mg/dL: Low HDL cholesterol (major risk factor for CHD) Greater than or equal to 60 mg/dL: High HDL cholesterol ( negative risk factor for CHD) HDL - cholesterol is affected by a number of factors, e.g. smoking, excerise, hormones, sex and age. CHOLESTEROL 185 0 - 240 mg/dL [facility] TRIGLYCERIDES 103 30 - 160 mg/dL [facility] LDL 131(H) 50 - 129 mg/dL [facility] Comment: LDL levels in terms of risk for coronary heart disease: <100 mg/dL: Optimal 100-129 mg/dL: Near or above optimal 130-159 mg/dL: Borderline high 160-189 mg/dL: High >190 mg/dL: Very High CARDIAC RISK RATIO 5.6(H) 3.3 - 4.4 C [facility] Blood 08/02/2021 7:11 AM EST 08/02/2021 7:27 AM EST us Irene Albright NP LAB BLOOD BKR ORDERABLE S Final Result Performing Organization Address City/[facility]/ZIP Co de Phone Number [address] [address] * (ABNORMAL) Hemoglobin A1c (08/01/2021 2:08 PM EST) HEMOGLOBIN A1C 10.1(H) 4.3 - 5.8 % [facility] Blood 08/01/2021 2:08 PM EST 08/01/2021 2:29 PM EST us Brendan Borden MD LAB BLOOD BKR ORD ERABLES Final Result Performing Organization Address City/[facility]/ZIP Co de Phone Number [address] [address] from Last 3 Months or Most Recently Relevant to Health Maintenance Insurance [facility] MEDICARE PART A & B Member Subscriber Plan / Payer (Ef fective 2024-Present) Name:Kelsy Songeugene Member ID:[id number] Relation to Subscriber:Self Name:Esteban Song Subscriber ID:[id number] Payer ID:[id number] Group ID:Not on file Type:Medicare Address: Simple Admit [address] [place] [address] [place] Advance Directives For more information, please contact: [phone] (9AM - 5PM [facility], Monday-Monday) Documents on File Type Date Recorded Patient Education Program Associate Expl anation Healthcare Proxy 08/09/2021 12:49 PM Healthcare Proxy 08/04/2021 10:17 AM HCP S igned: 08/03/21 * Full Code (Latest Code Status on File) Date Activated Date Inactivated Comments 08/01/2021 11:49 PM Question Answer Comments Code Status Confirmed With: Patient Healthcare Agents on File Name Relationship Healthcare Agent Relationshi p Communication Ellen Upton Other .Primary Health Care Agent (Proxy form on file) Care Teams Water Quality Specialist Relationship Specialty Start Date End Date Rosa Williamson PA [address] [place] [address] PCP - General 08/05/21 Additional Source Comments The information contained in this document represents components of the legal health record. It is not the complete legal health record.[facility]
--- OUTSIDE RECORDS SUMMARY | 2025-05-30 10:06 | XMS_ITS | Encounter Summary ---
Author Organization [facility] Address [address] [place] [address] Phone Care Team Providers Care Golf Course Patroller Name Role Phone Debi Givens DIVERSIONAL THERAPIST'S ASSISTANT Primary Care Provider Mal Lema MD Unavailable Rob Orosco STEEL PICKLER Unavailable [phone] Gwen Lima RN Unavailable Lisa Camilo Primary Care Provider Lisa Camilo Unavailable Pcp, Unknown Primary Care Provider UnavailNeri Cruz MD Unavailable Pcp, Unknown Primary Care Provider UnavailStephie Escobar DIVERSIONAL THERAPIST'S ASSISTANT Primary Care Provider Rosa Williamson Primary Care Prov ider Gwen Lima RN Unavailable Ericka Vincent DRAPERY SEWER HAND Unavailable mary Encounter Details Date Type Department Care Team (Late st Contact Info) Description 02/14/2020 Transcribe Orders Virtual Department [address] [place], [place] [id number] Rosa Williamson PA [address] [place] [address] ashley Muscle ache (Primary Dx); Nonintractable headache, unspecified chronicity pattern, unspecified headache type; Nausea; Diarrhea, unspecified type; Cough Social History Tobacco Use Types Packs/Day Years [...] as of this encounter Plan of Treatment Scheduled Orders Name Type Priority Associated Diagnoses Orde r Schedule COVID-19 PCR Order Lab Routine Muscle ache Nonintractable headache, unspecified chronicity pattern, unspecified headache type Nausea Diarrhea, unspecified type Cough Expected: 02/14/2020, Expires: 03/06/2020 documented as of this encounter Visit Diagnoses Diagnosis Muscle ache- Primary Unspecified myalgia and myositis Nonintractable headache, unspecified chronicity pattern, unspecified headache type Nausea Nausea alone Diarrhea, unspecified type Cough documented in this encounter Additional Health Concerns Infection Onset Date Last Indicated Resolved Time CoV-Risk 02/14/2020 02/20/2020 03/05/2020 1:22 AM EDT CoV-Risk 08/23/2021 08/23/2021 09/02/2021 1:22 AM EST documented as of this encounter Care Teams Golf Course Patroller Relationship Specialty Start Date End Date Debi Givens, SONY [address] [place] [address] [email or web address] PCP - General Family Medicine 11/15/17 06/16/20 Lisa Camilo [address] [place] [address] [email or web address] PCP - General Client Advocate 06/17/20 06/17/20 Pcp, Unknown PCP - General 06/18/20 11/02/20 Pcp, Unknown PCP - General 11/03/20 12/29/20 Stephie Comer NP [address] [place] [address] PCP - General Family Medicine 12/30/20 08/04/21 Rosa Williamson PA [address] [place] [address] derrell PCP - General 08/05/21 Mal Lema MD [address] [facility] [address] [place] [phone] [email or web address] Insurance Assigned Provider 03/28/20 07/25/20 Rob Orosco LICSW [address] [place] [phone] PHCM Grit Removal Operator 06/12/20 11/09/23 Gwen Lima RN [address] [place] [phone] PHCM Chief Controller Station 06/12/20 10/27/20 Lisa Camilo [address] [place] [address] [email or web address] Community Health Worker 06/17/20 12/08/21 Neri Burger MD [address] [place] [phone] Insurance Assigned Provider 07/25/20 05/22/22 Gwen Lima RN [address] [place] [phone] [email or web address] PHCM Chief Controller Station 12/30/22 03/26/23 Ericka Vincent, [address] [address] [email or web address] PHC Grit Removal Operator 02/10/23 02/20/23 documented as of this encounter Additional Source Comments The information contained in this document represents components of the legal health record. It is not the complete legal health record.[facility]
--- OUTSIDE RECORDS SUMMARY | 2025-05-30 10:06 | XMS_ITS | Encounter Summary ---
Author Organization [facility] Address [address] [place] [address] [place] [address] Phone Care Team Providers Care Oracle Hyperion Consultant Name Role Phone Rob Orosco SHARLA Unavailable [phone] Lisa Camilo Unavailable Neri Burger MD Unavailable Rosa Williamson Primary Care Prov ider Gwen Lima RN Unavailable Ericka Vincent WASTE WATER OR WATER PLANT OPERATOR Unavailable mary Encounter Details Date Type Department Care Team (Latest Contact Info) Description 08/09/2021 Ancillary Orders Non-Invasive Cardiology [address] [place] [address] Dacia Ferreira, DO [address] [place] [address] [email or web address] Cerebrovascular accident (CVA), unspecified mechanism Social History [...] documented as of this encounter Care Teams Oracle Hyperion Consultant Relationship Specialty Start Date End Date Rosa Williamson PA [address] [place] [address] [email or web address] PCP - General 08/05/21 Rob Orosco LICSW [address] [place] [phone] [email or web address] PHCM Production Floater 06/12/20 11/09/23 Lisa Camilo [address] [place] [phone] [email or web address] Community Health Worker 06/17/2011/15 Neri Burger MD [address] [place] [phone] [email or web address] Insurance Assigned Provider 07/25/2005/22 Gwne Lima, MELINA [address] [place] [phone] [email or web address] PHC Shrimper 12/30/22 03/26/23 Ericka Vincent LCSW [address] [place] [phone] PHCM Production Floater 02/10/23 02/20/23 documented as of this encounter Additional Source Comments The information contained in this document represents components of the legal health record. It is not the complete legal health record.[facility]
--- OUTSIDE RECORDS SUMMARY | 2025-05-30 10:06 | XMS_ITS | Encounter Summary ---
Author Organization [facility] Address [address] [place] [address] Phone Care Team Providers Care Surveyor'S Assistant Name Role Phone Rob Orosco Unavailable [phone] Lisa Camilo Unavailable [phone] Neri Burger MD Unavailable Rosa Williamson Primary Care Prov ider Gwen Lima RN Unavailable Ericka Vincent ENGINE HOSTLER Unavailable [email or web address] Reason for Referral * Hospital - Outpatient - Closed Specialty Diagnoses / Procedures Referred By Baltazar gibson Referred To Contact Diagnoses Cerebrovascular accident (CVA), unspecified mechanism Procedures MCT (Mobile Cardiac Telemetry) MCT (Mobile Cardiac Telemetry) MCT (Mobile Cardiac Telemetry) Rosa Williamson PA Phone: tel: fax: mailto:reynaldo [address] [address] Phone: tel: Referral ID Status Reason Start Date Expiration Date Visits Re quested Visits Authorized [id number] Closed 09/13/2021 09/13/2022 6 6 Encounter Details Date Type Department Care Team (Late st Contact Info) Description 08/10/2021 Ancillary Orders Virtual Department [address] [place] [address] Rosa Williamson PA [address] [place] [address] [email or web address] Cerebrovascular accident (CVA), unspecified mechanism Social History [...] Type Priority Associated Diagnoses Orde r Schedule MCT (Mobile Cardiac Telemetry) Cardiac Monitors Routine Cerebrovascular accident (CVA), unspecified mechanism Expected: 03/26/2022, Expires: 07/17/2022 documented as of this encounter Visit Diagnoses Diagnosis Cerebrovascular accident (CVA), unspecified mechanism documented in this encounter Additional Health Concerns Infection Onset Date Last Indicated Resolved Time CoV-Risk 08/23/2021 08/23/2021 09/02/2021 1:22 AM EST documented as of this encounter Care Teams Surveyor'S Assistant Relationship Specialty Start Date End Date Rosa Williamson PA [address] [place] [address] [email or web address] PCP - General 08/05/21 Rob Orosco, CALL BOX WIRER [address] [place] [phone] PHCM Program Advisor 06/12/20 11/09/23 Lisa Camilo [address] [place] [address] [email or web address] Community Health Worker 06/17/2011/15 Neri Burger MD [address] [place] [phone] [email or web address] Insurance Assigned Provider 07/25/2005/22 Gwen Lima RN [address] [place] [phone] [email or web address] [facility] Sliver Lap Machine Tender 12/30/22 03/26/23 Ericka Vincent LCSW [address] [place] [phone] [email or web address] [facility] Program Advisor 02/10/23 02/20/23 documented as of this encounter Additional Source Comments The information contained in this document represents components of the legal health record. It is not the complete legal health record.[facility]
--- OUTSIDE RECORDS SUMMARY | 2025-05-30 10:06 | XMS_ITS | Encounter Summary ---
Author Organization [facility] Address [address] [place] [id number] Phone Care Team Providers Care Store Standards Associate Name Role Phone Rob Orosco SHARLA Unavailable [phone] Lisa Camilo Unavailable [phone] Neri Burger MD Unavailable Rosa Williamson Primary Care Prov ider Gwen Lima RN Unavailable Ericka Vincent TECHNICAL TRANSLATOR Unavailable [email or web address] Encounter Details Date Type Department Care Team (Late st Contact Info) Description 08/09/2021 Ancillary Orders [facility] [address] [place] [address] Dacia Ferreira, [address] [place], [place] [phone] [email or web address] Social History Tobacco Use Types Packs/Day Years [...] documented as of this encounter Care Teams Store Standards Associate Relationship Specialty Start Date End Date Rosa Williamson PA [address] [place] [address] [email or web address] PCP - General 08/05/21 Rob Orosco LICSW [address] [place] [phone] [email or web address] PHCM Shop Router 06/12/20 11/09/23 Lisa Camilo [address] [place] [address] [email or web address] Community Health Worker 06/17/2011/15 Neri Burger MD [address] [place] [id number] [email or web address] Insurance Assigned Provider 07/25/2005/22 Gwen Lima, MELINA [address] [place] [phone] [email or web address] PHC Horse Riding Coach Or Instructor 12/30/22 03/26/23 Ericka Vincent LCSW [address] [place] [phone] [email or web address] PHCM Shop Router 02/10/23 02/20/23 documented as of this encounter Additional Source Comments The information contained in this document represents components of the legal health record. It is not the complete legal health record.[facility]
== END 2025-05-30 10:07 | disposition home or self-care (01) ==
LOC: HO.ENCR 09:18
PROVIDERS: Visit Provider Physician Assistant Medical
DX: E11.29 Type 2 diabetes mellitus with other diabetic kidney complication (principal); R80.9 Proteinuria, unspecified; I10 Essential (primary) hypertension; E78.2 Mixed hyperlipidemia

== ENCOUNTER → 2025-05-30 09:18 | Outpatient (BNVA) | payer OTHER, SELFPAY | PROVIDERS: Visit Provider Physician Assistant Medical | DX: E11.29 Type 2 diabetes mellitus with other diabetic kidney complication (principal); R80.9 Proteinuria, unspecified; I10 Essential (primary) hypertension; E78.2 Mixed hyperlipidemia | CPT/HCPCS: 82947; 83036; 99212 ==

== ENCOUNTER 2025-06-24 18:39 | Inpatient (IN) | payer OTHER, SELFPAY ==
--- OUTSIDE RECORDS SUMMARY | 2025-03-29 16:00 | XMS_ITS ---
Author Organization [facility] Address [address] [place] [address] Care Team Providers Care Artist Suspect Name Role Phone ZZAmasoudhive - DO NOT USE, [facility] Primary Care Provider Unavailable [facility] Unavailable [phone] Migration, Provider Unavailable Unavailable Allergies Allergen (clinical drug ingredient) Drug/Non Drug Allergy documented on EMR Reaction Allergy Type Onset Date Status atorvastatin Lipitor Unknown Drug Allergy Acti ve gabapentin Gabapentin Unknown Drug Allergy Activ e aspirin Aspirin Unknown Drug Allergy Active acetaminophen / codeine Acetaminophen-Codeine Unknown Drug Allergy Active REASON FOR VISIT [facility] To [facility] Conversion Encounter Medications Medication SIG (Take, Route, [...] Active Encounters Encounter Location Date Provider Diagnosis [address] [address] 03/29/2025 Provider Migration Plan Of Treatment No Information Progress Notes * Esteban SONGDOB:1969 (55 yo F)Acc No.[id number]:03/29/2025 Patient: Julio Cesar ORALES, Marilinda Provider: :1970 A ge:54 Y S ex:Female Date:03/29/2025 Address:[address] [place] [address] Pcp:[facility] Becki Ahumada - DO NOT USE Subjective: * [...] Electronic signature of Prov ider Migration on 06/24/2025 at 11:19 PM EST Sign off status: Pending * Provider: Date: 0 03/29/2025 Generated for Stephanie alonso/Fidelia/Stewart on: 1 08/25/2024 11:19 PM EST
--- NOTE | ~2025-06-24 | MR_ITS ---
EXAMINATION: MR BRAIN WITHOUT CONTRAST CLINICAL INFORMATION: Concerning stroke. COMPARISON: Correlated to CT dated July 04, 2025. TECHNIQUE: MRI of the brain was obtained using routine sequences without contrast. FINDINGS: There is a punctate, focal, 5 mm restricted diffusion without susceptibility, centered in the posterior limb right internal capsule. No acute intracranial hemorrhage, mass effect, midline shift, hydrocephalus or herniation. Simpson-white matter differentiation is normal. Bilateral multifocal patchy and punctate deep periventricular white matter hyperintense T2 FLAIR signal involving centrum semiovale and bain radiata. Multifocal old lacunar infarct throughout the brainstem, right cerebellum, basal ganglia, bain radiata white matter centrum semiovale both hemispheres. No acute intracranial hemorrhage, mass effect, midline shift, hydrocephalus or herniation. Sellar/suprasellar region demonstrated no gross masses. There is normal position of the cerebellar tonsils. Flow-void signal within the main cerebral vessels is normal.. MR/MR head/brain wo con IMPRESSION: Acute nonhemorrhagic focal stroke/ischemia, posterior limb right internal capsule. 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 Findings communicated via Local[employer] to the requesting physician, Alexei Scott on June 25, 2025 at 12:53 PM Electronically signed by: Robert Godinez MD 06/25/2025 12:54 PM [facility]
--- NOTE | ~2025-06-24 | CT_ITS ---
CLINICAL HISTORY: Stroke Protocol CT Head without contrast Comparison: None provided Findings: No large vessel territory infarct. There are multiple chronic lacunar infarcts involving bilateral basal ganglia, left thalamus, and right parietal. No acute intracranial hemorrhage. No mass effect, midline shift, or herniation. The pituitary gland and sella are unremarkable. The cerebellar tonsils are appropriately positioned. Orbits: Unremarkable. Paranasal sinuses: Well aerated. The mastoid air cells are well aerated. The soft tissues are unremarkable. No acute displaced calvarial fracture. Impression: No acute intracranial abnormality. Multiple chronic lacunar infarcts. This document has been electronically signed by: Lindsay Castro MD on 06/24/2025 19:12:02
--- NOTE | ~2025-06-24 | CT_ITS ---
CLINICAL HISTORY: Stroke Protocol CT angiography head with contrast. 3-D postprocessing CT Angiography Neck with contrast. 3-D postprocessing Comparison: None provided Findings: Anterior circulation: Middle/anterior cerebral arteries are intact. No aneurysm, high grade stenosis, or occlusion. Atherosclerotic disease of bilateral carotid siphons. Posterior circulation: circulation of the right SMOCKER. No aneurysm, high grade stenosis, or occlusion. Right vertebral artery PICA terminus. Dominant intracranial left vertebral artery. The dural venous sinuses are patent. Left-sided aortic arch with a three-vessel branching pattern. Atherosclerotic disease of the thoracic aorta. The common carotid arteries, carotid bulbs, and internal carotid arteries are patent. No high-grade stenosis, occlusion, or dissection. There is tortuosity of the right internal carotid artery. The vertebral arteries are patent. 5 mm nodule in the left lung apex (series 6, image 679). Normal thyroid gland. Impression: No aneurysm, high-grade stenosis, or occlusion of the major intracranial arteries. No high-grade stenosis, occlusion, or dissection of the major neck arteries. This document has been electronically signed by: Lindsay Castro MD on 06/24/2025 19:37:28
--- NOTE | 2025-06-24 18:42 | ECG_ITS ---
Test Reason : ?STROKE Blood Pressure : */* mmHG Vent. Rate : 108 BPM Atrial Rate : 108 BPM P-R Int : 160 ms QRS Dur : 70 ms QT Int : 346 ms P-R-T Axes : 66 64 40 degrees QTcB Int : 463 ms Sinus tachycardia Otherwise normal ECG When compared with ECG of 13-Dec-2024 14:17, No significant change was found Referred By: Cora Grover Electronically Signed By: MARQUES CASTELLANOS MD
--- NOTE | 2025-06-24 18:42 | ED.GENADULT ---
HPI - General Adult General Chief complaint: Stroke Stated complaint: weakness lt side -thinners LWK 8am Time Seen by Provider: 06/24/25 18:41 Source: patient Mode of arrival: ambulatory Limitations: language barrier History of Present Illness ED Provider: Dr. Grover HPI narrative: This is a 55-year-old female history of hepatic steatosis, hyperlipidemia, hypertension, diabetes, CVA presenting to ER today for evaluation of left-sided arm weakness. Patient was at a doctor's office today. However noticed that her left arm has been increasingly weak. This started around 0530 today Related Data Home Medications ?Medication ?Instructions ?Recorded ?Confirmed albuterol sulfate 2.5 mg/3 mL mg inhalation 04/12/24 05/30/25 (0.083 %) solution for nebulization albuterol sulfate 90 mcg/actuation inhalation 04/12/24 05/30/25 aerosol inhaler (Ventolin HFA) clopidogrel 75 mg tablet 75 mg PO DAILY 04/12/24 05/30/25 empagliflozin 25 mg tablet 25 mg PO DAILY 04/12/24 05/30/25 (Jardiance) ezetimibe 10 mg tablet 10 mg PO DAILY 04/12/24 05/30/25 fluticasone 500 mcg-salmeterol 50 inhalation 04/12/24 05/30/25 mcg/dose blistr powdr for inhalation (Ebonixela Inhub) ipratropium 0.5 mg-albuterol 3 mg ml inhalation 04/12/24 05/30/25 (2.5 mg base)/3 mL nebulization soln medroxyprogesterone 150 mg/mL mg IM [id number] 04/12/24 05/30/25 intramuscular suspension metformin 500 mg tablet,extended 1,000 mg PO BID 04/12/24 05/30/25 release 24 hr montelukast 10 mg tablet 10 mg PO DAILY 04/12/24 05/30/25 pantoprazole 40 mg tablet,delayed 40 mg PO DAILY 04/12/24 05/30/25 release polyethylene glycol 3350 17 g PO 04/12/24 05/30/25 gram/dose oral powder pravastatin 40 mg tablet 40 mg PO DAILY 04/12/24 05/30/25 sennosides 8.6 mg tablet (senna) mg PO 04/12/24 05/30/25 tiotropium bromide 18 mcg capsule inhalation 04/12/24 05/30/25 with inhalation device Previous Rx's ?Medication ?Instructions ?Recorded glucose 4 gram chewable tablet 16 g (4 x 4 gram) PO Q15M PRN 04/12/24 (Dex4 Glucose Quick Dissolve) hypoglycemia #30 tabs lisinopril 5 mg tablet 5 mg PO DAILY #30 tabs 05/14/24 blood-glucose meter (FreeStyle #1 ea 11/12/24 Lite Meter kit) blood-glucose,corduroy brusher operator,cont #1 ea 11/19/24 (Dexcom G7 Molecular Modeler) pen needle, diabetic 32 gauge x #100 ea 12/10/24 5/32 cyanocobalamin (vitamin B-12) 1,000 mcg PO DAILY #90 tabs 12/13/24 1,000 mcg tablet docusate sodium 100 mg capsule 100 mg PO BID #60 caps 12/13/24 (Col-Rite) sennosides 8.6 mg capsule (senna) 8.6 mg PO BEDTIME #30 caps 12/13/24 nut.tx.gluc.intol,lac-free,soy 1 ea PO DAILY #5,688 mL 12/17/24 (Glucerna Shake oral liquid) ondansetron 4 mg disintegrating 4 mg PO Q8H PRN nausea #30 tabs 02/28/25 tablet blood sugar diagnostic (FreeStyle #100 ea 05/05/25 Lite Strips) pioglitazone 15 mg tablet (Actos) 15 mg PO DAILY #90 tabs 05/20/25 blood-glucose sensor (Dexcom G7 #3 ea 05/30/25 Sensor device) Allergies Allergy/AdvReac Type Severity Reaction Status Date / Time atorvastatin (From Lipitor) AdvReac Mild Muscle Pain Verified 06/24/25 18:56 aspirin AdvReac Unknown Rash Verified 06/24/25 18:56 dulaglutide (From Trulicity) AdvReac Unknown Hives Verified 06/24/25 18:56 gabapentin AdvReac Unknown Dizziness Verified 06/24/25 18:56 Tylenol codeine AdvReac Unknown Nausea, Uncoded 05/30/25 09:32 Vomiting Review of Systems Review of Systems: Pertinent review of systems as mentioned in [facility]. All other system otherwise negative. 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 Lumbar degenerative disc disease Menorrhagia Severe persistent asthma Dysphagia S/P CVA (cerebrovascular accident) History of CVA (cerebrovascular accident) Surgical History History of bilateral ligation of fallopian tubes History of carpal tunnel repair Family History Family History Mother Diabetes Father Diabetes Social History Social History Alcohol intake: current Alcohol intake frequency: does not drink Patient Tobacco Use Status: Current everyday Tobacco user Smoked in Last 30 Days: Yes Use of substances other than those prescribed or required for medical reasons: No Advance Directives: No Advance Directives Information Provided: No Patient : No Physical Exam ED Exam Exam: General: Pleasant, no distress, interacting appropriately Head: Normacephalic, atraumatic ENT: oral mucosa moist, neck supple, no tracheal deviation Cardiovascular: regular rate, regular rhythm, no murmurs, rubbing, gallops Respiratory: CTAB, no wheeze, rales, rhonchi Gastrointestinal: Soft, non distended, non tender, non guarding Extremities: No limb pain or swelling, no calf tenderness Neurological: Awake and alert, no facial droop noted, see NIH score for a full stroke evaluation. Skin: Warm and dry Psychiatric: Appropriate mood and thoughts Vital Signs: Vital Signs - 24 hr 06/24/25 18:56 06/24/25 19:19 Temperature 98.0 F Pulse Rate 101 H 96 Respiratory Rate 26 H 21 H Blood Pressure 151/78 H 138/92 H Pulse Oximetry 95 95 Oxygen Delivery Method Room Air Room Air BMI result Body Mass Index 33.2 NIH Stroke Scale Internal: Initial- Upon Arrival Level of Consciousness: Alert Level of Consciousness Questions: Answers both questions correctly Level of Consciousness Commands: Performs both tasks correctly Best Gaze: Normal Visual: No visual loss Facial Palsy: Normal Motor Arm (Right): No drift Motor Arm (Left): Drift Motor Leg (Right): No drift Motor Leg (Left): Drift Limb Ataxia: Absent Sensory: Mild to moderate sensory loss Best Language: No aphasia Dysarthia: Normal Extinction and Inattention: No abnormality Score: 3 Medications Administered Discontinued Medications Generic Name Dose Route Start Last Admin Trade Name Laz PRN Reason Stop Dose Admin Sodium Chloride 1,000 mls @ 999 mls/hr 06/24/25 19:15 06/24/25 19:31 Ns IV 06/24/25 20:15 999 mls/hr .Q1H1M LIZET Administration Iohexol 100 ml 06/24/25 18:59 06/24/25 19:00 Iohexol 350 Mg/Ml 100 Ml Infus..Btl IV 06/24/25 19:00 70 ml ONCE ONE Administration Medical Decision Making Medical Decision Making [facility] Narrative: 55-year-old female presented hospital today for evaluation of left arm weakness that started this morning at 08:00. I did consider the patient for TNK. She is outside the time window unfortunately due to her last known normal. She is still within the 24 hour window for assessment of LVO thrombectomy. Stroke protocol will be activated for the patient at this time. Stroke lab work will be obtained. Not anticoagulated. On evaluation NIH of 3 for left arm drift left leg drift and sensation change in the left lower extremity. Patient's CT head is negative, CTA head and negative for any signs of significant stenosis. We will plan to admit patient in for MRI for CVA evaluation. Patient is outside the time window for TNK at this time. LKN 0530 am this morning. I did consider TNK for the patient. Differential Diagnosis Differential Diagnoses: The differential diagnosis associated with the presentation includes TIA, CVA, left arm weakness, left leg weakness Lab Data [facility] Lab Attestation statement: I reviewed the patient's lab results. 06/24/25 19:07 06/24/25 19:07 Labs: Lab Results 06/24/25 06/24/25 Range/Units 18:42 19:07 WBC 8.3 (4.8-10.8) X10*3/uL RBC 4.97 (4.20-5.50) X10*6/uL Hgb 14.5 (12.0-16.0) g/dl Hct 43.6 (37.0-47.0) % MCV 87.7 (80.0-98.0) fL MCH 29.2 (27.0-33.0) pg MCHC 33.3 (31.0-35.0) g/dl RDW 14.5 (11.0-16.0) % Plt Count 303 (160-400) X10*3/uL MPV 9.4 (9.4-12.3) fL Immature Gran % (Auto) 0.2 (0.0-0.4) % Neut % (Auto) 57.6 (45-73) % Lymph % (Auto) 31.9 (20-40) % [place] % (Auto) 8.5 (2-11) % Eos % (Auto) 1.2 (0-4) % Baso % (Auto) 0.6 (0-2) % Lymph # (Auto) 2.7 (1.2-4.9) X10*3/uL [place] # (Auto) 0.7 (0.1-1.2) X10*3/uL Eos # (Auto) 0.1 (0.0-0.4) X10*3/uL Baso # (Auto) 0.1 (0.0-0.2) X10*3/uL Abs Immat Gran (auto) 0.02 (0.00-0.03) X10*3/uL Absolute Neuts (auto) 4.8 (2.0-8.3) x10*3/uL Absolute Nucleated RBC 0.000 (0.0-0.012) X10*3/uL Nucleated RBC % (auto) 0.0 (0.0-0.2) /100WBC PT 11.8 (11.2-13.5) SEC INR 1.0 (0.9-1.1) APTT 33.7 (26.7-34.1) SEC Sodium 138 (135-145) mmol/L Potassium 3.9 (3.3-5.1) mmol/L Chloride 105 (96-108) mmol/L Carbon Dioxide 26 (22-29) mmol/L Anion Gap 11 L (12-20) BUN 14 (9-16) mg/dL Creatinine 0.57 (0.5-1.4) mg/dL Estim Creat Clear Calc 102.3 Estimated GFR > 60 POC Glucose 129 H (60-115) mg/dL Random Glucose 122 H (60-115) mg/dL Calcium 9.7 (8.4-10.2) mg/dL Troponin I High Sens < 2.7 (<3.5-17.0) ng/L Triglycerides 68 (<150) mg/dL Cholesterol 136 (<200) mg/dL LDL Cholesterol, Calc 70 (<100) mg/dL HDL Cholesterol 53 (>40) mg/dL Independent Interpretation I performed an independent interpretation of an: CT Scan Radiology Impression Discussion of test interpretation with radiology: I have reviewed the radiologist's reading. Chronic Conditions CVA Critical Care Time Critical Care Time Critical Care Time: Yes Total Critical Care Time: 36 Attestation: Time is exclusive of separately billable procedures. Time includes: direct patient care, patient reassessment, coordination of patient care, interpretation of data (laboratory data, pulse oximetry, arterial blood gases and chest xrays), review of patient's medical records, medical consultation and documentation of patient care. Procedures excluded from critical care time: central intravenous line placement and electrocardiography. Discharge Plan Discharge Clinical Impression: Left arm weakness, Left leg weakness Patient Disposition: Admitted As Inpatient Print Language: Persian
[2025-06-24 18:46] LABS: Glucose, Whole Blood 129 mg/dL (60-115)
[2025-06-24 18:50] VITALS: BP 141/65; PULSE 112; O2SAT 95; BMI 33.2
[2025-06-24 18:56] VITALS: BP 151/78; PULSE 101; RESP 26; TEMP 36.7; O2SAT 95
[2025-06-24] MEDS: iohexoL 350 MG/ML 100 ML INFUS..BTL IV (19:00)
[2025-06-24 19:17] LABS: MANUAL DIFF FLAG NO
[2025-06-24 19:19] VITALS: BP 138/92; PULSE 96; RESP 21; O2SAT 95
[2025-06-24 19:22] LABS: INTERNATIONAL NORM RATIO 1.0 (0.9-1.1); Prothrombin Time 11.8 SEC (11.2-13.5)
[2025-06-24 19:25] LABS: Partial Thromboplastin Time 33.7 SEC (26.7-34.1)
[2025-06-24 19:30] LABS: Anion Gap 11 (12-20); Blood Urea Nitrogen 14 mg/dL (9-16); Calcium 9.7 mg/dL (8.4-10.2); Carbon Dioxide 26 mmol/L (22-29); Chloride 105 mmol/L (96-108); Cholesterol 136 mg/dL (<200); Creatinine Clr Calc Pharmacy 102.3; Estimated Glomerular Filt Rate > 60; HDL Cholesterol 53 mg/dL (>40); Potassium 3.9 mmol/L (3.3-5.1); Sodium 138 mmol/L (135-145); Triglycerides 68 mg/dL (<150)
[2025-06-24 19:38] LABS: Troponin-I High Sensitivity < 2.7 ng/L (<3.5-17.0)
[2025-06-24 19:49] LABS: Hematocrit 43.6 % (37.0-47.0); Hemoglobin 14.5 g/dl (12.0-16.0); Imm Gran Abs Auto 0.02 X10*3/uL (0.00-0.03); Imm Gran Pct Auto 0.2 % (0.0-0.4); Lymphocytes Absolute Auto 2.7 X10*3/uL (1.2-4.9); Mean Corpuscular HGB Conc 33.3 g/dl (31.0-35.0); Mean Corpuscular Hemoglobin 29.2 pg (27.0-33.0); Mean Corpuscular Volume 87.7 fL (80.0-98.0); NRBC Abs Auto 0.000 X10*3/uL (0.0-0.012); NRBC Pct Auto 0.0 /100WBC (0.0-0.2); Platelet Count 303 X10*3/uL (160-400); Red Blood Count 4.97 X10*6/uL (4.20-5.50); White Blood Count 8.3 X10*3/uL (4.8-10.8)
--- NOTE | 2025-06-24 21:10 | P.HPHOSP_ITS ---
History of Present Illness Date of Service: 06/24/25 Attending physician on admission: Chano Leblanc Chief Complaint: weakness, left side recreational sports director utlilized Patient is a 55-year-old , Kinyarwanda speaking female with past medical history NIDDM, CVA with history of dysphagia, tobacco dependence, hepatic steatosis, transaminitis, heart murmur, CTS, hypertension, hyperlipidemia, GERD, history of tobacco use, COPD/asthma, BIBA for persistent left-sided weakness that started much earlier in the a.m.. Patient had seen her PCP with no urgency for emergent evaluation but patient had progressively increased weakness on the left side and called 911. Patient is not currently on blood thinners but does take clopidogrel. Patient currently denying any chest pain, shortness of breath at rest or with exertion, headache, visual changes or dysphagia. Patient did pass the bedside swallow. Patient states she usually uses a cane to ambulate. CTA of the head and neck and CT of the head were negative for acute findings. NIHS 3 on arrival to the ED. Patient was outside the window for TNK. Labs overall stable and UA is negative for UTI. On exam patient does have baseline weakness on the left side but uncertain if this is from previous stroke or new level of weakness. Patient states she is currently on disability lives alone and does not drive. Review of Systems 2 Review of Systems: Patient denies any current chest pain, shortness of breath at rest or with exertion, headache or visual changes. Patient notes that the overall left-sided weakness is at baseline so it is unclear if weakness is new or if this is from previous stroke. Patient denies any recent falls. 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 Lumbar degenerative disc disease Menorrhagia Severe persistent asthma Dysphagia S/P CVA (cerebrovascular accident) History of CVA (cerebrovascular accident) Cognitive capacity: Alert and orientated x3 Functional capacity: uses cane/walker Patient : No Family History Mother Diabetes Father Diabetes Surgical History History of bilateral ligation of fallopian tubes History of carpal tunnel repair Social History Alcohol intake: current Alcohol intake frequency: does not drink Patient Tobacco Use Status: Current everyday Tobacco user Smoked in Last 30 Days: Yes Use of substances other than those prescribed or required for medical reasons: No Advance Directives: No Advance Directives Information Provided: No Patient : No Ebola Risk: Travel/Contact With Anyone From Affected Area/s: No Has Patient Experienced Ebola Symptoms: No Meds Allergies Allergy/AdvReac Type Severity Reaction Status Date / Time atorvastatin (From Lipitor) AdvReac Mild Muscle Pain Verified 06/24/25 18:56 aspirin AdvReac Unknown Rash Verified 06/24/25 18:56 dulaglutide (From Trulicity) AdvReac Unknown Hives Verified 06/24/25 18:56 gabapentin AdvReac Unknown Dizziness Verified 06/24/25 18:56 Tylenol codeine AdvReac Unknown Nausea, Uncoded 05/30/25 09:32 Vomiting Active Medications: Current Medications Acetaminophen (Acetaminophen 325 Mg Tablet) 650 mg PO Q6H PRN PRN Reason: Pain, Mild 1-3,fever,headache Albuterol/Ipratropium (Albuterol/Iprat 2.5/0.5mg 3 Ml Ampul.Neb) 3 ml INHALE Q4H PRN PRN Reason: Shortness of Breath/Wheezing Magnesium Hydroxide (Milk Of Magnesia 30 Ml Oral.Susp) 30 ml PO DAILY PRN PRN Reason: Constipation Melatonin (Melatonin 3 Mg Tablet) 6 mg PO BEDTIME PRN PRN Reason: Insomnia Ondansetron HCl (Ondansetron Hcl 4 Mg/2 Ml Vial) 4 mg IVPUSH Q8H PRN PRN Reason: Nausea and Vomiting Polyethylene Glycol (Polyethylene Glycol 3350 17 Gm Powd.Pack) 17 gm PO DAILY PRN PRN Reason: Constipation Senna (Sennosides 8.6 Mg Tablet) 17.2 mg PO BEDTIME LIZET Sodium Chloride (0.9 % Sodium Chloride Flush 3 Ml Syringe) 3 ml IVFLUSH QSHIFT LIZET Home Medications ?Medication ?Instructions ?Recorded ?Confirmed ?Last Taken ?Type albuterol sulfate 2.5 mg/3 mL 2.5 mg inhalation Q4H RI N 04/12/24 06/24/25 Unknown History (0.083 %) solution for nebulization Shortness Of Breat h Or Wheezing albuterol sulfate 90 mcg/actuation 2 puff inhalation Q 4H PRN 04/12/24 06/24/25 Unknown History aerosol inhaler (Ventolin HFA) Shortness Of Breath Or Wheezing clopidogrel 75 mg tablet 75 mg PO DAILY 04/12/2404/10 Unknown History empagliflozin 25 mg tablet 25 mg PO DAILY 04/12/2404/10 Unknown History (Jardiance) ezetimibe 10 mg tablet 10 mg PO DAILY 04/12/2404/10 Unknown History ipratropium 0.5 mg-albuterol 3 mg 3 ml inhalation QID 04/12/24 06/24/25 Unknown History (2.5 mg base)/3 mL nebulization soln metformin 500 mg tablet,extended 1,000 mg PO BIDWM 06/24/25 Unknown History release 24 hr montelukast 10 mg tablet 10 mg PO DAILY 04/12/2404/10 Unknown History pantoprazole 40 mg tablet,delayed 40 mg PO DAILY 04/1206/24/25 Unknown History release pravastatin 40 mg tablet 40 mg PO DAILY 04/12/2404/10 Unknown History lactulose 10 gram/15 mL oral 15 ml PO BID PRN constipa tion 06/24/25 06/24/25 Unknown History solution umeclidinium 62.5 mcg/actuation 1 inh inhalation DAILY 06/24/25 06/24/25 Unknown History blister powder for inhalation (Incruse Ellipta) Physical Exam 2 Vital Signs and Narrative: Vital Signs: Last Vital Signs Temp 98.0 F 06/24/25 18:56 Pulse 96 06/24/25 19:19 Resp 21 H 06/24/25 19:19 BP 138/92 H 06/24/25 19:19 Pulse Ox 95 06/24/25 19:19 O2 Del Method Room Air 06/24/25 19:19 BMI result Body Mass Index 33.2 Alert and orientated X3, able to give good history. recreational sports director used. Neuro: CN II-X11 intact, visual acuity intact EYES: PERRLA, EOM intact, sclerae nonicteric ENT: hearing intact, no issues with swallowing, uvula midline, lips moist, nares patent no epistaxis Cardiac: S1 S2 RRR, no murmur, no JVD, no edema in Lower ext Pulmonary: lungs clear to auscultation B Abdominal: BS active in all 4 quadrants, no guarding, tenderness, rebounding MSK: strength 5/5 R upper and lower extremities , 3/5 left upper and lower extremities, no drift right or left side : no CVA tenderness no bladder distension Extremities: no edema in lower extremities, PT and DP pulses palpable +2 Psych: mood stable, judgement and insight good Results Labs 06/25/25 03:38 06/25/25 03:38 Labs: Laboratory Results - last 24 hr 06/24/25 06/24/25 18:42 19:07 MCV 87.7 MCH 29.2 MCHC 33.3 RDW 14.5 Plt Count 303 MPV 9.4 Immature Gran % (Auto) 0.2 Neut % (Auto) 57.6 Lymph % (Auto) 31.9 [place] % (Auto) 8.5 Eos % (Auto) 1.2 Baso % (Auto) 0.6 Lymph # (Auto) 2.7 [place] # (Auto) 0.7 Eos # (Auto) 0.1 Baso # (Auto) 0.1 Abs Immat Gran (auto) 0.02 Absolute Neuts (auto) 4.8 Absolute Nucleated RBC 0.000 Nucleated RBC % (auto) 0.0 PT 11.8 INR 1.0 APTT 33.7 Anion Gap 11 L Estim Creat Clear Calc 102.3 Estimated GFR > 60 POC Glucose 129 H Random Glucose 122 H Calcium 9.7 Troponin I High Sens < 2.7 Triglycerides 68 Cholesterol 136 LDL Cholesterol, Calc 70 HDL Cholesterol 53 ECG Attestation: I personally reviewed and interpreted this ECG as follows: (Originally sinus tachycardia with a QTC of 463 no ischemic changes) Prior ECG tracings: available for review Imaging Radiologist's Impressions: CTA of the head and neck Impression: No aneurysm, high-grade stenosis, or occlusion of the major intracranial arteries. No high-grade stenosis, occlusion, or dissection of the major neck arteries. Head CT Impression: No acute intracranial abnormality. Multiple chronic lacunar infarcts. Assessment and Plan (1) Left-sided weakness: Status: Acute Plan Patient is a 55-year-old female with past medical history NIDDM, CVA with history of dysphagia, tobacco dependence, hepatic steatosis, transaminitis, heart murmur, CTS, hypertension, hyperlipidemia, GERD, history of tobacco use, COPD/asthma, BIBA for persistent left-sided weakness that started much earlier in the a.m.. Patient had seen her PCP with no urgency for emergent evaluation but patient had progressively increased weakness on the left side and called 911. Left-sided weakness TIA versus CVA Brain MRI in the a.m. CTA head and neck, CT of the head currently negative for acute finding Neurology consulted Neurovascular checks q.4 hours Patient passed bedside swallow, diet ordered OT, PT and ST as needed Permissive hypertension allowed, avoid hypotension Unclear if current left-sided weakness stemming from previous stroke or is new finding, patient feels the weakness has improved since arrival Tobacco dependence Patient has cut way back on her cigarette smoking, is now doing 1-2 cigarettes per day Patient hopes to be able to quit completely Defers nicotine patch as it makes her nauseous NIDDM SSI Diabetic diet Hold metformin A1c pending Hyperlipidemia Patient normally on pravastatin Lipid panel completed today: Triglycerides 68, cholesterol 136, LDL 70, HDL 53 Cardiac diet GERD Omeprazole ordered DVT prophylaxis: Med rec completed Full code Patient being admitted under observation awaiting MRI of the brain and expert consultation with Neurology. Quality Stroke Does the patient have a stroke diagnosis?: Yes Reason for No Anti-thrombotic by Day Two: N/A - Med Ordered VTE Prior VTE?: No VTE Risk Level:: Medical - moderate - high VTE Device Contraindication: N/A - Device Ordered VTE Drug Contraindication: N/A - Med Ordered
--- NOTE | 2025-06-24 21:11 | PHA.MEDREC ---
Pharmacy Consult ? Medication Reconciliation Pharmacy has completed the medication reconciliation.
[2025-06-24 21:27] LABS: Stroke Lab Use COMPLETE
[2025-06-24 21:50] LABS: Glucose, Whole Blood 115 mg/dL (60-115)
[2025-06-24 22:12] LABS: Appearance Urine Clear; Glucose Urine UA >=1000 mg/dL (Negative); PH 6.5 (5.0-9.0); Specific Gravity - Urine >= 1.030 (1.005-1.025); UMIC TRIGGER UA YES
--- OUTSIDE RECORDS SUMMARY | 2025-06-24 23:18 | XMS_ITS | Encounter Summary ---
Author Organization [facility] Address [address] [place] [phone] Phone Care Team Providers Care Appraisal Coordinator Name Role Phone Rob Orosco TEXTILE MACHINE OPERATOR Unavailable [phone] Neri Burger MD Unavailable Rosa Williamson Primary Care Prov ider Gwen Lima RN Unavailable Ericka Vincent ASSOCIATE LOAN OFFICER Unavailable mary Encounter Details Date Type Department Care Team (Late st Contact Info) Description 01/04/2022 Transcribe Orders Virtual Department [address] [place] [address] Rosa Williamson PA [address], [place] [id number] ashley Cough (Primary Dx); Increasing shortness of [...] with bronchodilator, DLCO, Lung Volumes; Performing Location: [facility] (01/20/2022 8:01 AM EDT) FEV1 1.33 liters [...] breath documented in this encounter Care Teams Appraisal Coordinator Relationship Specialty Start Date End Date Rosa Williamson PA [address] [place] [address] [email or web address] PCP - General 08/05/21 Rob Orosco LICSW [address] [place] [id number] [email or web address] Correctional Manager 06/12/20 11/09/23 Neri Burger MD [address] [place] [id number] Insurance Assigned Provider 07/25/2005/22 Gwen Lima RN [address] [place] [id number] PHCM Spanner Operator 12/30/22 03/26/23 Ericka Vincent LCSW [address] [place] [id number] PHCM Correctional Manager 02/10/23 02/20/23 documented as of this encounter Additional Source Comments The information contained in this document represents components of the legal health record. It is not the complete legal health record.[facility]
--- OUTSIDE RECORDS SUMMARY | 2025-06-24 23:18 | XMS_ITS | Encounter Summary ---
Author Organization [facility] Address [address] [place] [address] Phone Care Team Providers Care Signal Manager Name Role Phone Rob Orosco CLARIFIER Unavailable [phone] Rosa Williamson Primary Care Prov ider Gwen Lima RN Unavailable Ericka Vincent PIVOT END POLISHER Unavailable mary Encounter Details Date Type Department Care Team (Late st Contact Info) Description 09/05/2022 Transcribe Orders Virtual Department [address] [place] [address] Rosa Williamson PA [address] [place] [address] ashely Breast screening (Primary Dx) Social History Tobacco [...] unspecified documented in this encounter Care Teams Signal Manager Relationship Specialty Start Date End Date Rosa Williamson PA [address] [place] [address] PCP - General 08/05/21 Rob Orosco LICSW [address] [place] [address] [facility] Hardware Engineer 06/12/20 11/09/23 Gwne Lima RN [address] [place] [address] PHC Line Fisher 12/30/22 03/26/23 Ericka Vincent LCSW [address] [place] [address] PHC Senior Hardware Engineer 02/10/23 02/20/23 documented as of this encounter Additional Source Comments The information contained in this document represents components of the legal health record. It is not the complete legal health record.[facility]
--- OUTSIDE RECORDS SUMMARY | 2025-06-24 23:18 | XMS_ITS | Encounter Summary ---
Author Organization [facility] Address [address] [place] [address] Phone Care Team Providers Care Records Assistant Name Role Phone KwesiAbbejael LIPSCOMBSW Unavailable [phone] Neri Burger MD Unavailable Rosa Williamson Primary Care Prov ider Gwen Lima RN Unavailable Ericka Vincent PRODUCT SAFETY MANAGER Unavailable mary Encounter Details Date Type Department Care Team (Late st Contact Info) Description 01/28/2022 Procedure Pass [facility] [place] [address] Social History Tobacco Use Types [...] on filedocumented in this encounter Care Teams Records Assistant Relationship Specialty Start Date End Date Rosa Williamson PA [address] [place] [address] [email or web address] PCP - General 08/05/21 Rob Orosco LICSW [address] [place] [address] PHCM Football Coach 06/12/20 11/09/23 Neri Burger MD [address] [place] [address] Insurance Assigned Provider 07/25/2005/22 Gwen Lima RN [address] [place] [address] PHCM Fish Egg Packer 12/30/22 03/26/23 Ericka Vincent LCSW [address] [place] [address] [email or web address] PHC Football Coach 02/10/23 02/20/23 documented as of this encounter Additional Source Comments The information contained in this document represents components of the legal health record. It is not the complete legal health record.[facility]
--- OUTSIDE RECORDS SUMMARY | 2025-06-24 23:18 | XMS_ITS | Patient Health Record ---
Author Organization [facility] Address [address] [place] [address] Care Team Providers Care Process Description Writer Name Role Phone ZZArchive - DO NOT USE, [facility] Primary Care Provider Unavailable [facility], [facility] Unavailable [phone] Migration, Provider Unavailable Unavailable Allergies Allergen (clinical drug ingredient) Drug/Non Drug Allergy documented on EMR Reaction Allergy Type Onset Date Status atorvastatin Lipitor Unknown Drug Allergy Acti ve gabapentin Gabapentin Unknown Drug Allergy Activ e aspirin Aspirin Unknown Drug Allergy Active acetaminophen / codeine Acetaminophen-Codeine Unknown Drug Allergy Active Reason For Referral No Information Medications Medication SIG (Take, Route, Fr equency, Duration) Notes Start Date End Date Status Singulair 10 MG 1 tab(s) orally once a day (in the evening) Active Protonix 40 MG 1 tab(s) orally once a day Active Vitamin D3 125 MCG (5000 UT) 1 [...] MG/ML 1 mL intramuscularly once 1 Active Immunizations Vaccine Route Administration Date Status [...] efrain t Patient counseled on the ashanti mixons of tobacco use and advised to quit: 03/18/2015 Problems Problem Type SNOMED Code ICD Code Onset Dates Problem Status W/U Status Risk Notes Problem Diabetes mellitus type II (61682063) Diabetes mellitus type II (250.00) Active confirmed Problem Vitamin D deficiency (33438592) Vitamin D deficiency NOS (268.9) Active confirmed Problem Tobacco use (209846929) Tobacco use disorder (305.1) Active confirmed Problem Lumbago (833274826) Lumbago (724.2) Active confirmed Problem Asthma (837581800) Asthma (493.00) Active confirmed Problem Overweight (912831383) Overweight, BMI 25-29.9 (278.02) Active confirmed Encounters Encounter Location Date Provider Diagnosis [facility] [address] [place] [address] 03/29/2025 Provider Migration Plan Of Treatment Pending Test Test Name Order Date GC, DNA Urine - [facility] 03/24/2015 [facility] 03/24/2015 Chlamydia, DNA Urine - [facility] 03/24/20 15 Insurance Providers Payer Name Payer Address Payer Phone Subscriber Number Group Number Insured Name Patient Relationship to Insured Coverage Start Date Coverage End Date [place] [address] [place] [address] [id number] Esteban Davis Self - patient is the insured Medical (General) History Medical History History ICD Code asthma during cold weather DM diet controlled (on meds in past unti l lost wt); on meds now (02/2015) Surgical History Surgery Date(Month/Year) Tubal Ligation 26 yr old Carpal Tunnel 01/31/2014
--- OUTSIDE RECORDS SUMMARY | 2025-06-24 23:18 | XMS_ITS | Encounter Summary ---
Author Organization [facility] Address [address] [place] [address] [place] [address] Phone Care Team Providers Care Registration Specialist Name Role Phone Unknown, Unknown MD Primary Care Provider Huey Khan MD Unavailable [phone] Debi Givens SLACK LINE YARDER Primary Care Provider Huey Peacock MD Unavailable [phone] Mal Lema MD Unavailable Mal Lema MD Unavailable Mal Lema MD Unavailable Mal Lema MD Unavailable Rob OroscoSW Unavailable [phone] Gwen Lima RN Unavailable Lisa Camilo Primary Care Provider [phone] Lisa Camilo Unavailable [phone] Pcp, Unknown Primary Care Provider UnavailNeri Cruz MD Unavailable Pcp, Unknown Primary Care Provider UnavailStephie Escobar SLACK LINE YARDER Primary Care Provider [phone] Roas Williamson Primary Care Prov ider Gwen Lima RN Unavailable Ericka Vincent CHECK OUT CASHIER Unavailable [email or web address] Encounter Details Date Type Department Care Team (Late st Contact Info) Description 05/31/2017 Procedure Pass [facility] Endoscopy Admitting Dept Virtual Department [address] [place] [address] Social History Tobacco Use Types Packs/Day Years [...] documented as of this encounter Care Teams Registration Specialist Relationship Specialty Start Date End Date Unknown, Unknown, PCP - General 05/09/17 11/14/17 Debi Givens NP [address] [place] [address] [email or web address] PCP - General Family Medicine 11/15/17 06/16/20 Lisa Camilo [address] [place] [address] [email or web address] PCP - General Fixture Repairer Fabricator 06/17/20 06/17/20 Pcp, Unknown PCP - General 06/18/20 11/02/20 Pcp, Unknown PCP - General 11/03/20 12/29/20 Stephie Comer NP [address] [place] [address] PCP - General Family Medicine 12/30/20 08/04/21 Rosa Williamson PA [address] [place] [address] derrell PCP - General 08/05/21 Huey Peacock MD [address] [place] [address] [email or web address] Insurance Assigned Provider 10/14/17 11/14/17 Huey Peacock MD [address] [place] [address] [email or web address] Insurance Assigned Provider 10/14/17 03/17/18 Mal Lema MD [address] [place] [address] [email or web address] Insurance Assigned Provider 03/17/18 06/17/18 Mal Lema MD [address] [place] [address] [email or web address] Insurance Assigned Provider 08/18/18 06/22/19 Mal Lema MD [address] [place] [phone] [email or web address] Insurance Assigned Provider 09/20/19 01/20/20 Mal Lema MD [address] [place] [address] [email or web address] Insurance Assigned Provider 03/28/20 07/25/20 Rob Orosco LICSW [address] [place] [address] [email or web address] PHCM Accounts Payable Payroll Coordinator 06/12/20 11/09/23 Gwen Lima RN [address] [place] [address] PHCM Director Of Pulmonary Unit 06/12/20 10/27/20 Lisa Camilo [address] [place] [address] [email or web address] Community Health Worker 06/17/20 12/08/21 Neri Burger MD [address] [place] [address] [email or web address] Insurance Assigned Provider 07/25/20 05/22/22 Gwen Lima RN [address] [place] [address] PHCM Director Of Pulmonary Unit 12/30/22 03/26/23 Ericka Vincent LCSW [address] [place] [address] [email or web address] PSYCHIATRIC Accounts Payable Payroll Coordinator 02/10/23 02/20/23 documented as of this encounter Additional Source Comments The information contained in this document represents components of the legal health record. It is not the complete legal health record.[facility]
--- OUTSIDE RECORDS SUMMARY | 2025-06-24 23:18 | XMS_ITS | Clinical Summary ---
Author Organization [employer] Address [address] [facility] [address] [place] [address] Care Team Providers Care Line Locator Name Role Phone Unavailable Primary Care Provider [...] this topic Insurance [facility]
--- OUTSIDE RECORDS SUMMARY | 2025-06-24 23:19 | XMS_ITS | Encounter Summary ---
Author Organization [facility] Address [address] [place] [address] Phone Care Team Providers Care Cottrell Blower Name Role Phone Rob Orosco BIOCHEMISTRY SPECIALIST Unavailable [phone] Rosa Williamson Primary Care Prov ider Gwen Lima RN Unavailable Ericka Vincent EDGING SUPERVISOR Unavailable mary Encounter Details Date Type Department Care Team (Late st Contact Info) Description 09/05/2022 Procedure Pass [address] [phone] Social History Tobacco Use Types Packs/Day Years [...] on filedocumented in this encounter Care Teams Cottrell Blower Relationship Specialty Start Date End Date Rosa Williamson PA [address] [place] [address] PCP - General 08/05/21 Rob Orosco LICSW [address] [place] [address] PHCM Overlock Sleeve Setter 06/12/20 11/09/23 Gwen Lima, RN [address] [place] [address] PHCM Patient Intake Coordinator 12/30/22 03/26/23 Ericka Vincent LCSW [address] [place] [address] PHCM Overlock Sleeve Setter 02/10/23 02/20/23 documented as of this encounter Additional Source Comments The information contained in this document represents components of the legal health record. It is not the complete legal health record.[facility]
--- OUTSIDE RECORDS SUMMARY | 2025-06-24 23:19 | XMS_ITS | Encounter Summary ---
Author Organization [facility] Address [address] [place] [address] [place] [address] Phone Care Team Providers Care Sales And Events Coordinator Name Role Phone Rosa Williamson Primary Care Prov ider Encounter Details Date Type Department Care Team (Late st Contact Info) Description 02/05/2024 Ancillary Orders [facility], X-Ray - [address] [phone] Abimbola Adkins NP [address] [place] [phone] [email or web address] Thoracic back pain, unspecified back pain laterality, [...] clinician's provided indication for this examination in [facility]: Pain COMPARISON: None FINDINGS: Slight dextrocurvature of the thoracic spine. Thoracic vertebral body heights are maintained. Minimal multilevel degenerative changes. Procedure Note Tej Peraza MD - 02/05/2024 XR THORACIC SPINE 3 VIEW Referring clinician's provided indication for this examination in [facility]:Pain COMPARISON: None FINDINGS: Slight dextrocurvature of the thoracic spine. Thoracic vertebral bodyheights are maintained. Minimal multilevel degenerative changes. IMPRESSION: No displaced fracture. Minimal degenerative changes. us Abimbola Adkins NEEDLE STRAIGHTENER IMG XR SPINE Final Result documented in this encounter Visit Diagnoses Diagnosis Thoracic back pain, unspecified back pain laterality, unspecified chronicity- Primary Thoracic back pain, unspecified back pain laterality, unspecified chronicity documented in this encounter Care Teams Sales And Events Coordinator Relationship Specialty Start Date End Date Rosa Williamson PA [address] [place] [address] PCP - General 08/05/21 documented as of this encounter Additional Source Comments The information contained in this document represents components of the legal health record. It is not the complete legal health record.[facility]
--- OUTSIDE RECORDS SUMMARY | 2025-06-24 23:20 | XMS_ITS | Clinical Summary ---
Author Organization [facility] Address [address] [place] [address] Phone Care Team Providers Care Birdcage Assembler Name Role Phone Rosa Williamson Primary Care [...] of swelling, will start Zetia 10 mg -traffic monitor specialist -PT OT -Neurochecks -Tighter glucose control, will [...] the future. Her daughter, who lives in [place], will try to come and stay with her to help her with her appointments. - Continue Lantus 8 units subcu nightly. - Ttzhd-ku-sbkg blood sugars with insulin likely coverage. Moderate [...] SEE NARRATIVE - 09/08/2022 11:48 AM EST [address] [address] Ground Equipment Mechanic: Stephie Lewis MD UNIT LEADER Cytology Report FINAL DIAGNOSIS A. PAP SMEAR [...] 59, 66, 68) Note: Testing performed by [facility] On[facility] HR-HPV analysis. Clinical correlation is advised. This HPV test was performed at [facility], [address] [place] [address]. This test has been FDA approved for SurePath cervical cytology specimens. The accuracy and precision of this test for all other specimen sources has been verified in the Cytopathology Laboratory of the [facility] and has not been cleared or approved by the U.S. Food and Drug Administration. Clinical correlation is advised. CLINICAL HISTORY Date of Last Menstrual Period: Not Provided Menstrual History: Unknown Other Clinical Conditions: Screening Pap SPECIMEN SOURCE A: PAP SMEAR (SUREPATH) CE Patient Name: ESTEBAN SONG : 1970 (Age: 52) Sex: F Institution: [facility] Location: [facility] Date of Collection: 09/05/2022 Date of Reported: 09/08/2022 11:48 Results to: Rosa Williamson us Rosa Williamson PA CYTOLOGY ORDERABLE S Final Result SEE NARRATIVE * (ABNORMAL) Basic metabolic panel (08/23/2021 9:20 AM EST) SODIUM 135 133 - 146 mmol/L [facility] CHLORIDE 99 96 - 108 mmol/L [facility] POTASSIUM 3.4 3.3 - 5.1 mmol/L [facility] CO2 20(L) 21 - 35 mmol/L [facility] BUN 9 6 - 19 mg/dL [facility] CREATININE 0.50 0.5 - 1.5 mg/dL [facility] GLUCOSE 316(H) 70 - 99 mg/dL [facility] CALCIUM 9.2 8.4 - 10.3 mg/dL [facility] EGFR 113 >59 mL/min/1.7 3m2 [facility] Comment:Estimated glomerular filtration rate calculated using the CKD-EPI refit equation. ANION GAP 19 10 - 20 mmol/L [facility] Blood 08/23/2021 9:20 AM EST 08/23/2021 9:30 AM EST us Brendan Borden MD LAB BLOOD BKR ORD ERABLES Final Result Performing Organization Address City/[facility]/ZIP Co de Phone Number [address] [address] * (ABNORMAL) Lipid panel (08/02/2021 7:11 AM EST) HDL 33 mg/dL [facility] Comment: Interpretation <40 mg/dL: Low HDL cholesterol (major risk factor for CHD) Greater than or equal to 60 mg/dL: High HDL cholesterol ( negative risk factor for CHD) HDL - cholesterol is affected by a number of factors, e.g. smoking, excerise, hormones, sex and age. CHOLESTEROL 185 0 - 240 mg/dL [facility] TRIGLYCERIDES 103 30 - 160 mg/dL [facility] LDL 131(H) 50 - 129 mg/dL [facility] Comment: LDL levels in terms of risk for coronary heart disease: <100 mg/dL: Optimal 100-129 mg/dL: Near or above optimal 130-159 mg/dL: Borderline high 160-189 mg/dL: High >190 mg/dL: Very High CARDIAC RISK RATIO 5.6(H) 3.3 - 4.4 C [facility] Blood 08/02/2021 7:11 AM EST 08/02/2021 7:27 AM EST us Irene Albright NP LAB BLOOD BKR ORDERABLE S Final Result Performing Organization Address City/[facility]/ZIP Co de Phone Number [address] [address] * (ABNORMAL) Hemoglobin A1c (08/01/2021 2:08 PM EST) HEMOGLOBIN A1C 10.1(H) 4.3 - 5.8 % [facility] Blood 08/01/2021 2:08 PM EST 08/01/2021 2:29 PM EST us Brendan Borden MD LAB BLOOD BKR ORD ERABLES Final Result Performing Organization Address [facility]/ZIP Co de Phone Number [address] [address] from Last 3 Months or Most Recently Relevant to Health Maintenance Insurance [facility] MEDICARE PART A & [place] Advance Directives For more information, please contact: [phone] (9AM - 5PM [facility], Monday-Monday) Documents on File Type Date Recorded Patient Jacquard Card Lacer Expl anation Healthcare Proxy 08/09/2021 12:49 PM [...] Agent (Proxy form on file) Care Teams Birdcage Assembler Relationship Specialty Start Date End Date Rosa Williamson PA [address] [place] [address] PCP - General 08/05/21 Additional Source Comments The information contained in this document represents components of the legal health record. It is not the complete legal health record.[facility]
--- OUTSIDE RECORDS SUMMARY | 2025-06-24 23:20 | XMS_ITS | Encounter Summary ---
Author Organization [facility] Address [address] [place] [address] Phone Care Team Providers Care Nursing Department Chairperson Name Role Phone Rob Orosco Unavailable [phone] Lisa Camilo Unavailable [phone] Neri Burger MD Unavailable Rosa Williamson Primary Care Prov ider Gwen Lima RN Unavailable Ericka Vincent AUTO GLASS WORKER Unavailable [email or web address] Reason for Referral * Hospital - Outpatient - Closed Specialty Diagnoses / Procedures Referred By Baltazar gibson Referred To Contact Diagnoses Cerebrovascular accident (CVA), unspecified mechanism Procedures MCT (Mobile Cardiac Telemetry) MCT (Mobile Cardiac Telemetry) MCT (Mobile Cardiac Telemetry) Rosa Williamson PA Phone: tel: fax: mailto:reynaldo [address] [address] Phone: tel: Referral ID Status Reason Start Date Expiration Date Visits Re quested Visits Authorized [id number] Closed 09/13/2021 09/13/2022 6 6 Encounter Details Date Type Department Care Team (Late st Contact Info) Description 08/10/2021 Ancillary Orders Virtual Department [address] [place] [address] Rosa Williamson PA [address] [place] [address] [email or web address] Cerebrovascular accident (CVA), unspecified mechanism Social [...] documented as of this encounter Care Teams Nursing Department Chairperson Relationship Specialty Start Date End Date Rosa Williamson PA [address] [place] [address] [email or web address] PCP - General 08/05/21 Rob Orosco, PLIER WORKER [address] [place] [address] PHCM High Voltage Electrician 06/12/20 11/09/23 Lisa Camilo [address] [place] [address] [email or web address] Community Health Worker 06/17/2011/15 Neri Burger MD [address] [place] [address] [email or web address] Insurance Assigned Provider 07/25/2005/22 Gwen Lima RN [address] [place] [address] [email or web address] [facility] Cover Maker 12/30/22 03/26/23 Ericka Vincent LCSW [address] [place] [address] [email or web address] [facility] High Voltage Electrician 02/10/23 02/20/23 documented as of this encounter Additional Source Comments The information contained in this document represents components of the legal health record. It is not the complete legal health record.[facility]
--- OUTSIDE RECORDS SUMMARY | 2025-06-24 23:20 | XMS_ITS | Encounter Summary ---
Author Organization [facility] Address [address] [place] [address] Phone Care Team Providers Care Boxing Inspector Name Role Phone Debi Givens LUMBER SALES SUPERVISOR Primary Care Provider Mal Lema MD Unavailable Rob Orosco HULL BUILDER Unavailable [phone] Gwen Lima RN Unavailable Lisa Camilo Primary Care Provider Lisa Camilo Unavailable [phone] Pcp, Unknown Primary Care Provider UnavailNeri Cruz MD Unavailable Pcp, Unknown Primary Care Provider UnavailStephie Escobar LUMBER SALES SUPERVISOR Primary Care Provider Rosa Williamson Primary Care Prov ider Gwen Lima RN Unavailable Ericka Vincent MANAGER DATA Unavailable mary Encounter Details Date Type Department Care Team (Late st Contact Info) Description 02/14/2020 Transcribe Orders Virtual Department [address] [place], [place] [phone] Rosa Williamson PA [address] [place] [address] ashley Muscle ache (Primary Dx); Nonintractable headache, [...] documented as of this encounter Care Teams Boxing Inspector Relationship Specialty Start Date End Date Debi Givens, SONY [address] [place] [address] [email or web address] PCP - General Family Medicine 11/15/17 06/16/20 Lisa Camilo [address] [place] [address] [email or web address] PCP - General Message And Delivery Service Pricer 06/17/20 06/17/20 Pcp, Unknown PCP - General 06/18/20 11/02/20 Pcp, Unknown PCP - General 11/03/20 12/29/20 Stephie Comer NP [address] [place] [address] PCP - General Family Medicine 12/30/20 08/04/21 Rosa Williamson PA [address] [place] [address] derrell PCP - General 08/05/21 Mal Lema MD [address] [facility] [address] [place] [phone] [email or web address] Insurance Assigned Provider 03/28/20 07/25/20 Rob Orosco LICSW [address] [place] [address] PHCM Nuclear Licensing Engineer 06/12/20 11/09/23 Gwen Lima RN [address] [place] [address] PHCM Sorting Grapple Operator 06/12/20 10/27/20 Lisa Camilo [address] [place] [address] [email or web address] PHCM Community Health Worker 06/17/20 12/08/21 Neri Burger MD [address] [place] [address] Insurance Assigned Provider 07/25/20 05/22/22 Gwen Lima RN [address] [place] [address] [email or web address] PHCM Sorting Grapple Operator 12/30/22 03/26/23 Ericka Vincent, [address] [address] [email or web address] PHC Nuclear Licensing Engineer 02/10/23 02/20/23 documented as of this encounter Additional Source Comments The information contained in this document represents components of the legal health record. It is not the complete legal health record.[facility]
--- OUTSIDE RECORDS SUMMARY | 2025-06-24 23:20 | XMS_ITS | Encounter Summary ---
Author Organization [facility] Address [address] [place] [address] [place] [address] Phone Care Team Providers Care Cashier Self Service Gasoline Name Role Phone Rob Orosco SHARLA Unavailable [phone] Lisa Camilo Unavailable [phone] Neri Burger MD Unavailable Rosa Williamson Primary Care Prov ider Gwen Lima RN Unavailable Ericka Vincent LITIGATION MANAGER Unavailable mary Encounter Details Date Type Department Care Team (Latest Contact Info) Description 08/09/2021 Ancillary Orders Non-Invasive Cardiology 30 [place] [address] Dacia Ferreira, DO [address] [place] [address] [email or web address] Cerebrovascular accident (CVA), unspecified mechanism Social [...] documented as of this encounter Care Teams Cashier Self Service Gasoline Relationship Specialty Start Date End Date Rosa Williamson PA [address] [place] [address] [email or web address] PCP - General 08/05/21 Rob Orosco LICSW [address] [place] [address] PHCM Lead Generation Marketing Manager 06/12/20 11/09/23 Lisa Camilo [address] [place] [address] [email or web address] Community Health Worker 06/17/2011/15 Neri Burger MD [address] [place] [address] Insurance Assigned Provider 07/25/2005/22 Gwen Lima, MELINA [address] [place] [address] PHC Safekeeping Clerk 12/30/22 03/26/23 Ericka Vincent LCSW [address] [place] [address] PHCM Lead Generation Marketing Manager 02/10/23 02/20/23 documented as of this encounter Additional Source Comments The information contained in this document represents components of the legal health record. It is not the complete legal health record.[facility]
--- OUTSIDE RECORDS SUMMARY | 2025-06-24 23:20 | XMS_ITS | Encounter Summary ---
Author Organization [facility] Address [address] [place] [address] Phone Care Team Providers Care Government Contracts Manager Name Role Phone Rob Orosco ANATOMIC PATHOLOGY MANAGER Unavailable [phone] Lisa Camilo Unavailable [phone] Neri Burger MD Unavailable Stephie Comer GENERAL CAR SUPERVISOR YARD Primary Care Provider [phone] Rosa Williamson Primary Care Prov ider Gwen Lima RN Unavailable Ericka Vincent ARMED SECURITY PROFESSIONAL Unavailable [email or web address] Encounter Details Date Type Department Care Team (Late st Contact Info) Description 08/01/2021 Procedure Pass [facility] [address] [place], [place] [id number] Social History Tobacco Use Types Packs/Day Years [...] 11:40 AM EST Gwen Bang RN * [place] Suicide Severity Rating Scale (Screener/Recent Self-Report) Question [...] documented as of this encounter Care Teams Government Contracts Manager Relationship Specialty Start Date End Date Stephie Comer NP [address] [place] [address] PCP - General Family Medicine 12/30/20 08/04/21 Rosa Williamson PA [address] [place] [address] derrell PCP - General 08/05/21 Rob Orosco LICSW [address] [place] [address] PHCM Breaster 06/12/20 11/09/23 Lisa Camilo [address] [place] [address] [email or web address] Community Health Worker 06/17/20 12/08/21 Neri Burger MD [address] [place] [address] [email or web address] Insurance Assigned Provider 07/25/20 05/22/22 Gwen Lima RN [address] [place] [address] [email or web address] PHCM [place] Machine Operator 12/30/22 03/26/23 Ericka Vincent LCSW [address] [place] [address] [email or web address] PHC Breaster 02/10/23 02/20/23 documented as of this encounter Additional Source Comments The information contained in this document represents components of the legal health record. It is not the complete legal health record.[facility]
--- OUTSIDE RECORDS SUMMARY | 2025-06-24 23:20 | XMS_ITS | Encounter Summary ---
Author Organization [facility] Address [address] [place] [address] Phone Care Team Providers Care Speed Belt Sander Tender Name Role Phone Rob Orosco SHARLA Unavailable [phone] Lisa Camilo Unavailable Neri Burger MD Unavailable Rosa Williamson Primary Care Prov ider Gwen Lima RN Unavailable Ericka Vincent LOCOMOTIVE DRIVER Unavailable [email or web address] Encounter Details Date Type Department Care Team (Late st Contact Info) Description 08/09/2021 Ancillary Orders [facility] [address] [place] [address] Dacia Ferreira, 30 [place], [place] [id number] [email or web address] Social History Tobacco Use Types Packs/Day Years [...] documented as of this encounter Care Teams Speed Belt Sander Tender Relationship Specialty Start Date End Date Rosa Williamson PA [address] [place] [address] [email or web address] PCP - General 08/05/21 Rob Orosco LICSW [address] [place] [address] [email or web address] PHCM Statistics Professor 06/12/20 11/09/23 Lisa Camilo [address] [place] [address] [email or web address] Community Health Worker 06/17/2011/15 Neri Burger MD [address] [place] [address] [email or web address] Insurance Assigned Provider 07/25/2005/22 Gwen Lima, MELINA [address] [place] [address] [email or web address] PHC Soiled Linen Distributor 12/30/22 03/26/23 Ericka Vincent LCSW [address] [place] [address] [email or web address] PHCM Statistics Professor 02/10/23 02/20/23 documented as of this encounter Additional Source Comments The information contained in this document represents components of the legal health record. It is not the complete legal health record.[facility]
--- OUTSIDE RECORDS SUMMARY | 2025-06-24 23:20 | XMS_ITS | Encounter Summary ---
Author Organization [facility] Address [address] [place] [address] Phone Care Team Providers Care Salesperson Hearing Aids Name Role Phone Rob Orosco SHARLA Unavailable [phone] Lisa Camilo Unavailable [phone] eNri Burger MD Unavailable Stephie Comer MECHANICAL LEAD Primary Care Provider [phone] Rosa Williamson Primary Care Prov ider Gwen Lima RN Unavailable Ericka Vincent PASTRY COOK Unavailable [email or web address] Encounter Details Date Type Department Care Team (Late st Contact Info) Description 08/01/2021 Procedure Pass [facility], Ct Scan - [facility] [address] [place] [address] Social History Tobacco Use Types Packs/Day Years [...] 11:40 AM EST Gwen Bang RN * [place] Suicide Severity Rating Scale (Screener/Recent Self-Report) Question [...] documented as of this encounter Care Teams Salesperson Hearing Aids Relationship Specialty Start Date End Date Stephie Comer NP [address] [place] [address] PCP - General Family Medicine 12/30/20 08/04/21 Rosa Williamson PA [address] [place] [address] derrell PCP - General 08/05/21 Rob Orosco LICSW [address] [place] [address] PHCM Vendor Relationship Manager 06/12/20 11/09/23 Lisa Camilo [address] [place] [address] [email or web address] Community Health Worker 06/17/20 12/08/21 Neri Burger MD [address] [place] [address] [email or web address] Insurance Assigned Provider 07/25/20 05/22/22 Gwen Lima RN [address] [place] [address] [email or web address] PHCM Corporate Real Estate Specialist 12/30/22 03/26/23 Ericka Vincent LCSW [address] [place] [address] [email or web address] PHCM Vendor Relationship Manager 02/10/23 02/20/23 documented as of this encounter Additional Source Comments The information contained in this document represents components of the legal health record. It is not the complete legal health record.[facility]
--- OUTSIDE RECORDS SUMMARY | 2025-06-24 23:20 | XMS_ITS | Encounter Summary ---
Author Organization [facility] Address [address] [place] [address] Phone Care Team Providers Care Lapper Name Role Phone Rob Orosco SHARLA Unavailable [phone] Lisa Camilo Unavailable [phone] Neri Burger MD Unavailable Stephie Comer DESIGN CONSULTANT Primary Care Provider [phone] Rosa Williamson Primary Care Prov ider Gwen Lima RN Unavailable Ericka Vincent DRIVER LICENSE EXAMINER Unavailable [email or web address] Encounter Details Date Type Department Care Team (Late st Contact Info) Description 08/01/2021 Procedure Pass [facility], Ct Scan - [facility] 30 [place] [address] Social History Tobacco Use Types Packs/Day Years [...] 11:40 AM EST Gwen Bang RN * [place] Suicide Severity Rating Scale (Screener/Recent Self-Report) Question [...] documented as of this encounter Care Teams Lapper Relationship Specialty Start Date End Date Stephie Comer NP [address] [place] [address] PCP - General Family Medicine 12/30/20 08/04/21 Rosa Williamson PA [address] [place] [address] derrell PCP - General 08/05/21 Rob Orosco LICSW [address] [place] [address] PHCM Canal Equipment Mechanic 06/12/20 11/09/23 Lisa Camilo [address] [place] [address] [email or web address] Community Health Worker 06/17/20 12/08/21 Neri Burger MD [address] [place] [address] [email or web address] Insurance Assigned Provider 07/25/20 05/22/22 Gwen Lima RN [address] [place] [address] [email or web address] PHCM Shoe Stamper 12/30/22 03/26/23 Ericka Vincent LCSW [address] [place] [address] [email or web address] PHCM Canal Equipment Mechanic 02/10/23 02/20/23 documented as of this encounter Additional Source Comments The information contained in this document represents components of the legal health record. It is not the complete legal health record.[facility]
--- OUTSIDE RECORDS SUMMARY | 2025-06-24 23:20 | XMS_ITS | Encounter Summary ---
Author Organization [facility] Address [address] [place] [address] Phone Care Team Providers Care Intertype Operator Name Role Phone Rob Orosco SHARLA Unavailable [phone] Lisa Camilo Unavailable [phone] Neri Burger MD Unavailable Stephie Comer LEAD SCIENTIST Primary Care Provider [phone] Rosa Williamson Primary Care Prov ider Gwen Lima RN Unavailable Ericka Vincent LEAD RADIOLOGIC TECHNOLOGIST Unavailable [email or web address] Encounter Details Date Type Department Care Team (Late st Contact Info) Description 08/01/2021 Procedure Pass [facility], [facility] [address] [place] [address] Social History Tobacco Use Types Packs/Day Years [...] 11:40 AM EST Gwen Bang RN * [place] Suicide Severity Rating Scale (Screener/Recent Self-Report) Question [...] documented as of this encounter Care Teams Intertype Operator Relationship Specialty Start Date End Date Stephie Comer NP [address] [place] [address] PCP - General Family Medicine 12/30/20 08/04/21 Rosa Williamson PA [address] [place] [address] derrell PCP - General 08/05/21 Rob Orosco LICSW [address] [place] [address] [facility] Auto Glass Worker 06/12/20 11/09/23 Lisa Camilo [address] [place] [address] [email or web address] Community Health Worker 06/17/20 12/08/21 Neri Burger MD [address] [place] [address] [email or web address] Insurance Assigned Provider 07/25/20 05/22/22 Gwen Lima RN [address] [place] [address] [email or web address] PHCM Multimedia Specialist 12/30/22 03/26/23 Ericka Vincent LCSW [address] [place] [address] [email or web address] PHCM Auto Glass Worker 02/10/23 02/20/23 documented as of this encounter Additional Source Comments The information contained in this document represents components of the legal health record. It is not the complete legal health record.[facility]
--- OUTSIDE RECORDS SUMMARY | 2025-06-24 23:20 | XMS_ITS | Encounter Summary ---
Author Organization [facility] Address [address] [place] [address] Phone Care Team Providers Care Tool Storage Attendant Name Role Phone Rob Orosco SHARLA Unavailable [phone] Lisa Camilo Unavailable [phone] Neri Burger MD Unavailable Stephie Comer NURSE MIDWIFE/CLINICAL INSTRUCTOR Primary Care Provider [phone] Rosa Williamson Primary Care Prov ider Gwen Lima RN Unavailable Ericka Vincent DIE CASTING MACHINE MAINTAINER Unavailable [email or web address] Encounter Details Date Type Department Care Team (Late st Contact Info) Description 07/08/2021 Transcribe Orders Virtual Department [address] [place] [address] Rosa Williamson PA [address] [place], [place] [phone] [place] Breast screening (Primary Dx) Social History [...] documented as of this encounter Care Teams Tool Storage Attendant Relationship Specialty Start Date End Date Stephie Comer NP [address] [place] [address] PCP - General Family Medicine 12/30/20 08/04/21 Rosa Williamson PA [address] [place] [address] derrell PCP - General 08/05/21 Rob Orosco LICSW [address] [place] [address] [email or web address] PHCM Ripsawyer 06/12/20 11/09/23 Lisa Camilo [address] [place] [address] [email or web address] Community Health Worker 06/17/20 12/08/21 Neri Burger MD [address] [place] [address] [email or web address] Insurance Assigned Provider 07/25/20 05/22/22 Gwen Lima RN [address] [place] [email or web address] PHCM Project Management Instructor 12/30/22 03/26/23 Ericka Vincent, DIE CASTING MACHINE MAINTAINER [address] [place] [address] [email or web address] PHC Ripsawyer 02/10/23 02/20/23 documented as of this encounter Additional Source Comments The information contained in this document represents components of the legal health record. It is not the complete legal health record.[facility]
--- OUTSIDE RECORDS SUMMARY | 2025-06-24 23:20 | XMS_ITS | Encounter Summary ---
Author Organization [facility] Address [address] [place] [address] Phone Care Team Providers Care General Manager Road Production Name Role Phone Rob Orosco SHARLA Unavailable [phone] Lisa Camilo Unavailable Neri Burger MD Unavailable Rosa Williamson Primary Care Prov ider Gwen Lima RN Unavailable Ericka Vincent CATALYST SUPERVISOR Unavailable mary Encounter Details Date Type Department Care Team (Latest Contact Info) Description 08/10/2021 Ancillary Orders [facility] [address] [address] Rosa Williamson PA [address] [place] [address] radha Cerebrovascular accident (CVA), unspecified mechanism Social [...] documented as of this encounter Care Teams General Manager Road Production Relationship Specialty Start Date End Date Rosa Williamson PA [address] [place] [address] [email or web address] PCP - General 08/05/21 Rob Orosco LICSW [address] [place] [address] [facility] Supervisor Customer Complaint Service 06/12/20 11/09/23 Lisa Camilo [address] [place] [address] [email or web address] [facility] Community Health Worker 06/17/2011/15 Neri Burger MD [address] [place] [address] Insurance Assigned Provider 07/25/2005/22 Gwen Lima RN [address] [place] [address] [facility] Outreach Liaison 12/30/22 03/26/23 Ericka Vincent LCSW [address] [place] [address] [facility] Supervisor Customer Complaint Service 02/10/23 02/20/23 documented as of this encounter Additional Source Comments The information contained in this document represents components of the legal health record. It is not the complete legal health record.[facility]
[2025-06-25] VITALS (8 sets, daily range): BP systolic 131–141; BP diastolic 61–78; PULSE 75–90; RESP 18–20; TEMP 36.2–36.6; O2SAT 94–97; BMI 33.5
[2025-06-25 03:59] LABS: MANUAL DIFF FLAG NO
[2025-06-25 04:01] LABS: Hematocrit 42.3 % (37.0-47.0); Hemoglobin 13.8 g/dl (12.0-16.0); Imm Gran Abs Auto 0.03 X10*3/uL (0.00-0.03); Imm Gran Pct Auto 0.4 % (0.0-0.4); Lymphocytes Absolute Auto 2.9 X10*3/uL (1.2-4.9); Mean Corpuscular HGB Conc 32.6 g/dl (31.0-35.0); Mean Corpuscular Hemoglobin 28.9 pg (27.0-33.0); Mean Corpuscular Volume 88.7 fL (80.0-98.0); NRBC Abs Auto 0.000 X10*3/uL (0.0-0.012); NRBC Pct Auto 0.0 /100WBC (0.0-0.2); Platelet Count 282 X10*3/uL (160-400); Red Blood Count 4.77 X10*6/uL (4.20-5.50); White Blood Count 7.1 X10*3/uL (4.8-10.8)
[2025-06-25 04:28] LABS: Alanine Aminotransferase 36 U/L (0-31); Albumin Level 4.5 g/dL (3.5-5.0); Alkaline Phosphatase 89 U/L (39-117); Anion Gap 13 (12-20); Aspartate Amino Transferase 31 U/L (5-31); Blood Urea Nitrogen 16 mg/dL (9-16); Calcium 9.3 mg/dL (8.4-10.2); Carbon Dioxide 24 mmol/L (22-29); Chloride 107 mmol/L (96-108); Creatinine Clr Calc Pharmacy 97.2; Estimated Glomerular Filt Rate > 60; Potassium 3.6 mmol/L (3.3-5.1); Sodium 140 mmol/L (135-145); Total Protein 6.9 g/dL (6.5-8.0)
--- NOTE | 2025-06-25 06:19 | PC.NURSE ---
Pt from home [place] with complaint of left sided weakness that started early in the morning when she woke up. Pt reports going to see PCP and symptoms getting worse throughout the day, prompting her to call EMS. Pt denies any other symptoms of chest pain, sob, headache, vision changes, n/v/d, or any other symptoms of concern. On arrival to the ED [facility] 3, stroke protocol initiated despite LKW. During assessment it was noted pt having some left sided weakness but it is unclear if this is from previous stroke. CTA of head/ neck and CT of head were negative. Pt was outside the window for TNK. Pt is caox4, primarily portuguese speaking, ambulates with a cane at baseline, has 20G IV in her RAC and has been medicated per sep. Pt being admitted for MRI in am.
[2025-06-25 08:04] LABS: Glucose, Whole Blood 166 mg/dL (60-115)
[2025-06-25] MEDS: Tiotropium Bromide 2.5 mcg 1 PUFF/2.5 MCG MIST.INHAL 2 PUFF INHALE (08:33)
[2025-06-25] MEDS: 0.9 % Sodium Chloride Flush 3 ML SYRINGE IVFLUSH (08:55)
[2025-06-25] MEDS: diazePAM 10 MG/2 ML CARTRIDGE 2.5 MG IVPUSH (11:40)
--- NOTE | 2025-06-25 12:05 | PM.NEUROCN ---
History of Present Illness Data of Consult Service Date: 06/25/25 Primary Care Provider: Stephie Comer NP [facility] Reason for consult: ? stroke This is a 55-year-old , Armenian speaking female with past medical history NIDDM, CVA with history of dysphagia, tobacco dependence, hepatic steatosis, transaminitis, heart murmur, CTS, hypertension, hyperlipidemia, GERD, history of tobacco use, COPD/asthma, presented with persistent left-sided weakness that started much earlier in the a.m.. Patient had seen her PCP with no urgency for emergent evaluation but patient had progressively increased weakness on the left side and called 911. Patient is not currently on blood thinners but does take clopidogrel. Patient currently denying any chest pain, shortness of breath at rest or with exertion, headache, visual changes or dysphagia. Patient did pass the bedside swallow. Patient states she usually uses a cane to ambulate. CTA of the head and neck showed no high-grade stenosis obstruction or vessel cutoff. CT of the head showed multiple bilateral chronic lacunar infarcts in both hemispheres. There were no acute findings. NIHS 3 on arrival to the ED. Patient was outside the window for TNK. Labs overall stable and UA is negative for UTI. On exam patient does have baseline weakness on the left side but uncertain if this is from previous stroke or new level of weakness. Patient states she is currently on disability lives alone and does not drive. 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 Lumbar degenerative disc disease Menorrhagia Severe persistent asthma Dysphagia S/P CVA (cerebrovascular accident) History of CVA (cerebrovascular accident) Family History Family History Mother Diabetes Father Diabetes Surgical History Surgical History History of bilateral ligation of fallopian tubes History of carpal tunnel repair Social History Social History Alcohol intake: current Alcohol intake frequency: does not drink Patient Tobacco Use Status: Current everyday Tobacco user Smoked in Last 30 Days: Yes Use of substances other than those prescribed or required for medical reasons: No Advance Directives: No Advance Directives Information Provided: No Patient : No Travel History Ebola Risk: Travel/Contact With Anyone From Affected Area/s: No Has Patient Experienced Ebola Symptoms: No Meds Allergies Allergy/AdvReac Type Severity Reaction Status Date / Time atorvastatin (From Lipitor) AdvReac Mild Muscle Pain Verified 06/24/25 18:56 aspirin AdvReac Unknown Rash Verified 06/24/25 18:56 dulaglutide (From Trulicity) AdvReac Unknown Hives Verified 06/24/25 18:56 gabapentin AdvReac Unknown Dizziness Verified 06/24/25 18:56 Tylenol codeine AdvReac Unknown Nausea, Uncoded 05/30/25 09:32 Vomiting Active Medications: Current Medications Acetaminophen (Acetaminophen 325 Mg Tablet) 650 mg PO Q6H PRN PRN Reason: Pain, Mild 1-3,fever,headache Albuterol/Ipratropium (Albuterol/Iprat 2.5/0.5mg 3 Ml Ampul.Neb) 3 ml INHALE Q4H PRN PRN Reason: Shortness of Breath/Wheezing Cyanocobalamin (Cyanocobalamin (Vitamin B-12) 1,000 Mcg Tablet) 1,000 mcg PO DAILY [facility] Last Admin: 06/25/25 08:53 Dose: 1,000 mcg Dextrose (Dextrose 50 % 25 Gm/50 Ml Syringe) 25 gm IVPUSH Q15M PRN; Protocol PRN Reason: per Hypoglycemia Standing Ord. Ezetimibe (Ezetimibe 10 Mg Tablet) 10 mg PO DAILY [facility] Last Admin: 06/25/25 08:53 Dose: 10 mg Empagliflozin (Empagliflozin 25 Mg Tablet) 25 mg PO DAILY [facility] Last Admin: 06/25/25 08:53 Dose: 25 mg Enoxaparin Sodium (Enoxaparin Sodium 40 Mg/0.4 Ml Syringe) 40 mg SUBCUT Q24H [facility] Last Admin: 06/25/25 08:53 Dose: 40 mg Glucose (Glucose Gel 15 Gm Gel..Gram.) 15 gm PO Q15M PRN; Protocol PRN Reason: per Hypoglycemia Standing Ord. Insulin Human Lispro (Insulin Lispro 100 Unit/Ml 3 Ml Vial) 0 unit SUBCUT QIDACHS [facility]; Protocol Last Admin: 06/25/25 07:57 Dose: Not Given Lactulose (Lactulose 20 Gm/30 Ml Solution) 10 gm PO BID PRN PRN Reason: Constipation Magnesium Hydroxide (Milk Of Magnesia 30 Ml Oral.Susp) 30 ml PO DAILY PRN PRN Reason: Constipation Melatonin (Melatonin 3 Mg Tablet) 6 mg PO BEDTIME PRN PRN Reason: Insomnia Montelukast Sodium (Montelukast Sodium 10 Mg Tablet) 10 mg PO BEDTIME [facility] Omeprazole (Omeprazole 20 Mg Capsule.Dr) 20 mg PO DAILY@0630 [facility] Last Admin: 06/25/25 06:27 Dose: 20 mg Ondansetron HCl (Ondansetron Hcl 4 Mg/2 Ml Vial) 4 mg IVPUSH Q8H PRN PRN Reason: Nausea and Vomiting Polyethylene Glycol (Polyethylene Glycol 3350 17 Gm Powd.Pack) 17 gm PO DAILY PRN PRN Reason: Constipation Pravastatin Sodium (Pravastatin Sodium 40 Mg Tablet) 40 mg PO DAILY [facility] Last Admin: 06/25/25 08:53 Dose: 40 mg Senna (Sennosides 8.6 Mg Tablet) 17.2 mg PO BEDTIME [facility] Last Admin: 06/24/25 21:43 Dose: 17.2 mg Sodium Chloride (0.9 % Sodium Chloride Flush 3 Ml Syringe) 3 ml IVFLUSH QSHIFT [facility] Last Admin: 06/25/25 08:55 Dose: 3 ml Tiotropium [place] (Tiotropium [place] 2.5 Mcg 1 Puff/2.5 Mcg Mist.Inhal) 2 puff INHALE RDAILY [facility] Last Admin: 06/25/25 08:33 Dose: 2 puff Home Medications ?Medication ?Instructions ?Recorded ?Confirmed ?Last Taken ?Type albuterol sulfate 2.5 mg/3 mL 2.5 mg inhalation Q4H PRN 04/12/24 06/24/25 Unknown History (0.083 %) solution for nebulization Shortness Of Breath Or Wheezing albuterol sulfate 90 mcg/actuation 2 puff inhalation Q4H PRN 04/12/24 06/24/25 Unknown History aerosol inhaler (Ventolin HFA) Shortness Of Breath Or Wheezing clopidogrel 75 mg tablet 75 mg PO DAILY 04/12/24 06/24/25 Unknown History empagliflozin 25 mg tablet 25 mg PO DAILY 04/12/24 06/24/25 Unknown History (Jardiance) ezetimibe 10 mg tablet 10 mg PO DAILY 04/12/24 06/24/25 Unknown History ipratropium 0.5 mg-albuterol 3 mg 3 ml inhalation QID 04/12/24 06/24/25 Unknown History (2.5 mg base)/3 mL nebulization soln metformin 500 mg tablet,extended 1,000 mg PO BIDWM 04/12/24 06/24/25 Unknown History release 24 hr montelukast 10 mg tablet 10 mg PO DAILY 04/12/24 06/24/25 Unknown History pantoprazole 40 mg tablet,delayed 40 mg PO DAILY 04/12/24 06/24/25 Unknown History release pravastatin 40 mg tablet 40 mg PO DAILY 04/12/24 06/24/25 Unknown History lactulose 10 gram/15 mL oral 15 ml PO BID PRN constipation 06/24/25 06/24/25 Unknown History solution umeclidinium 62.5 mcg/actuation 1 inh inhalation DAILY 06/24/25 06/24/25 Unknown History blister powder for inhalation (Incruse Ellipta) Physical Exam Vital Signs: Vital Signs: Last Vital Signs Temp 97.9 F 06/25/25 06:26 Pulse 78 06/25/25 08:34 Resp 18 06/25/25 08:34 BP 131/73 06/25/25 06:26 Pulse Ox 96 06/25/25 06:26 O2 Del Method Room Air 06/25/25 06:26 BMI result Body Mass Index 33.2 Neuro: Other: She is alert and oriented with normal intellectual functions. Cranial nerves 2-12 are normal. She has a mild left hemiparesis. He is unclear if this is new or old because of previous strokes. Results Labs 06/25/25 03:38 06/25/25 03:38 Labs: Short CBC 06/24/25 06/25/25 Range/Units 19:07 03:38 WBC 8.3 7.1 (4.8-10.8) X10*3/uL Hgb 14.5 13.8 (12.0-16.0) g/dl Hct 43.6 42.3 (37.0-47.0) % Plt Count 303 282 (160-400) X10*3/uL BMP 06/24/25 06/25/25 19:07 03:38 Sodium 138 140 Potassium 3.9 3.6 Chloride 105 107 Carbon Dioxide 26 24 BUN 14 16 Creatinine 0.57 0.60 Calcium 9.7 9.3 Liver Function 06/25/25 Range/Units 03:38 Total Bilirubin 0.6 (0.0-1.0) mg/dL AST 31 (5-31) U/L ALT 36 H (0-31) U/L Alkaline Phosphatase 89 (39-117) U/L Albumin 4.5 (3.5-5.0) g/dL Urine 06/24/25 Range/Units 22:06 Urine Color Yellow Urine Appearance Clear Urine pH 6.5 (5.0-9.0) Ur Specific [place] >= 1.030 H (1.005-1.025) Urine Protein Negative (Neg-Trace) mg/dL Urine Glucose (UA) >=1000 H (Negative) mg/dL Assessment and Plan (1) Left-sided weakness: Status: Acute (2) CVA (cerebral vascular accident): Qualifiers: CVA mechanism: unspecified Qualified Code(s): I63.9 - Cerebral infarction, unspecified Status: Acute Plan She has multiple chronic lacunar strokes from small-vessel disease. It is unclear if she has had another small stroke because of baseline left-sided weakness. There is no occlusive disease on CTA of the head and neck. Recommendation: MRI of the brain to see if there is an acute stroke. Would stress management of blood pressure and other risk factors for small-vessel disease. Continue aspirin 81 mg a day and clopidogrel 75 mg Procedures Date of Service Date of Service: 06/25/25
--- NOTE | 2025-06-25 12:58 | MHC.CM.PN ---
Yuliana 06/25/25, Pt. lives alone, she has [employer] services 2 hrs a day, she has support services from [employer]. For DME, she uses a cane. PCP is Stephie Comer, HCP discussed, she declined to complete form manny. Her son will transport her home at DC, DCP: home, self care, CM to follow for DC needs.
[2025-06-25 13:12] LABS: Glucose, Whole Blood 107 mg/dL (60-115)
--- NOTE | 2025-06-25 13:53 | HO.PM.IMPN ---
Subjective Subjective Date of Service: 06/25/25 Interval History: f/u left sided weakness, MR confirmed acute stroke weakness seems better Physical Exam Vital Signs: Vital Signs: Last Vital Signs Temp 97.9 F 06/25/25 12:18 Pulse 85 06/25/25 12:18 Resp 18 06/25/25 12:18 BP 136/71 06/25/25 12:18 Pulse Ox 95 06/25/25 12:18 O2 Del Method Room Air 06/25/25 12:18 BMI result Body Mass Index 33.2 Const: Other: General: AO X 3, no acute distress Resp: CTA bilateral CVS: S1,S2,RRR GI: +BS, NT, no distention Skin: No rash Neuro: some weakness in left arm Psych: appropriate affect Objective Data Active Medications Acetaminophen (Acetaminophen 325 Mg Tablet) 650 mg PO Q6H PRN PRN Reason: Pain, Mild 1-3,fever,headache Albuterol/Ipratropium (Albuterol/Iprat 2.5/0.5mg 3 Ml Ampul.Neb) 3 ml INHALE Q4H PRN PRN Reason: Shortness of Breath/Wheezing Cyanocobalamin (Cyanocobalamin (Vitamin B-12) 1,000 Mcg Tablet) 1,000 mcg PO DAILY [facility] Last Admin: 06/25/25 08:53 Dose: 1,000 mcg Documented By: JEANMARIE Dextrose (Dextrose 50 % 25 Gm/50 Ml Syringe) 25 gm IVPUSH Q15M PRN; Protocol PRN Reason: per Hypoglycemia Standing Ord. Ezetimibe (Ezetimibe 10 Mg Tablet) 10 mg PO DAILY [facility] Last Admin: 06/25/25 08:53 Dose: 10 mg Documented By: JEANMARIE Empagliflozin (Empagliflozin 25 Mg Tablet) 25 mg PO DAILY [facility] Last Admin: 06/25/25 08:53 Dose: 25 mg Documented By: JEANMARIE Enoxaparin Sodium (Enoxaparin Sodium 40 Mg/0.4 Ml Syringe) 40 mg SUBCUT Q24H [facility] Last Admin: 06/25/25 08:53 Dose: 40 mg Documented By: JEANMARIE Glucose (Glucose Gel 15 Gm Gel..Gram.) 15 gm PO Q15M PRN; Protocol PRN Reason: per Hypoglycemia Standing Ord. Insulin Human Lispro (Insulin Lispro 100 Unit/Ml 3 Ml Vial) 0 unit SUBCUT QIDACHS [facility]; Protocol Last Admin: 06/25/25 13:09 Dose: Not Given Documented By: JEANMARIE Non-Admin Reason: poc-107 Lactulose (Lactulose 20 Gm/30 Ml Solution) 10 gm PO BID PRN PRN Reason: Constipation Magnesium Hydroxide (Milk Of Magnesia 30 Ml Oral.Susp) 30 ml PO DAILY PRN PRN Reason: Constipation Melatonin (Melatonin 3 Mg Tablet) 6 mg PO BEDTIME PRN PRN Reason: Insomnia Montelukast Sodium (Montelukast Sodium 10 Mg Tablet) 10 mg PO BEDTIME [facility] Omeprazole (Omeprazole 20 Mg Capsule.Dr) 20 mg PO DAILY@0630 [facility] Last Admin: 06/25/25 06:27 Dose: 20 mg Documented By: KAM Ondansetron HCl (Ondansetron Hcl 4 Mg/2 Ml Vial) 4 mg IVPUSH Q8H PRN PRN Reason: Nausea and Vomiting Polyethylene Glycol (Polyethylene Glycol 3350 17 Gm Powd.Pack) 17 gm PO DAILY PRN PRN Reason: Constipation Pravastatin Sodium (Pravastatin Sodium 40 Mg Tablet) 40 mg PO DAILY [facility] Last Admin: 06/25/25 08:53 Dose: 40 mg Documented By: JEANMARIE Senna (Sennosides 8.6 Mg Tablet) 17.2 mg PO BEDTIME [facility] Last Admin: 06/24/25 21:43 Dose: 17.2 mg Documented By: KAM Sodium Chloride (0.9 % Sodium Chloride Flush 3 Ml Syringe) 3 ml IVFLUSH QSHIFT [facility] Last Admin: 06/25/25 13:10 Dose: Not Given Documented By: JEANMARIE Non-Admin Reason: Previously Administered Tiotropium [place] (Tiotropium [place] 2.5 Mcg 1 Puff/2.5 Mcg Mist.Inhal) 2 puff INHALE RDAILY [facility] Last Admin: 06/25/25 08:33 Dose: 2 puff Documented By: PERI Labs 06/25/25 03:38 06/25/25 03:38 Labs: Laboratory Results - last 24 hr 06/24/25 06/24/25 06/24/25 18:42 19:07 21:41 MCV 87.7 MCH 29.2 MCHC 33.3 RDW 14.5 Plt Count 303 MPV 9.4 Immature Gran % (Auto) 0.2 Neut % (Auto) 57.6 Lymph % (Auto) 31.9 [place] % (Auto) 8.5 Eos % (Auto) 1.2 Baso % (Auto) 0.6 Lymph # (Auto) 2.7 [place] # (Auto) 0.7 Eos # (Auto) 0.1 Baso # (Auto) 0.1 Abs Immat Gran (auto) 0.02 Absolute Neuts (auto) 4.8 Absolute Nucleated RBC 0.000 Nucleated RBC % (auto) 0.0 PT 11.8 INR 1.0 APTT 33.7 Anion Gap 11 L Estim Creat Clear Calc 102.3 Estimated GFR > 60 POC Glucose 129 H 115 Random Glucose 122 H Estimat Average Glucose Hemoglobin A1c % Calcium 9.7 Total Bilirubin AST ALT Alkaline Phosphatase Troponin I High Sens < 2.7 Total Protein Albumin Triglycerides 68 Cholesterol 136 LDL Cholesterol, Calc 70 HDL Cholesterol 53 Urine Color Urine Appearance Urine pH Ur Specific [place] Urine Protein Urine Glucose (UA) Urine Ketones Urine Blood Urine Nitrite Ur Leukocyte Esterase Urine RBC Urine WBC Ur Squamous Epith Cells Urine Bacteria Hyaline Casts 06/24/25 06/25/25 06/25/25 22:06 03:38 07:54 MCV 88.7 MCH 28.9 MCHC 32.6 RDW 14.5 Plt Count 282 MPV 9.1 L Immature Gran % (Auto) 0.4 Neut % (Auto) 48.1 Lymph % (Auto) 41.3 H [place] % (Auto) 8.0 Eos % (Auto) 1.5 Baso % (Auto) 0.7 Lymph # (Auto) 2.9 [place] # (Auto) 0.6 Eos # (Auto) 0.1 Baso # (Auto) 0.1 Abs Immat Gran (auto) 0.03 Absolute Neuts (auto) 3.4 Absolute Nucleated RBC 0.000 Nucleated RBC % (auto) 0.0 PT INR APTT Anion Gap 13 Estim Creat Clear Calc 97.2 Estimated GFR > 60 POC Glucose 166 H Random Glucose 105 Estimat Average Glucose 151 Hemoglobin A1c % 6.9 H Calcium 9.3 Total Bilirubin 0.6 AST 31 ALT 36 H Alkaline Phosphatase 89 Troponin I High Sens Total Protein 6.9 Albumin 4.5 Triglycerides Cholesterol LDL Cholesterol, Calc HDL Cholesterol Urine Color Yellow Urine Appearance Clear Urine pH 6.5 Ur Specific [place] >= 1.030 H Urine Protein Negative Urine Glucose (UA) >=1000 H Urine Ketones Negative Urine Blood Negative Urine Nitrite Negative Ur Leukocyte Esterase Negative Urine RBC 0-2 Urine WBC 0-5 Ur Squamous Epith Cells 0-2 Urine Bacteria None Seen Hyaline Casts 0-2 06/25/25 13:09 MCV MCH MCHC RDW Plt Count MPV Immature Gran % (Auto) Neut % (Auto) Lymph % (Auto) [place] % (Auto) Eos % (Auto) Baso % (Auto) Lymph # (Auto) [place] # (Auto) Eos # (Auto) Baso # (Auto) Abs Immat Gran (auto) Absolute Neuts (auto) Absolute Nucleated RBC Nucleated RBC % (auto) PT INR APTT Anion Gap Estim Creat Clear Calc Estimated GFR POC Glucose 107 Random Glucose Estimat Average Glucose Hemoglobin A1c % Calcium Total Bilirubin AST ALT Alkaline Phosphatase Troponin I High Sens Total Protein Albumin Triglycerides Cholesterol LDL Cholesterol, Calc HDL Cholesterol Urine Color Urine Appearance Urine pH Ur Specific [place] Urine Protein Urine Glucose (UA) Urine Ketones Urine Blood Urine Nitrite Ur Leukocyte Esterase Urine RBC Urine WBC Ur Squamous Epith Cells Urine Bacteria Hyaline Casts Assessment and Plan (1) CVA (cerebral vascular accident): Status: Acute (2) Left-sided weakness: Status: Acute (3) Diabetes mellitus with microalbuminuric diabetic nephropathy: Status: Acute Plan Patient is a 55-year-old female with past medical history NIDDM, CVA with history of dysphagia, tobacco dependence, hepatic steatosis, transaminitis, heart murmur, CTS, hypertension, hyperlipidemia, GERD, history of tobacco use, COPD/asthma, BIBA for persistent left-sided weakness that started much earlier in the a.m.. Patient had seen her PCP with no urgency for emergent evaluation but patient had progressively increased weakness on the left side and called 911. Left-sided weakness d/t acute stroke, still has some residual symptoms MRI:Acute nonhemorrhagic focal stroke/ischemia, posterior limb right internal capsule. 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 Neuro rec Plavix, ASA , she is allergic to ASA. BP control and statin (pravachol and zetria) PT/OT eval NIDDM Metformin on hold d/t contrast, continue Actos SSI, diabetic diet A1C = 7.1 HLD, statin as above HTN, BP wnl, no meds listed Tobacco dependence NRT declined, cessation discussed GERD Omeprazole ordered DVT prophylaxis: Full code changing status to inpatient d/t acute stroke need for inpt: continuing monitoring for possible evolving stroke Quality Stroke Does the patient have a stroke diagnosis?: Yes Reason for No Anti-thrombotic by Day Two: N/A - Med Ordered VTE Prior VTE?: No VTE Risk Level:: Medical - moderate - high VTE Device Contraindication: N/A - Device Ordered VTE Drug Contraindication: N/A - Med Ordered
[2025-06-25 17:53] LABS: Prothrombin Time Whole Bld POC 12.2 sec (11.1-13.5); ~PT, ~INR - Anti Coag Clinic 1.0 (0.9-1.1)
[2025-06-25 20:39] LABS: Glucose, Whole Blood 92 mg/dL (60-115)
[2025-06-26 03:11] VITALS: BP 132/76; PULSE 79; RESP 18; TEMP 36.4; O2SAT 94
[2025-06-26 08:00] VITALS: BP 122/73; PULSE 81; RESP 18; TEMP 36.6; O2SAT 95
[2025-06-26 08:02] VITALS: PULSE 79; RESP 18; O2SAT 96
[2025-06-26] MEDS: Tiotropium Bromide 2.5 mcg 1 PUFF/2.5 MCG MIST.INHAL 2 PUFF INHALE (08:02)
[2025-06-26 08:16] LABS: Glucose, Whole Blood 138 mg/dL (60-115)
--- NOTE | 2025-06-26 10:53 | P.DS_ITS ---
DS: Providers Provider Date of Service: 06/26/25 Date of admission: 06/25/25 14:14 Date of discharge: 06/26/25 Primary care physician: Stephie Comer NP Consults: 06/24/25 21:00 Consult to Neurology Routine Consulting Provider: [facility] Reason for consultation: rule out CVA Has provider been notified: No DS: Diagnosis Discharge Diagnosis (1) CVA (cerebral vascular accident): Status: Acute (2) Left-sided weakness: Status: Acute (3) Diabetes mellitus with microalbuminuric diabetic nephropathy: Status: Acute DS: Summary Hospital Course Hospital Course: Patient is a 55-year-old female with past medical history NIDDM, CVA with history of dysphagia, tobacco dependence, hepatic steatosis, transaminitis, heart murmur, CTS, hypertension, hyperlipidemia, GERD, history of tobacco use, COPD/asthma, BIBA for persistent left-sided weakness that started much earlier in the a.m.. Patient had seen her PCP with no urgency for emergent evaluation but patient had progressively increased weakness on the left side and called 911. CT head showed no acute finding, however MRI Acute nonhemorrhagic focal stroke/ischemia, posterior limb right internal capsule. 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 Neurology saw her and recommended ASA + Plavix however she is allergic to Aspirin which causes a rash wo will avoid. She has allergic to Lipitor and has been on Zocor and Zetia, LDL is 70, HDL 53, cholesterol 136, TG 68, not able to use high intensity d/t allergic Lipitor and likely similar agents, exercise and diet watch is recommended as well. PT recommend no services at this time given that she has no deficit NIDDM A1C = 7.1 resume home meds HLD, statin as above HTN, BP wnl, no meds listed Tobacco dependence NRT declined, cessation discussed GERD Omeprazole ordered Time Attestation Discharge Coordination Time (in mins): 45 Quality: Safe Use of Opioids Does Pt have an Active Cancer Diagnosis on the Problem List?: No Quality: Stroke Does the patient have a stroke diagnosis?: No Physical Exam Vital Signs: Vital Signs: Last Vital Signs Temp 97.8 F 06/26/25 08:00 Pulse 79 06/26/25 08:02 Resp 18 06/26/25 08:02 BP 122/73 06/26/25 08:00 Pulse Ox 95 06/26/25 08:00 O2 Del Method Room Air 06/26/25 08:00 BMI result Body Mass Index 33.5 DS: Data Data Completed and Pending Labs on day of discharge: Laboratory Results - last 24 hr 06/24/25 06/25/25 06/25/25 18:42 13:09 20:36 Whole Blood PT 12.2 Whole Blood INR 1.0 POC Glucose 107 92 06/26/25 08:05 Whole Blood PT Whole Blood INR POC Glucose 138 H Discharge Plan Discharge Anticipated Discharge Date/Time: 06/26/25 10:48 Patient Disposition: Home, Self-Care Discharge Diagnosis: Acute stroke Referrals: Stephie Comer NP [Primary Care Provider, Family Practice] - 1 Week Discharge Medications: Continued (DME) Dexcom G7 Linux System Administrator Misc See Rx Instructions .ROUTE .MEDSUPPLY Qty: 1 0RF Rx Instructions: As directed cyanocobalamin (vitamin B-12) 1,000 mcg tablet 1,000 mcg PO DAILY Qty: 90 1RF (DME) FreeStyle Lite Strips Strip See Rx Instructions .ROUTE .MEDSUPPLY Qty: 100 5RF Rx Instructions: As directed three times daily pioglitazone [Actos] 15 mg tablet 15 mg PO DAILY Qty: 90 0RF Rx Instructions: Replaces Actos 30 mg daily. lactulose 10 gram/15 mL solution 15 ml PO BID PRN (Reason: constipation) Incruse Ellipta 62.5 mcg/actuation blister with device 1 inh inhalation DAILY (DME) blood-glucose meter [FreeStyle Lite Meter] Kit See Rx Instructions .ROUTE .MEDSUPPLY Qty: 1 0RF Rx Instructions: As directed to check blood sugar. (DME) pen needle, diabetic 32 gauge x 5/32 needle See Rx Instructions .ROUTE .MEDSUPPLY Qty: 100 5RF Rx Instructions: As directed to inject insulin once daily. (DME) Dexcom G7 Sensor Device See Rx Instructions .ROUTE .MEDSUPPLY Qty: 3 11RF Rx Instructions: apply new sensor every 10 days as directed albuterol sulfate [Ventolin HFA] 90 mcg/actuation HFA aerosol inhaler 2 puff inhalation Q4H PRN (Reason: Shortness Of Breath Or Wheezing) albuterol sulfate 2.5 mg /3 mL (0.083 %) solution for nebulization 2.5 mg inhalation Q4H PRN (Reason: Shortness Of Breath Or Wheezing) montelukast 10 mg tablet 10 mg PO DAILY pravastatin 40 mg tablet 40 mg PO DAILY Jardiance 25 mg tablet 25 mg PO DAILY pantoprazole 40 mg tablet,delayed release (DR/EC) 40 mg PO DAILY ezetimibe 10 mg tablet 10 mg PO DAILY ipratropium-albuterol 0.5 mg-3 mg(2.5 mg base)/3 mL solution for nebulization 3 ml inhalation QID clopidogrel 75 mg tablet 75 mg PO DAILY metformin 500 mg tablet extended release 24 hr 1,000 mg PO BIDWM glucose [Dex4 Glucose Quick Dissolve] 4 gram tablet,chewable 16 g PO Q15M PRN (Reason: hypoglycemia) Qty: 30 3RF Rx Instructions: until symptoms of low blood sugar are controlled Discharge Orders: Discharge Order (Routine); Ordered 06/26/25 Ordered By: Don Schmidt Diet: Advance to usual diet Activity on Discharge: As tolerated Stand Alone Forms: Patient Portal Discharge page Print Language: Grenadian Care Plan Goals: recovery from acute stroke, and prevention of new stroke in future Health Concerns: acute stroke with left sided weakness, now resolved diabetes high blood pressure Plan of Treatment: take Aspirin and Plavix and other medication as recommended, take all medication as recommended follow up with your Doctor in a week Assessment: see above
--- NOTE | 2025-06-26 11:13 | MHC.CM.PN ---
Patient has been medically cleared for dc to home today, self care.
[2025-06-26 12:00] VITALS: BP 134/63; PULSE 84; RESP 20; TEMP 37.1; O2SAT 92
[2025-06-26 12:16] LABS: Glucose, Whole Blood 155 mg/dL (60-115)
== END 2025-06-26 13:31 | disposition home or self-care (01) | DRG 65 ==
LOC: HO.ED 20:23 → HO.EDOVER 21:12 → HO.IMC 06-25 16:47
PROVIDERS: Internal Medicine; Admitting Provider Nurse Practitioner Family; Emergency Provider Student in an Organized Health Care Education/Training Program; PCP Nurse Practitioner; Visit Provider Internal Medicine
DX: I63.9 Cerebral infarction, unspecified (principal); G81.94 Hemiplegia, unspecified affecting left nondominant side; R29.703 NIHSS score 3; F17.210 Nicotine dependence, cigarettes, uncomplicated; Z71.6 Tobacco abuse counseling; E78.5 Hyperlipidemia, unspecified; K21.9 Gastro-esophageal reflux disease without esophagitis; K76.0 Fatty (change of) liver, not elsewhere classified; J44.9 Chronic obstructive pulmonary disease, unspecified; E11.9 Type 2 diabetes mellitus without complications; Z79.02 Long term (current) use of antithrombotics/antiplatelets; Z79.84 Long term (current) use of oral hypoglycemic drugs; Z79.899 Other long term (current) drug therapy
CPT/HCPCS: 36415; 70450; 70496; 70498; 70551; 80048; 80053; 80061; 81001; 82947; 83036; 84484; 85025; 85610; 85730; 93005; 97161; 97165; 99285; J1650; J3360; Q9967

== ENCOUNTER → 2025-06-24 18:42 | Outpatient (BNV) | payer OTHER, SELFPAY | PROVIDERS: Emergency Provider Student in an Organized Health Care Education/Training Program; PCP Nurse Practitioner; Visit Provider Student in an Organized Health Care Education/Training Program | DX: R20.2 Paresthesia of skin (principal); I65.23 Occlusion and stenosis of bilateral carotid arteries; I63.81 Other cerebral infarction due to occlusion or stenosis of small artery | CPT/HCPCS: 70450; 70496; 70498 ==

== ENCOUNTER → 2025-06-24 18:42 | Outpatient (BNV) | payer OTHER, SELFPAY | PROVIDERS: Admitting Provider Nurse Practitioner Family; Emergency Provider Student in an Organized Health Care Education/Training Program; PCP Nurse Practitioner; Visit Provider Internal Medicine Cardiovascular Disease | DX: R00.0 Tachycardia, unspecified (principal) | CPT/HCPCS: 93010 ==

== ENCOUNTER 2025-06-24 20:57 | Outpatient (BNV) | payer OTHER, SELFPAY | END 2025-06-25 12:07 | PROVIDERS: Admitting Provider Nurse Practitioner Family; Emergency Provider Student in an Organized Health Care Education/Training Program; PCP Nurse Practitioner; Visit Provider Radiology Diagnostic Radiology | DX: I63.9 Cerebral infarction, unspecified (principal); R90.82 White matter disease, unspecified | CPT/HCPCS: 70551 ==

== ENCOUNTER → 2025-06-24 20:57 | Outpatient (BNV) | payer OTHER, SELFPAY | PROVIDERS: Admitting Provider Nurse Practitioner Family; Emergency Provider Student in an Organized Health Care Education/Training Program; PCP Nurse Practitioner; Visit Provider Psychiatry & Neurology Neurology | DX: R53.1 Weakness (principal); I63.9 Cerebral infarction, unspecified | CPT/HCPCS: 99222 ==

== ENCOUNTER → 2025-06-24 20:57 | Outpatient (BNV) | payer OTHER, SELFPAY | PROVIDERS: Admitting Provider Nurse Practitioner Family; Emergency Provider Student in an Organized Health Care Education/Training Program; PCP Nurse Practitioner; Visit Provider Nurse Practitioner Family | DX: I63.9 Cerebral infarction, unspecified (principal); R53.1 Weakness; E11.21 Type 2 diabetes mellitus with diabetic nephropathy | CPT/HCPCS: 99223; 99232 ==

== ENCOUNTER 2025-07-01 21:44 | Emergency (ER) | payer OTHER, SELFPAY ==
--- OUTSIDE RECORDS SUMMARY | 2025-03-29 16:00 | XMS_ITS ---
Author Organization [facility] Address [address] [place] [address] Care Team Providers Care Correctional Facility Nurse Name Role Phone ZZAmasoudhive - DO NOT USE, [facility] Primary Care Provider Unavailable [facility] Unavailable [phone] Migration, Provider Unavailable Unavailable Allergies Allergen (clinical drug ingredient) Drug/Non Drug Allergy documented on EMR Reaction Allergy Type Onset Date Status atorvastatin Lipitor Unknown Drug Allergy Acti ve gabapentin Gabapentin Unknown Drug Allergy Activ e aspirin Aspirin Unknown Drug Allergy Active acetaminophen / codeine Acetaminophen-Codeine Unknown Drug Allergy Active REASON FOR VISIT [facility] Conversion Encounter Medications Medication SIG (Take, Route, [...] Active Encounters Encounter Location Date Provider Diagnosis [address] [address] 03/29/2025 Provider Migration Plan Of Treatment No Information Progress Notes * Esteban SONGDOB:1969 (55 yo F)Acc No.[id number]:03/29/2025 Patient: Julio Cesar ORALES, Marilinda Provider: :1970 A ge:54 Y S ex:Female Date:03/29/2025 Address:[address] [place] [address] Pcp:[facility] Becki Ahumada - DO NOT USE [...] Electronic signature of Prov ider Migration on 07/01/2025 at 10:28 PM EST Sign off status: Pending * Provider: Date: 0 03/29/2025 Generated for Stephanie alonso/Fidelia/Stewart on: 1 09/01/2024 10:28 PM EST
--- NOTE | 2025-07-01 | ECG_ITS ---
Test Reason : CHEST PAIN Blood Pressure : */* mmHG Vent. Rate : 88 BPM Atrial Rate : 88 BPM P-R Int : 158 ms QRS Dur : 78 ms QT Int : 364 ms P-R-T Axes : 44 39 32 degrees QTcB Int : 440 ms Normal sinus rhythm Normal ECG When compared with ECG of 24-Jun-2025 19:01, No significant change was found Referred By: Generic ED Physician Electronically Signed By: Brian Singh
[2025-07-01 21:48] VITALS: BP 140/76; PULSE 101; O2SAT 97
[2025-07-01 21:51] VITALS: BMI 33.8
[2025-07-01 21:52] VITALS: BP 148/69; PULSE 95; RESP 18; TEMP 36.4; O2SAT 96
[2025-07-01 22:14] LABS: MANUAL DIFF FLAG NO
[2025-07-01 22:15] LABS: Hematocrit 41.9 % (37.0-47.0); Hemoglobin 14.0 g/dl (12.0-16.0); Imm Gran Abs Auto 0.01 X10*3/uL (0.00-0.03); Imm Gran Pct Auto 0.1 % (0.0-0.4); Lymphocytes Absolute Auto 2.7 X10*3/uL (1.2-4.9); Mean Corpuscular HGB Conc 33.4 g/dl (31.0-35.0); Mean Corpuscular Hemoglobin 29.2 pg (27.0-33.0); Mean Corpuscular Volume 87.5 fL (80.0-98.0); NRBC Abs Auto 0.000 X10*3/uL (0.0-0.012); NRBC Pct Auto 0.0 /100WBC (0.0-0.2); Platelet Count 245 X10*3/uL (160-400); Red Blood Count 4.79 X10*6/uL (4.20-5.50); White Blood Count 7.8 X10*3/uL (4.8-10.8)
[2025-07-01 22:20] LABS: INTERNATIONAL NORM RATIO 1.0 (0.9-1.1); Prothrombin Time 12.6 SEC (11.2-13.5)
--- OUTSIDE RECORDS SUMMARY | 2025-07-01 22:27 | XMS_ITS | Clinical Summary ---
Author Organization [employer] Address [address] [place] [address] Care Team Providers Care Education Intern Name Role Phone Unavailable Primary Care Provider [...] patient's age to complete this topic Insurance [facility]
--- OUTSIDE RECORDS SUMMARY | 2025-07-01 22:27 | XMS_ITS | Encounter Summary ---
Author Organization [facility] Address [address] [place] [address] [place] [address] Phone Care Team Providers Care Needle Valve Operator Name Role Phone Unknown, Unknown MD Primary Care Provider Huey Khan MD Unavailable [phone] Debi Givens CALENDER INSPECTOR Primary Care Provider Huey Peacock MD Unavailable [phone] Mal Lema MD Unavailable Mal Lema MD Unavailable Mal Lema MD Unavailable Mal Lema MD Unavailable Rob OroscoSW Unavailable [phone] Gwen Lima RN Unavailable Lisa Camilo Primary Care Provider Lisa Camilo Unavailable [phone] Pcp, Unknown Primary Care Provider UnavailNeri Cruz MD Unavailable Pcp, Unknown Primary Care Provider UnavailStephie Escobar CALENDER INSPECTOR Primary Care Provider [phone] Rosa Williamson Primary Care Prov ider Gwen Lima RN Unavailable Ericka Vincent SUPERVISOR INTERNATIONAL RESERVATIONS Unavailable [email or web address] Encounter Details Date Type Department Care Team (Late st Contact Info) Description 05/31/2017 Procedure Pass [facility] Admitting Dept Virtual Department [address] [place] [address] Social History Tobacco Use Types Packs/Day Years [...] documented as of this encounter Care Teams Needle Valve Operator Relationship Specialty Start Date End Date Unknown, Unknown, PCP - General 05/09/17 11/14/17 Debi Givens NP [address] [place] [address] [email or web address] PCP - General Family Medicine 11/15/17 06/16/20 Lisa Camilo [address] [place] [address] [email or web address] PCP - General Cartridge Maker 06/17/20 06/17/20 Pcp, Unknown PCP - General 06/18/20 11/02/20 Pcp, Unknown PCP - General 11/03/20 12/29/20 Stephie Comer NP [address] [place] [address] PCP - General Family Medicine 12/30/20 08/04/21 Rosa Williamson PA [address] [place] [address] derrell PCP - General 08/05/21 Huey Peacock MD [address] [place] [address] [email or web address] Insurance Assigned Provider 10/14/17 11/14/17 Huey Peacock MD [address] [place] [address] Insurance Assigned Provider 10/14/17 03/17/18 Mal Lema MD [address] [place] [address] [email or web address] Insurance Assigned Provider 03/17/18 06/17/18 Mal Lema MD [address] [place] [address] [email or web address] Insurance Assigned Provider 08/18/18 06/22/19 Mal Lema MD [address] [place] [address] [email or web address] Insurance Assigned Provider 09/20/19 01/20/20 Mal Lema MD [address] [place] [address] [email or web address] Insurance Assigned Provider 03/28/20 07/25/20 Rob Orosco LICSW [address] [place] [address] [email or web address] PHCM Medication Manager 06/12/20 11/09/23 Gwen Lima RN [address] [place] [address] PHCM Softball Core Molder 06/12/20 10/27/20 Lisa Camilo [address] [place] [address] [email or web address] Community Health Worker 06/17/20 12/08/21 Neri Burger MD [address] [place] [address] [email or web address] Insurance Assigned Provider 07/25/20 05/22/22 Gwen Lima RN [address] [place] [address] PHCM Softball Core Molder 12/30/22 03/26/23 Ericka Vincent LCSW [address] [place] [address] [email or web address] [facility] Medication Manager 02/10/23 02/20/23 documented as of this encounter Additional Source Comments The information contained in this document represents components of the legal health record. It is not the complete legal health record.[facility]
--- OUTSIDE RECORDS SUMMARY | 2025-07-01 22:27 | XMS_ITS | Encounter Summary ---
Author Organization [facility] Address [address] [place] [address] Phone Care Team Providers Care Pipefitter Welder Name Role Phone KwesiAbbejael LIPSCOMBSW Unavailable [phone] Neri Burger MD Unavailable Rosa Williamson Primary Care Prov ider Gwen Lima RN Unavailable Ericka Vincent E COMMERCE ARCHITECT Unavailable mary Encounter Details Date Type Department Care Team (Late st Contact Info) Description 01/28/2022 Procedure Pass [facility] [address] [place], [place] [id number] Social History Tobacco Use Types Packs/Day Years [...] on filedocumented in this encounter Care Teams Pipefitter Welder Relationship Specialty Start Date End Date Rosa Williamson PA [address] [place] [address] [email or web address] PCP - General 08/05/21 Rob Orosco LICSW [address] [place] [address] PHCM Grades 6 Through 8 Teacher 06/12/20 11/09/23 Neri Burger MD [address] [place] [phone] Insurance Assigned Provider 07/25/2005/22 Gwen Lima RN [address] [place] [address] PHCM Proof Coin Collector 12/30/22 03/26/23 Ericka Vincent LCSW [address] [place] [address] [email or web address] PHC Grades 6 Through 8 Teacher 02/10/23 02/20/23 documented as of this encounter Additional Source Comments The information contained in this document represents components of the legal health record. It is not the complete legal health record.[facility]
[2025-07-01 22:28] LABS: Alanine Aminotransferase 34 U/L (0-31); Albumin Level 4.7 g/dL (3.5-5.0); Alkaline Phosphatase 94 U/L (39-117); Anion Gap 15 (12-20); Aspartate Amino Transferase 31 U/L (5-31); Blood Urea Nitrogen 11 mg/dL (9-16); Calcium 9.7 mg/dL (8.4-10.2); Carbon Dioxide 24 mmol/L (22-29); Chloride 107 mmol/L (96-108); Creatinine Clr Calc Pharmacy 109.1; Estimated Glomerular Filt Rate > 60; Potassium 3.7 mmol/L (3.3-5.1); Sodium 142 mmol/L (135-145); Total Protein 7.3 g/dL (6.5-8.0)
--- OUTSIDE RECORDS SUMMARY | 2025-07-01 22:28 | XMS_ITS | Encounter Summary ---
Author Organization [facility] Address [address] [place] [address] Phone Care Team Providers Care Administrator Social Welfare Name Role Phone Rob Orosco SHARLA Unavailable [phone] Lisa Camilo Unavailable [phone] Neri Burger MD Unavailable Stephie Comer SUPERINTENDENT MEASUREMENT Primary Care Provider [phone] Rosa Williamson Primary Care Prov ider Gwen Lima RN Unavailable Ericka Vincent HEAD GROWER Unavailable [email or web address] Encounter Details Date Type Department Care Team (Late st Contact Info) Description 08/01/2021 Procedure Pass [facility], Ct Scan - [facility] [address] [place] [address] Social History Tobacco Use Types Packs/Day Years [...] 11:40 AM EST Gwen Bang RN * [place] Suicide Severity Rating Scale (Screener/Recent Self-Report) Question [...] documented as of this encounter Care Teams Administrator Social Welfare Relationship Specialty Start Date End Date Stephie Comer NP [address] [place] [address] PCP - General Family Medicine 12/30/20 08/04/21 Rosa Williamson PA [address] [place] [address] derrell PCP - General 08/05/21 Rob Orosco LICSW [address] [place] [address] PHCM Sales Correspondence Clerk 06/12/20 11/09/23 Lisa Camilo [address] [place] [address] [email or web address] Community Health Worker 06/17/20 12/08/21 Neri Burger MD [address] [place] [address] [email or web address] Insurance Assigned Provider 07/25/20 05/22/22 Gwen Lima RN [address] [place] [address] [email or web address] PHCM Camp Advisor 12/30/22 03/26/23 Ericka Vincent LCSW [address] [place] [address] [email or web address] PHCM Sales Correspondence Clerk 02/10/23 02/20/23 documented as of this encounter Additional Source Comments The information contained in this document represents components of the legal health record. It is not the complete legal health record.[facility]
--- OUTSIDE RECORDS SUMMARY | 2025-07-01 22:28 | XMS_ITS | Encounter Summary ---
Author Organization [facility] Address [address] [facility] [address] [place] [address] Phone Care Team Providers Care Inspector Fabric Name Role Phone Rob Orosco SHARLA Unavailable [phone] Lisa Camilo Unavailable [phone] Neri Burger MD Unavailable Rosa Williamson Primary Care Prov ider Gwen Lima RN Unavailable Ericka Vincent MUTUAL FUNDS AGENT Unavailable [email or web address] Encounter Details Date Type Department Care Team (Late st Contact Info) Description 08/09/2021 Ancillary Orders [facility] [address] [place] [address] Dacia Ferreira, [address] [place] [address] [email or web address] Social History Tobacco Use Types Packs/Day Years [...] documented as of this encounter Care Teams Inspector Fabric Relationship Specialty Start Date End Date Rosa Williamson PA [address] [place] [address] [email or web address] PCP - General 08/05/21 Rob Orosco LICSW [address] [place] [address] PHCM Cyber Systems Administrator 06/12/20 11/09/23 Lisa Camilo [address] [place] [address] [email or web address] Community Health Worker 06/17/2011/15 Neri Burger MD [address] [place] [address] Insurance Assigned Provider 07/25/2005/22 Gwen Lima, RN [address] [place] [address] PHCM Can Repairer 12/30/22 03/26/23 Ericka Vincent LCSW [address] [place] [address] PHCM Cyber Systems Administrator 02/10/23 02/20/23 documented as of this encounter Additional Source Comments The information contained in this document represents components of the legal health record. It is not the complete legal health record.[facility]
--- OUTSIDE RECORDS SUMMARY | 2025-07-01 22:28 | XMS_ITS | Encounter Summary ---
Author Organization [facility] Address [address] [place] [address] Phone Care Team Providers Care Director Of Front Office Name Role Phone Rob Orosco CHLORINE CELL TENDER Unavailable [phone] Rosa Williamson Primary Care Prov ider Gwen Lima RN Unavailable Ericka Vincent SHIPPER/RECEIVER Unavailable mary Encounter Details Date Type Department Care Team (Late st Contact Info) Description 09/05/2022 Transcribe Orders Virtual Department [address] [place] [address] Rosa Williamosn PA [address] [place] [address] ashley Breast screening (Primary Dx) Social History [...] unspecified documented in this encounter Care Teams Director Of Front Office Relationship Specialty Start Date End Date Rosa Williamson PA [address] [place] [address] PCP - General 08/05/21 Rob Orosco LICSW [address] [place] [address] [facility] Detailer School Photographs 06/12/20 11/09/23 Gwen Lima RN [address] [place] [address] PHC Lead Slot Technician 12/30/22 03/26/23 Ericka Vincent LCSW [address] [place] [address] PHC Detailer School Photographs 02/10/23 02/20/23 documented as of this encounter Additional Source Comments The information contained in this document represents components of the legal health record. It is not the complete legal health record.[facility]
--- OUTSIDE RECORDS SUMMARY | 2025-07-01 22:28 | XMS_ITS | Encounter Summary ---
Author Organization [facility] Address [address] [place] [address] Phone Care Team Providers Care Asw Specialist Name Role Phone Rob Orosco SHARLA Unavailable Lisa Camilo Unavailable [phone] Neri Burger MD Unavailable Stephie Comer MANAGEMENT LECTURER Primary Care Provider [phone] Rosa Williamson Primary Care Prov ider Gwen Lima RN Unavailable Ericka Vincent AVIATION SAFETY OFFICER Unavailable [email or web address] Encounter Details Date Type Department Care Team (Late st Contact Info) Description 08/01/2021 Procedure Pass [facility], Ct Scan - [facility] [address] [place] [address] Social History Tobacco Use Types Packs/Day Years [...] 11:40 AM EST Gwen Bang RN * [place] Suicide Severity Rating Scale (Screener/Recent Self-Report) Question [...] documented as of this encounter Care Teams Asw Specialist Relationship Specialty Start Date End Date Stephie Comer NP [address] [place] [address] PCP - General Family Medicine 12/30/20 08/04/21 Rosa Williamson PA [address] [place] [address] derrell PCP - General 08/05/21 Rob Orosco LICSW [address] [place] [address] PHCM Crime Scene Photographer 06/12/20 11/09/23 Lisa Camilo [address] [place] [address] [email or web address] Community Health Worker 06/17/20 12/08/21 Neri Burger MD [address] [place] [address] [email or web address] Insurance Assigned Provider 07/25/20 05/22/22 Gwen Lima RN [address] [place] [address] [email or web address] PHCM Field Crop Harvest Contractor 12/30/22 03/26/23 Ericka Vincent LCSW [address] [place] [address] [email or web address] PHCM Crime Scene Photographer 02/10/23 02/20/23 documented as of this encounter Additional Source Comments The information contained in this document represents components of the legal health record. It is not the complete legal health record.[facility]
--- OUTSIDE RECORDS SUMMARY | 2025-07-01 22:28 | XMS_ITS | Encounter Summary ---
Author Organization [facility] Address [address] [place] [address] [place] [address] Phone Care Team Providers Care Workgroup Leader Name Role Phone Rosa Williamson Primary Care Prov ider Encounter Details Date Type Department Care Team (Late st Contact Info) Description 02/05/2024 Ancillary Orders [facility], X-Ray - [address] [phone] Abimbola Adkins NP [address] [place] [phone] [email or web address] Thoracic back pain, unspecified back pain laterality, [...] clinician's provided indication for this examination in [facility]: Pain COMPARISON: None FINDINGS: Slight dextrocurvature of the thoracic spine. Thoracic vertebral body heights are maintained. Minimal multilevel degenerative changes. Procedure Note Tej Peraza MD - 02/05/2024 XR THORACIC SPINE 3 VIEW Referring clinician's provided indication for this examination in [facility]:Pain COMPARISON: None FINDINGS: Slight dextrocurvature of the thoracic spine. Thoracic vertebral bodyheights are maintained. Minimal multilevel degenerative changes. IMPRESSION: No displaced fracture. Minimal degenerative changes. us Abimbola Adkins BUDGET REPORT CLERK IMG XR SPINE Final Result documented in this encounter Visit Diagnoses Diagnosis Thoracic back pain, unspecified back pain laterality, unspecified chronicity- Primary Thoracic back pain, unspecified back pain laterality, unspecified chronicity documented in this encounter Care Teams Workgroup Leader Relationship Specialty Start Date End Date Rosa Williamson PA [address] [place] [address] PCP - General 08/05/21 documented as of this encounter Additional Source Comments The information contained in this document represents components of the legal health record. It is not the complete legal health record.[facility]
--- OUTSIDE RECORDS SUMMARY | 2025-07-01 22:28 | XMS_ITS | Encounter Summary ---
Author Organization [facility] Address [address] [place] [address] Phone Care Team Providers Care Onsite Health Coach Name Role Phone Debi Givens DEAN Primary Care Provider Mal Lema MD Unavailable Rob Orosco MAIL OPENER Unavailable [phone] Gwen Lima RN Unavailable Lisa Camilo Primary Care Provider Lisa Camilo Unavailable [phone] Pcp, Unknown Primary Care Provider UnavailNeri Cruz MD Unavailable Pcp, Unknown Primary Care Provider UnavailStephie Escobar DEAN Primary Care Provider Rosa Williamson Primary Care Prov ider Gwen Lima RN Unavailable Ericka Vincent AUTOMATIC LOG CUT OFF SAWYER Unavailable mary Encounter Details Date Type Department Care Team (Late st Contact Info) Description 02/14/2020 Transcribe Orders Virtual Department [address] [place], [place] [phone] Rosa Williamson PA [address] [place] [address] ashley Muscle ache (Primary Dx); Nonintractable headache, [...] documented as of this encounter Care Teams Onsite Health Coach Relationship Specialty Start Date End Date Debi Givens, SONY [address] [place] [address] [email or web address] PCP - General Family Medicine 11/15/17 06/16/20 Lisa Camilo [address] [place] [address] [email or web address] PCP - General Production Consultant 06/17/20 06/17/20 Pcp, Unknown PCP - General 06/18/20 11/02/20 Pcp, Unknown PCP - General 11/03/20 12/29/20 Stephie Comer NP [address] [place] [address] PCP - General Family Medicine 12/30/20 08/04/21 Rosa Williamson PA [address] [place] [address] derrell PCP - General 08/05/21 Mal Lema MD [address] [facility] [address] [place] [phone] [email or web address] Insurance Assigned Provider 03/28/20 07/25/20 Rob Orosco LICSW [address] [place] [address] PHCM Planting Machine Operator 06/12/20 11/09/23 Gwen Lima RN [address] [place] [address] PHCM Grinding Operator 06/12/20 10/27/20 Lisa Camilo [address] [place] [address] [email or web address] PHCM Community Health Worker 06/17/20 12/08/21 Neri Burger MD [address] [place] [address] Insurance Assigned Provider 07/25/20 05/22/22 Gwen Lima RN [address] [place] [address] [email or web address] PHCM Grinding Operator 12/30/22 03/26/23 Ericka Vincent, [address] [address] [email or web address] PHC Planting Machine Operator 02/10/23 02/20/23 documented as of this encounter Additional Source Comments The information contained in this document represents components of the legal health record. It is not the complete legal health record.[facility]
--- OUTSIDE RECORDS SUMMARY | 2025-07-01 22:28 | XMS_ITS | Encounter Summary ---
Author Organization [facility] Address [address] [place] [address] [place] [address] Phone Care Team Providers Care Merchandise Director Name Role Phone Rob Orosco SHARLA Unavailable [phone] Lisa Camilo Unavailable [phone] Neri Burger MD Unavailable Rosa Williamson Primary Care Prov ider Gwen Lmia RN Unavailable Ericka Vincent BLINDSTITCH MACHINE OPERATOR Unavailable mary Encounter Details Date Type Department Care Team (Latest Contact Info) Description 08/09/2021 Ancillary Orders Noé Wilkerson Non-Invasic Cardiology [address] [place] [address] Dacia Ferreira, DO [address] [place] [address] [email or web address] Cerebrovascular accident (CVA), unspecified mechanism Social [...] documented as of this encounter Care Teams Merchandise Director Relationship Specialty Start Date End Date Rosa Williamson PA [address] [place] [address] [email or web address] PCP - General 08/05/21 Rob Orosco LICSW [address] [place] [address] [facility] Drying Frame Operator 06/12/20 11/09/23 Lisa Camilo [address] [place] [address] [email or web address] Community Health Worker 06/17/2011/15 Neri Burger MD [address] [place] [phone] Insurance Assigned Provider 07/25/2005/22 Gwen Lima, MELINA [address] [place] [address] [facility] Bilingual Instructor 12/30/22 03/26/23 Ericka Vincent LCSW [address] [place] [address] PHC Drying Frame Operator 02/10/23 02/20/23 documented as of this encounter Additional Source Comments The information contained in this document represents components of the legal health record. It is not the complete legal health record.[facility]
--- OUTSIDE RECORDS SUMMARY | 2025-07-01 22:28 | XMS_ITS | Encounter Summary ---
Author Organization [facility] Address [address] [place] [address] Phone Care Team Providers Care Laundry Tub Maker Name Role Phone Rob Orosco CUSTOMS AND BORDER PROTECTION INSPECTOR Unavailable [phone] Neri Burger MD Unavailable Rosa Williamson Primary Care Prov ider Gwen Lima RN Unavailable Ericka Vincent TIRE SHOP MANAGER Unavailable mary Encounter Details Date Type Department Care Team (Late st Contact Info) Description 01/04/2022 Transcribe Orders Virtual Department [address] [place] [address] Rosa Williamson PA [address] [place], [place] [address] ashley Cough (Primary Dx); Increasing shortness of [...] with bronchodilator, DLCO, Lung Volumes; Performing Location: [facility] (01/20/2022 8:01 AM EDT) FEV1 1.33 liters [...] breath documented in this encounter Care Teams Laundry Tub Maker Relationship Specialty Start Date End Date Rosa Williamson PA [address] [place] [address] [email or web address] PCP - General 08/05/21 Rob Orosco LICSW [address] [place] [address] [facility] Strategic Sourcing Manager 06/12/20 11/09/23 Neri Burger MD [address] [place] [phone] Insurance Assigned Provider 07/25/2005/22 Gwen Lima RN [address] [place] [address] PHCM Registered Nurse Midwife 12/30/22 03/26/23 Ericka Vincent LCSW [address] [place] [address] PHCM Sr. Strategic Sourcing Manager 02/10/23 02/20/23 documented as of this encounter Additional Source Comments The information contained in this document represents components of the legal health record. It is not the complete legal health record.[facility]
--- OUTSIDE RECORDS SUMMARY | 2025-07-01 22:28 | XMS_ITS | Patient Health Record ---
Author Organization [facility] Address [address] [place] [address] Care Team Providers Care Venetian Blind Maker Name Role Phone [employer] - DO NOT USE, [facility] Primary Care Provider Unavailable [facility] Unavailable [phone] Migration, Provider Unavailable Unavailable Allergies Allergen (clinical [...] Risk Notes Problem Diabetes mellitus type II (82981789) Diabetes mellitus type II (250.00) Active confirmed Problem Vitamin D deficiency (39917152) Vitamin D deficiency NOS (268.9) Active confirmed Problem Tobacco use (495316544) Tobacco use disorder (305.1) Active confirmed Problem Lumbago (819677360) Lumbago (724.2) Active confirmed Problem Asthma (262694514) Asthma (493.00) Active confirmed Problem Overweight (705100831) Overweight, BMI 25-29.9 (278.02) Active confirmed Encounters Encounter Location Date Provider Diagnosis [facility] [address] [place] [address] 03/29/2025 Provider Migration Plan Of Treatment Pending Test Test Name Order Date GC, DNA Urine - [facility] 03/24/2015 [facility] 03/24/2015 Chlamydia, DNA Urine - [facility] 03/24/20 15 Insurance Providers Payer Name Payer Address Payer Phone Subscriber Number Group Number Insured Name Patient Relationship to Insured Coverage Start Date Coverage End Date [place] Standard [address] [place] [address] [phone] [id number] Esteban Davis Self - patient is the insured Medical (General) History Medical History History ICD Code asthma during cold weather DM diet controlled (on meds in past unti l lost wt); on meds now (02/2015) Surgical History Surgery Date(Month/Year) Tubal Ligation 26 yr old Carpal Tunnel 01/31/2014
--- OUTSIDE RECORDS SUMMARY | 2025-07-01 22:28 | XMS_ITS | Encounter Summary ---
Author Organization [facility] Address [address] [place] [address] Phone Care Team Providers Care Finished Garment Inspector Name Role Phone Rob Orosco Unavailable [phone] Lisa Camilo Unavailable [phone] Neri Burger MD Unavailable Rosa Williamson Primary Care Prov ider Gwen Lima RN Unavailable Ericka Vincent DISPENSING OPERATOR Unavailable [email or web address] Reason for Referral * Hospital - Outpatient - Closed Specialty Diagnoses / Procedures Referred By Baltazar gibson Referred To Contact Diagnoses Cerebrovascular accident (CVA), unspecified mechanism Procedures MCT (Mobile Cardiac Telemetry) MCT (Mobile Cardiac Telemetry) MCT (Mobile Cardiac Telemetry) Rosa Williamson PA Phone: tel: fax: mailto:reynaldo [address] [address] Phone: tel: Referral ID Status Reason Start Date Expiration Date Visits Re quested Visits Authorized [id number] Closed 09/13/2021 09/13/2022 6 6 Encounter Details Date Type Department Care Team (Late st Contact Info) Description 08/10/2021 Ancillary Orders Virtual Department [address] [place] [address] Rosa Williamson PA [address] [place] [address] [email or web address] Cerebrovascular accident (CVA), unspecified mechanism Social [...] documented as of this encounter Care Teams Finished Garment Inspector Relationship Specialty Start Date End Date Rosa Williamson PA [address] [place] [address] [email or web address] PCP - General 08/05/21 Rob Orosco, TAPERING MACHINE OPERATOR [address] [place] [address] PHCM Field Aide 06/12/20 11/09/23 Lisa Camilo [address] [place] [address] [email or web address] Community Health Worker 06/17/2011/15 Neri Burger MD [address] [place] [address] [email or web address] Insurance Assigned Provider 07/25/2005/22 Gwen Lima RN [address] [place] [address] [email or web address] [facility] Materials Inspector 12/30/22 03/26/23 Ericka Vincent LCSW [address] [place] [address] [email or web address] [facility] Field Aide 02/10/23 02/20/23 documented as of this encounter Additional Source Comments The information contained in this document represents components of the legal health record. It is not the complete legal health record.[facility]
--- OUTSIDE RECORDS SUMMARY | 2025-07-01 22:28 | XMS_ITS | Encounter Summary ---
Author Organization [facility] Address [address] [place] [address] Phone Care Team Providers Care Biological Engineer Name Role Phone Rob Orosco SHARLA Unavailable [phone] Lisa Camilo Unavailable [phone] Neri Burger MD Unavailable Stephie Comer CHILD CARE SITTER Primary Care Provider [phone] Rosa Williamson Primary Care Prov ider Gwen Lima RN Unavailable Ericka Vincent HELICOPTER UTILITY AIRCREWMAN Unavailable [email or web address] Encounter Details Date Type Department Care Team (Late st Contact Info) Description 08/01/2021 Procedure Pass [facility] [address] [place] [address] Social History Tobacco Use Types Packs/Day Years [...] 11:40 AM EST Gwen Bang RN * [place] Suicide Severity Rating Scale (Screener/Recent Self-Report) Question [...] documented as of this encounter Care Teams Biological Engineer Relationship Specialty Start Date End Date Stephie Comer NP [address] [place] [address] PCP - General Family Medicine 12/30/20 08/04/21 Rosa Williamson PA [address] [place] [address] derrell PCP - General 08/05/21 Rob Orosco LICSW [address] [place] [address] [facility] Sound Designer 06/12/20 11/09/23 Lisa Camilo [address] [place] [address] [email or web address] Community Health Worker 06/17/20 12/08/21 Neri Burger MD [address] [place] [address] [email or web address] Insurance Assigned Provider 07/25/20 05/22/22 Gwen Lima RN [address] [place] [address] [email or web address] PHCM Food Order Expediter 12/30/22 03/26/23 Ericka Vincent LCSW [address] [place] [address] [email or web address] PHCM Sound Designer 02/10/23 02/20/23 documented as of this encounter Additional Source Comments The information contained in this document represents components of the legal health record. It is not the complete legal health record.[facility]
--- OUTSIDE RECORDS SUMMARY | 2025-07-01 22:28 | XMS_ITS | Encounter Summary ---
Author Organization [facility] Address [address] [place] [address] Phone Care Team Providers Care Director Of Provider Relations Name Role Phone Rob Orosco SHARLA Unavailable [phone] Lisa Camilo Unavailable [phone] Neri Burger MD Unavailable Stephie Comer RESOURCE PROGRAM TEACHER Primary Care Provider [phone] Rosa Williamson Primary Care Prov ider Gwen Lima RN Unavailable Ericka Vincent CASH POSTING SPECIALIST Unavailable [email or web address] Encounter Details Date Type Department Care Team (Late st Contact Info) Description 07/08/2021 Transcribe Orders Virtual Department [address] [place] [address] Rosa Williamson PA [address] [place], [place] [phone] [place] Breast screening (Primary Dx) Social History [...] documented as of this encounter Care Teams Director Of Provider Relations Relationship Specialty Start Date End Date Stephie Comer NP [address] [place] [address] PCP - General Family Medicine 12/30/20 08/04/21 Rosa Williamson PA [address] [place] [address] derrell PCP - General 08/05/21 Rob Orosco LICSW [address] [place] [address] [email or web address] PHCM Sampler Pickup 06/12/20 11/09/23 Lisa Camilo [address] [place] [address] [email or web address] Community Health Worker 06/17/20 12/08/21 Neri Burger MD [address] [place] [address] [email or web address] Insurance Assigned Provider 07/25/20 05/22/22 Gwen Lima RN [address] [place] [address] [email or web address] PHCM Superintendent Container Terminal 12/30/22 03/26/23 Ericka Vincent, CASH POSTING SPECIALIST [address] [place] [address] [email or web address] PHC Sampler Pickup 02/10/23 02/20/23 documented as of this encounter Additional Source Comments The information contained in this document represents components of the legal health record. It is not the complete legal health record.[facility]
--- OUTSIDE RECORDS SUMMARY | 2025-07-01 22:28 | XMS_ITS | Encounter Summary ---
Author Organization [facility] Address [address] [place] [address] Phone Care Team Providers Care Storeroom Clerk Name Role Phone Rob Orosco SHARLA Unavailable [phone] Lisa Camilo Unavailable Neri Burger MD Unavailable Rosa Williamson Primary Care Prov ider Gwen Lima RN Unavailable Ericka Vincent ROUTE RIDER SUPERVISOR Unavailable [email or web address] Encounter Details Date Type Department Care Team (Latest Contact Info) Description 08/10/2021 Ancillary Orders [facility] Urgent Care at [address] [address] Rosa Williamson PA [address] [place] [address] radha Cerebrovascular accident (CVA), unspecified mechanism Social [...] documented as of this encounter Care Teams Storeroom Clerk Relationship Specialty Start Date End Date Rosa Williamson PA [address] [place] [address] [email or web address] PCP - General 08/05/21 Rob Orosco LICSW [address] [place] [address] [email or web address] PHCM Granite Countertop Installer 06/12/20 11/09/23 Lisa Camilo [address] [place] [address] [email or web address] Community Health Worker 06/17/2011/15 Neri Burger MD [address] [place] [address] [email or web address] Insurance Assigned Provider 07/25/2005/22 Gwen Lima RN [address] [place] [address] [email or web address] PHC Magazine Repairer 12/30/22 03/26/23 Ericka Vincent LCSW [address] [place] [address] PHCM Granite Countertop Installer 02/10/23 02/20/23 documented as of this encounter Additional Source Comments The information contained in this document represents components of the legal health record. It is not the complete legal health record.[facility]
--- OUTSIDE RECORDS SUMMARY | 2025-07-01 22:28 | XMS_ITS | Encounter Summary ---
Author Organization [facility] Address [address] [place] [address] Phone Care Team Providers Care Scalemaker Name Role Phone Rob Orosco PIPE FITTER AMMONIA Unavailable [phone] Lisa Camilo Unavailable [phone] Neri Burger MD Unavailable Stephie Comer OCCUPATIONAL THERAPY PROGRAM DIRECTOR Primary Care Provider [phone] Rosa Williamson Primary Care Prov ider Gwen Lima RN Unavailable Ericka Vincent PCB DESIGN ENGINEER Unavailable [email or web address] Encounter Details Date Type Department Care Team (Late st Contact Info) Description 08/01/2021 Procedure Pass [facility] [address] [place], [place] [phone] Social History Tobacco Use Types Packs/Day Years [...] 11:40 AM EST Gwen Bang RN * [place] Suicide Severity Rating Scale (Screener/Recent Self-Report) Question [...] documented as of this encounter Care Teams Scalemaker Relationship Specialty Start Date End Date Stephie Comer NP [address] [place] [address] PCP - General Family Medicine 12/30/20 08/04/21 Rosa Williamson PA [address] [place] [address] derrell PCP - General 08/05/21 Rob Orosco LICSW [address] [place] [address] PHCM Heel Nailing Machine Operator 06/12/20 11/09/23 Lisa Camilo [address] [place] [address] [email or web address] Community Health Worker 06/17/20 12/08/21 Neri Burger MD [address] [place] [address] [email or web address] Insurance Assigned Provider 07/25/20 05/22/22 Gwen Lima RN [address] [place] [address] [email or web address] PHCM Psychiatric Mental Health Nurse 12/30/22 03/26/23 Ericka Vincent LCSW [address] [place] [address] [email or web address] PHCM Heel Nailing Machine Operator 02/10/23 02/20/23 documented as of this encounter Additional Source Comments The information contained in this document represents components of the legal health record. It is not the complete legal health record.[facility]
--- OUTSIDE RECORDS SUMMARY | 2025-07-01 22:28 | XMS_ITS | Encounter Summary ---
Author Organization [facility] Address [address] [place] [address] Phone Care Team Providers Care Forestry Foreman Name Role Phone Rob Orosco [facility] Unavailable [phone] Rosa Williamson Primary Care Prov ider Gwen Lima RN Unavailable Ericka Vincent HEARSE DRIVER Unavailable mary Encounter Details Date Type Department Care Team (Late st Contact Info) Description 09/05/2022 Procedure Pass [address] [phone] Social History Tobacco Use Types Packs/Day Years [...] on filedocumented in this encounter Care Teams Forestry Foreman Relationship Specialty Start Date End Date Rosa Williamson PA [address] [place] [address] PCP - General 08/05/21 Rob Orosco LICSW [address] [place] [address] PHCM Special Warfare Combatant Crewman 06/12/20 11/09/23 Gwen Lima, RN [address] [place] [address] PHCM Pallet Stone Positioner 12/30/22 03/26/23 Ericka Vincent LCSW [address] [place] [address] PHCM Special Warfare Combatant Crewman 02/10/23 02/20/23 documented as of this encounter Additional Source Comments The information contained in this document represents components of the legal health record. It is not the complete legal health record.[facility]
--- OUTSIDE RECORDS SUMMARY | 2025-07-01 22:29 | XMS_ITS | Clinical Summary ---
Author Organization [facility] Address [address] [place] [address] Phone Care Team Providers Care Instructional Coordinator Name Role Phone Rosa Williamson Primary [...] of swelling, will start Zetia 10 mg -monitoring coordinator -PT OT -Neurochecks -Tighter glucose control, will [...] the future. Her daughter, who lives in [place], will try to come and stay with her to help her with her appointments. - Continue Lantus 8 units subcu nightly. - Iqmxa-[id number]-bnpt blood sugars with insulin likely coverage. Moderate [...] SEE NARRATIVE - 09/08/2022 11:48 AM EST [address] [address] Manager Product Marketing: Stephie Lewis MD CEMENT BREAKER Cytology Report FINAL DIAGNOSIS A. PAP SMEAR [...] 59, 66, 68) Note: Testing performed by [facility] On[facility]arity HR-HPV analysis. Clinical correlation is advised. This HPV test was performed at [facility], [address] [place] [address]. This test has been FDA approved for [facility] cervical cytology specimens. The accuracy and precision of this test for all other specimen sources has been verified in the Cytopathology Laboratory of the [facility] and has not been cleared or approved by the U.S. Food and Drug Administration. Clinical correlation is advised. CLINICAL HISTORY Date of Last Menstrual Period: Not Provided Menstrual History: Unknown Other Clinical Conditions: Screening Pap SPECIMEN SOURCE A: PAP SMEAR (SUREPATH) CE Patient Name: ESTEBAN SONG : 1970 (Age: 52) Sex: F Institution: [facility] Location: [facility] Date of Collection: 09/05/2022 Date of Reported: 09/08/2022 11:48 Results to: Rosa Williamson us Rosa Williamson PA CYTOLOGY ORDERABLE S Final Result SEE NARRATIVE * (ABNORMAL) Basic metabolic panel (08/23/2021 9:20 AM EST) SODIUM 135 133 - 146 mmol/L [facility] CHLORIDE 99 96 - 108 mmol/L [facility] POTASSIUM 3.4 3.3 - 5.1 mmol/L [facility] CO2 20(L) 21 - 35 mmol/L [facility] BUN 9 6 - 19 mg/dL [facility] CREATININE 0.50 0.5 - 1.5 mg/dL [facility] GLUCOSE 316(H) 70 - 99 mg/dL [facility] CALCIUM 9.2 8.4 - 10.3 mg/dL [facility] EGFR 113 >59 mL/min/1.7 3m2 [facility] Comment:Estimated glomerular filtration rate calculated using the CKD-EPI refit equation. ANION GAP 19 10 - 20 mmol/L [facility] Blood 08/23/2021 9:20 AM EST 08/23/2021 9:30 AM EST us Brendan Borden MD LAB BLOOD BKR ORD ERABLES Final Result Performing Organization Address City/[facility]/ZIP Co de Phone Number [address] [address] * (ABNORMAL) Lipid panel (08/02/2021 7:11 AM EST) HDL 33 mg/dL [facility] Comment: Interpretation <40 mg/dL: Low HDL cholesterol (major risk factor for CHD) Greater than or equal to 60 mg/dL: High HDL cholesterol ( negative risk factor for CHD) HDL - cholesterol is affected by a number of factors, e.g. smoking, excerise, hormones, sex and age. CHOLESTEROL 185 0 - 240 mg/dL [facility] TRIGLYCERIDES 103 30 - 160 mg/dL [facility] LDL 131(H) 50 - 129 mg/dL [facility] Comment: LDL levels in terms of risk for coronary heart disease: <100 mg/dL: Optimal 100-129 mg/dL: Near or above optimal 130-159 mg/dL: Borderline high 160-189 mg/dL: High >190 mg/dL: Very High CARDIAC RISK RATIO 5.6(H) 3.3 - 4.4 C [facility] Blood 08/02/2021 7:11 AM EST 08/02/2021 7:27 AM EST us Irene Albright NP LAB BLOOD BKR ORDERABLE S Final Result Performing Organization Address City/[facility]/ZIP Co de Phone Number [address] [address] * (ABNORMAL) Hemoglobin A1c (08/01/2021 2:08 PM EST) HEMOGLOBIN A1C 10.1(H) 4.3 - 5.8 % [facility] Blood 08/01/2021 2:08 PM EST 08/01/2021 2:29 PM EST us Brendan Borden MD LAB BLOOD BKR ORD ERABLES Final Result Performing Organization Address [facility]/ZIP Co de Phone Number [address] [address] from Last 3 Months or Most Recently Relevant to Health Maintenance Insurance [facility] MEDICARE PART A & [place] Advance Directives For more information, please contact: [phone] (9AM - 5PM [facility], Monday-Monday) Documents on File Type Date Recorded Patient Charge Entry Specialist Expl anation Healthcare Proxy 08/09/2021 12:49 PM [...] Agent (Proxy form on file) Care Teams Instructional Coordinator Relationship Specialty Start Date End Date Rosa Williamson PA [address] [place] [address] PCP - General 08/05/21 Additional Source Comments The information contained in this document represents components of the legal health record. It is not the complete legal health record.[facility]
[2025-07-01 22:36] LABS: Troponin-I High Sensitivity < 2.7 ng/L (<3.5-17.0)
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
[2025-07-01 23:14] VITALS: BP 144/70; PULSE 92; RESP 18; TEMP 36.6; O2SAT 97
== END 2025-07-01 23:15 | disposition home or self-care (01) ==
PROVIDERS: Emergency Provider Emergency Medicine
DX: R07.9 Chest pain, unspecified (principal); E11.9 Type 2 diabetes mellitus without complications; E78.5 Hyperlipidemia, unspecified; I10 Essential (primary) hypertension; J45.50 Severe persistent asthma, uncomplicated; Z86.73 Personal history of transient ischemic attack (TIA), and cerebral infarction without residual deficits; F17.200 Nicotine dependence, unspecified, uncomplicated; Z79.51 Long term (current) use of inhaled steroids; Z79.84 Long term (current) use of oral hypoglycemic drugs; Z79.899 Other long term (current) drug therapy; Z71.6 Tobacco abuse counseling
CPT/HCPCS: 36415; 80053; 84484; 85025; 85610; 93005; 99283; 99284

== ENCOUNTER → 2025-07-01 21:59 | Outpatient (BNV) | payer OTHER, SELFPAY | PROVIDERS: Emergency Provider Emergency Medicine; Visit Provider Internal Medicine Cardiovascular Disease | DX: R07.9 Chest pain, unspecified (principal) | CPT/HCPCS: 93010 ==